=== PATIENT | female | born 1990 | race Caucasian/White ===

== ENCOUNTER 2016-11-08 17:36 | Inpatient (IN) | payer OTHER, SELFPAY ==
[2016-11-08] MEDS ORDERED: Sodium Chloride 0.9% 1000 ML 1,000 ML IV STA (18:43)
[2016-11-08] MEDS ORDERED: Sodium Chloride 0.9% 1000 ML 1,000 ML ONE ×2 (18:51→20:49)
[2016-11-08 19:00] LABS: Mean Cell Volume 93.2 fl (78-100); Mean Corpuscular Hemoglobin 30.6 pg (26-32); Mean Platelet Volume 12.1 fl (6-9.5); Platelet Count 369 K/mm3 (150-450); Red Blood Count 4.71 M/mm3 (4.1-5.4); Red Cell Distribution Width 13.2 % (11.5-14.0); White Blood Count 21.3 K/mm3 (4.0-10.5)
[2016-11-08 19:07] LABS: INR 1.02 (0.8-3.0); PROTIME 11.4 SECONDS (9.95-12.35)
--- NOTE | 2016-11-08 19:10 | ERPHSYRPT ---
- History of Present Illness Time Seen by Provider: 11/08/16 18:00 Historian: patient Exam Limitations: clinical condition Patient Subjective Stated Complaint: "i had a bladder test on saturday. i had an allergic reaction to whatever they used to clean me for the cath. i went to my dr on sat and they gave me a steriod shot for the swelling. i have been bleeding a little on my period. i had a pad on and thought my daughter had wet on me. i had bleed through heavily. When i stood up, i gushed bright red blood from my rectum. i called my dr and they told me to come in." Triage Nursing Assessment: aox3, breathing easy unlabored,skin pink warm dry, steady gait Physician History: PATIENT STATES SHE WAS EVALUATED BY UROLOGIST YESTERDAY, ADMINISTERED BETADINE PREP AND SUSTAINED INFLAMMED RECTAL HEMORROIDS. HAD ONSET OF RECTAL BLEEDING, ASSOCIATED WITH SEVERE PAIN. ADMITS TO TAKING MOTRIN EVERY 6 HOURS FOR PAIN. DENIES FEVER, DIZZINESS OR WEAKNESS. ADMITS TO HAVING RECTAL IN SITTING POSITION FOR PAST WEEK. Timing/Duration: day(s) Activities at Onset: none Quality: throbbing Abdominal Pain Onset Location: other (RECTAL) Pain Radiation: no radiation Severity of Pain-Max: moderate Severity of Pain-Current: moderate Modifying Factors: Improves With: movement, other (HEMMORROID RECTAL BLEEDING ) Previous symptoms: same symptoms as today Allergies/Adverse Reactions: iodine Allergy (Severe, Verified 11/08/16 21:08) Home Medications: Medroxyprogesterone 2.5 mg [Provera 2.5 MG] 1 tablet PO DAILY 09/19/15 [ History] Hx Tetanus, Diphtheria Vaccination/Date Given: Yes Hx Influenza Vaccination/Date Given: No Hx Pneumococcal Vaccination/Date Given: No - Past Medical History Pertinent Past Medical History: Yes Neurological History: No Pertinent History ENT History: No Pertinent History Cardiac History: No Pertinent History Respiratory History: Asthma Endocrine Medical History: No Pertinent History Musculoskeletal History: No Pertinent History GI Medical History: No Pertinent History, Other History: No Pertinent History Psycho-Social History: No Pertinent History Female Reproductive Disorders: No Pertinent History Other Medical History: polycystic ovarian syndrome - Past Surgical History Past Surgical History: Yes Neuro Surgical History: No Pertinent History Cardiac: No Pertinent History Respiratory: No Pertinent History Gastrointestinal: No Pertinent History Genitourinary: No Pertinent History Musculoskeletal: No Pertinent History Female Surgical History: No Pertinent History Other Surgical History: GALLBLADDER TONSILS - Social History Smoking Status: Current every day smoker How long have you smoked: 9 YEARS Exposure to second hand smoke: Yes Drug Use: none Patient Lives Alone: No - Female History Hx Last Menstrual Period: 11/08/16 - Nursing Vital Signs Nursing Vital Signs: Initial Vital Signs Temperature 98.7 F Temperature Source Oral Pulse Rate 105 Respiratory Rate 19 Blood Pressure [] 130/87 Pain Intensity 0 - Physical Exam General Appearance: no apparent distress, alert Eye Exam: PERRL/EOMI, eyes nml inspection Ears, Nose, Throat Exam: normal ENT inspection, pharynx normal, moist mucous membranes Neck Exam: normal inspection, non-tender, supple, full range of motion Respiratory Exam: normal breath sounds, lungs clear, No respiratory distress Cardiovascular Exam: regular rate/rhythm, normal heart sounds Gastrointestinal/Abdomen Exam: soft, normal bowel sounds (NONTENDER), No tenderness, No mass Rectal Exam: hemorrhoids (LARGE 6MM X 2CM RECTAL HEMORRHOID SUPERIOR ASPECT OF RECTUM 12 OCLOCK, THERE IS A PERIRECTAL FIRMNESS AND TENDERNESS WITH SEROSANGUINSOUS DRAINAGE FROM HEMORROID) Back Exam: normal inspection, normal range of motion, No CVA tenderness, No vertebral tenderness Extremity Exam: normal inspection, normal range of motion, pelvis stable Neurologic Exam: alert, oriented x 3, cooperative, normal mood/affect, nml cerebellar function, sensation nml, No motor deficits Skin Exam: normal color, warm, dry SpO2 Interpretation: normal SpO2: 97 Oxygen Delivery: Room Air - CT Exams Abdomen/Pelvis CT Interpretation: Negative, Discussed w/radiologist Ordered Tests: Active Orders 24 hr Category Date Time Status IV Insertion STAT Care 11/08/16 18:43 Active ABDOMEN AND PELVIS W CONTRAST [CT] Stat Exams 11/08/16 19:21 Taken BLOOD CULTURE Stat Lab 11/08/16 19:30 Received BMP Stat Lab 11/08/16 18:50 Completed CBC W DIFF Stat Lab 11/08/16 18:50 Completed CULTURE,ABSCESS Stat Lab 11/08/16 19:20 Received HCG,QUALITATIVE URINE Stat Lab 11/08/16 19:50 Completed Manual Differential NC Stat Lab 11/08/16 18:50 Completed PROTIME WITH INR Stat Lab 11/08/16 18:50 Completed Transfer Order Routine Transfer 11/08/16 22:03 Ordered Medication Summary Generic Name Dose Route Start Last Admin Trade Name José Antonio PRN Reason Stop Dose Admin Sodium Chloride 1,000 mls @ 200 mls/hr 11/08/16 21:00 11/08/16 20:51 Sodium Chloride 0.9% 1000 Ml IV 12/08/16 20:59 200 mls/hr .Q5H BRENDA Administration Discontinued Medications Generic Name Dose Route Start Last Admin Trade Name José Antonio PRN Reason Stop Dose Admin Diphenhydramine HCl 75 mg 11/08/16 20:35 11/08/16 20:37 Benadryl 50 Mg/Ml IV 11/08/16 20:36 75 mg STAT STA Administration Diphenhydramine HCl Confirm 11/08/16 20:36 Benadryl 50 Mg/Ml Administered 11/08/16 20:37 Dose 100 mg .ROUTE .STK-MED ONE Epinephrine HCl 0.3 mg 11/08/16 20:39 11/08/16 20:44 Epinephrine 1:1000 1 Ml Amp IM 11/08/16 20:40 0.3 mg STAT ONE Administration Epinephrine HCl Confirm 11/08/16 20:41 Epinephrine 1:1000 1 Ml Amp Administered 11/08/16 20:42 Dose 1 mg .ROUTE .STK-MED ONE Famotidine 20 mg 11/08/16 20:35 11/08/16 20:38 Pepcid 20 Mg Vial IV 11/08/16 20:36 20 mg STAT ONE Administration Famotidine Confirm 11/08/16 20:36 Pepcid 20 Mg Vial Administered 11/08/16 20:37 Dose 40 mg IV .STK-MED ONE Hydromorphone HCl 1 mg 11/08/16 19:20 11/08/16 19:30 Dilaudid 1 Mg/Ml Injection IV 11/08/16 19:21 1 mg STAT ONE Administration Hydromorphone HCl Confirm 11/08/16 19:25 Dilaudid 1 Mg/Ml Injection Administered 11/08/16 19:26 Dose 1 mg .ROUTE .STK-MED ONE Sodium Chloride 1,000 mls @ 999 mls/hr 11/08/16 18:43 11/08/16 18:52 Sodium Chloride 0.9% 1000 Ml IV 11/08/16 19:43 999 mls/hr .Q1H1M STA Administration Sodium Chloride Confirm 11/08/16 18:51 Sodium Chloride 0.9% 1000 Ml Administered 11/08/16 18:52 Dose 1,000 mls @ ud .ROUTE .STK-MED ONE Vancomycin HCl 250 mls @ 167 mls/hr 11/08/16 19:19 11/08/16 19:31 Vancomycin 1gm/ Ns 250ml IV 11/08/16 20:48 167 mls/hr STAT ONE Administration Vancomycin HCl Confirm 11/08/16 19:25 Vancomycin 1gm/ Ns 250ml Administered 11/08/16 19:26 Dose 250 mls @ ud IV .STK-MED ONE Sodium Chloride Confirm 11/08/16 20:49 Sodium Chloride 0.9% 1000 Ml Administered 11/08/16 20:50 Dose 1,000 mls @ ud .ROUTE .STK-MED ONE Methylprednisolone Sodium Succinate 125 mg 11/08/16 20:35 11/08/16 20:38 Solu-Medrol 125 Mg IV 11/08/16 20:36 125 mg STAT ONE Administration Methylprednisolone Sodium Succinate Confirm 11/08/16 20:36 Solu-Medrol 125 Mg Administered 11/08/16 20:37 Dose 125 mg .ROUTE .STK-MED ONE Ondansetron HCl 4 mg 11/08/16 19:20 11/08/16 19:29 Zofran 4 Mg/2 Ml Vial IV 11/08/16 19:21 4 mg STAT ONE Administration Ondansetron HCl Confirm 11/08/16 19:25 Zofran 4 Mg/2 Ml Vial Administered 11/08/16 19:26 Dose 4 mg .ROUTE .STK-MED ONE Lab/Rad Data: Laboratory Result Diagrams 11/08/16 18:50 11/08/16 18:50 Laboratory Results 11/08/16 11/08/16 11/08/16 Range/Units 19:50 18:50 18:50 WBC (4.0-10.5) K/mm3 RBC (4.1-5.4) M/mm3 Hgb (12.0-16.0) gm/dl Hct (35-47) % MCV (78-100) fl MCH (26-32) pg MCHC (32-36) g/dl RDW (11.5-14.0) % Plt Count (150-450) K/mm3 MPV (6-9.5) fl Segmented Neutrophils (36.0-66.0) % Band Neutrophils (0.0-2.0) % Lymphocytes (Manual) (24-44) % Monocytes (Manual) (0.0-12.0) % Differential Comment Platelet Estimate (NORMAL) Anisocytosis INR 1.02 (0.8-3.0) Sodium 146 H (136-145) mEq/L Potassium 3.4 L (3.5-5.1) mEq/L Chloride 107 (98-107) mEq/L Carbon Dioxide 27.4 (21-32) mEq/L Anion Gap 14.9 (5-15) MEQ/L BUN 13 (9-20) mg/dL Creatinine 0.97 (0.55-1.30) mg/dl Estimated GFR > 60 ML/MIN Glucose 113 H (70-110) MG/DL Calcium 8.8 (8.5-10.1) mg/dL Urine HCG, Qual NEGATIVE (Negative) 11/08/16 Range/Units 18:50 WBC 21.3 H (4.0-10.5) K/mm3 RBC 4.71 (4.1-5.4) M/mm3 Hgb 14.4 (12.0-16.0) gm/dl Hct 43.9 (35-47) % MCV 93.2 (78-100) fl MCH 30.6 (26-32) pg MCHC 32.8 (32-36) g/dl RDW 13.2 (11.5-14.0) % Plt Count 369 (150-450) K/mm3 MPV 12.1 H (6-9.5) fl Segmented Neutrophils 69 H (36.0-66.0) % Band Neutrophils 2 (0.0-2.0) % Lymphocytes (Manual) 24 (24-44) % Monocytes (Manual) 5 (0.0-12.0) % Differential Comment ABNORMAL Platelet Estimate NORMAL (NORMAL) Anisocytosis 1+ INR (0.8-3.0) Sodium (136-145) mEq/L Potassium (3.5-5.1) mEq/L Chloride (98-107) mEq/L Carbon Dioxide (21-32) mEq/L Anion Gap (5-15) MEQ/L BUN (9-20) mg/dL Creatinine (0.55-1.30) mg/dl Estimated GFR ML/MIN Glucose (70-110) MG/DL Calcium (8.5-10.1) mg/dL Urine HCG, Qual (Negative) - Progress Progress: pain not gone completely Progress Note: 11/08/16 19:54 WOUND AND BLOOD CULTURES OBTAINED, IV BOLUS NORMAL SALINE OVER 1 HOUR, VANCOMYCIN 1GM IVPB 11/08/16 20:36 PATIENT DEVELOPED HIVES AFTER IV CONTRAST FOR CT SCAN Discussed with .: Shiela (AT 2130 FOR ADMISSION) Will see patient in: hospital (full admit) - Departure Time of Disposition: 22:10 Departure Disposition: In-patient Admission Clinical Impression: PERIRECTAL ABSCESS Condition: Stable Critical Care Time: No Referrals: KRISTYN RIVERA [Primary Care Provider] -
[2016-11-08 19:14] LABS: ANION GAP 14.9 MEQ/L (5-15); BLOOD UREA NITROGEN 13 mg/dL (9-20); CHLORIDE 107 mEq/L (98-107); Carbon Dioxide 27.4 mEq/L (21-32); Glucose 113 MG/DL (70-110); Potassium 3.4 mEq/L (3.5-5.1); SODIUM 146 mEq/L (136-145)
[2016-11-08] MEDS ORDERED: Vancomycin 1GM/ Ns 250ML*** 250 ML IV ONE ×2 (19:19→19:25)
[2016-11-08] MEDS ORDERED: Hydromorphone 1 mg/ml Ampule IV ONE (19:20)
[2016-11-08] MEDS ORDERED: Zofran 4 MG/2 ML VIAL IV ONE (19:20)
[2016-11-08] MEDS ORDERED: Hydromorphone 1 mg/ml Ampule ONE (19:25)
[2016-11-08] MEDS ORDERED: Zofran 4 MG/2 ML VIAL ONE (19:25)
[2016-11-08 19:49] LABS: BAND 2 % (0.0-2.0); Total Cells Counted 100
[2016-11-08 19:53] LABS: Platelet Estimate NORMAL (NORMAL)
[2016-11-08 19:54] LABS: ANISOCYTOSIS 1+
[2016-11-08] MEDS ORDERED: BENADRYL 50 MG/ML IV STA (20:35)
[2016-11-08] MEDS ORDERED: Pepcid 20 MG VIAL IV ONE ×2 (20:35→20:36)
[2016-11-08] MEDS ORDERED: solu-MEDROL 125 MG IV ONE (20:35)
[2016-11-08] MEDS ORDERED: BENADRYL 50 MG/ML ONE (20:36)
[2016-11-08] MEDS ORDERED: solu-MEDROL 125 MG ONE (20:36)
[2016-11-08] MEDS ORDERED: EPINEPHRINE 1:1000 1 ML AMP IM ONE (20:39)
[2016-11-08] MEDS ORDERED: EPINEPHRINE 1:1000 1 ML AMP ONE (20:41)
[2016-11-08] MEDS ORDERED: Sodium Chloride 0.9% 1000 ML 1,000 ML IV SCH (21:00)
[2016-11-08] MEDS ORDERED: TYLENOL 325 MG PO PRN (22:49)
[2016-11-08] MEDS ORDERED: MORPHINE SULFATE 4 MG INJ IV PRN (22:49)
[2016-11-09] MEDS: Zosyn 3.375GM/100 Ml D5W 100 ML IV SCH ×4 (00:34→17:34)
[2016-11-09] MEDS: Zofran 4 MG/2 ML VIAL IV PRN ×2 (05:44→17:21)
[2016-11-09] MEDS ORDERED: BENADRYL 50 MG/ML IV ONE (06:12)
[2016-11-09] MEDS ORDERED: PHARMACY DOSING REQUIRED: VANCOMYCIN IV ONE (06:53)
--- NOTE | 2016-11-09 07:48 | PCM.HP ---
History of Present Illness - Chief Complaint Chief Complaint: Perirectal Abscess History of Present Illness: is a 26 year old female who c/o having rectal pain for the past 3 d. She had gone to urology and a large amount of betadine had been poured over her perineal area. After that she felt quite swollen and painful around the rectum. She saw Johnnie Harmon NP and was dx with irritation/allergic reaction and treated with steroid IM. Pt felt better x 1d then started having swelling and pain again rectally with a large amount of rectal bleeding. Pt came to ER and was found to have roz-rectal abscess with WBC count of 21. She was put on IV vancomycin and levaquin with surgery consult. - Review of Systems Abdominal/Gastrointestinal: Other (rectal bleeding) Genitourinary Symptoms: Vaginal Discharge, Vaginal Itching Skin: Pruritis, Rash (rash/reaction to IV dye and morphine during this stay) All Other Systems: Reviewed and Negative Medications & Allergies Home Medications: Home Medication List Medroxyprogesterone 2.5 mg [Provera 2.5 MG] 1 tablet PO DAILY 09/19/15 [ History Confirmed 11/08/16] Allergies/Adverse Reactions: Allergies Allergy/AdvReac Type Severity Reaction Status Date / Time iodine Allergy Severe Verified 11/08/16 21:08 - Past Medical History Past Medical History: Yes Neurological History: No Pertinent History ENT History: No Pertinent History Cardiac History: No Pertinent History Respiratory History: Asthma Endocrine Medical History: No Pertinent History Musculoskelatal History: No Pertinent History GI Medical History: No Pertinent History, Other History: No Pertinent History Pyscho-Social History: No Pertinent History Reproductive Disorders: No Pertinent History Comment: polycystic ovarian syndrome - Female History Hx Last Menstrual Period: 11/08/16 Are you now?: No - Past Surgical History Past Surgical History: Yes Neuro Surgical History: No Pertinent History Cardiac History: No Pertinent History Respiratory Surgery: No Pertinent History GI Surgical History: No Pertinent History Genitourinary Surgical Hx: No Pertinent History Musculskeletal Surgical Hx: No Pertinent History Female Surgical History: No Pertinent History Other Surgical History: GALLBLADDER TONSILS - Social History Smoking Status: Current every day smoker How long have you smoked: 9 YEARS Exposure to second hand smoke: Yes Alcohol: None Drug Use: none - Physical Exam Vital Signs: Vital Signs - 24 hr Temp Pulse Resp BP Pulse Ox 11/09/16 07:34 98.3 F 65 20 111/62 97 11/09/16 04:00 98.5 F 66 18 111/62 98 11/08/16 23:09 84 16 97 11/08/16 23:00 98.5 F 89 18 135/85 96 11/08/16 22:09 97 11/08/16 20:54 98.7 F 105 H 19 130/87 98 11/08/16 20:00 84 14 126/78 97 11/08/16 18:59 90 12 130/68 98 11/08/16 18:19 97 H 16 97 11/08/16 17:50 98.5 F 107 H 16 144/86 97 General Appearance: no apparent distress, obese Neurologic Exam: alert, oriented x 3, cooperative Eye Exam: eyes nml inspection Neck Exam: normal inspection, non-tender, No lymphadenopathy Respiratory Exam: normal breath sounds, lungs clear, No crackles/rales, No rhonchi, No wheezing Cardiovascular Exam: regular rate/rhythm, normal heart sounds Gastrointestinal/Abdomen Exam: soft, normal bowel sounds, No tenderness, No distention, No guarding, No rebound Rectal Exam: other (hemorrhoid present 6 oclock; to L of that there is indurated tender area approx 2 cm) Results - Labs Lab/Micro Results: Lab Results-Last 24 Hours 11/09/16 Range/Units 06:12 Troponin I 0.017 (0.000-0.056) ng/ml Assessment/Plan (1) Perirectal abscess Current Visit: Yes Status: Acute Assessment & Plan: Surgery consulted, thank you! On IV vancomycin and levaquin. Code(s): K61.1 - RECTAL ABSCESS
[2016-11-09] MEDS: SODIUM CHLORIDE 0.9% IV SCH ×2 (07:53→20:19)
[2016-11-09] MEDS: VANCOCIN IV SCH ×2 (07:53→20:19)
--- NOTE | 2016-11-09 08:46 | XRAY ---
Indication: Perirectal abscess. Multiple contiguous axial images obtained through the abdomen and pelvis using 80 cc Isovue 370 contrast only. Comparison: December 21, 2015 Lung bases are clear. Heart is not enlarged. Noncontrasted stomach and bowel loops appear nonobstructed. Mild scattered colonic fecal debris throughout. Normal appendix. No free fluid/air. Rectum and perineum unremarkable. Stable cholecystectomy clips and tiny fatty left inguinal hernia. Remaining liver, pancreas, spleen, adrenal glands, kidneys, ureters, bladder, uterus, and aorta appear normal in CT appearance and attenuation. No pathologic retroperitoneal lymphadenopathy. Osseous structures intact. Impression: 1. Mild fecal stasis without obstruction. 2. Stable tiny fatty left inguinal hernia. 3. No acute intra-abdominal/pelvic abnormalities. CT DI 23.69
[2016-11-09] MEDS: MEDICATION INTERVENTION MC SCH (09:50)
[2016-11-09] MEDS ORDERED: Provera 2.5 MG PO SCH (10:00)
[2016-11-09] MEDS ORDERED: Pepcid 20 MG VIAL IV SCH (14:00)
[2016-11-09] MEDS: Lactated Ringers 1,000 ML IV SCH (17:21)
[2016-11-09] MEDS: DILAUDID 2 MG INJECTION IV PRN (17:21)
[2016-11-09] MEDS ORDERED: Lactated Ringers 1,000 ML IV ONE (19:12)
[2016-11-10] MEDS: Zosyn 3.375GM/100 Ml D5W 100 ML IV SCH ×4 (01:32→20:03)
[2016-11-10] MEDS: Sodium Chloride 0.9% 1000 ML 1,000 ML IV SCH (02:10)
[2016-11-10] MEDS: DILAUDID 2 MG INJECTION IV PRN ×3 (03:46→21:06)
[2016-11-10] MEDS: Zofran 4 MG/2 ML VIAL IV PRN ×3 (03:48→21:07)
[2016-11-10 05:57] LABS: BASOPHIL % 0.1 % (0.0-0.4); Eosinophil % 0.7 % (0.00-5.0); Granulocytes % 56.3 % (36.0-66.0); Lymphocytes % 34.2 % (24.0-44.0); Mean Corpuscular Hemoglobin 29.5 pg (26-32); Mean Platelet Volume 11.6 fl (6-9.5); Monocytes % 8.7 % (0.0-12.0); Platelet Count 295 K/mm3 (150-450); Red Blood Count 4.03 M/mm3 (4.1-5.4); White Blood Count 12.8 K/mm3 (4.0-10.5)
[2016-11-10] MEDS: SODIUM CHLORIDE 0.9% IV SCH ×2 (07:50→21:05)
[2016-11-10] MEDS: VANCOCIN IV SCH ×2 (07:50→21:05)
[2016-11-10] MEDS ORDERED: Ambien 10 MG PO PRN (09:37)
[2016-11-10] MEDS ORDERED: Phenergan 25 MG INJ IV PRN (09:38)
[2016-11-10] MEDS ORDERED: DILAUDID 2 MG INJECTION IV PRN (09:39)
[2016-11-10] MEDS ORDERED: DUONEB 0.5-3 MG/3 ml Neb IH PRN (09:52)
--- NOTE | 2016-11-10 09:55 | PCM.DS ---
Discharge Summary Date of Admission: 11/08/16 22:29 Admitting Physician: KRISTYN RIVERA Consults: Consults on Case 11/09/16 11:30 Consult Surgery ROUTINE Primary Care Provider: KRISTYN RIVERA Allergies Allergies iodine Allergy (Severe, Verified 11/08/16 21:08) morphine Allergy (Verified 11/09/16 12:07) povidone-iodine [From Betadine] Allergy (Verified 11/09/16 12:07) soap [From Betadine] Allergy (Verified 11/09/16 12:07) Hospital Summary - Hospital Course Hospital Course: Pt's abscess drained last night and she feels that it is very decreased. Had a BM last night without difficulty. Hungry. - Vitals & Intake/Output Vital Signs: Vital Signs Temperature 98.6 F 11/10/16 07:01 Pulse Rate 68 11/10/16 07:01 Respiratory Rate 18 11/10/16 07:01 Blood Pressure 131/83 11/10/16 07:01 O2 Sat by Pulse Oximetry 97 11/10/16 07:01 Intake & Output: Intake & Output 11/07/16 11/08/16 11/09/16 11/10/16 11:59 11:59 11:59 11:59 Intake Total 987 1498 Balance 987 1498 Weight 100.561 kg 100.561 kg - Lab Result Diagrams: 11/10/16 05:30 11/08/16 18:50 Lab Results-Last 24 Hrs: Lab Results-Last 24 Hours 11/10/16 Range/Units 05:30 WBC 12.8 H (4.0-10.5) K/mm3 RBC 4.03 L (4.1-5.4) M/mm3 Hgb 11.9 L (12.0-16.0) gm/dl Hct 38.3 (35-47) % MCV 95.0 (78-100) fl MCH 29.5 (26-32) pg MCHC 31.1 L (32-36) g/dl RDW 13.0 (11.5-14.0) % Plt Count 295 (150-450) K/mm3 MPV 11.6 H (6-9.5) fl Gran % 56.3 (36.0-66.0) % Lymphocytes % 34.2 (24.0-44.0) % Monocytes % 8.7 (0.0-12.0) % Eosinophils % 0.7 (0.00-5.0) % Basophils % 0.1 (0.0-0.4) % Basophils # 0.01 (0-0.4) - Procedures and Test Procedures and Tests throughout Hospitalization: Therapy Orders & Screens 11/08/16 23:15 OT Screen per Nursing Assess Comment: Protocol Order Physician Instructions: Greater than 3 points order OT Admission Screening Reason For Exam: Triggered on Admission Diagnosis: Perirectal Abscess Open Wound/Cellutlitis/Pressure Ulcers: Yes Acute Fx/ORIF/Change in wt bearing status: No Severe MUSCULOSKELETAL pain: No ADL Dysfunction: No Acute CVA w/Hemiparesis/Hemiplegia: No Decreased Functional Mobility/Strength: No Sprain/Strain: No Acute Post-op Mobility Dysfunction: No Total Points: 5 PT Screen per Nursing Assess ONCE Comment: Protocol Order Physician Instructions: Greater than 3 points order PT Admission Screenin Reason For Exam: Triggered on Admission Diagnosis: Perirectal Abscess Open Wound/Cellutlitis/Pressure Ulcers: Yes Acute Fx/ORIF/Change in wt bearing status: No Severe MUSCULOSKELETAL pain: No ADL Dysfunction: No Acute CVA w/Hemiparesis/Hemiplegia: No Decreased Functional Mobility/Strength: No Sprain/Strain: No Acute Post-op Mobility Dysfunction: No Total Points: 5 RT Screen per Nursing Assess ONCE Comment: Protocol Order Physician Instructions: Greater than 3 points order RT Admission Screen Reason For Exam: Triggered on Admission Diagnosis: Perirectal Abscess Diagnosis: Perirectal Abscess Pneumonia: No Home O2: No Asthma: Yes CHF: No Home CPAP/BIPAP: No Home Nebs/MDI: Yes Total Points: 9 Smoking Cessation Education ONCE Comment: Diagnosis: Perirectal Abscess Smoking Status: Current every day smoker How long have you smoked: 9 YEARS Have you smoked in the past 12 months: Yes Approximately how many cigarettes per day: 1 pack a day Do you dip or chew tobacco: No If,Former Smoker,when did you quit: 11/09/16 06:05 EKG ROUTINE Comment: Diagnosis: Perirectal Abscess Discharge Exam General Appearance: no apparent distress, obese Neurologic Exam: alert, oriented x 3, cooperative Skin Exam: normal color, warm, dry Respiratory Exam: wheezing (faint exp bilat), other (good air exhcange), No crackles/rales, No rhonchi Cardiovascular Exam: regular rate/rhythm, normal heart sounds Gastrointestinal/Abdomen Exam: soft, normal bowel sounds, No tenderness Extremity Exam: No pedal edema, No swelling Rectal Exam: deferred Final Diagnosis/Problem List - Final Discharge Diagnosis/Problem (1) Perirectal abscess Current Visit: Yes Status: Acute Assessment & Plan: Improved; will await evaluation by surgery, she may not need an I&D at this point, may be OK to d/c home on po clindamycin. - Discharge Disposition: Home, Self-Care Condition: Stable Prescriptions: No Action Medroxyprogesterone 2.5 mg [Provera 2.5 MG] 1 tablet PO DAILY Follow up with: KRISTYN RIVERA [Primary Care Provider] - Forms: Patient Portal Information
[2016-11-10] MEDS: MEDICATION INTERVENTION MC SCH (10:00)
[2016-11-10] MEDS ORDERED: Monistat 7 VG SCH (10:00)
[2016-11-10] MEDS ORDERED: Zofran 4 MG/2 ML VIAL IV ONE (12:24)
[2016-11-10] MEDS ORDERED: SUBLIMAZE 100 MCG/2 ML IV ONE (12:24)
[2016-11-10] MEDS ORDERED: TORAdol 30 mg Injection IV ONE (12:24)
[2016-11-10] MEDS ORDERED: DIPRIVAN 200 MG/20 ML IV ONE (12:24)
[2016-11-10] MEDS ORDERED: Decadron 4 MG INJ IV ONE (12:24)
[2016-11-10] MEDS ORDERED: Ephedrine Sulfate 50 MG/ML IV ONE (12:24)
[2016-11-10] MEDS: Lactated Ringers 1,000 ML IV SCH (17:18)
[2016-11-10] MEDS ORDERED: DILAUDID 2 MG INJECTION ONE (19:05)
[2016-11-11] MEDS: Zosyn 3.375GM/100 Ml D5W 100 ML IV SCH ×4 (00:46→17:04)
[2016-11-11] MEDS: Zofran 4 MG/2 ML VIAL IV PRN ×4 (04:11→21:55)
[2016-11-11] MEDS: DILAUDID 2 MG INJECTION IV PRN ×2 (04:11→21:55)
[2016-11-11] MEDS: Sodium Chloride 0.9% 1000 ML 1,000 ML IV SCH ×3 (04:55→05:14)
[2016-11-11 07:23] LABS: Mean Cell Volume 93.4 fl (78-100); Mean Corpuscular Hemoglobin 29.9 pg (26-32); Platelet Count 335 K/mm3 (150-450); Red Blood Count 4.12 M/mm3 (4.1-5.4); Red Cell Distribution Width 12.6 % (11.5-14.0); White Blood Count 11.7 K/mm3 (4.0-10.5)
[2016-11-11] MEDS ORDERED: TROUGH DRUG LEVELS IJ ONE (07:30)
[2016-11-11 07:48] LABS: ANION GAP 12.5 MEQ/L (5-15); BLOOD UREA NITROGEN 10 mg/dL (9-20); CHLORIDE 104 mEq/L (98-107); Carbon Dioxide 30.6 mEq/L (21-32); Glucose 120 MG/DL (70-110); Potassium 3.9 mEq/L (3.5-5.1); SODIUM 143 mEq/L (136-145)
[2016-11-11] MEDS ORDERED: NORCO 5/325 MG PO PRN (07:49)
[2016-11-11] MEDS: SODIUM CHLORIDE 0.9% IV SCH ×2 (08:02→19:37)
[2016-11-11] MEDS: VANCOCIN IV SCH ×2 (08:02→19:37)
[2016-11-11] MEDS: ENOXAPARIN SODIUM SQ SCH (10:02)
[2016-11-11] MEDS: MEDICATION INTERVENTION MC SCH (10:13)
--- NOTE | 2016-11-11 12:00 | PCM.NOTE ---
Date and Time: 11/11/16 1158 Subjective Assessment: I&D done by surgery - thank you! Apparently there was quite a bit of tunneling present and Dr. Estrella Brennan was concerned for fistula formation secondary to surgery. She is going to be referred to a tertiary care center tomorrow. Today she is not complaining of any pain. Tolerating po very well. Objective Exam General Appearance: no apparent distress, obese Neurologic Exam: alert, oriented x 3, cooperative Skin Exam: normal color, warm, dry Respiratory Exam: normal breath sounds, lungs clear, No crackles/rales, No wheezing Cardiovascular Exam: regular rate/rhythm, normal heart sounds Extremity Exam: No pedal edema, No swelling OBJECTIVE DATA Vital Signs: Vital Signs - 24 hr Temp Pulse Resp BP Pulse Ox 11/11/16 07:25 60 18 96 11/11/16 07:00 98.3 F 62 18 130/88 95 11/11/16 03:58 98.6 F 75 18 97/52 94 L 11/11/16 00:12 98.5 F 62 19 132/84 95 11/10/16 22:30 98.6 F 70 18 125/60 96 11/10/16 21:30 98.6 F 64 18 124/64 95 11/10/16 21:00 98.5 F 66 18 144/65 96 11/10/16 20:30 76 20 145/72 96 11/10/16 20:15 71 18 145/90 95 11/10/16 20:00 97.9 F 70 18 147/90 95 11/10/16 19:45 97.9 F 67 18 145/86 95 11/10/16 16:00 98.6 F 59 L 18 119/67 97 Pain Assessment - Last Documented Pain Intensity 0 Pain Scale Used 0-10 Pain Scale Intake and Output: Intake & Output 11/08/16 11/09/16 11/10/16 11/11/16 11:59 11:59 11:59 11:59 Intake Total 987 1498 2183 Balance 987 1498 2183 Weight 100.561 kg 100.561 kg Lab Results: Lab Results-Last 24 Hours 11/11/16 11/11/16 11/11/16 Range/Units 05:15 05:15 05:15 WBC 11.7 H (4.0-10.5) K/mm3 RBC 4.12 (4.1-5.4) M/mm3 Hgb 12.3 (12.0-16.0) gm/dl Hct 38.5 (35-47) % MCV 93.4 (78-100) fl MCH 29.9 (26-32) pg MCHC 31.9 L (32-36) g/dl RDW 12.6 (11.5-14.0) % Plt Count 335 (150-450) K/mm3 MPV 11.0 H (6-9.5) fl Sodium 143 (136-145) mEq/L Potassium 3.9 (3.5-5.1) mEq/L Chloride 104 (98-107) mEq/L Carbon Dioxide 30.6 (21-32) mEq/L Anion Gap 12.5 (5-15) MEQ/L BUN 10 (9-20) mg/dL Creatinine 0.83 (0.55-1.30) mg/dl Estimated GFR > 60 ML/MIN Glucose 120 H (70-110) MG/DL Calcium 8.4 L (8.5-10.1) mg/dL Vancomycin Trough 9.2 L (10-20) UG/ML Multi-Disciplinary Progress Notes: Multi-Disciplinary Progress Notes 11/11/16 08:49 Pharmacy Note by Michoacnao Saavedra Vancomycin trough a little low at 9.2. Will keep same dose. Cultures pending, also on Zosyn. Initialized on 11/11/16 08:49 - END OF NOTE Assessment/Plan (1) Perirectal abscess Current Visit: Yes Status: Acute Assessment & Plan: Per surgery, needs opinion from another surgeon. Remain on IV antibiotics. Likely transfer/d/c tomorrow. Code(s): K61.1 - RECTAL ABSCESS
[2016-11-12] MEDS: Zosyn 3.375GM/100 Ml D5W 100 ML IV SCH ×3 (00:27→12:20)
[2016-11-12] MEDS: SODIUM CHLORIDE 0.9% IV SCH (07:17)
[2016-11-12] MEDS: VANCOCIN IV SCH (07:17)
--- NOTE | 2016-11-12 08:40 | PCM.DS ---
Discharge Summary Date of Admission: 11/08/16 22:29 Admitting Physician: KRISTYN RIVERA Consults: Consults on Case 11/09/16 11:30 Consult Surgery ROUTINE Primary Care Provider: KRISTYN RIVERA Allergies Allergies iodine Allergy (Severe, Verified 11/08/16 21:08) morphine Allergy (Verified 11/09/16 12:07) povidone-iodine [From Betadine] Allergy (Verified 11/09/16 12:07) soap [From Betadine] Allergy (Verified 11/09/16 12:07) Hospital Summary - Hospital Course Hospital Course: Pt admitted with roz-rectal abscess. She had quite a bit of drainage, was actually feeling much, much better. Surgery found quite a bit of tunneling on I &D so recommended she be discharged on po antibiotics and f/u with colorectal surgeon. Pt is c/o of some "soreness" after bowel movements - not requiring pain meds - otherwise no pain. Tolerating po well. - Vitals & Intake/Output Vital Signs: Vital Signs Temperature 98.3 F 11/12/16 07:22 Pulse Rate 64 11/12/16 07:22 Respiratory Rate 18 11/12/16 07:22 Blood Pressure 128/78 11/12/16 07:22 O2 Sat by Pulse Oximetry 95 11/12/16 07:22 Intake & Output: Intake & Output 11/09/16 11/10/16 11/11/16 11/12/16 11:59 11:59 11:59 11:59 Intake Total 987 1498 2183 880 Balance 987 1498 2183 880 Weight 100.561 kg 100.561 kg - Lab Result Diagrams: 11/11/16 05:15 11/11/16 05:15 Micro Results-Entire Visit: Microbiology 11/10/16 18:27 Gram Stain - Final Perirectal - Procedures and Test Procedures and Tests throughout Hospitalization: Therapy Orders & Screens 11/08/16 23:15 OT Screen per Nursing Assess Comment: Protocol Order Physician Instructions: Greater than 3 points order OT Admission Screening Reason For Exam: Triggered on Admission Diagnosis: Perirectal Abscess Open Wound/Cellutlitis/Pressure Ulcers: Yes Acute Fx/ORIF/Change in wt bearing status: No Severe MUSCULOSKELETAL pain: No ADL Dysfunction: No Acute CVA w/Hemiparesis/Hemiplegia: No Decreased Functional Mobility/Strength: No Sprain/Strain: No Acute Post-op Mobility Dysfunction: No Total Points: 5 PT Screen per Nursing Assess ONCE Comment: Protocol Order Physician Instructions: Greater than 3 points order PT Admission Screenin Reason For Exam: Triggered on Admission Diagnosis: Perirectal Abscess Open Wound/Cellutlitis/Pressure Ulcers: Yes Acute Fx/ORIF/Change in wt bearing status: No Severe MUSCULOSKELETAL pain: No ADL Dysfunction: No Acute CVA w/Hemiparesis/Hemiplegia: No Decreased Functional Mobility/Strength: No Sprain/Strain: No Acute Post-op Mobility Dysfunction: No Total Points: 5 RT Screen per Nursing Assess ONCE Comment: Protocol Order Physician Instructions: Greater than 3 points order RT Admission Screen Reason For Exam: Triggered on Admission Diagnosis: Perirectal Abscess Diagnosis: Perirectal Abscess Pneumonia: No Home O2: No Asthma: Yes CHF: No Home CPAP/BIPAP: No Home Nebs/MDI: Yes Total Points: 9 Smoking Cessation Education ONCE Comment: Diagnosis: Perirectal Abscess Smoking Status: Current every day smoker How long have you smoked: 9 YEARS Have you smoked in the past 12 months: Yes Approximately how many cigarettes per day: 1 pack a day Do you dip or chew tobacco: No If,Former Smoker,when did you quit: 11/09/16 06:05 EKG ROUTINE Comment: Diagnosis: Perirectal Abscess 11/10/16 10:08 Respiratory Nebulizer PRN Comment: Diagnosis: Perirectal Abscess Discharge Exam General Appearance: no apparent distress, obese Neurologic Exam: alert, oriented x 3, cooperative Skin Exam: normal color, warm, dry Respiratory Exam: normal breath sounds, lungs clear, No crackles/rales, No rhonchi, No wheezing Cardiovascular Exam: regular rate/rhythm, normal heart sounds Gastrointestinal/Abdomen Exam: soft, No tenderness Rectal Exam: deferred Final Diagnosis/Problem List - Final Discharge Diagnosis/Problem (1) Perirectal abscess Current Visit: Yes Status: Acute Assessment & Plan: I will speak with DR. Brennan this morning; staff is making appointment with colorectal surgeon. Likely home today on po antibiotics. - Discharge Disposition: Home, Self-Care Condition: Stable Prescriptions: No Action Medroxyprogesterone 2.5 mg [Provera 2.5 MG] 1 tablet PO DAILY Follow up with: KRISTYN RIVERA [Primary Care Provider] - Forms: Patient Portal Information
--- NOTE | 2016-11-12 09:10 | OP ---
SURGERY DATE: 11/10/16 SURGERY TIME: 1814 PREOPERATIVE DIAGNOSIS: 1. PERIRECTAL ABSCESS. POSTOPERATIVE DIAGNOSIS: 1. ANTERIOR FISTULA WITH ABSCESS. PROCEDURE: 1. Rectal exam under anesthesia with exploration of fistula and decompression of abscess. SURGEON: Dr. Lorena Brennan. ANESTHESIA: General LMA. SPECIMENS: 1. Abscess culture. COMPLICATIONS: None. PROCEDURE DETAILS: This is a 26 y/o female who presented to the Emergency Room due to an abscess in the perineal region. She stated that this initially, a few days ago, was much larger and her had a picture of it and it suddenly burst and then when it burst, she felt a lot better. She had a big relief of pain and a significant amount of pus and blood came from the site. She thought it would completely go away. However, it appeared to come back and became slightly larger, but never as large as it was initially and then she presented to the Emergency Room. She did initially have an elevated leukocytosis as well and so she was set up for abscess drainage. All the risks, benefits, and alternatives to the procedure were discussed in detail with the patient preoperatively. We did discuss that she may need further surgery that it could be more complicated than just an abscess such as having a fistula and that we would see during surgery, but if it was a simple abscess, we would just drain it. She understood all of the risks, benefits, and alternatives and then we went to surgery. In surgery, the patient was placed in the lithotomy position. All bony prominences were padded. Anesthesia was induced. She was prepped and draped in the usual sterile fashion. We did use Chloraprep. She is allergic to betadine. After this was done, we did a complete time-out and then we started our exam. The patient has about a golf ball sized area of induration in her perineal area. She is also on her menses. We first did a vaginal exam. This appeared to be uninvolved in the perineal process. I then placed some gentle pressure on the indurated and we had some extravasation of pus from a tiny pinhole which was very close by to her anus. This was anterior to the anus and slightly off to the left. This was excreting pus and a small amount of bloody fluid. We did try to culture this and sent this to pathology. However, much of the abscess had been already evacuated. We allowed as much purulence to be extracted until there was no more. I then did a rectal exam. Initially on rectal exam, there was a small amount of drainage of purulence from this area, but no further significant drainage. The patient had external hemorrhage. She also had some bulky internal hemorrhage as well. In her anal opening, she also appears to have an anterior fissure that appears to possibly have healed and opened and healed and opened many times because this looks scarred here. At this point, I then used an anal S probe to identify the tract of this punctate abscess opening. When I placed my probe, the probe immediately goes lateral to the left and to the right and deep. Likely, this is the abscess pocket. It did not come out laterally to the skin at all. I did see 1 small skin dimple on the right, but this did not connect to the probe. This is completely healed over. We then tracked the probe more posteriorly towards the anus and it easily went right into the anal canal through a small opening. This part of the fistula appears to be much more superficial than the abscess pocket. However, it does appear to involve a small amount of musculature and the area in this anterior region is extremely thin looking like there was possibly even a fissure here at some point which had healed. After identifying this, I then used a needle and syringe to try and drain the deeper indurated area and I could not get any pus out from this. I think this is all truly induration and does not have any drainable fluid. At this point, I think we have completely decompressed the abscess. There is no further pus. The small opening from the abscess does appear to be connecting through a fistulous tract to the anal canal. The abscess pocket itself is quite deep and I do not think that opening this area would be of the patient's benefit. The abscess itself is fully decompressed. Her WBC has significantly improved and at this time, we will plan to continue antibiotics as this has significantly helped the patient and we will plan to refer the patient to colorectal in [place] for a specialist's opinion regarding the fistula as this is a young girl with an anterior fistula that is somewhat complex. I do think that this abscess pocket will likely shrink down and heal with antibiotics and should it worsen, she may need surgery further. However, right now, it is completely decompressed. I discussed these results with the patient as well as her family postoperatively. We will continue her on IV antibiotics during her hospital course and then plan for PO antibiotics and to set her up with [place] for an evaluation. The patient is agreeable to this.
[2016-11-12] MEDS: Zofran 4 MG/2 ML VIAL IV PRN (09:18)
[2016-11-12] MEDS: ENOXAPARIN SODIUM SQ SCH (09:18)
[2016-11-12] MEDS: MEDICATION INTERVENTION MC SCH (09:22)
[2016-11-12] MEDS: DILAUDID 2 MG INJECTION IV PRN (09:43)
[2016-11-12 11:56] VITALS: BP 151/86; PULSE 87; O2SAT 98
== END 2016-11-12 12:25 | disposition home or self-care (01) | DRG 346 ==
LOC: ED 17:36 → MED SURG 22:29
PROVIDERS: ADMIT Family Medicine; ATTEND Family Medicine
PROC: 0D9P0ZZ Drainage of Rectum, Open Approach (ICD-10-PCS; principal; 2016-11-08)
DX: K61.1 Rectal abscess (principal); E28.2 Polycystic ovarian syndrome; J45.909 Unspecified asthma, uncomplicated; Z72.0 Tobacco use
CPT/HCPCS: 00902; 36000; 36415; 74177; 80048; 80202; 84484; 84703; 85025; 85027; 85610; 87040; 87070; 87077; 87493; 93005; 94640; 94760; 96372; 96374; 96375; 99140; 99284; J0171; J1100; J1170; J1200; J1650; J1885; J2270; J2405; J2543; J2704; J2930; J3010; J3370

== ENCOUNTER 2016-11-13 11:59 | Observation (INO) | payer OTHER, SELFPAY ==
[2016-11-13] MEDS ORDERED: Sodium Chloride 0.9% 1000 ML 1,000 ML ONE (12:06)
[2016-11-13] MEDS ORDERED: Lactated Ringers 1,000 ML IV ONE (12:06)
[2016-11-13] MEDS ORDERED: CLINDAMYCIN-D5W 600 MG/50 ML*** 50 ML IV ONE ×2 (12:15→13:23)
[2016-11-13] MEDS ORDERED: Sodium Chloride 0.9% 1000 ML 1,000 ML IV SCH (12:15)
[2016-11-13 12:29] LABS: BASOPHIL % 0.1 % (0.0-0.4); Granulocytes % 69.7 % (36.0-66.0); Lymphocytes % 19.6 % (24.0-44.0); Mean Cell Volume 91.3 fl (78-100); Mean Corpuscular Hemoglobin 29.6 pg (26-32); Mean Platelet Volume 11.2 fl (6-9.5); Monocytes % 9.6 % (0.0-12.0); Platelet Count 340 K/mm3 (150-450); Red Cell Distribution Width 12.5 % (11.5-14.0); White Blood Count 14.6 K/mm3 (4.0-10.5)
[2016-11-13 12:50] LABS: ALBUMIN 2.9 g/dL (3.4-5.0); ALKALINE PHOSPHATASE 75 U/L (46-116); ANION GAP 11.7 MEQ/L (5-15); BILIRUBIN,TOTAL 0.3 mg/dL (0.2-1.0); BLOOD UREA NITROGEN 8 mg/dL (9-20); CHLORIDE 105 mEq/L (98-107); Carbon Dioxide 31.2 mEq/L (21-32); Glucose 90 MG/DL (70-110); Potassium 3.4 mEq/L (3.5-5.1); SGOT/AST 16 U/L (15-37); SGPT/ALT 17 U/L (12-78); SODIUM 145 mEq/L (136-145); Total Protein 6.5 gm/dL (6.4-8.2)
[2016-11-13] MEDS ORDERED: Lactated Ringers 1,000 ML IV SCH (13:00)
[2016-11-13] MEDS ORDERED: Zofran 4 MG/2 ML VIAL ONE (14:12)
[2016-11-13] MEDS ORDERED: Zofran 4 MG/2 ML VIAL IV ONE (14:15)
[2016-11-13] MEDS: Phenergan 25 MG INJ IV PRN ×2 (17:32→23:50)
[2016-11-13 17:45] LABS: Collection Type CLEAN CATCH; Ph 7.5 (5-6)
[2016-11-13 17:46] LABS: COMPLETE URINE MICROSCOPIC? NO
--- NOTE | 2016-11-13 17:46 | PCM.HP ---
History of Present Illness - Chief Complaint Chief Complaint: Vomiting,Dehydration,Perirectal abscess History of Present Illness: is a 26 year old female pt of mine from [facility] who was admitted through the ER with perirectal abscess on 11/08/16 and was given one dose of zosyn followed by vancomycin (through the end of her stay on 11/12/16). Dr. Estrella Brennan saw the patient, took her to the surgery suite for I&D. Pt was found to have extensive tunneling with a tiny fistual, so a small incision was made in the abscess and a small amount of pus was drained. Dr. Brennan recommended that she recover from the acute infection and follow up with colorectal surgery in [place]. Pt was feeling great on 11/11/16 and 11/12/16; yesterday she was sent home on po clindamycin. After a few hours she began feeling very fatigued. This morning she started vomiting and called the office. She was admitted by me to the infusion center initially for IV fluids and one dose of IV clindamycin. She was not feeling any better and was admitted to med surg. Pt has been set up for an appoitnment with Dr. Pérez in [place] ([facility] [place]) on Nov 20. - Review of Systems Constitutional: No Fever Abdominal/Gastrointestinal: Nausea, Vomiting, Diarrhea (x4 since discharge), No Abdominal Pain Genitourinary Symptoms: Other (abscess, perineum) All Other Systems: Reviewed and Negative Medications & Allergies Home Medications: Home Medication List Clindamycin HCl 300 mg PO QID 11/13/16 [History Confirmed 11/13/16] Norethindrone-E.estradiol-Iron [Microgestin Fe 1.5-30 Tab] 1 each PO DAILY 11/13 [History Confirmed 11/13/16] Allergies/Adverse Reactions: Allergies Allergy/AdvReac Type Severity Reaction Status Date / Time iodine Allergy Severe Hives Verified 11/13/16 12:37 morphine Allergy Shortness Verified 11/13/16 12:37 of Breath povidone-iodine Allergy Swelling Verified 11/13/16 12:37 [From Betadine] soap [From Betadine] Allergy Swelling Verified 11/13/16 12:37 - Past Medical History Past Medical History: Yes Neurological History: No Pertinent History ENT History: No Pertinent History Cardiac History: No Pertinent History Respiratory History: Asthma Endocrine Medical History: No Pertinent History Musculoskelatal History: No Pertinent History GI Medical History: No Pertinent History, Other History: No Pertinent History Pyscho-Social History: No Pertinent History Reproductive Disorders: No Pertinent History Comment: polycystic ovarian syndrome - Past Surgical History Past Surgical History: Yes Neuro Surgical History: No Pertinent History Cardiac History: No Pertinent History Respiratory Surgery: No Pertinent History GI Surgical History: Cholecystectomy Genitourinary Surgical Hx: No Pertinent History Musculskeletal Surgical Hx: No Pertinent History Female Surgical History: No Pertinent History Other Surgical History: GALLBLADDER TONSILS - Social History Smoking Status: Current every day smoker How long have you smoked: 9 YEARS Exposure to second hand smoke: Yes Alcohol: None Drug Use: none - Physical Exam Vital Signs: Vital Signs - 24 hr Temp Pulse Resp BP BP Pulse Ox 11/13/16 17:02 98 F 63 18 134/74 97 11/13/16 15:22 98 F 61 18 137/76 97 11/13/16 13:45 98 F 65 18 123/71 96 11/13/16 12:43 97.5 F 64 18 120/70 96 11/13/16 12:15 97.5 F 64 18 120/70 96 General Appearance: no apparent distress Neurologic Exam: alert, oriented x 3, cooperative Eye Exam: eyes nml inspection Ears, Nose, Throat Exam: moist mucous membranes Neck Exam: normal inspection, non-tender, No lymphadenopathy Respiratory Exam: normal breath sounds, lungs clear, No crackles/rales, No rhonchi, No wheezing Cardiovascular Exam: regular rate/rhythm, normal heart sounds Gastrointestinal/Abdomen Exam: soft, tenderness (suprapubic, mild), distention, No mass, No guarding, No rebound Rectal Exam: other (perineum with induration approx 4x2 cm, mildly ttp, no exudate noted.) Extremity Exam: No pedal edema, No swelling Skin Exam: normal color, warm, dry Results - Labs Lab/Micro Results: Lab Results-Last 24 Hours 11/13/16 11/13/16 Range/Units 12:15 12:15 WBC 14.6 H (4.0-10.5) K/mm3 RBC 4.50 (4.1-5.4) M/mm3 Hgb 13.3 (12.0-16.0) gm/dl Hct 41.1 (35-47) % MCV 91.3 (78-100) fl MCH 29.6 (26-32) pg MCHC 32.4 (32-36) g/dl RDW 12.5 (11.5-14.0) % Plt Count 340 (150-450) K/mm3 MPV 11.2 H (6-9.5) fl Gran % 69.7 H (36.0-66.0) % Lymphocytes % 19.6 L (24.0-44.0) % Monocytes % 9.6 (0.0-12.0) % Eosinophils % 1.0 (0.00-5.0) % Basophils % 0.1 (0.0-0.4) % Basophils # 0.01 (0-0.4) Sodium 145 (136-145) mEq/L Potassium 3.4 L (3.5-5.1) mEq/L Chloride 105 (98-107) mEq/L Carbon Dioxide 31.2 (21-32) mEq/L Anion Gap 11.7 (5-15) MEQ/L BUN 8 L (9-20) mg/dL Creatinine 1.10 (0.55-1.30) mg/dl Estimated GFR > 60 ML/MIN Glucose 90 (70-110) MG/DL Calcium 8.5 (8.5-10.1) mg/dL Total Bilirubin 0.3 (0.2-1.0) mg/dL AST 16 (15-37) U/L ALT 17 (12-78) U/L Alkaline Phosphatase 75 (46-116) U/L Serum Total Protein 6.5 (6.4-8.2) gm/dL Albumin 2.9 L (3.4-5.0) g/dL Assessment/Plan (1) Perirectal abscess Current Visit: No Status: Acute Assessment & Plan: Will resume IV vancomycin. Recheck labs in the morning. Dr. Estrella Brennan is available for repeat I&D if necessary. She was quite concerned however that there seemed to be a tiny rectal fistula with quite a bit of tunneling. If necessary discuss with Dr. Pérez, colo-rectal surgeon, regarding whether pt needs transfer for treatment prior to Nov 20 (this is an outpatient appointment). Code(s): K61.1 - RECTAL ABSCESS
[2016-11-13] MEDS ORDERED: CLINDAMYCIN 300 MG/50 ML IV SCH (18:00)
[2016-11-13] MEDS ORDERED: VANCOCIN 1 GM VIAL*** 1.5 GM in Sodium Chloride 0.9% 250 ML 250 ML IV SCH (19:00)
[2016-11-13] MEDS ORDERED: Vancomycin 1GM/ Ns 250ML*** 250 ML IV ONE (19:28)
[2016-11-13] MEDS: Sodium Chloride 0.9% W/ 20 mEq KCl/LITER 1,000 ML IV SCH (19:42)
[2016-11-13] MEDS: Zofran 4 MG/2 ML VIAL IV PRN (22:10)
[2016-11-13] MEDS: TYLENOL 325 MG PO PRN (22:10)
[2016-11-13] MEDS: CLINDAMYCIN 300 MG/50 ML IV SCH (23:47)
[2016-11-14] MEDS: Sodium Chloride 0.9% W/ 20 mEq KCl/LITER 1,000 ML IV SCH ×3 (05:07→19:52)
[2016-11-14] MEDS: CLINDAMYCIN 300 MG/50 ML IV SCH ×4 (05:18→23:36)
[2016-11-14 05:26] LABS: Mean Cell Volume 93.1 fl (78-100); Mean Corpuscular Hemoglobin 29.7 pg (26-32); Mean Platelet Volume 11.2 fl (6-9.5); Platelet Count 266 K/mm3 (150-450); Red Blood Count 4.04 M/mm3 (4.1-5.4); Red Cell Distribution Width 12.7 % (11.5-14.0); White Blood Count 11.3 K/mm3 (4.0-10.5)
[2016-11-14 05:41] LABS: ANION GAP 7.3 MEQ/L (5-15); Carbon Dioxide 32.7 mEq/L (21-32); Potassium 3.4 mEq/L (3.5-5.1)
[2016-11-14 05:49] LABS: ATYPICAL LYMPHS 7 %; Eosinophil 1 % (0.00-3.0); Platelet Estimate NORMAL (NORMAL); Total Cells Counted 100
[2016-11-14] MEDS: VANCOCIN 1 GM VIAL*** 1.5 GM in Sodium Chloride 0.9% 500 ML 500 ML IV SCH ×2 (07:19→19:04)
[2016-11-14] MEDS: Phenergan 25 MG INJ IV PRN ×3 (07:30→20:57)
--- NOTE | 2016-11-14 09:23 | PCM.NOTE ---
Date and Time: 11/14/16917 Subjective Assessment: patient still c/o nausea today, no vomiting overnight. no fever. Objective Exam General Appearance: no apparent distress, alert Skin Exam: normal color, warm, dry Respiratory Exam: normal breath sounds, lungs clear, No respiratory distress Cardiovascular Exam: regular rate/rhythm, normal heart sounds Gastrointestinal/Abdomen Exam: soft, No tenderness, No mass Extremity Exam: normal inspection, normal range of motion Rectal Exam: other (small area open around 10:00, no obvious purulence, no fluctuance or induration externally) OBJECTIVE DATA Vital Signs: Vital Signs - 24 hr Temp Pulse Resp BP BP Pulse Ox 11/14/16 07:09 98 F 76 20 108/64 98 11/14/16 04:00 98.7 F 83 20 109/66 95 11/14/16 00:00 99.1 F 73 18 108/66 96 11/13/16 22:10 99.3 F 11/13/16 20:00 98.8 F 84 17 128/64 93 L 11/13/16 17:19 98 F 63 18 134/74 97 11/13/16 17:02 98 F 63 18 134/74 97 11/13/16 15:22 98 F 61 18 137/76 97 11/13/16 13:45 98 F 65 18 123/71 96 11/13/16 12:43 97.5 F 64 18 120/70 96 11/13/16 12:15 97.5 F 64 18 120/70 96 Pain Assessment - Last Documented Pain Intensity 1 Pain Scale Used FLACC Intake and Output: Intake & Output 11/11/16 11/12/16 11/13/16 11/14/16 11:59 11:59 11:59 11:59 Intake Total 3939 Output Total 1025 Balance 2914 Weight 99.337 kg Lab Results: Lab Results-Last 24 Hours 11/13/16 11/13/16 11/13/16 Range/Units 12:00 12:15 12:15 WBC 14.6 H (4.0-10.5) K/mm3 RBC 4.50 (4.1-5.4) M/mm3 Hgb 13.3 (12.0-16.0) gm/dl Hct 41.1 (35-47) % MCV 91.3 (78-100) fl MCH 29.6 (26-32) pg MCHC 32.4 (32-36) g/dl RDW 12.5 (11.5-14.0) % Plt Count 340 (150-450) K/mm3 MPV 11.2 H (6-9.5) fl Gran % 69.7 H (36.0-66.0) % Lymphocytes % 19.6 L (24.0-44.0) % Monocytes % 9.6 (0.0-12.0) % Eosinophils % 1.0 (0.00-5.0) % Basophils % 0.1 (0.0-0.4) % Segmented Neutrophils (36.0-66.0) % Lymphocytes (Manual) (24-44) % Monocytes (Manual) (0.0-12.0) % Eosinophils (Manual) (0.00-3.0) % Basophils # 0.01 (0-0.4) Differential Comment Atypical Lymphocytes % Platelet Estimate (NORMAL) Sodium 145 (136-145) mEq/L Potassium 3.4 L (3.5-5.1) mEq/L Chloride 105 (98-107) mEq/L Carbon Dioxide 31.2 (21-32) mEq/L Anion Gap 11.7 (5-15) MEQ/L BUN 8 L (9-20) mg/dL Creatinine 1.10 (0.55-1.30) mg/dl Estimated GFR > 60 ML/MIN Glucose 90 (70-110) MG/DL Calcium 8.5 (8.5-10.1) mg/dL Total Bilirubin 0.3 (0.2-1.0) mg/dL AST 16 (15-37) U/L ALT 17 (12-78) U/L Alkaline Phosphatase 75 (46-116) U/L Serum Total Protein 6.5 (6.4-8.2) gm/dL Albumin 2.9 L (3.4-5.0) g/dL Ur Collection Type CLEAN CATCH Urine Color YELLOW (YELLOW) Urine Appearance CLEAR (CLEAR) Urine pH 7.5 (5-6) Ur Specific [place] 1.015 (1.005-1.025) Urine Protein NEGATIVE (Negative) Urine Glucose (UA) NEGATIVE (NEGATIVE) mg/dL Urine Ketones NEGATIVE (NEGATIVE) Urine Nitrite NEGATIVE (NEGATIVE) Urine Bilirubin NEGATIVE (NEGATIVE) Urine Urobilinogen 0.2 (0-1) mg/dL Urine WBC (Auto) NEGATIVE (NEGATIVE) Urine RBC (Auto) NEGATIVE (0-5) Rebel/ul Specimen Received 11/13/16 1200 11/14/16 11/14/16 Range/Units 05:20 05:20 WBC 11.3 H (4.0-10.5) K/mm3 RBC 4.04 L (4.1-5.4) M/mm3 Hgb 12.0 (12.0-16.0) gm/dl Hct 37.6 (35-47) % MCV 93.1 (78-100) fl MCH 29.7 (26-32) pg MCHC 31.9 L (32-36) g/dl RDW 12.7 (11.5-14.0) % Plt Count 266 (150-450) K/mm3 MPV 11.2 H (6-9.5) fl Gran % (36.0-66.0) % Lymphocytes % (24.0-44.0) % Monocytes % (0.0-12.0) % Eosinophils % (0.00-5.0) % Basophils % (0.0-0.4) % Segmented Neutrophils 69 H (36.0-66.0) % Lymphocytes (Manual) 15 L (24-44) % Monocytes (Manual) 8 (0.0-12.0) % Eosinophils (Manual) 1 (0.00-3.0) % Basophils # (0-0.4) Differential Comment NORMAL Atypical Lymphocytes 7 % Platelet Estimate NORMAL (NORMAL) Sodium 146 H (136-145) mEq/L Potassium 3.4 L (3.5-5.1) mEq/L Chloride 109 H (98-107) mEq/L Carbon Dioxide 32.7 H (21-32) mEq/L Anion Gap 7.3 (5-15) MEQ/L BUN 9 (9-20) mg/dL Creatinine 1.17 (0.55-1.30) mg/dl Estimated GFR 59 ML/MIN Glucose 99 (70-110) MG/DL Calcium 7.9 L (8.5-10.1) mg/dL Total Bilirubin (0.2-1.0) mg/dL AST (15-37) U/L ALT (12-78) U/L Alkaline Phosphatase (46-116) U/L Serum Total Protein (6.4-8.2) gm/dL Albumin (3.4-5.0) g/dL Ur Collection Type Urine Color (YELLOW) Urine Appearance (CLEAR) Urine pH (5-6) Ur Specific [place] (1.005-1.025) Urine Protein (Negative) Urine Glucose (UA) (NEGATIVE) mg/dL Urine Ketones (NEGATIVE) Urine Nitrite (NEGATIVE) Urine Bilirubin (NEGATIVE) Urine Urobilinogen (0-1) mg/dL Urine WBC (Auto) (NEGATIVE) Urine RBC (Auto) (0-5) Rebel/ul Specimen Received Multi-Disciplinary Progress Notes: Multi-Disciplinary Progress Notes 11/14/16 08:39 Pharmacy Note by Gurpreet Witt PHARMACY VANCOMYCIN DOSING 26 Y.O.FEMALE WEIGHING 99 KG WITH CREATININE 1.17, ESTIMATED CREATININE CLEARANCE 63 ML/MIN WAS JUST IN THE HOSPITAL ON VANCOMYCIN 1.5G IV Q 12 HRS. WILL GO WITH SAME DOSE AND CHECK TROUGH 11/15/16 Initialized on 11/14/16 08:39 - END OF NOTE Assessment/Plan (1) Perirectal abscess Current Visit: No Status: Acute Assessment & Plan: on exam looks good, no erythema or active drainage appreciable. will continue IV abx. Code(s): K61.1 - RECTAL ABSCESS (2) Nausea and vomiting Current Visit: Yes Status: Acute Assessment & Plan: question whether side-effect of cleocin vs viral gastroenteritis, patient has benign abdominal exam. continue hydration Code(s): R11.2 - NAUSEA WITH VOMITING, UNSPECIFIED (3) Diarrhea Current Visit: Yes Status: Acute Assessment & Plan: check stool for c diff, again question side effect of cleocin vs infectious process. may well be viral gastroenteritis, has sick family members with similar symptoms currently Code(s): R19.7 - DIARRHEA, UNSPECIFIED
[2016-11-14] MEDS ORDERED: NORETHINDRONE E ESTRADIOL IRON PO SCH (10:00)
[2016-11-14] MEDS: PHARMACY DOSING REQUIRED: VANCOMYCIN IV SCH (11:14)
[2016-11-14] MEDS: MEDICATION INTERVENTION MC SCH (11:28)
[2016-11-14] MEDS: TYLENOL 325 MG PO PRN (17:38)
[2016-11-14] MEDS: Zofran 4 MG/2 ML VIAL IV PRN (17:41)
[2016-11-15] MEDS: Zofran 4 MG/2 ML VIAL IV PRN ×3 (02:12→15:40)
[2016-11-15] MEDS: Phenergan 25 MG INJ IV PRN (05:23)
[2016-11-15] MEDS: CLINDAMYCIN 300 MG/50 ML IV SCH (05:23)
[2016-11-15 05:50] LABS: BASOPHIL % 0.1 % (0.0-0.4); Eosinophil % 1.9 % (0.00-5.0); Granulocytes % 72.6 % (36.0-66.0); Lymphocytes % 15.9 % (24.0-44.0); Mean Cell Volume 93.1 fl (78-100); Mean Platelet Volume 11.3 fl (6-9.5); Monocytes % 9.5 % (0.0-12.0); Platelet Count 247 K/mm3 (150-450); Red Blood Count 3.91 M/mm3 (4.1-5.4); Red Cell Distribution Width 12.7 % (11.5-14.0); White Blood Count 14.2 K/mm3 (4.0-10.5)
[2016-11-15 05:51] LABS: Mean Corpuscular Hemoglobin 29.6 pg (26-32)
[2016-11-15 06:34] LABS: ALBUMIN 2.5 g/dL (3.4-5.0); ALKALINE PHOSPHATASE 64 U/L (46-116); BILIRUBIN,TOTAL 0.2 mg/dL (0.2-1.0); BLOOD UREA NITROGEN 8 mg/dL (9-20); CHLORIDE 109 mEq/L (98-107); Glucose 102 MG/DL (70-110); Potassium 3.8 mEq/L (3.5-5.1); SGOT/AST 8 U/L (15-37); SGPT/ALT 12 U/L (12-78); SODIUM 146 mEq/L (136-145); Total Protein 5.8 gm/dL (6.4-8.2)
[2016-11-15] MEDS: Sodium Chloride 0.9% W/ 20 mEq KCl/LITER 1,000 ML IV SCH (06:35)
[2016-11-15] MEDS: VANCOCIN 1 GM VIAL*** 1.5 GM in Sodium Chloride 0.9% 500 ML 500 ML IV SCH (06:36)
--- NOTE | 2016-11-15 08:24 | PCM.NOTE ---
Date and Time: 11/15/16817 Subjective Assessment: Pt still feeling nauseated, c/o feeling sore all over, c/o some epigastric soreness. No more diarrhea. OBJECTIVE DATA Vital Signs: Vital Signs - 24 hr Temp Pulse Resp BP Pulse Ox 11/15/16 07:34 98.5 F 81 18 125/70 95 11/15/16 04:00 98.9 F 73 16 125/70 96 11/14/16 23:47 98.4 F 83 17 134/80 96 11/14/16 19:44 98.6 F 79 17 132/82 96 11/14/16 16:00 98.6 F 76 20 141/89 98 11/14/16 12:00 98.6 F 76 20 133/83 96 Pain Assessment - Last Documented Pain Intensity 1 [facility] Intake and Output: Intake & Output 11/12/16 11/13/16 11/14/16 11/15/16 11:59 11:59 11:59 11:59 Intake Total 3939 4390 Output Total 102 1325 Balance 2914 3065 Weight 99.337 kg Lab Results: Lab Results-Last 24 Hours 11/14/16 11/15/16 11/15/16 Range/Units 09:30 05:50 05:50 WBC 14.2 H (4.0-10.5) K/mm3 RBC 3.91 L (4.1-5.4) M/mm3 Hgb 11.6 L (12.0-16.0) gm/dl Hct 36.4 (35-47) % MCV 93.1 (78-100) fl MCH 29.6 (26-32) pg MCHC 31.9 L (32-36) g/dl RDW 12.7 (11.5-14.0) % Plt Count 247 (150-450) K/mm3 MPV 11.3 H (6-9.5) fl Gran % 72.6 H (36.0-66.0) % Lymphocytes % 15.9 L (24.0-44.0) % Monocytes % 9.5 (0.0-12.0) % Eosinophils % 1.9 (0.00-5.0) % Basophils % 0.1 (0.0-0.4) % Basophils # 0.02 (0-0.4) Sodium 146 H (136-145) mEq/L Potassium 3.8 (3.5-5.1) mEq/L Chloride 109 H (98-107) mEq/L Carbon Dioxide 28.0 (21-32) mEq/L Anion Gap 13.0 (5-15) MEQ/L BUN 8 L (9-20) mg/dL Creatinine 1.14 (0.55-1.30) mg/dl Estimated GFR > 60 ML/MIN Glucose 102 (70-110) MG/DL Calcium 8.2 L (8.5-10.1) mg/dL Total Bilirubin 0.2 (0.2-1.0) mg/dL AST 8 L (15-37) U/L ALT 12 (12-78) U/L Alkaline Phosphatase 64 (46-116) U/L Serum Total Protein 5.8 L (6.4-8.2) gm/dL Albumin 2.5 L (3.4-5.0) g/dL Stl C. diff Tox B Gene NEGATIVE (NEGATIVE) Vancomycin Trough Pending C.difficile [id number] PRESUMPTIVE NEGATIVE (NEGATIVE) Multi-Disciplinary Progress Notes: Multi-Disciplinary Progress Notes 11/14/16 08:39 Pharmacy Note by Gurpreet Witt PHARMACY VANCOMYCIN DOSING 26 Y.O.FEMALE WEIGHING 99 KG WITH CREATININE 1.17, ESTIMATED CREATININE CLEARANCE 63 ML/MIN WAS JUST IN THE HOSPITAL ON VANCOMYCIN 1.5G IV Q 12 HRS. WILL GO WITH SAME DOSE AND CHECK TROUGH 11/15/16 Initialized on 11/14/16 08:39 - END OF NOTE Assessment/Plan (1) Perirectal abscess Current Visit: No Status: Acute Assessment & Plan: Appears unchanged to me. Pt without pain. Will update Dr. Estrella Brennan. Code(s): K61.1 - RECTAL ABSCESS (2) Diarrhea Current Visit: Yes Status: Resolved Assessment & Plan: c. diff neg. Code(s): R19.7 - DIARRHEA, UNSPECIFIED (3) Nausea and vomiting Current Visit: Yes Status: Acute Assessment & Plan: Stopped the clindamycin and started po H2 ramakrishna and IV PPI. IV fluids at 125 cc/hr. Unsure if this is due to the abscess, a new viral syndrome, or SE from the clindamycin. Code(s): R11.2 - NAUSEA WITH VOMITING, UNSPECIFIED
[2016-11-15] MEDS: Sodium Chloride 0.9% 1000 ML 1,000 ML IV SCH ×2 (09:45→20:02)
[2016-11-15] MEDS: PROTONIX 40 MG IV IV SCH (09:46)
[2016-11-15] MEDS: Pepcid 20 MG PO SCH ×2 (09:52→22:34)
[2016-11-15] MEDS: PHARMACY DOSING REQUIRED: VANCOMYCIN IV SCH (09:52)
[2016-11-15] MEDS: MEDICATION INTERVENTION MC SCH (09:52)
[2016-11-15 14:41] LABS: Giardia Antigen EIA Negative (Negative)
[2016-11-15] MEDS: TYLENOL 325 MG PO PRN ×2 (15:36→22:32)
[2016-11-15] MEDS: VANCOCIN 1 GM VIAL*** 1.25 GM in Sodium Chloride 0.9% 250 ML 250 ML IV SCH (17:50)
[2016-11-15] MEDS ORDERED: APRESOLINE 20 MG/ML INJ IV PRN (20:45)
[2016-11-15] MEDS ORDERED: Ambien 10 MG PO PRN (20:45)
[2016-11-16] MEDS: Sodium Chloride 0.9% 1000 ML 1,000 ML IV SCH (04:19)
[2016-11-16] MEDS: VANCOCIN 1 GM VIAL*** 1.25 GM in Sodium Chloride 0.9% 250 ML 250 ML IV SCH (06:29)
[2016-11-16 08:11] LABS: BASOPHIL % 0.1 % (0.0-0.4); Eosinophil % 2.7 % (0.00-5.0); Granulocytes % 67.1 % (36.0-66.0); Lymphocytes % 18.6 % (24.0-44.0); Mean Cell Volume 93.1 fl (78-100); Mean Platelet Volume 11.5 fl (6-9.5); Monocytes % 11.5 % (0.0-12.0); Platelet Count 240 K/mm3 (150-450); Red Blood Count 3.93 M/mm3 (4.1-5.4); Red Cell Distribution Width 12.9 % (11.5-14.0); White Blood Count 13.5 K/mm3 (4.0-10.5)
[2016-11-16 08:16] LABS: ANION GAP 14.3 MEQ/L (5-15); BLOOD UREA NITROGEN 7 mg/dL (9-20); CHLORIDE 104 mEq/L (98-107); Carbon Dioxide 28.4 mEq/L (21-32); Glucose 89 MG/DL (70-110); Potassium 3.5 mEq/L (3.5-5.1); SODIUM 143 mEq/L (136-145)
[2016-11-16] MEDS: PROTONIX 40 MG IV IV SCH (08:23)
[2016-11-16] MEDS: Pepcid 20 MG PO SCH (08:23)
[2016-11-16 08:37] LABS: BAND 1 % (0.0-2.0); Eosinophil 1 % (0.00-3.0); Platelet Estimate NORMAL (NORMAL); Total Cells Counted 100
--- NOTE | 2016-11-16 08:40 | PCM.NOTE ---
Date and Time: 11/16/16 0836 Subjective Assessment: Pt feeling much better, less nausea, ate yesterday, slept well last night. No pain. - Review of Systems Constitutional: No Fever, No Chills Abdominal/Gastrointestinal: No Abdominal Pain, No Vomiting Objective Exam General Appearance: no apparent distress, obese Neurologic Exam: alert, oriented x 3, cooperative Skin Exam: normal color, warm, dry Respiratory Exam: normal breath sounds, lungs clear, No crackles/rales, No rhonchi Cardiovascular Exam: regular rate/rhythm, normal heart sounds Rectal Exam: other (approx 2x3cm perineal mass, ttp, no exudate, no erythema) OBJECTIVE DATA Vital Signs: Vital Signs - 24 hr Temp Pulse Resp BP Pulse Ox 11/16/16 07:39 98.2 F 77 21 130/79 95 11/16/16 03:47 98.3 F 75 17 117/67 96 11/16/16 00:00 98.5 F 79 17 134/84 97 11/15/16 15:46 97.8 F 67 19 138/61 98 11/15/16 12:00 98.3 F 73 17 128/61 97 Pain Assessment - Last Documented Pain Intensity 5 Pain Scale Used 0-10 Pain Scale Intake and Output: Intake & Output 11/13/16 11/14/16 11/15/16 11/16/16 11:59 11:59 11:59 11:59 Intake Total 3939 4870 4471 Output Total 1025 1325 Balance 2914 3545 4471 Weight 99.337 kg Lab Results: Lab Results-Last 24 Hours 11/14/16 11/15/16 11/16/16 Range/Units 09:30 05:50 07:50 WBC 13.5 H (4.0-10.5) K/mm3 RBC 3.93 L (4.1-5.4) M/mm3 Hgb 11.8 L (12.0-16.0) gm/dl Hct 36.6 (35-47) % MCV 93.1 (78-100) fl MCH 30.0 (26-32) pg MCHC 32.2 (32-36) g/dl RDW 12.9 (11.5-14.0) % Plt Count 240 (150-450) K/mm3 MPV 11.5 H (6-9.5) fl Gran % 67.1 H (36.0-66.0) % Lymphocytes % 18.6 L (24.0-44.0) % Monocytes % 11.5 (0.0-12.0) % Eosinophils % 2.7 (0.00-5.0) % Basophils % 0.1 (0.0-0.4) % Basophils # 0.02 (0-0.4) Sodium 146 H (136-145) mEq/L Potassium 3.8 (3.5-5.1) mEq/L Chloride 109 H (98-107) mEq/L Carbon Dioxide 28.0 (21-32) mEq/L Anion Gap 13.0 (5-15) MEQ/L BUN 8 L (9-20) mg/dL Creatinine 1.14 (0.55-1.30) mg/dl Estimated GFR > 60 ML/MIN Glucose 102 (70-110) MG/DL Calcium 8.2 L (8.5-10.1) mg/dL Total Bilirubin 0.2 (0.2-1.0) mg/dL AST 8 L (15-37) U/L ALT 12 (12-78) U/L Alkaline Phosphatase 64 (46-116) U/L Serum Total Protein 5.8 L (6.4-8.2) gm/dL Albumin 2.5 L (3.4-5.0) g/dL Vancomycin Trough 16.4 (10-20) UG/ML Cryptosporidium Ag Negative (Negative) Giardia Antigen Negative (Negative) O & P Source Feces 11/16/16 Range/Units 07:50 WBC (4.0-10.5) K/mm3 RBC (4.1-5.4) M/mm3 Hgb (12.0-16.0) gm/dl Hct (35-47) % MCV (78-100) fl MCH (26-32) pg MCHC (32-36) g/dl RDW (11.5-14.0) % Plt Count (150-450) K/mm3 MPV (6-9.5) fl Gran % (36.0-66.0) % Lymphocytes % (24.0-44.0) % Monocytes % (0.0-12.0) % Eosinophils % (0.00-5.0) % Basophils % (0.0-0.4) % Basophils # (0-0.4) Sodium 143 (136-145) mEq/L Potassium 3.5 (3.5-5.1) mEq/L Chloride 104 (98-107) mEq/L Carbon Dioxide 28.4 (21-32) mEq/L Anion Gap 14.3 (5-15) MEQ/L BUN 7 L (9-20) mg/dL Creatinine 1.11 (0.55-1.30) mg/dl Estimated GFR > 60 ML/MIN Glucose 89 (70-110) MG/DL Calcium 8.2 L (8.5-10.1) mg/dL Total Bilirubin (0.2-1.0) mg/dL AST (15-37) U/L ALT (12-78) U/L Alkaline Phosphatase (46-116) U/L Serum Total Protein (6.4-8.2) gm/dL Albumin (3.4-5.0) g/dL Vancomycin Trough (10-20) UG/ML Cryptosporidium Ag (Negative) Giardia Antigen (Negative) O & P Source Multi-Disciplinary Progress Notes: Multi-Disciplinary Progress Notes 11/15/16 09:30 (created 11/15/16 10:30) Case Management Note by Ila Arrieta DISCHARGE PLAN REVIEWED, PROVIDES SELF CARE, INDEPENDENT WITH ALL ADL'S. PLAN TO RETURN HOME TO PRE EPISODIC LEVEL OF FNX. WILL CONTINUE TO FOLLOW AND ASSESS FOR ALL DC NEEDS. Initialized on 11/15/16 10:30 - END OF NOTE Assessment/Plan (1) Perirectal abscess Current Visit: No Status: Acute Assessment & Plan: Feeling much better. Mass itself is superficially smaller, however I realize the greater part is not palpable. On IV vancomycin. She has outpatient appt in 4 days with colorectal surgery to address the tiny fistula with extensive tunneling found by Dr. Estrella Brennan on I&D. She was sent home last week but returned within 24 hours feeling poorly. May have partially been due to the clindamycin (was stopped yesterday). However, WBC elevated yesterday, will recheck today. If WBC elevated, will add another antibiotic and keep her inpatient for another 1-3 days. If WBC are low, may be able to d/c home on a different abx regimen. Code(s): K61.1 - RECTAL ABSCESS (2) Diarrhea Current Visit: Yes Status: Resolved Code(s): R19.7 - DIARRHEA, UNSPECIFIED (3) Nausea and vomiting Current Visit: Yes Status: Resolved Code(s): R11.2 - NAUSEA WITH VOMITING, UNSPECIFIED (4) Leukocytosis Current Visit: Yes Status: Acute Code(s): D72.829 - ELEVATED WHITE BLOOD CELL COUNT, UNSPECIFIED
[2016-11-16] MEDS ORDERED: Augmentin 875-125 Tablet PO ONE (10:00)
[2016-11-16 11:33] VITALS: BP 153/83; PULSE 80; O2SAT 96
[2016-11-16] MEDS ORDERED: PATIENT OWN MEDICATION PO SCH (18:00)
== END 2016-11-16 13:45 | disposition home or self-care (01) ==
LOC: INFUSION 11:59 → MED SURG 17:12
PROVIDERS: ADMIT Family Medicine; ATTEND Family Medicine
DX: K61.1 Rectal abscess (principal); E86.0 Dehydration; R19.7 Diarrhea, unspecified; D72.829 Elevated white blood cell count, unspecified; Z79.899 Other long term (current) drug therapy
CPT/HCPCS: 36415; 80048; 80053; 80202; 81002; 85025; 87045; 87046; 87177; 87209; 87335; 87493; 96360; 96361; 96374; G0378; J2405; J2550; J3370

== ENCOUNTER 2016-12-01 05:13 | Emergency (ER) | payer OTHER, SELFPAY ==
--- NOTE | 2016-12-01 05:36 | ERPHSYRPT ---
- History of Present Illness Time Seen by Provider: 12/01/16 05:30 Source: patient Exam Limitations: no limitations Patient Subjective Stated Complaint: VOMITING NONSTOP WITH ONE EPISODE OF DIARRHEA AT 0230 THIS MORNING, PT REPORTS CHILLS AND DIAPHORESIS AT TIMES Triage Nursing Assessment: PT IS AOX3, TX TO TRT AREA VIA WC, STEADY GAIT TO COT , PT SKIN PALE, WARM, DRY, RESP ARE EASY AND NONLABORED, ABD SOFT, NONTENDER WITH PALPATION, BS PRESENT AND NORMOACTIVE X4 Physician History: The patient is a 26-year-old female with her complaining of repetitive vomiting for the last 3 hours. Just before the vomiting started she had one loose stool. She is now lightheaded when she stands up. Her recent past medical history is significant for an excision and drainage of a perirectal abscess about 2 weeks ago. The fistula was then found and repaired one week ago. Timing/Duration: hour(s) (3) Severity: severe Modifying Factors: Improves With: nothing Associated Symptoms: nausea, vomiting Allergies/Adverse Reactions: iodine Allergy (Severe, Verified 12/01/16 05:27) Hives morphine Allergy (Verified 12/01/16 05:27) Shortness of Breath povidone-iodine [From Betadine] Allergy (Verified 12/01/16 05:27) Swelling swelling at sight of F/C insertion soap [From Betadine] Allergy (Verified 12/01/16 05:27) Swelling Home Medications: Hydrocodone Bit/Acetaminophen [Carroll 7.5-325 Tablet] 1 each PO Q4-6HPRN PRN [History] Ibuprofen 200 mg [Motrin 200 mg] 200 mg PO DAILY PRN PRN 12/01/16 [History ] Hx Tetanus, Diphtheria Vaccination/Date Given: Yes Hx Influenza Vaccination/Date Given: No Hx Pneumococcal Vaccination/Date Given: No Immunizations Up to Date: Yes - Review of Systems Constitutional: No Fever, No Chills Eyes: No Symptoms Ears, Nose, & Throat: No Symptoms Respiratory: No Cough, No Dyspnea Cardiac: No Chest Pain, No Edema, No Syncope Abdominal/Gastrointestinal: Nausea, Vomiting Genitourinary Symptoms: No Dysuria Musculoskeletal: No Back Pain, No Neck Pain Skin: No Rash Neurological: No Dizziness, No Focal Weakness, No Sensory Changes Psychological: No Symptoms Endocrine: No Symptoms Hematologic/Lymphatic: No Symptoms Immunological/Allergic: No Symptoms All Other Systems: Reviewed and Negative - Past Medical History Pertinent Past Medical History: Yes Neurological History: No Pertinent History ENT History: No Pertinent History Cardiac History: No Pertinent History Respiratory History: Asthma Endocrine Medical History: No Pertinent History Musculoskeletal History: No Pertinent History GI Medical History: No Pertinent History, Other History: No Pertinent History Psycho-Social History: No Pertinent History Female Reproductive Disorders: No Pertinent History Other Medical History: polycystic ovarian syndrome - Past Surgical History Past Surgical History: Yes Neuro Surgical History: No Pertinent History Cardiac: No Pertinent History Respiratory: No Pertinent History Gastrointestinal: Cholecystectomy, Other Genitourinary: No Pertinent History Musculoskeletal: No Pertinent History Female Surgical History: No Pertinent History Other Surgical History: GALLBLADDER, TONSILS, STEVAN RECTAL ABSCESS, FISTULA - Social History Smoking Status: Never smoker How long have you smoked: 9 YEARS Exposure to second hand smoke: Yes Drug Use: none Patient Lives Alone: No - Female History Hx Last Menstrual Period: 11/07/16 - Nursing Vital Signs Nursing Vital Signs: Initial Vital Signs Temperature 97.7 F Temperature Source Oral Pulse Rate 81 Respiratory Rate 16 Blood Pressure [Right Arm] 118/57 Pain Intensity 0 - Physical Exam General Appearance: moderate distress Eye Exam: PERRL/EOMI, eyes nml inspection Ears, Nose, Throat Exam: normal ENT inspection, TMs normal, pharynx normal, moist mucous membranes Neck Exam: normal inspection, non-tender, supple, full range of motion Respiratory Exam: normal breath sounds, lungs clear, No respiratory distress Cardiovascular Exam: regular rate/rhythm, normal heart sounds, normal peripheral pulses Gastrointestinal/Abdomen Exam: soft, normal bowel sounds, No tenderness, No mass Pelvic Exam: not done Rectal Exam: not done Back Exam: normal inspection, normal range of motion, No CVA tenderness, No vertebral tenderness Extremity Exam: normal inspection, normal range of motion, pelvis stable Neurologic Exam: alert, oriented x 3, cooperative, normal mood/affect, nml cerebellar function, nml station & gait, sensation nml, No motor deficits Skin Exam: normal color, warm, dry, No rash Lymphatic Exam: No adenopathy SpO2 Interpretation: normal SpO2: 96 Oxygen Delivery: Room Air - Radiology Exams Abdomen X-ray Interpretation: Interpreted by me, Negative Ordered Tests: Active Orders 24 hr Category Date Time Status IV Insertion STAT Care 12/01/16 05:39 Active OBSTR/ACUTE ABDOMEN SERIES Stat Exams 12/01/16 05:39 Taken CBC W DIFF Stat Lab 12/01/16 05:50 Completed CMP Stat Lab 12/01/16 05:50 Completed HCG QUALITATIVE,SERUM Stat Lab 12/01/16 05:50 Completed Medication Summary Generic Name Dose Route Start Last Admin Trade Name Frebekah PRN Reason Stop Dose Admin Sodium Chloride 1,000 mls @ 999 mls/hr 12/01/16 05:39 12/01/16 05:55 Sodium Chloride 0.9% 1000 Ml IV 12/01/16 06:39 999 mls/hr .Q1H1M STA Administration Discontinued Medications Generic Name Dose Route Start Last Admin Trade Name Freq PRN Reason Stop Dose Admin Sodium Chloride Confirm 12/01/16 05:44 Sodium Chloride 0.9% 1000 Ml Administered 12/01/16 05:45 Dose 1,000 mls @ ud .ROUTE .STK-MED ONE Ondansetron HCl 4 mg 12/01/16 05:39 12/01/16 05:54 Zofran 4 Mg/2 Ml Vial IV 12/01/16 05:40 4 mg STAT ONE Administration Ondansetron HCl Confirm 12/01/16 05:44 Zofran 4 Mg/2 Ml Vial Administered 12/01/16 05:45 Dose 4 mg .ROUTE .STK-MED ONE Lab/Rad Data: Laboratory Result Diagrams 12/01/16 05:50 12/01/16 05:50 Laboratory Results 12/01/16 12/01/16 12/01/16 Range/Units 05:50 05:50 05:50 WBC 16.5 H (4.0-10.5) K/mm3 RBC 4.88 (4.1-5.4) M/mm3 Hgb 14.7 (12.0-16.0) gm/dl Hct 44.6 (35-47) % MCV 91.4 (78-100) fl MCH 30.1 (26-32) pg MCHC 33.0 (32-36) g/dl RDW 13.2 (11.5-14.0) % Plt Count 280 (150-450) K/mm3 MPV 11.5 H (6-9.5) fl Gran % 87.1 H (36.0-66.0) % Lymphocytes % 5.3 L (24.0-44.0) % Monocytes % 6.1 (0.0-12.0) % Eosinophils % 1.5 (0.00-5.0) % Basophils % 0.0 (0.0-0.4) % Basophils # 0 (0-0.4) Sodium 142 (136-145) mEq/L Potassium 3.8 (3.5-5.1) mEq/L Chloride 106 (98-107) mEq/L Carbon Dioxide 24.0 (21-32) mEq/L Anion Gap 16.1 H (5-15) MEQ/L BUN 18 (9-20) mg/dL Creatinine 0.95 (0.55-1.30) mg/dl Estimated GFR > 60 ML/MIN Glucose 125 H (70-110) MG/DL Calcium 8.5 (8.5-10.1) mg/dL Total Bilirubin 0.4 (0.2-1.0) mg/dL AST 20 (15-37) U/L ALT 36 (12-78) U/L Alkaline Phosphatase 92 (46-116) U/L Serum Total Protein 7.1 (6.4-8.2) gm/dL Albumin 3.4 (3.4-5.0) g/dL Serum , Qual NEGATIVE (Negative) - Progress Progress: improved Counseled pt/family regarding: lab results, diagnosis, rad results - Departure Time of Disposition: 06:41 Departure Disposition: Home Clinical Impression: Vomiting Condition: Stable Critical Care Time: No Additional Instructions: Zofran 4 mg ODT every 6 hrs as needed for vomiting. You may also take phenergan 25 mg suppositories every 8 hrs as needed for vomiting. Stay well hydrated. Prescriptions: Ondansetron [Zofran Odt] 4 mg PO Q6HPRN PRN #10 tab.rapdis PRN Reason: Nausea/Vomiting Promethazine HCl 25 mg Supp [Phenergan 25 mg Supp] 25 mg ND Q8H PRN PRN # 10 supp.rect PRN Reason: Vomiting
[2016-12-01] MEDS ORDERED: Sodium Chloride 0.9% 1000 ML 1,000 ML IV STA (05:39)
[2016-12-01] MEDS ORDERED: Zofran 4 MG/2 ML VIAL IV ONE (05:39)
[2016-12-01] MEDS ORDERED: Zofran 4 MG/2 ML VIAL ONE (05:44)
[2016-12-01] MEDS ORDERED: Sodium Chloride 0.9% 1000 ML 1,000 ML ONE (05:44)
[2016-12-01 05:56] LABS: Eosinophil % 1.5 % (0.00-5.0); Granulocytes % 87.1 % (36.0-66.0); Lymphocytes % 5.3 % (24.0-44.0); Mean Cell Volume 91.4 fl (78-100); Mean Corpuscular Hemoglobin 30.1 pg (26-32); Mean Platelet Volume 11.5 fl (6-9.5); Monocytes % 6.1 % (0.0-12.0); Platelet Count 280 K/mm3 (150-450); Red Blood Count 4.88 M/mm3 (4.1-5.4); Red Cell Distribution Width 13.2 % (11.5-14.0); White Blood Count 16.5 K/mm3 (4.0-10.5)
[2016-12-01 06:23] LABS: ALBUMIN 3.4 g/dL (3.4-5.0); ALKALINE PHOSPHATASE 92 U/L (46-116); ANION GAP 16.1 MEQ/L (5-15); BILIRUBIN,TOTAL 0.4 mg/dL (0.2-1.0); BLOOD UREA NITROGEN 18 mg/dL (9-20); CHLORIDE 106 mEq/L (98-107); Glucose 125 MG/DL (70-110); Potassium 3.8 mEq/L (3.5-5.1); SGOT/AST 20 U/L (15-37); SGPT/ALT 36 U/L (12-78); SODIUM 142 mEq/L (136-145); Total Protein 7.1 gm/dL (6.4-8.2)
[2016-12-01 06:38] VITALS: BP 118/57; PULSE 81
[2016-12-01 06:55] VITALS: O2SAT 95
--- NOTE | 2016-12-01 09:01 | XRAY ---
Indication: Vomiting. Comparison: October 21, 2015. 2 views of the abdomen again nonacute and nonobstructed with note of previous cholecystectomy. Solid organs and osseous structures unremarkable. Single PA chest again demonstrates normal heart, lungs, and bony thorax. Impression: Stable nonacute abdomen and normal one view chest.
== END 2016-12-01 07:23 | disposition home or self-care (01) ==
LOC: ED 05:13
DX: R11.2 Nausea with vomiting, unspecified (principal); Z98.890 Other specified postprocedural states; R19.7 Diarrhea, unspecified
CPT/HCPCS: 36000; 36415; 74022; 80053; 84703; 85025; 96360; 96374; 99283; 99284; J2405

== ENCOUNTER 2017-02-13 11:56 | Emergency (ER) | payer OTHER, SELFPAY ==
[2017-02-13] MEDS ORDERED: PROTONIX 40 MG IV IV ONE ×2 (12:22→12:37)
[2017-02-13] MEDS ORDERED: Zofran 4 MG/2 ML VIAL IV ONE (12:22)
[2017-02-13] MEDS ORDERED: Sodium Chloride 0.9% 1000 ML 1,000 ML IV SCH (12:30)
[2017-02-13] MEDS ORDERED: Zofran 4 MG/2 ML VIAL ONE (12:37)
[2017-02-13] MEDS ORDERED: Sodium Chloride 0.9% 1000 ML 1,000 ML ONE (12:37)
--- NOTE | 2017-02-13 12:37 | ERPHSYRPT ---
- History of Present Illness Time Seen by Provider: 02/13/17 12:15 Historian: patient Exam Limitations: clinical condition Patient Subjective Stated Complaint: ABD CRAMPING FOR THE PAST TWO WEEKS. [facility] THEY PT HYOSCYAMINE TO TAKE WITH MEALS BUT IT IS STILL NOT HELPING. Triage Nursing Assessment: PT WALKED INTO ER. SKIN IS PINK WARM AND DRY. RESPIRATIONS EVEN AND UNLABORED. BOWEL SOUNDS PRESENT IN ALL 4 QUADS. STOMACH IS TENDER TO TOUCH. Physician History: PATIENT WITH HISTORY OF INCISION AND DRAINAGE OF PERIRECTAL ABSCESS AND FISTULA SURGERY X 2 OVER THE PAST 2 MONTHS, NOW COMPLAINS OF PERIUMBILICAL AND EPIGASRIC ABDOMINAL PAINS FOR 2 WEEKS. HAS OCCASIONAL NAUSEA WITH EMESIS X 1 AND CHRONIC DIARRHEA FOR YEARS. DENIES ASSOCIATED FEVER, AND URINARY SYMPTOMS, FREQUENCY, URGENCY OR DYSURIA. Timing/Duration: week(s) Activities at Onset: none Quality: cramping Abdominal Pain Onset Location: epigastric, periumbilical, generalized abdomen Severity of Pain-Max: moderate Severity of Pain-Current: moderate Associated Symptoms: nausea, vomiting Previous symptoms: same symptoms as today Allergies/Adverse Reactions: iodine Allergy (Severe, Verified 02/13/17 12:14) Hives morphine Allergy (Verified 02/13/17 12:14) Shortness of Breath povidone-iodine [From Betadine] Allergy (Verified 02/13/17 12:14) Swelling swelling at sight of F/C insertion soap [From Betadine] Allergy (Verified 02/13/17 12:14) Swelling Home Medications: No Home Meds 1 mg PO DAILY 02/13/17 [History] Hx Tetanus, Diphtheria Vaccination/Date Given: Yes Hx Influenza Vaccination/Date Given: No Hx Pneumococcal Vaccination/Date Given: No Immunizations Up to Date: Yes - Review of Systems Constitutional: No Fever, No Chills Eyes: No Symptoms Ears, Nose, & Throat: No Symptoms Respiratory: No Symptoms, No Cough, No Dyspnea Cardiac: No Chest Pain, No Edema, No Syncope Abdominal/Gastrointestinal: Abdominal Pain, Nausea, Vomiting, Diarrhea Genitourinary Symptoms: No Symptoms, No Dysuria Musculoskeletal: No Symptoms, No Back Pain, No Neck Pain Skin: No Symptoms, No Rash Neurological: No Dizziness, No Focal Weakness, No Sensory Changes Psychological: No Symptoms Endocrine: No Symptoms All Other Systems: Reviewed and Negative - Past Medical History Pertinent Past Medical History: Yes Neurological History: Migraines ENT History: No Pertinent History Cardiac History: No Pertinent History Respiratory History: Asthma Endocrine Medical History: No Pertinent History Musculoskeletal History: No Pertinent History GI Medical History: No Pertinent History, Other History: No Pertinent History Psycho-Social History: No Pertinent History Female Reproductive Disorders: No Pertinent History Other Medical History: polycystic ovarian syndrome - Past Surgical History Past Surgical History: Yes Neuro Surgical History: No Pertinent History Cardiac: No Pertinent History Respiratory: No Pertinent History Gastrointestinal: Cholecystectomy, Other Genitourinary: No Pertinent History Musculoskeletal: No Pertinent History Female Surgical History: No Pertinent History Other Surgical History: GALLBLADDER, TONSILS, STEVAN RECTAL ABSCESS, FISTULA - Social History Smoking Status: Current every day smoker How long have you smoked: 10 Exposure to second hand smoke: Yes Drug Use: none Patient Lives Alone: No - Female History Hx Last Menstrual Period: 01/24/2017 - Nursing Vital Signs Nursing Vital Signs: Initial Vital Signs Temperature 98.1 F Temperature Source Oral Pulse Rate 66 Respiratory Rate 20 Blood Pressure [Right Arm] 122/70 Pain Intensity 10 - Physical Exam General Appearance: no apparent distress, alert Eye Exam: PERRL/EOMI, eyes nml inspection Ears, Nose, Throat Exam: normal ENT inspection, pharynx normal, moist mucous membranes Neck Exam: normal inspection, non-tender, supple, full range of motion Respiratory Exam: normal breath sounds, lungs clear, No respiratory distress Cardiovascular Exam: regular rate/rhythm, normal heart sounds Gastrointestinal/Abdomen Exam: soft, normal bowel sounds, tenderness ( EPIGASTRIC AND PERIUMBILICAL TENDERNESS), No mass Back Exam: normal inspection, normal range of motion, No CVA tenderness, No vertebral tenderness Extremity Exam: normal inspection, normal range of motion, pelvis stable Neurologic Exam: alert, oriented x 3, cooperative, normal mood/affect, nml cerebellar function, sensation nml, No motor deficits Skin Exam: normal color, warm, dry SpO2 Interpretation: normal SpO2: 97 - CT Exams Abdomen/Pelvis CT Interpretation: Discussed w/radiologist (NORMAL APPENDIX, LEFT OVARY NOW DEMONSTRATES A FEW PROMINENT CYSTS, LARGEST MEASURING 2.8CM, NO FREE FLUID, OR AIR. SCATTERED TINY MESENTERIC NODES, POSSIBLE MESENTERIC ADENITIS) Ordered Tests: Active Orders 24 hr Category Date Time Status Clean Catch Urine Specimen STAT Care 02/13/17 12:22 Active IV Insertion STAT Care 02/13/17 12:22 Active ABDOMEN AND PELVIS W/0 CONTRAS [CT] Stat Exams 02/13/17 13:24 Completed AMYLASE Stat Lab 02/13/17 12:43 Completed BMP Stat Lab 02/13/17 12:43 Completed CBC W DIFF Stat Lab 02/13/17 12:43 Completed HCG,QUALITATIVE URINE Stat Lab 02/13/17 14:20 Completed HEPATIC FUNCTION PANEL Stat Lab 02/13/17 12:43 Completed LIPASE Stat Lab 02/13/17 12:43 Completed UA W/ MICROSCOPIC Stat Lab 02/13/17 13:10 Completed Medication Summary Generic Name Dose Route Start Last Admin Trade Name Freq PRN Reason Stop Dose Admin Sodium Chloride 1,000 mls @ 500 mls/hr 02/13/17 12:30 02/13/17 12:52 Sodium Chloride 0.9% 1000 Ml IV 03/15/17 12:29 500 mls/hr .Q2H BRENDA Administration Discontinued Medications Generic Name Dose Route Start Last Admin Trade Name Freq PRN Reason Stop Dose Admin Ketorolac Tromethamine 30 mg 02/13/17 14:24 02/13/17 14:37 Toradol 30 Mg Injection IV 02/13/17 14:25 30 mg STAT ONE Administration Ketorolac Tromethamine Confirm 02/13/17 14:36 Toradol 30 Mg Injection Administered 02/13/17 14:37 Dose 30 mg .ROUTE .STK-MED ONE Ondansetron HCl 4 mg 02/13/17 12:22 02/13/17 12:52 Zofran 4 Mg/2 Ml Vial IV 02/13/17 12:23 4 mg STAT ONE Administration Ondansetron HCl Confirm 02/13/17 12:37 Zofran 4 Mg/2 Ml Vial Administered 02/13/17 12:38 Dose 4 mg .ROUTE .STK-MED ONE Pantoprazole Sodium 40 mg 02/13/17 12:22 02/13/17 12:52 Protonix 40 Mg Iv IV 02/13/17 12:23 40 mg STAT ONE Administration Pantoprazole Sodium Confirm 02/13/17 12:37 Protonix 40 Mg Iv Administered 02/13/17 12:38 Dose 40 mg IV .STK-MED ONE Lab/Rad Data: Laboratory Result Diagrams 02/13/17 12:43 02/13/17 12:43 Laboratory Results 02/13/17 02/13/17 02/13/17 Range/Units 14:20 13:10 12:43 WBC (4.0-10.5) K/mm3 RBC (4.1-5.4) M/mm3 Hgb (12.0-16.0) gm/dl Hct (35-47) % MCV (78-100) fl MCH (26-32) pg MCHC (32-36) g/dl RDW (11.5-14.0) % Plt Count (150-450) K/mm3 MPV (6-9.5) fl Gran % (36.0-66.0) % Lymphocytes % (24.0-44.0) % Monocytes % (0.0-12.0) % Eosinophils % (0.00-5.0) % Basophils % (0.0-0.4) % Basophils # (0-0.4) Sodium 141 (136-145) mEq/L Potassium 3.7 (3.5-5.1) mEq/L Chloride 105 (98-107) mEq/L Carbon Dioxide 27.8 (21-32) mEq/L Anion Gap 12.0 (5-15) MEQ/L BUN 8 L (9-20) mg/dL Creatinine 0.84 (0.55-1.30) mg/dl Estimated GFR > 60 ML/MIN Glucose 101 (70-110) MG/DL Calcium 8.8 (8.5-10.1) mg/dL Total Bilirubin 0.3 (0.2-1.0) mg/dL Direct Bilirubin 0.05 (0.0-0.2) MG/DL AST 16 (15-37) U/L ALT 27 (12-78) U/L Alkaline Phosphatase 85 (46-116) U/L Serum Total Protein 6.9 (6.4-8.2) gm/dL Albumin 3.4 (3.4-5.0) g/dL Amylase 43 (25-115) U/L Lipase 110 (73-393) U/L Ur Collection Type VOID Urine Color YELLOW (YELLOW) Urine Appearance HAZY (CLEAR) Urine pH 6.5 (5-6) Ur Specific [place] 1.025 (1.005-1.025) Urine Protein NEGATIVE (Negative) Urine Glucose (UA) NEGATIVE (NEGATIVE) mg/dL Urine Ketones NEGATIVE (NEGATIVE) Urine Nitrite NEGATIVE (NEGATIVE) Urine Bilirubin NEGATIVE (NEGATIVE) Urine Urobilinogen 0.2 (0-1) mg/dL Urine WBC (Auto) TRACE (NEGATIVE) Urine RBC (Auto) NEGATIVE (0-5) Rebel/ul Urine Microscopic RBC 0-2 (0-2) /HPF Urine Microscopic WBC 2-5 (0-5) /HPF Ur Epithelial Cells MANY (FEW) /HPF Urine Bacteria FEW (NEGATIVE) /HPF Urine Mucus MODERATE (NEGATIVE) /HPF Urine HCG, Qual NEGATIVE (Negative) Specimen Received 02/13/17 1315 02/13/17 Range/Units 12:43 WBC 10.6 H (4.0-10.5) K/mm3 RBC 4.83 (4.1-5.4) M/mm3 Hgb 14.8 (12.0-16.0) gm/dl Hct 43.9 (35-47) % MCV 90.9 (78-100) fl MCH 30.6 (26-32) pg MCHC 33.7 (32-36) g/dl RDW 13.0 (11.5-14.0) % Plt Count 223 (150-450) K/mm3 MPV 11.3 H (6-9.5) fl Gran % 69.4 H (36.0-66.0) % Lymphocytes % 19.6 L (24.0-44.0) % Monocytes % 8.6 (0.0-12.0) % Eosinophils % 2.3 (0.00-5.0) % Basophils % 0.1 (0.0-0.4) % Basophils # 0.01 (0-0.4) Sodium (136-145) mEq/L Potassium (3.5-5.1) mEq/L Chloride (98-107) mEq/L Carbon Dioxide (21-32) mEq/L Anion Gap (5-15) MEQ/L BUN (9-20) mg/dL Creatinine (0.55-1.30) mg/dl Estimated GFR ML/MIN Glucose (70-110) MG/DL Calcium (8.5-10.1) mg/dL Total Bilirubin (0.2-1.0) mg/dL Direct Bilirubin (0.0-0.2) MG/DL AST (15-37) U/L ALT (12-78) U/L Alkaline Phosphatase (46-116) U/L Serum Total Protein (6.4-8.2) gm/dL Albumin (3.4-5.0) g/dL Amylase (25-115) U/L Lipase (73-393) U/L Ur Collection Type Urine Color (YELLOW) Urine Appearance (CLEAR) Urine pH (5-6) Ur Specific [place] (1.005-1.025) Urine Protein (Negative) Urine Glucose (UA) (NEGATIVE) mg/dL Urine Ketones (NEGATIVE) Urine Nitrite (NEGATIVE) Urine Bilirubin (NEGATIVE) Urine Urobilinogen (0-1) mg/dL Urine WBC (Auto) (NEGATIVE) Urine RBC (Auto) (0-5) Rebel/ul Urine Microscopic RBC (0-2) /HPF Urine Microscopic WBC (0-5) /HPF Ur Epithelial Cells (FEW) /HPF Urine Bacteria (NEGATIVE) /HPF Urine Mucus (NEGATIVE) /HPF Urine HCG, Qual (Negative) Specimen Received - Progress Counseled pt/family regarding: lab results, diagnosis, need for follow-up, rad results - Departure Time of Disposition: 15:15 Departure Disposition: Home Clinical Impression: LEFT OVARAN CYSTS, MESENTERIC ADENITIS Condition: Stable Critical Care Time: No Additional Instructions: FOLLOWUP WITH YOUR FAMILY PHYSICIAN FOR EVALUATION OF YOUR LEFT OVARIAN CYSTS. MOTRIN 600MG EVERY 6 HOURS FOR MILD TO MODERATE PAIN AND TYLENOL #3 EVERY 4 HOURS FOR SEVERE PAIN. Prescriptions: Codeine Phosphate/APAP #3 [Tylenol #3 Tablet] 1 tab PO Q4H PRN PRN #10 tablet PRN Reason: Pain Ibuprofen 600 mg PO Q6H PRN PRN #20 tablet PRN Reason: Mild To Moderate Pain
[2017-02-13 12:46] LABS: BASOPHIL % 0.1 % (0.0-0.4); Eosinophil % 2.3 % (0.00-5.0); Granulocytes % 69.4 % (36.0-66.0); Lymphocytes % 19.6 % (24.0-44.0); Mean Cell Volume 90.9 fl (78-100); Mean Corpuscular Hemoglobin 30.6 pg (26-32); Mean Platelet Volume 11.3 fl (6-9.5); Monocytes % 8.6 % (0.0-12.0); Platelet Count 223 K/mm3 (150-450); Red Blood Count 4.83 M/mm3 (4.1-5.4); White Blood Count 10.6 K/mm3 (4.0-10.5)
[2017-02-13 13:09] LABS: ALBUMIN 3.4 g/dL (3.4-5.0); ALKALINE PHOSPHATASE 85 U/L (46-116); BILIRUBIN,TOTAL 0.3 mg/dL (0.2-1.0); BLOOD UREA NITROGEN 8 mg/dL (9-20); CHLORIDE 105 mEq/L (98-107); Carbon Dioxide 27.8 mEq/L (21-32); Direct Bilirubin 0.05 MG/DL (0.0-0.2); Glucose 101 MG/DL (70-110); LIPASE 110 U/L (73-393); Potassium 3.7 mEq/L (3.5-5.1); SGOT/AST 16 U/L (15-37); SGPT/ALT 27 U/L (12-78); SODIUM 141 mEq/L (136-145); Total Protein 6.9 gm/dL (6.4-8.2)
[2017-02-13 13:21] LABS: Collection Type VOID
[2017-02-13 13:22] LABS: COMPLETE URINE MICROSCOPIC? YES; Ph 6.5 (5-6)
[2017-02-13 13:37] LABS: Bacteria FEW /HPF (NEGATIVE); Epithelial Cells MANY /HPF (FEW); Mucus MODERATE /HPF (NEGATIVE)
[2017-02-13] MEDS ORDERED: TORAdol 30 mg Injection IV ONE (14:24)
[2017-02-13] MEDS ORDERED: TORAdol 30 mg Injection ONE (14:36)
--- NOTE | 2017-02-13 14:55 | XRAY ---
Indication: Diffuse abdominal pain for 2 weeks. Multiple contiguous axial images obtained through the abdomen and pelvis without contrast as ordered. Comparison: November 08, 2016. Lung bases remaining clear. Heart is not enlarged. Noncontrasted stomach and bowel loops again appear nonobstructed. Normal appendix. Left ovary now demonstrates a few prominent cysts, largest measuring 2.8 cm. No free fluid/air. Scattered subcentimeter mesenteric nodes, possible adenitis. Stable cholecystectomy clips and tiny fatty left inguinal hernia. Remaining liver, pancreas, spleen, adrenal glands, kidneys, ureters, bladder, uterus, and aorta appear unremarkable for noncontrast exam. Osseous structures intact. Impression: 1. New left ovary cysts. No free fluid. 2. Scattered tiny mesenteric nodes, possible mesenteric adenitis. 3. Stable tiny fatty left inguinal hernia. 4. No acute intra-abdominal/pelvic abnormalities on this noncontrast exam. CT DI 27.56
[2017-02-13 15:28] VITALS: BP 117/67; PULSE 78; O2SAT 98
== END 2017-02-13 15:28 | disposition home or self-care (01) ==
LOC: ED 11:56
DX: N83.202 Unspecified ovarian cyst, left side (principal); I88.0 Nonspecific mesenteric lymphadenitis; R10.13 Epigastric pain; R11.2 Nausea with vomiting, unspecified
CPT/HCPCS: 36000; 36415; 74176; 80048; 80076; 81000; 82150; 83690; 84703; 85025; 96360; 96361; 96374; 96375; 99284; J1885; J2405

== ENCOUNTER 2017-02-21 06:07 | Day surgery (SDC) | payer OTHER, SELFPAY ==
[2017-02-21] MEDS ORDERED: Lactated Ringers 1,000 ML IV SCH (06:30)
[2017-02-21] MEDS ORDERED: Lactated Ringers 1,000 ML IV ONE (06:44)
[2017-02-21 06:56] VITALS: O2SAT 98
[2017-02-21] MEDS ORDERED: DIPRIVAN 200 MG/20 ML IV ONE (08:00)
[2017-02-21] MEDS ORDERED: Ketamine HCl 50 MG/ML IJ ONE (08:00)
[2017-02-21 10:12] VITALS: BP 126/72; PULSE 67
--- NOTE | 2017-02-21 11:21 | OP ---
SURGERY DATE/TIME: 02/21/2017827 PREOPERATIVE DIAGNOSES: 1) Abdominal pain. 2) Diarrhea. 3) Prior history of rectal fistula repair. POSTOPERATIVE DIAGNOSES: 1) Normal EGD. 2) Poor bowel prep. 3) Rectal polyp x1. PROCEDURES: 1) EGD. 2) Colonoscopy. SURGEON: Rai Bella M.D. ANESTHESIA: MAC by Johnnie Gregg CRNA. ESTIMATED BLOOD LOSS: Minimal. SPECIMENS: One cold forceps polypectomy of the rectum x1 and two cold forceps random sigmoid colon biopsies. DESCRIPTION OF PROCEDURE: After informed written consent was obtained, the patient was taken to the endoscopy suite. She underwent monitored anesthesia and a bite block was inserted. The endoscope was inserted into the posterior oropharynx and under direct visualization the esophageal mucosa, gastroesophageal mucosa, gastric mucosa were all noted to be within normal limits free of any lesions or defects. The pylorus was traversed and duodenum had a normal mucosal appearance free of any lesions or defects. Upon withdrawal, all mucosal structures again appeared within normal limits. The scope was removed and the scopes were switched. Next, a digital rectal exam showed normal sphincter tone and no internal lesions. The scope was inserted into the rectum and advanced to the level of the cecum. The level of the cecum was verified by direct visualization of the ileocecal valve. However there was large amount of stool present in the ascending and transverse colon region. There were no obvious mucosal abnormalities appreciable until we got down to the level of the rectum. There was a sessile polyp which was removed with cold forceps in its entirety with minimal bleeding. There were two random biopsies taken from the sigmoid colon region as there was some scant mucous present throughout the sigmoid colon and the rectum but no evidence of active colitis or other abnormalities. These were sent to evaluate for collagenous colitis or other pathology. Prior to withdrawal retroflexion was performed which showed no internal lesions. The scope was removed and the patient was transferred to the recovery room in excellent condition.
== END 2017-02-21 10:19 | disposition home or self-care (01) ==
LOC: SDC 06:07
PROVIDERS: ATTEND Family Medicine
PROC: 0DJ08ZZ Inspection of Upper Intestinal Tract, Via Natural or Artificial Opening Endoscopic (ICD-10-PCS; principal; 2017-02-21)
PROC: 0DBP8ZX Excision of Rectum, Via Natural or Artificial Opening Endoscopic, Diagnostic (ICD-10-PCS; 2017-02-21)
PROC: 0DBN8ZX Excision of Sigmoid Colon, Via Natural or Artificial Opening Endoscopic, Diagnostic (ICD-10-PCS; 2017-02-21)
DX: R10.9 Unspecified abdominal pain (principal); K62.1 Rectal polyp; R19.7 Diarrhea, unspecified
CPT/HCPCS: 00740; 00810; 36415; 84703; 88305; J2704

== ENCOUNTER 2017-02-22 10:13 | Emergency (ER) | payer OTHER, SELFPAY ==
--- NOTE | 2017-02-22 10:50 | ERPHSYRPT ---
- History of Present Illness Time Seen by Provider: 02/22/17 10:39 Historian: patient Exam Limitations: no limitations Patient Subjective Stated Complaint: abnormal heavy vaginal bleeding and lower abd pain since yesterday. had colonoscopy and egd yesterday. Triage Nursing Assessment: ambulated to room per self. skin w/d, color normal, resp easy. abd soft, tender in lower abd. states is due to start period but is bleeding heavier than normal and is having sharp pain in lower abd. denies any difficulty with urination at this time. Physician History: 26-year-old white female who was seen here on 02/14/2012 secondary periumbilical and epigastric abdominal pain and was noted to have some cysts on her left ovaries. She states that she had a colonoscopy yesterday and now is having cramping in her suprapubic region and feels like she is bleeding heavier than normal. She has no vomiting no melena no hematochezia. Patient is otherwise not ill she has no urinary symptoms. She has not had a fever. Past medical history includes migraines, asthma, polycystic ovaries. Past surgical history includes cholecystectomy gallbladder removed tonsillectomy , perirectal abscess with fistula. Timing/Duration: yesterday Activities at Onset: none Quality: cramping (awful stated was given IV.) Abdominal Pain Onset Location: suprapubic Pain Radiation: no radiation Severity of Pain-Max: moderate Severity of Pain-Current: moderate Modifying Factors: Improves With: other (patient with colonoscopy yesterday) Associated Symptoms: No back, No chest pain, No diaphoresis, No diarrhea, No fever/chills, No fatigue, No headache, No heartburn, No loss of appetite, No nausea, No neck pain, No rash, No shortness of breath, No syncope, No vomiting, No weakness Previous symptoms: same symptoms as today (patient seen last week secondary to abdominal pain) Allergies/Adverse Reactions: iodine Allergy (Severe, Verified 02/22/17 10:33) Hives morphine Allergy (Verified 02/22/17 10:33) Shortness of Breath povidone-iodine [From Betadine] Allergy (Verified 02/22/17 10:33) Swelling swelling at sight of F/C insertion soap [From Betadine] Allergy (Verified 02/22/17 10:33) Swelling Home Medications: No Home Meds 1 mg PO DAILY 02/13/17 [History] Hx Tetanus, Diphtheria Vaccination/Date Given: No Hx Influenza Vaccination/Date Given: No Hx Pneumococcal Vaccination/Date Given: No - Review of Systems Constitutional: No Fever, No Chills Eyes: No Symptoms Ears, Nose, & Throat: No Symptoms Respiratory: No Cough, No Dyspnea Cardiac: No Chest Pain, No Edema, No Syncope Abdominal/Gastrointestinal: Abdominal Pain, No Nausea, No Vomiting, No Diarrhea , No Constipation, No Hematemesis, No Hematochezia, No Melena, No Dysphagia, No Appetite Changes Genitourinary Symptoms: Menorrhagia, No Dysuria (This), No Frequency, No Hematuria, No Hesitancy, No Incontinence, No Urgency, No Urinary Retention, No Flank Pain, No (he), No Vaginal Bleeding, No Vaginal Discharge, No Vaginal Itching Musculoskeletal: No Back Pain, No Neck Pain Skin: No Rash Neurological: No Dizziness, No Focal Weakness, No Sensory Changes Psychological: No Symptoms Endocrine: No Symptoms All Other Systems: Reviewed and Negative - Past Medical History Pertinent Past Medical History: Yes Neurological History: Migraines ENT History: No Pertinent History Cardiac History: No Pertinent History Respiratory History: Asthma Endocrine Medical History: No Pertinent History Musculoskeletal History: No Pertinent History GI Medical History: Gallbladder Disease, Other History: No Pertinent History Psycho-Social History: No Pertinent History Female Reproductive Disorders: No Pertinent History Other Medical History: polycystic ovarian syndrome,rectal abscess - Past Surgical History Past Surgical History: Yes Neuro Surgical History: No Pertinent History Cardiac: No Pertinent History Respiratory: No Pertinent History Gastrointestinal: Cholecystectomy, Other Genitourinary: No Pertinent History Musculoskeletal: No Pertinent History Female Surgical History: No Pertinent History Other Surgical History: GALLBLADDER, TONSILS, STEVAN RECTAL ABSCESS, FISTULA, colonoscopy,egd,t&a, wizdom teeth, - Social History Smoking Status: Current every day smoker How long have you smoked: 9 years Exposure to second hand smoke: No Drug Use: none Patient Lives Alone: No - Female History Hx Last Menstrual Period: 01/30/17 - Nursing Vital Signs Nursing Vital Signs: Initial Vital Signs Temperature 98.3 F Temperature Source Oral Pulse Rate 97 Respiratory Rate 16 Blood Pressure [Right Arm] 140/89 Pain Intensity 5 - Physical Exam General Appearance: no apparent distress, alert Eye Exam: PERRL/EOMI, eyes nml inspection Ears, Nose, Throat Exam: normal ENT inspection, pharynx normal, moist mucous membranes Neck Exam: normal inspection, non-tender, supple, full range of motion Respiratory Exam: normal breath sounds, lungs clear, No respiratory distress Cardiovascular Exam: regular rate/rhythm, normal heart sounds Gastrointestinal/Abdomen Exam: soft, normal bowel sounds, tenderness (mild suprapubic tenderness), No distention, No mass, No guarding, No ecchymosis, No pulsatile mass, No rebound, No hernia, No hepatomegaly, No organomegaly, No splenomegaly Back Exam: normal inspection, normal range of motion, No CVA tenderness, No vertebral tenderness Extremity Exam: normal inspection, normal range of motion, pelvis stable Neurologic Exam: alert, oriented x 3, cooperative, lead caster II-XII nml as tested, normal mood/affect, nml cerebellar function, sensation nml, No motor deficits Skin Exam: normal color, warm, dry SpO2 Interpretation: normal (96%) SpO2: 96 Oxygen Delivery: Room Air - Course Nursing assessment & vital signs reviewed: Yes Ordered Tests: Active Orders 24 hr Category Date Time Status IV Insertion STAT Care 02/22/17 10:43 Active Orthostatic Vital Signs STAT Care 02/22/17 10:44 Active AMYLASE Stat Lab 02/22/17 10:50 Completed CBC W DIFF Stat Lab 02/22/17 10:50 Completed CMP Stat Lab 02/22/17 10:50 Completed CULTURE,URINE Stat Lab 02/22/17 12:38 Ordered HCG QUALITATIVE,SERUM Stat Lab 02/22/17 10:50 Completed UA W/ MICROSCOPIC Stat Lab 02/22/17 11:55 Completed Lab/Rad Data: Laboratory Result Diagrams 02/22/17 10:50 02/22/17 10:50 Laboratory Results 02/22/17 02/22/17 02/22/17 Range/Units 11:55 10:50 10:50 WBC (4.0-10.5) K/mm3 RBC (4.1-5.4) M/mm3 Hgb (12.0-16.0) gm/dl Hct (35-47) % MCV (78-100) fl MCH (26-32) pg MCHC (32-36) g/dl RDW (11.5-14.0) % Plt Count (150-450) K/mm3 MPV (6-9.5) fl Gran % (36.0-66.0) % Lymphocytes % (24.0-44.0) % Monocytes % (0.0-12.0) % Eosinophils % (0.00-5.0) % Basophils % (0.0-0.4) % Basophils # (0-0.4) Sodium 146 H (136-145) mEq/L Potassium 3.5 (3.5-5.1) mEq/L Chloride 107 (98-107) mEq/L Carbon Dioxide 27.9 (21-32) mEq/L Anion Gap 14.7 (5-15) MEQ/L BUN 7 L (9-20) mg/dL Creatinine 0.70 (0.55-1.30) mg/dl Estimated GFR > 60 ML/MIN Glucose 104 (70-110) MG/DL Calcium 8.8 (8.5-10.1) mg/dL Total Bilirubin 0.3 (0.2-1.0) mg/dL AST 15 (15-37) U/L ALT 26 (12-78) U/L Alkaline Phosphatase 83 (46-116) U/L Serum Total Protein 7.0 (6.4-8.2) gm/dL Albumin 3.4 (3.4-5.0) g/dL Amylase 43 (25-115) U/L Serum , Qual NEGATIVE (Negative) Ur Collection Type VOID Urine Color RED (YELLOW) Urine Appearance CLOUDY (CLEAR) Urine pH 6.5 (5-6) Ur Specific [place] 1.025 (1.005-1.025) Urine Protein 100 (Negative) Urine Glucose (UA) NEGATIVE (NEGATIVE) mg/dL Urine Ketones NEGATIVE (NEGATIVE) Urine Nitrite NEGATIVE (NEGATIVE) Urine Bilirubin SMALL (NEGATIVE) Urine Urobilinogen 1 (0-1) mg/dL Urine WBC (Auto) NEGATIVE (NEGATIVE) Urine RBC (Auto) LARGE (0-5) Rebel/ul Urine Microscopic WBC >100 (0-5) /HPF Ur Epithelial Cells MANY (FEW) /HPF Urine Bacteria FEW (NEGATIVE) /HPF Specimen Received 02/22/17 1212 02/22/17 Range/Units 10:50 WBC 9.1 (4.0-10.5) K/mm3 RBC 4.73 (4.1-5.4) M/mm3 Hgb 14.4 (12.0-16.0) gm/dl Hct 43.0 (35-47) % MCV 90.9 (78-100) fl MCH 30.4 (26-32) pg MCHC 33.5 (32-36) g/dl RDW 13.1 (11.5-14.0) % Plt Count 242 (150-450) K/mm3 MPV 11.5 H (6-9.5) fl Gran % 64.1 (36.0-66.0) % Lymphocytes % 24.8 (24.0-44.0) % Monocytes % 8.0 (0.0-12.0) % Eosinophils % 3.0 (0.00-5.0) % Basophils % 0.1 (0.0-0.4) % Basophils # 0.01 (0-0.4) Sodium (136-145) mEq/L Potassium (3.5-5.1) mEq/L Chloride (98-107) mEq/L Carbon Dioxide (21-32) mEq/L Anion Gap (5-15) MEQ/L BUN (9-20) mg/dL Creatinine (0.55-1.30) mg/dl Estimated GFR ML/MIN Glucose (70-110) MG/DL Calcium (8.5-10.1) mg/dL Total Bilirubin (0.2-1.0) mg/dL AST (15-37) U/L ALT (12-78) U/L Alkaline Phosphatase (46-116) U/L Serum Total Protein (6.4-8.2) gm/dL Albumin (3.4-5.0) g/dL Amylase (25-115) U/L Serum , Qual (Negative) Ur Collection Type Urine Color (YELLOW) Urine Appearance (CLEAR) Urine pH (5-6) Ur Specific [place] (1.005-1.025) Urine Protein (Negative) Urine Glucose (UA) (NEGATIVE) mg/dL Urine Ketones (NEGATIVE) Urine Nitrite (NEGATIVE) Urine Bilirubin (NEGATIVE) Urine Urobilinogen (0-1) mg/dL Urine WBC (Auto) (NEGATIVE) Urine RBC (Auto) (0-5) Rebel/ul Urine Microscopic WBC (0-5) /HPF Ur Epithelial Cells (FEW) /HPF Urine Bacteria (NEGATIVE) /HPF Specimen Received - Progress Progress: improved Progress Note: 02/22/17 10:51 This is a 26-year-old white female with history of polycystic ovaries migraines , asthma Patient is complaining of lower abdominal (suprapubic abdominal pain and increased bleeding since having a colonoscopy yesterday. Patient was seen here one week ago (on 02/13/2017) for abdominal pain at that time patient was noted to have some left ovarian cysts. She states that after having her colonoscopy she began having cramping in her abdomen and she feels like she is having bleeding heavier than normal for her periods. On physical examination patient does not appear to be in acute distress she has some mild suprapubic tenderness bowel sounds are positive. Will go ahead and obtain CBC CMP UA hCG I have offered patient Toradol for pain she states she does not want this 02/22/17 11:46 Patient refuses catheter UA. Will have patient provide regular urinalysis. Patient's CBC is within normal limits hCG is negative. 02/22/17 12:39 Patient has greater than 100 white cells per high-power field in her urine. She has a small amount of vaginal bleeding she is not . She refused catheter UA so patient does have some blood in her urine. Will go ahead and write for Bactrim DS one orally twice a day for 10 days plenty of fluids. Patient was given Tylenol [address] benitez its she states she still has this at home. Will discharge patient - Departure Time of Disposition: 12:40 Departure Disposition: Home Clinical Impression: Vaginal bleeding, Suprapubic abdominal pain, recent colonoscopy one day ago UTI (urinary tract infection) Qualifiers: Urinary tract infection type: site unspecified Hematuria presence: with hematuria Qualified Code(s): N39.0 - Urinary tract infection, site not specified Condition: Fair Critical Care Time: No Referrals: KRISTYN RIVERA [Primary Care Provider] - Instructions: Abdominal Pain-Adult Additional Instructions: Return home. Plenty of fluids clear fluids only 24-48 hours if abdominal pain. tylenol # 3 as previously prescribed as needed for mpain. Follow-up with your family doctor. Return for acute distress or for severe symptoms. Bactrim ds one orally twuice a day for 10 days. Prescriptions: Smz/Tmp Ds Tablet [Bactrim Ds Tablet] 1 tab PO BID #20 tablet
[2017-02-22 10:59] LABS: BASOPHIL % 0.1 % (0.0-0.4); Granulocytes % 64.1 % (36.0-66.0); Lymphocytes % 24.8 % (24.0-44.0); Mean Cell Volume 90.9 fl (78-100); Mean Corpuscular Hemoglobin 30.4 pg (26-32); Mean Platelet Volume 11.5 fl (6-9.5); Platelet Count 242 K/mm3 (150-450); Red Blood Count 4.73 M/mm3 (4.1-5.4); Red Cell Distribution Width 13.1 % (11.5-14.0); White Blood Count 9.1 K/mm3 (4.0-10.5)
[2017-02-22 11:25] LABS: ALBUMIN 3.4 g/dL (3.4-5.0); ALKALINE PHOSPHATASE 83 U/L (46-116); ANION GAP 14.7 MEQ/L (5-15); BILIRUBIN,TOTAL 0.3 mg/dL (0.2-1.0); BLOOD UREA NITROGEN 7 mg/dL (9-20); CHLORIDE 107 mEq/L (98-107); Carbon Dioxide 27.9 mEq/L (21-32); Glucose 104 MG/DL (70-110); Potassium 3.5 mEq/L (3.5-5.1); SGOT/AST 15 U/L (15-37); SGPT/ALT 26 U/L (12-78); SODIUM 146 mEq/L (136-145)
[2017-02-22 12:30] LABS: Collection Type VOID
[2017-02-22 12:31] LABS: Bacteria FEW /HPF (NEGATIVE); COMPLETE URINE MICROSCOPIC? YES; Epithelial Cells MANY /HPF (FEW); Ph 6.5 (5-6); WBC >100 /HPF (0-5)
[2017-02-22 12:54] VITALS: BP 140/89; PULSE 97
[2017-02-22 13:29] VITALS: O2SAT 96
== END 2017-02-22 12:54 | disposition home or self-care (01) ==
LOC: ED 10:13
DX: N39.0 Urinary tract infection, site not specified (principal); R31.9 Hematuria, unspecified; N93.9 Abnormal uterine and vaginal bleeding, unspecified; R10.9 Unspecified abdominal pain; Z98.890 Other specified postprocedural states; R10.30 Lower abdominal pain, unspecified; R10.13 Epigastric pain
CPT/HCPCS: 36000; 36415; 80053; 81000; 82150; 84703; 85025; 87077; 87086; 87186; 99284

== ENCOUNTER 2017-04-18 01:33 | Emergency (ER) | payer OTHER, SELFPAY ==
[2017-04-18 01:37] VITALS: BP 110/68; PULSE 70; O2SAT 98
--- NOTE | 2017-04-18 02:18 | ERPHSYRPT ---
- History of Present Illness Time Seen by Provider: 04/18/17 02:10 Source: patient Exam Limitations: no limitations Patient Subjective Stated Complaint: pt states she just found out she was and has had a fever the last few days. 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 Triage Nursing Assessment: pt alert and oriented. answers questions approp. pt ambulatory with steady gait noted. skin pink warm and dry. respirations nonlabored with lungs cta. denies sore throat, cold symptoms, urinary difficutlies. Physician History: The patient is on oral control pills and she states she takes them every day without fail but took a home test on April 15 which was positive. She took another home test on April 16 and it was weakly positive. She took another home test on April 17 and it was even more weakly positive. On April 16 she had a fever of 100.7. She took a nap and when she woke up she no longer had a fever. She had a fever today of 101.7 and took Tylenol. She no longer has a fever. She wakes up in the morning with a runny nose. She denies cough. She thinks she has some crampy feeling in the pelvis but no vaginal discharge. She wants to know if everything is okay with her . Timing/Duration: day(s) (2) Fever Severity: gone Fever Therapy COMMUNICATIONS AGENT: Acetaminophen Associated Symptoms: rhinorrhea Allergies/Adverse Reactions: iodine Allergy (Severe, Verified 04/18/17 01:45) Hives morphine Allergy (Verified 04/18/17 01:45) Shortness of Breath povidone-iodine [From Betadine] Allergy (Verified 04/18/17 01:45) Swelling swelling at sight of F/C insertion soap [From Betadine] Allergy (Verified 04/18/17 01:45) Swelling Home Medications: No Home Meds 1 mg PO DAILY 02/13/17 [History] Hx Tetanus, Diphtheria Vaccination/Date Given: No Hx Influenza Vaccination/Date Given: No Hx Pneumococcal Vaccination/Date Given: No Immunizations Up to Date: No - Review of Systems Constitutional: Fever Eyes: No Symptoms Ears, Nose, & Throat: Nose Discharge Respiratory: No Cough, No Dyspnea Cardiac: No Chest Pain, No Edema, No Syncope Abdominal/Gastrointestinal: No Abdominal Pain, No Nausea, No Vomiting, No Diarrhea Genitourinary Symptoms: , No Vaginal Bleeding, No Vaginal Discharge Musculoskeletal: No Back Pain, No Neck Pain Skin: No Rash Neurological: No Dizziness, No Focal Weakness, No Sensory Changes Psychological: No Symptoms Endocrine: No Symptoms Hematologic/Lymphatic: No Symptoms Immunological/Allergic: No Symptoms All Other Systems: Reviewed and Negative - Past Medical History Pertinent Past Medical History: Yes Neurological History: Migraines ENT History: No Pertinent History Cardiac History: No Pertinent History Respiratory History: Asthma Endocrine Medical History: No Pertinent History Musculoskeletal History: No Pertinent History GI Medical History: Gallbladder Disease, Other History: No Pertinent History Psycho-Social History: No Pertinent History Female Reproductive Disorders: No Pertinent History Other Medical History: polycystic ovarian syndrome,rectal abscess - Past Surgical History Past Surgical History: Yes Neuro Surgical History: No Pertinent History Cardiac: No Pertinent History Respiratory: No Pertinent History Gastrointestinal: Cholecystectomy, Other Genitourinary: No Pertinent History Musculoskeletal: No Pertinent History Female Surgical History: No Pertinent History Other Surgical History: GALLBLADDER, TONSILS, STEVAN RECTAL ABSCESS, FISTULA, colonoscopy,egd,t&a, wisdom teeth, - Social History Smoking Status: Former smoker How long have you smoked: 9 years Exposure to second hand smoke: No Drug Use: none Patient Lives Alone: No - Female History Hx Last Menstrual Period: 03/17/17 - Nursing Vital Signs Nursing Vital Signs: Initial Vital Signs Temperature 98.5 F Temperature Source Oral Pulse Rate 70 Respiratory Rate 16 Blood Pressure [Right Arm] 110/68 Pain Intensity 2 - Physical Exam General Appearance: no apparent distress, alert Eye Exam: PERRL/EOMI ENT Exam: normal ENT inspection, No pharyngeal erythema, No tonsillar exudate Neck Exam: supple, full range of motion, No meningismus Respiratory Exam: normal breath sounds, lungs clear, no respiratory distress Cardiovascular/Chest Exam: normal heart sounds, regular rate/rhythm, No murmur, No edema Gastrointestinal/Abdominal Exam: soft, non tender, no distention Pelvic Exam: not done Rectal Exam: not done Extremity Exam: non-tender, normal range of motion, normal inspection, normal capillary refill Neurologic Exam: alert, oriented x 3, cooperative, industrial 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-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 tested, normal mood/affect, sensation nml, No motor deficits Skin Exam: normal color, warm, dry, No rash SpO2 Interpretation: normal SpO2: 98 Oxygen Delivery: Room Air Ordered Tests: Active Orders 24 hr Category Date Time Status HCG,QUALITATIVE URINE Stat Lab 04/18/17 02:40 Completed UA W/ MICROSCOPIC Stat Lab 04/18/17 02:23 Completed Urine Triage Profile Stat Lab 04/18/17 02:23 Completed Lab/Rad Data: Laboratory Results 04/18/17 04/18/17 04/18/17 Range/Units 02:40 02:23 02:23 Ur Collection Type CLEAN CATCH Urine Color YELLOW (YELLOW) Urine Appearance CLEAR (CLEAR) Urine pH 6.0 (5-6) Ur Specific [place] 1.020 (1.005-1.025) Urine Protein NEGATIVE (Negative) Urine Ketones SMALL (NEGATIVE) Urine Blood NEGATIVE (0-5) Rebel/ul Urine Nitrite NEGATIVE (NEGATIVE) Urine Bilirubin NEGATIVE (NEGATIVE) Urine Urobilinogen NORMAL (0-1) mg/dL Ur Leukocyte Esterase TRACE (NEGATIVE) Urine Microscopic RBC 0-2 (0-2) /HPF Urine Microscopic WBC 2-5 (0-5) /HPF Ur Epithelial Cells MODERATE (FEW) /HPF Calcium Oxalate Crystal 0-2 (NEGATIVE) /HPF Urine Bacteria FEW (NEGATIVE) /HPF Urine Mucus SLIGHT (NEGATIVE) /HPF Urine Glucose NEGATIVE (NEGATIVE) mg/dL Urine HCG, Qual POSITIVE (Negative) Urine Opiates Level NEG. (NEGATIVE) Ur Methadone NEG. (NEGATIVE) Urine Barbiturates NEG. (NEGATIVE) Ur Phencyclidine (PCP) NEG. (NEGATIVE) Urine Amphetamine NEG. (NEGATIVE) U Benzodiazepine Level NEG. (NEGATIVE) Urine Cocaine NEG. (NEGATIVE) Urine Marijuana (THC) NEG. (NEGATIVE) Specimen Received 04/18/17 0225 - Progress Counseled pt/family regarding: lab results, diagnosis - Departure Time of Disposition: 02:53 Departure Disposition: Home Clinical Impression: , Fever Condition: Stable Critical Care Time: No Additional Instructions: Your was confirmed by our urine test in the ER. You do not have a fever in the ER. Your fever was likely due to a rhinovirus that has been giving you a runny nose in the morning. Use Tylenol 1000 mg every 6-8 hours to control any fever that might occur. Follow-up with your scheduled appointment with Dr. Kuo on April 22. Call her sooner if problems occur.
[2017-04-18 02:39] LABS: ADD URINE CULTURE? NO (NO); Bacteria FEW /HPF (NEGATIVE); Bilirubin NEGATIVE (NEGATIVE); Blood NEGATIVE Ery/ul (0-5); CALCIUM OXALATE CRYSTALS 0-2 /HPF (NEGATIVE); COMPLETE URINE MICROSCOPIC? YES; Collection Type CLEAN CATCH; Epithelial Cells MODERATE /HPF (FEW); Glucose NEGATIVE (NEGATIVE); Leukocyte Esterase TRACE (NEGATIVE); Mucus SLIGHT /HPF (NEGATIVE)
== END 2017-04-18 03:15 | disposition home or self-care (01) ==
LOC: ED 01:33
DX: O26.891 Other specified pregnancy related conditions, first trimester (principal); R50.9 Fever, unspecified
CPT/HCPCS: 80307; 81000; 84703; 99282

== ENCOUNTER 2017-04-25 16:45 | Emergency (ER) | payer OTHER, SELFPAY ==
--- NOTE | 2017-04-25 17:35 | ERPHSYRPT ---
- History of Present Illness Time Seen by Provider: 04/25/17 17:30 Source: patient Exam Limitations: clinical condition Patient Subjective Stated Complaint: abd cramping for one week. is 6 weeks . denies any yoon bleeding. states did pass small brown clot. Triage Nursing Assessment: ambulated to room per self. skin w/d, color normal. resp nonlabored. abd soft. Physician History: PATIENT IS A -2, PARA-1 LMP 03/18/2017 ABOUT 6 WEEKS GESTATION, COMPLAINS OF PELVIC CRAMPING PAST 4 DAYS, DENIES VAGINAL BLEEDING OR DISCHARGE. EVALUATED BY PRIMARY CARE PHYSICIAN 1 WEEK AGO WITH ULTRASOUND 5 WEEK GESTATION NO EMBYRO. Timing/Duration: day(s) Activites at Onset: none Quality: cramping Onset Location: pelvic pain Pain Radiation: none Severity of Pain-Max: moderate Severity of Pain-Current: moderate Prior abdominal problems: similar symptoms Sexual intercourse history: non-contributory Modifying Factors: Improves With: nothing Associated Symptoms: Allergies/Adverse Reactions: iodine Allergy (Severe, Verified 04/25/17 17:10) Hives morphine Allergy (Verified 04/25/17 17:10) Shortness of Breath povidone-iodine [From Betadine] Allergy (Verified 04/25/17 17:10) Swelling swelling at sight of F/C insertion soap [From Betadine] Allergy (Verified 04/25/17 17:10) Swelling Home Medications: Vits W-Ca,Fe,FA(<1Mg) [] 1 each PO DAILY 04/25/17 [History] Hx Tetanus, Diphtheria Vaccination/Date Given: No Hx Influenza Vaccination/Date Given: No Hx Pneumococcal Vaccination/Date Given: No - Review of Systems Constitutional: No Fever, No Chills Eyes: No Symptoms Ears, Nose, & Throat: No Symptoms Respiratory: No Cough, No Dyspnea Cardiac: No Chest Pain, No Edema, No Syncope Abdominal/Gastrointestinal: Abdominal Pain, No Nausea, No Vomiting, No Diarrhea Genitourinary Symptoms: , No Dysuria Musculoskeletal: No Symptoms, No Back Pain, No Neck Pain Skin: No Rash Neurological: No Dizziness, No Focal Weakness, No Sensory Changes Psychological: No Symptoms Endocrine: No Symptoms All Other Systems: Reviewed and Negative - Past Medical History Pertinent Past Medical History: Yes Neurological History: Migraines ENT History: No Pertinent History Cardiac History: No Pertinent History Respiratory History: Asthma Endocrine Medical History: No Pertinent History Musculoskeletal History: No Pertinent History GI Medical History: Gallbladder Disease, Other History: No Pertinent History Psycho-Social History: No Pertinent History Female Reproductive Disorders: No Pertinent History Other Medical History: polycystic ovarian syndrome,rectal abscess - Past Surgical History Past Surgical History: Yes Neuro Surgical History: No Pertinent History Cardiac: No Pertinent History Respiratory: No Pertinent History Gastrointestinal: Cholecystectomy, Other Genitourinary: No Pertinent History Musculoskeletal: No Pertinent History Female Surgical History: No Pertinent History Other Surgical History: GALLBLADDER, TONSILS, STEVAN RECTAL ABSCESS, FISTULA, colonoscopy,egd,t&a, wisdom teeth, - Social History Smoking Status: Former smoker How long have you smoked: 9 years Exposure to second hand smoke: No Drug Use: none Patient Lives Alone: No - Female History Hx Last Menstrual Period: 03/15/17 - Nursing Vital Signs Nursing Vital Signs: Initial Vital Signs Temperature 98.6 F Temperature Source Oral Pulse Rate 80 Respiratory Rate 16 Blood Pressure [Right Arm] 110/64 Pain Intensity 7 - Physical Exam General Appearance: no apparent distress, alert Eye Exam: PERRL/EOMI, eyes nml inspection Ears, Nose, Throat Exam: normal ENT inspection, TMs normal, pharynx normal, moist mucous membranes Neck Exam: normal inspection, non-tender, supple, full range of motion Respiratory Exam: normal breath sounds, lungs clear, No respiratory distress Cardiovascular Exam: regular rate/rhythm, normal heart sounds, normal peripheral pulses Gastrointestinal/Abdomen Exam: soft, No tenderness, No mass Pelvic Exam: normal external exam, other (NO BLOOD IN VAGINAL VAULT, UTERINE SIZE 5-6 WEEKS, NO ADNEXAL MASS OR TENDERNESS) Rectal Exam: normal exam Back Exam: normal inspection, normal range of motion, No CVA tenderness, No vertebral tenderness Extremity Exam: normal inspection, normal range of motion, pelvis stable Neurologic Exam: alert, oriented x 3, cooperative, channeler II-XII nml as tested, normal mood/affect, sensation nml, No motor deficits Skin Exam: normal color, warm, dry Lymphatic Exam: No adenopathy SpO2: 97 Oxygen Delivery: Room Air - Radiology Ultrasound Exam Pelvis Ultrasound: discussed w/radiologist (GESTATIONAL AGE 5 WEEKS WITHOUT EMBYRO) Ordered Tests: Active Orders 24 hr Category Date Time Status Clean Catch Urine Specimen STAT Care 04/25/17 17:41 Active Pelvic Exam Assist STAT Care 04/25/17 18:01 Active OB TRANSVAGINAL [US] Stat Exams 04/25/17 17:33 Taken CULTURE,URINE Stat Lab 04/25/17 17:45 Received HCG, Quantitative (Inhouse) Stat Lab 04/25/17 17:49 Completed UA W/ MICROSCOPIC Stat Lab 04/25/17 17:45 Completed Lab/Rad Data: Laboratory Results 04/25/17 04/25/17 Range/Units 17:49 17:45 Beta HCG, Quant 2794 H (0-6) IU/L Ur Collection Type VOID Urine Color YELLOW (YELLOW) Urine Appearance CLEAR (CLEAR) Urine pH 7.0 (5-6) Ur Specific [place] 1.020 (1.005-1.025) Urine Protein NEGATIVE (Negative) Urine Ketones NEGATIVE (NEGATIVE) Urine Blood NEGATIVE (0-5) Rebel/ul Urine Nitrite NEGATIVE (NEGATIVE) Urine Bilirubin NEGATIVE (NEGATIVE) Urine Urobilinogen NORMAL (0-1) mg/dL Ur Leukocyte Esterase TRACE (NEGATIVE) Urine Microscopic WBC 2-5 (0-5) /HPF Ur Epithelial Cells MODERATE (FEW) /HPF Urine Bacteria FEW (NEGATIVE) /HPF Urine Mucus MODERATE (NEGATIVE) /HPF Urine Glucose NEGATIVE (NEGATIVE) mg/dL Specimen Received 04-25-17 1800 - Progress Progress Note: 04/25/17 19:13 THE HCG,QT 2794 Counseled pt/family regarding: lab results, diagnosis, need for follow-up, rad results - Departure Time of Disposition: 19:20 Departure Disposition: Home Clinical Impression: Condition: Stable Critical Care Time: No Additional Instructions: FOLLOWUP WITH YOUR PRIMARY CARE PHYSICIAN FOR EVALUATION. TYLENOL EVERY 4 HOURS FOR PAIN NEEDED. RETURN TO EMERGENCY FOR ONSET OF VAGINAL BLEEDING
[2017-04-25 18:05] LABS: Collection Type VOID
[2017-04-25 18:06] LABS: ADD URINE CULTURE? YES (NO); Bacteria FEW /HPF (NEGATIVE); Bilirubin NEGATIVE (NEGATIVE); Blood NEGATIVE Ery/ul (0-5); COMPLETE URINE MICROSCOPIC? YES; Epithelial Cells MODERATE /HPF (FEW); Glucose NEGATIVE (NEGATIVE); Leukocyte Esterase TRACE (NEGATIVE); Mucus MODERATE /HPF (NEGATIVE)
[2017-04-25 18:19] VITALS: BP 110/64
[2017-04-25 19:07] VITALS: O2SAT 97
[2017-04-25 19:16] VITALS: PULSE 70
--- NOTE | 2017-04-26 08:57 | XRAY ---
Indication: Pain and cramping. Two-dimensional transvaginal early OB ultrasound performed. Comparison: April 22, 2017. Uterus is again anteverted with now a single intrauterine gestational sac measuring 0.52 cm, too small to calculate gestational age. There is a single yolk sac but no pole or heart tones. No abnormal subchorionic fluid collection either. Small cul-de-sac fluid. Impression: There is now a single intrauterine gestational sac too small to calculate gestational age. No pole or heart tones at this time. Correlate with serial beta hCG and follow-up sonogram to evaluate viability. Comment: Preliminary report was given.
== END 2017-04-25 19:40 | disposition home or self-care (01) ==
LOC: ED 16:45
DX: O26.91 Pregnancy related conditions, unspecified, first trimester (principal); R10.9 Unspecified abdominal pain; Z3A.01 Less than 8 weeks gestation of pregnancy
CPT/HCPCS: 36415; 76817; 81000; 84702; 87086; 99283; 99284

== ENCOUNTER 2017-06-29 20:21 | Emergency (ER) | payer OTHER ==
--- NOTE | 2017-06-29 20:42 | ERPHSYRPT ---
- History of Present Illness Time Seen by Provider: 06/29/17 20:33 Source: patient Exam Limitations: no limitations Patient Subjective Stated Complaint: "I am 15 weeks and have been cramping for the past 5 days. i tried calling my dr yesterday, but she had already left. i am just getting over being sick too. i had a head cold. i have an MRI when i was 13 weeks. that day was the first time that i had heard the heart beat. it has prob been about a week since i have been able to hear the baby's heart beat. i have a home monitor. it feels like period cramping" Triage Nursing Assessment: aox3, breathing easy unlabored, skin pink warm dry, steady gait Physician History: FOR THE PAST 5 DAYS PT HAS HAD BILATERAL PELVIC CRAMPING. PT STATES SHE IS 15 WEEKS AND HAS HAD INTERMITTENT NAUSEA AND VOMITING THROUGHOUT THIS . PT ALSO C/O BILATERAL EARACHES FOR THE PAST 6 MONTHS. PT DENIES CHEST PAIN, SHORTNESS OF AIR, FEVER. Allergies/Adverse Reactions: iodine Allergy (Severe, Verified 04/25/17 17:10) Hives morphine Allergy (Verified 04/25/17 17:10) Shortness of Breath povidone-iodine [From Betadine] Allergy (Verified 04/25/17 17:10) Swelling swelling at sight of F/C insertion soap [From Betadine] Allergy (Verified 04/25/17 17:10) Swelling Home Medications: Vits W-Ca,Fe,FA(<1Mg) [] 1 each PO DAILY 04/25/17 [History] Hx Tetanus, Diphtheria Vaccination/Date Given: No Hx Influenza Vaccination/Date Given: No Hx Pneumococcal Vaccination/Date Given: No - Review of Systems Constitutional: No Fever Ears, Nose, & Throat: Ear Pain Respiratory: No Dyspnea Cardiac: No Chest Pain Abdominal/Gastrointestinal: Nausea, Vomiting, Other (PELVIC PAIN) Genitourinary Symptoms: All Other Systems: Reviewed and Negative - Past Medical History Pertinent Past Medical History: Yes Neurological History: Migraines ENT History: No Pertinent History Cardiac History: No Pertinent History Respiratory History: Asthma Endocrine Medical History: No Pertinent History Musculoskeletal History: No Pertinent History GI Medical History: Gallbladder Disease, Other History: No Pertinent History Psycho-Social History: No Pertinent History Female Reproductive Disorders: No Pertinent History Other Medical History: polycystic ovarian syndrome,rectal abscess - Past Surgical History Past Surgical History: Yes Neuro Surgical History: No Pertinent History Cardiac: No Pertinent History Respiratory: No Pertinent History Gastrointestinal: Cholecystectomy, Other Genitourinary: No Pertinent History Musculoskeletal: No Pertinent History Female Surgical History: No Pertinent History Other Surgical History: GALLBLADDER, TONSILS, STEVAN RECTAL ABSCESS, FISTULA, colonoscopy,egd,t&a, wisdom teeth, - Social History Smoking Status: Former smoker How long have you smoked: 9 years Exposure to second hand smoke: No Drug Use: none Patient Lives Alone: No - Female History Hx Last Menstrual Period: 03/19/17 - Nursing Vital Signs Nursing Vital Signs: Initial Vital Signs Temperature 98.7 F 06/29/17 20:24 Pulse Rate 90 06/29/17 20:24 Respiratory Rate 14 06/29/17 20:24 Blood Pressure 149/74 06/29/17 20:24 O2 Sat by Pulse Oximetry 97 06/29/17 20:24 Pain Scale Pain Intensity 6 - Physical Exam General Appearance: alert Eye Exam: PERRL/EOMI Ears, Nose, Throat Exam: pharynx normal, moist mucous membranes Neck Exam: normal inspection Respiratory Exam: lungs clear Cardiovascular Exam: normal heart sounds Gastrointestinal/Abdomen Exam: soft, normal bowel sounds, tenderness (MILD LOWER LLQ ABDOMINAL TENDERNESS) Back Exam: normal range of motion Extremity Exam: normal inspection, No pedal edema Neurologic Exam: alert, cooperative Skin Exam: warm, dry SpO2 Interpretation: normal SpO2: 97 Oxygen Delivery: Room Air - Course Nursing assessment & vital signs reviewed: Yes - Radiology Ultrasound Exam OB Ultrasound: Other (TECH REPORT: HEART RATE = 149; NORMAL FETUS 14 WEEKS 4 DAYS.) Ordered Tests: Active Orders 24 hr Category Date Time Status OB >14 WKS ADDL GESTATION [US] Stat Exams 06/29/17 20:35 Ordered AMYLASE Stat Lab 06/29/17 20:52 Completed CBC W DIFF Stat Lab 06/29/17 20:52 Completed CMP Stat Lab 06/29/17 20:52 Completed LIPASE Stat Lab 06/29/17 20:52 Completed MAG [MAGNESIUM] Stat Lab 06/29/17 20:52 Completed UA W/ MICROSCOPIC Stat Lab 06/29/17 20:35 Completed Urine Triage Profile Stat Lab 06/29/17 20:35 Completed Lab/Rad Data: Laboratory Result Diagrams 06/29/17 20:52 06/29/17 20:52 Laboratory Results 06/29/17 06/29/17 06/29/17 Range/Units 20:52 20:52 20:52 WBC 11.2 H (4.0-10.5) K/mm3 RBC 4.10 (4.1-5.4) M/mm3 Hgb 12.4 (12.0-16.0) gm/dl Hct 36.9 (35-47) % MCV 90.0 (78-100) fl MCH 30.2 (26-32) pg MCHC 33.6 (32-36) g/dl RDW 12.6 (11.5-14.0) % Plt Count 251 (150-450) K/mm3 MPV 10.4 H (6-9.5) fl Gran % 64.4 (36.0-66.0) % Lymphocytes % 25.5 (24.0-44.0) % Monocytes % 8.3 (0.0-12.0) % Eosinophils % 1.7 (0.00-5.0) % Basophils % 0.1 (0.0-0.4) % Basophils # 0.01 (0-0.4) Sodium 141 (136-145) mEq/L Potassium 3.5 (3.5-5.1) mEq/L Chloride 106 (98-107) mEq/L Carbon Dioxide 25.3 (21-32) mEq/L Anion Gap 13.2 (5-15) MEQ/L BUN 7 L (9-20) mg/dL Creatinine 0.71 (0.55-1.30) mg/dl Estimated GFR > 60 ML/MIN Glucose 105 (70-110) MG/DL Calcium 9.1 (8.5-10.1) mg/dL Magnesium 1.5 L (1.8-2.4) mg/dL Total Bilirubin 0.10 L (0.2-1.0) mg/dL AST 11 L (15-37) U/L ALT 21 (12-78) U/L Alkaline Phosphatase 78 (46-116) U/L Serum Total Protein 6.5 (6.4-8.2) gm/dL Albumin 2.9 L (3.4-5.0) g/dL Amylase 41 (25-115) U/L Lipase 141 (73-393) U/L Ur Collection Type Urine Color (YELLOW) Urine Appearance (CLEAR) Urine pH (5-6) Ur Specific [place] (1.005-1.025) Urine Protein (Negative) Urine Ketones (NEGATIVE) Urine Blood (0-5) Rebel/ul Urine Nitrite (NEGATIVE) Urine Bilirubin (NEGATIVE) Urine Urobilinogen (0-1) mg/dL Ur Leukocyte Esterase (NEGATIVE) Urine Microscopic WBC (0-5) /HPF Ur Epithelial Cells (FEW) /HPF Urine Bacteria (NEGATIVE) /HPF Urine Glucose (NEGATIVE) mg/dL Urine Opiates Level (NEGATIVE) Ur Methadone (NEGATIVE) Urine Barbiturates (NEGATIVE) Ur Phencyclidine (PCP) (NEGATIVE) Urine Amphetamine (NEGATIVE) U Benzodiazepine Level (NEGATIVE) Urine Cocaine (NEGATIVE) Urine Marijuana (THC) (NEGATIVE) Specimen Received 06/29/17 06/29/17 Range/Units 20:35 20:35 WBC (4.0-10.5) K/mm3 RBC (4.1-5.4) M/mm3 Hgb (12.0-16.0) gm/dl Hct (35-47) % MCV (78-100) fl MCH (26-32) pg MCHC (32-36) g/dl RDW (11.5-14.0) % Plt Count (150-450) K/mm3 MPV (6-9.5) fl Gran % (36.0-66.0) % Lymphocytes % (24.0-44.0) % Monocytes % (0.0-12.0) % Eosinophils % (0.00-5.0) % Basophils % (0.0-0.4) % Basophils # (0-0.4) Sodium (136-145) mEq/L Potassium (3.5-5.1) mEq/L Chloride (98-107) mEq/L Carbon Dioxide (21-32) mEq/L Anion Gap (5-15) MEQ/L BUN (9-20) mg/dL Creatinine (0.55-1.30) mg/dl Estimated GFR ML/MIN Glucose (70-110) MG/DL Calcium (8.5-10.1) mg/dL Magnesium (1.8-2.4) mg/dL Total Bilirubin (0.2-1.0) mg/dL AST (15-37) U/L ALT (12-78) U/L Alkaline Phosphatase (46-116) U/L Serum Total Protein (6.4-8.2) gm/dL Albumin (3.4-5.0) g/dL Amylase (25-115) U/L Lipase (73-393) U/L Ur Collection Type CLEAN CATCH Urine Color YELLOW (YELLOW) Urine Appearance CLEAR (CLEAR) Urine pH 6.0 (5-6) Ur Specific [place] 1.020 (1.005-1.025) Urine Protein NEGATIVE (Negative) Urine Ketones NEGATIVE (NEGATIVE) Urine Blood NEGATIVE (0-5) Rebel/ul Urine Nitrite NEGATIVE (NEGATIVE) Urine Bilirubin NEGATIVE (NEGATIVE) Urine Urobilinogen NORMAL (0-1) mg/dL Ur Leukocyte Esterase 1+ (NEGATIVE) Urine Microscopic WBC 0-2 (0-5) /HPF Ur Epithelial Cells FEW (FEW) /HPF Urine Bacteria RARE (NEGATIVE) /HPF Urine Glucose NEGATIVE (NEGATIVE) mg/dL Urine Opiates Level NEG. (NEGATIVE) Ur Methadone NEG. (NEGATIVE) Urine Barbiturates NEG. (NEGATIVE) Ur Phencyclidine (PCP) NEG. (NEGATIVE) Urine Amphetamine NEG. (NEGATIVE) U Benzodiazepine Level NEG. (NEGATIVE) Urine Cocaine NEG. (NEGATIVE) Urine Marijuana (THC) NEG. (NEGATIVE) Specimen Received 06/29/17 - Departure Time of Disposition: 21:30 Departure Disposition: Home Clinical Impression: PELVIC CRAMPING, PREGANCY, HYPOMAGNESEMIA Condition: Stable Critical Care Time: No Referrals: KRISTYN RIVEAR [Primary Care Provider] - Instructions: -- Discomforts and Remedies Additional Instructions: FOLLOW UP WITH PRIVATE DOCTOR TOMORROW. STRICT BED REST UNTIL YOU FOLLOW UP WITH YOUR OB DOCTOR.
[2017-06-29 20:45] LABS: ADD URINE CULTURE? NO (NO); Bilirubin NEGATIVE (NEGATIVE); Blood NEGATIVE Ery/ul (0-5); COMPLETE URINE MICROSCOPIC? YES; Collection Type CLEAN CATCH; Glucose NEGATIVE (NEGATIVE); Leukocyte Esterase 1+ (NEGATIVE)
[2017-06-29 20:46] LABS: Bacteria RARE /HPF (NEGATIVE); Epithelial Cells FEW /HPF (FEW); WBC 0-2 /HPF (0-5)
[2017-06-29 20:58] LABS: BASOPHIL % 0.1 % (0.0-0.4); Eosinophil % 1.7 % (0.00-5.0); Granulocytes % 64.4 % (36.0-66.0); Lymphocytes % 25.5 % (24.0-44.0); Mean Corpuscular Hemoglobin 30.2 pg (26-32); Mean Platelet Volume 10.4 fl (6-9.5); Monocytes % 8.3 % (0.0-12.0); Platelet Count 251 K/mm3 (150-450); Red Cell Distribution Width 12.6 % (11.5-14.0); White Blood Count 11.2 K/mm3 (4.0-10.5)
[2017-06-29 21:20] LABS: ALBUMIN 2.9 g/dL (3.4-5.0); ALKALINE PHOSPHATASE 78 U/L (46-116); ANION GAP 13.2 MEQ/L (5-15); BLOOD UREA NITROGEN 7 mg/dL (9-20); CHLORIDE 106 mEq/L (98-107); Carbon Dioxide 25.3 mEq/L (21-32); Glucose 105 MG/DL (70-110); LIPASE 141 U/L (73-393); Potassium 3.5 mEq/L (3.5-5.1); SGOT/AST 11 U/L (15-37); SGPT/ALT 21 U/L (12-78); SODIUM 141 mEq/L (136-145); Total Protein 6.5 gm/dL (6.4-8.2)
[2017-06-29] MEDS ORDERED: MAG-OX 400 PO SCH (22:00)
[2017-06-29] MEDS ORDERED: MAG-OX 400 ONE (22:08)
[2017-06-29 22:11] VITALS: BP 129/80; PULSE 85; O2SAT 99
--- NOTE | 2017-06-29 22:12 | XRAY ---
Indication: Pelvic pain. Two-dimensional transabdominal early OB ultrasound performed. Comparison: May 29, 2017. Again there is a single viable intrauterine . heart rate 149 BPM. Placenta is anterior without abruption/previa. BPD measures 2.64 cm corresponding to 14 weeks 4 days. HC measures 9.80 cm corresponding to 14 weeks 4 days. AC measures 8.06 cm corresponding to 14 weeks 3 days. FL measures 1.55 cm corresponding to 14 weeks 4 days. Impression: Again single viable intrauterine with mean gestational age 14 weeks 4 days. Normal progression of . Nothing acute. Comment: Preliminary report was given.
== END 2017-06-29 22:13 | disposition home or self-care (01) ==
LOC: ED 20:21
DX: O26.891 Other specified pregnancy related conditions, first trimester (principal); R10.9 Unspecified abdominal pain; Z3A.15 15 weeks gestation of pregnancy; R11.2 Nausea with vomiting, unspecified; E83.42 Hypomagnesemia
CPT/HCPCS: 36415; 76801; 76815; 80053; 80307; 81000; 82150; 83690; 83735; 85025; 99284; A9270-GY

== ENCOUNTER 2017-07-26 18:23 | Emergency (ER) | payer OTHER ==
[2017-07-26 18:38] VITALS: O2SAT 97
[2017-07-26] MEDS ORDERED: Sodium Chloride 0.9% 1000 ML 1,000 ML IV STA (18:46)
[2017-07-26] MEDS ORDERED: Sodium Chloride 0.9% 1000 ML 1,000 ML ONE (18:59)
[2017-07-26 19:04] LABS: Eosinophil % 1.4 % (0.00-5.0); Granulocytes % 71.9 % (36.0-66.0); Lymphocytes % 18.9 % (24.0-44.0); Mean Cell Volume 91.3 fl (78-100); Mean Platelet Volume 10.9 fl (6-9.5); Monocytes % 7.8 % (0.0-12.0); Platelet Count 256 K/mm3 (150-450); Red Blood Count 4.03 M/mm3 (4.1-5.4); Red Cell Distribution Width 12.8 % (11.5-14.0); White Blood Count 14.1 K/mm3 (4.0-10.5)
[2017-07-26 19:11] LABS: Bilirubin NEGATIVE (NEGATIVE); Blood NEGATIVE Ery/ul (0-5); Collection Type CLEAN CATCH; Glucose 100 mg/dL (NEGATIVE); Leukocyte Esterase NEGATIVE (NEGATIVE)
[2017-07-26 19:12] LABS: ADD URINE CULTURE? NO (NO); COMPLETE URINE MICROSCOPIC? NO
[2017-07-26 19:13] LABS: Mean Corpuscular Hemoglobin 30.2 pg (26-32)
[2017-07-26 19:24] LABS: ALBUMIN 2.6 g/dL (3.4-5.0); ALKALINE PHOSPHATASE 82 U/L (46-116); ANION GAP 12.6 MEQ/L (5-15); BLOOD UREA NITROGEN 9 mg/dL (9-20); CHLORIDE 105 mEq/L (98-107); Carbon Dioxide 25.2 mEq/L (21-32); Glucose 122 MG/DL (70-110); LIPASE 149 U/L (73-393); Potassium 3.5 mEq/L (3.5-5.1); SGOT/AST 11 U/L (15-37); SGPT/ALT 18 U/L (12-78); SODIUM 139 mEq/L (136-145); Total Protein 6.2 gm/dL (6.4-8.2)
[2017-07-26 19:33] VITALS: BP 99/63; PULSE 90
--- NOTE | 2017-07-26 19:42 | ERPHSYRPT ---
- History of Present Illness Time Seen by Provider: 07/26/17 19:35 Source: patient Exam Limitations: no limitations Patient Subjective Stated Complaint: dizziness, sob since yesterday. having diarrhea since 0500 today Triage Nursing Assessment: ambulated to room per self. slightly short of breath with exertion. skin w/d, color pale. abd soft. Physician History: The patient is a female at 18 weeks complaining that 2 days ago she began to feel dizzy when she would stand up. She said she had to work a little harder to breathe. She's had mild left-sided abdominal cramping. This morning about 5 AM diarrhea began. It has continued all day, being very watery. Her last stool was 4 hours ago. Her past medical history is unremarkable. She takes vitamins daily. She was worried about dehydration. Timing/Duration: day(s) (2) Severity: mild Modifying Factors: Improves With: nothing Associated Symptoms: abdominal pain (cramping on left side), other (diarrhea) Allergies/Adverse Reactions: iodine Allergy (Severe, Verified 07/26/17 18:36) Hives morphine Allergy (Verified 07/26/17 18:36) Shortness of Breath povidone-iodine [From Betadine] Allergy (Verified 07/26/17 18:36) Swelling swelling at sight of F/C insertion soap [From Betadine] Allergy (Verified 07/26/17 18:36) Swelling Home Medications: Vits W-Ca,Fe,FA(<1Mg) [] 1 each PO DAILY 04/25/17 [History] Hx Tetanus, Diphtheria Vaccination/Date Given: No Hx Influenza Vaccination/Date Given: No Hx Pneumococcal Vaccination/Date Given: No - Review of Systems Constitutional: No Fever, No Chills Eyes: No Symptoms Ears, Nose, & Throat: No Symptoms Respiratory: Dyspnea, No Cough Cardiac: No Chest Pain, No Edema, No Syncope Abdominal/Gastrointestinal: Diarrhea Genitourinary Symptoms: No Dysuria Musculoskeletal: No Back Pain, No Neck Pain Skin: No Rash Neurological: No Dizziness, No Focal Weakness, No Sensory Changes Psychological: No Symptoms Endocrine: No Symptoms Hematologic/Lymphatic: No Symptoms Immunological/Allergic: No Symptoms All Other Systems: Reviewed and Negative - Past Medical History Pertinent Past Medical History: Yes Neurological History: Migraines ENT History: No Pertinent History Cardiac History: No Pertinent History Respiratory History: Asthma Endocrine Medical History: No Pertinent History Musculoskeletal History: No Pertinent History GI Medical History: Gallbladder Disease, Other History: No Pertinent History Psycho-Social History: No Pertinent History Female Reproductive Disorders: No Pertinent History Other Medical History: polycystic ovarian syndrome,rectal abscess - Past Surgical History Past Surgical History: Yes Neuro Surgical History: No Pertinent History Cardiac: No Pertinent History Respiratory: No Pertinent History Gastrointestinal: Cholecystectomy, Other Genitourinary: No Pertinent History Musculoskeletal: No Pertinent History Female Surgical History: No Pertinent History Other Surgical History: GALLBLADDER, TONSILS, STEVAN RECTAL ABSCESS, FISTULA, colonoscopy,egd,t&a, wisdom teeth, - Social History Smoking Status: Former smoker How long have you smoked: 9 years Exposure to second hand smoke: No Drug Use: none Patient Lives Alone: No - Female History Expected Date of Delivery: 12/23/17 - Nursing Vital Signs Nursing Vital Signs: Initial Vital Signs Temperature 98.1 F 07/26/17 18:29 Pulse Rate 112 H 07/26/17 18:29 Respiratory Rate 16 07/26/17 18:29 Blood Pressure 124/82 07/26/17 18:29 O2 Sat by Pulse Oximetry 97 07/26/17 18:29 Pain Scale Pain Intensity 5 - Physical Exam General Appearance: no apparent distress, alert Eye Exam: PERRL/EOMI, eyes nml inspection Ears, Nose, Throat Exam: normal ENT inspection, TMs normal, pharynx normal, moist mucous membranes Neck Exam: normal inspection, non-tender, supple, full range of motion Respiratory Exam: normal breath sounds, lungs clear, No respiratory distress Gastrointestinal/Abdomen Exam: soft, No tenderness, No mass Pelvic Exam: not done Rectal Exam: not done Back Exam: normal inspection, normal range of motion, No CVA tenderness, No vertebral tenderness Extremity Exam: normal inspection, normal range of motion, pelvis stable Neurologic Exam: alert, oriented x 3, cooperative, normal mood/affect, nml cerebellar function, nml station & gait, sensation nml, No motor deficits Skin Exam: normal color, warm, dry, No rash Lymphatic Exam: No adenopathy SpO2 Interpretation: normal SpO2: 97 Oxygen Delivery: Room Air Ordered Tests: Active Orders 24 hr Category Date Time Status EKG-ER Only STAT Care 07/26/17 18:46 Active Heart Tones-ED STAT Care 07/26/17 18:47 Active IV Insertion STAT Care 07/26/17 18:46 Active Orthostatic Vital Signs STAT Care 07/26/17 18:47 Active AMYLASE Stat Lab 07/26/17 18:55 Completed CBC W DIFF Stat Lab 07/26/17 18:55 Completed CMP Stat Lab 07/26/17 18:55 Completed LIPASE Stat Lab 07/26/17 18:55 Completed UA W/RFX UR CULTURE Stat Lab 07/26/17 18:50 Completed Medication Summary Discontinued Medications Generic Name Dose Route Start Last Admin Trade Name José Antonio PRN Reason Stop Dose Admin Sodium Chloride 1,000 mls @ 999 mls/hr 07/26/17 18:46 07/26/17 19:04 Sodium Chloride 0.9% 1000 Ml IV 07/26/17 19:46 999 mls/hr .Q1H1M STA Administration Sodium Chloride Confirm 07/26/17 18:59 Sodium Chloride 0.9% 1000 Ml Administered 07/26/17 19:00 Dose 1,000 mls @ ud .ROUTE .STK-MED ONE Lab/Rad Data: Laboratory Result Diagrams 07/26/17 18:55 07/26/17 18:55 Laboratory Results 07/26/17 07/26/17 07/26/17 Range/Units 18:55 18:55 18:50 WBC 14.1 H (4.0-10.5) K/mm3 RBC 4.03 L (4.1-5.4) M/mm3 Hgb 12.2 (12.0-16.0) gm/dl Hct 36.8 (35-47) % MCV 91.3 (78-100) fl MCH 30.2 (26-32) pg MCHC 33.2 (32-36) g/dl RDW 12.8 (11.5-14.0) % Plt Count 256 (150-450) K/mm3 MPV 10.9 H (6-9.5) fl Gran % 71.9 H (36.0-66.0) % Lymphocytes % 18.9 L (24.0-44.0) % Monocytes % 7.8 (0.0-12.0) % Eosinophils % 1.4 (0.00-5.0) % Basophils % 0.0 (0.0-0.4) % Basophils # 0 (0-0.4) Sodium 139 (136-145) mEq/L Potassium 3.5 (3.5-5.1) mEq/L Chloride 105 (98-107) mEq/L Carbon Dioxide 25.2 (21-32) mEq/L Anion Gap 12.6 (5-15) MEQ/L BUN 9 (9-20) mg/dL Creatinine 0.65 (0.55-1.30) mg/dl Estimated GFR > 60 ML/MIN Glucose 122 H (70-110) MG/DL Calcium 8.6 (8.5-10.1) mg/dL Total Bilirubin 0.10 L (0.2-1.0) mg/dL AST 11 L (15-37) U/L ALT 18 (12-78) U/L Alkaline Phosphatase 82 (46-116) U/L Serum Total Protein 6.2 L (6.4-8.2) gm/dL Albumin 2.6 L (3.4-5.0) g/dL Amylase 40 (25-115) U/L Lipase 149 (73-393) U/L Ur Collection Type CLEAN CATCH Urine Color YELLOW (YELLOW) Urine Appearance CLEAR (CLEAR) Urine pH 6.5 (5-6) Ur Specific [place] 1.020 (1.005-1.025) Urine Protein NEGATIVE (Negative) Urine Ketones NEGATIVE (NEGATIVE) Urine Blood NEGATIVE (0-5) Rebel/ul Urine Nitrite NEGATIVE (NEGATIVE) Urine Bilirubin NEGATIVE (NEGATIVE) Urine Urobilinogen NORMAL (0-1) mg/dL Ur Leukocyte Esterase NEGATIVE (NEGATIVE) Urine Culture Reflexed NO (NO) Urine Glucose 100 (NEGATIVE) mg/dL Specimen Received 07/26/17:1850 - Progress Progress: improved Counseled pt/family regarding: lab results, diagnosis, need for follow-up, rad results - Departure Time of Disposition: 19:59 Departure Disposition: Home Clinical Impression: Diarrhea Condition: Stable Critical Care Time: No Referrals: KRISTYN RIVERA [Primary Care Provider] - Additional Instructions: Stay well hydrated.
== END 2017-07-26 20:11 | disposition home or self-care (01) ==
LOC: ED 18:23
DX: O26.892 Other specified pregnancy related conditions, second trimester (principal); Z3A.18 18 weeks gestation of pregnancy; R19.7 Diarrhea, unspecified
CPT/HCPCS: 36000; 36415; 80053; 81002; 82150; 83690; 85025; 93005; 96360; 99284

== ENCOUNTER 2017-09-06 14:36 | Observation (INO) | payer OTHER ==
[2017-09-06 15:17] VITALS: BP 149/84; PULSE 108
[2017-09-06 15:59] LABS: Collection Type VOID
[2017-09-06 16:00] LABS: Bacteria MANY /HPF (NEGATIVE); Bilirubin NEGATIVE (NEGATIVE); Blood TRACE NON-HEM Ery/ul (0-5); COMPLETE URINE MICROSCOPIC? YES; Epithelial Cells MANY /HPF (FEW); Glucose NEGATIVE (NEGATIVE); Hyaline Casts 0-2 /LPF (0-2); Leukocyte Esterase TRACE (NEGATIVE); Mucus MODERATE /HPF (NEGATIVE)
[2017-09-06] MEDS ORDERED: Lactated Ringers 1,000 ML IV SCH (16:30)
[2017-09-06 16:57] LABS: BASOPHIL % 0.1 % (0.0-0.4); Eosinophil % 0.4 % (0.00-5.0); Granulocytes % 74.2 % (36.0-66.0); Lymphocytes % 14.3 % (24.0-44.0); Mean Cell Volume 92.1 fl (78-100); Mean Corpuscular Hemoglobin 29.9 pg (26-32); Mean Platelet Volume 10.8 fl (6-9.5); Platelet Count 225 K/mm3 (150-450); Red Blood Count 4.18 M/mm3 (4.1-5.4); Red Cell Distribution Width 13.2 % (11.5-14.0); White Blood Count 7.8 K/mm3 (4.0-10.5)
[2017-09-06 17:21] LABS: ALBUMIN 2.7 g/dL (3.4-5.0); ALKALINE PHOSPHATASE 91 U/L (46-116); ANION GAP 15.3 MEQ/L (5-15); BLOOD UREA NITROGEN 9 mg/dL (9-20); CHLORIDE 106 mEq/L (98-107); Carbon Dioxide 25.7 mEq/L (21-32); Glucose 90 MG/DL (70-110); Potassium 3.8 mEq/L (3.5-5.1); SGOT/AST 17 U/L (15-37); SGPT/ALT 18 U/L (12-78); SODIUM 143 mEq/L (136-145)
== END 2017-09-06 18:40 | disposition home or self-care (01) ==
LOC: MED SURG 14:36 → UNDOADMOB 14:36 → UNDODISOB 18:40
PROVIDERS: ADMIT Family Medicine; ATTEND Family Medicine
DX: Z34.82 Encounter for supervision of other normal pregnancy, second trimester (principal)
CPT/HCPCS: 36415; 80053; 80307; 81000; 84550; 85025; G0378

== ENCOUNTER 2017-10-16 18:35 | Observation (INO) | payer OTHER ==
[2017-10-16 19:23] LABS: Amphetamine,Urine NEG. (NEGATIVE); Barbiturate,Urine NEG. (NEGATIVE); Benzodiazepine,Urine NEG. (NEGATIVE); Cocaine,Urine NEG. (NEGATIVE); Methadone,Urine NEG. (NEGATIVE); Opiate,Urine NEG. (NEGATIVE); PCP,Urine NEG. (NEGATIVE); THC,Urine NEG. (NEGATIVE)
[2017-10-16 20:24] LABS: Appearance CLEAR (CLEAR); Bilirubin NEGATIVE (NEGATIVE); Blood NEGATIVE Ery/ul (0-5); Glucose NEGATIVE (NEGATIVE); Ketones NEGATIVE (NEGATIVE); Leukocyte Esterase NEGATIVE (NEGATIVE); Nitrite NEGATIVE (NEGATIVE); Protein,Urine Dip NEGATIVE (Negative); Specific Gravity 1.015 (1.005-1.025); Urobilinogen NORMAL mg/dL (0-1)
[2017-10-16 21:33] VITALS: BP 122/76; PULSE 83
== END 2017-10-16 20:55 | disposition home or self-care (01) ==
LOC: OB 18:35
PROVIDERS: ADMIT Family Medicine; ATTEND Family Medicine
DX: Z34.83 Encounter for supervision of other normal pregnancy, third trimester (principal)
CPT/HCPCS: 80307; 81002; G0378

== ENCOUNTER 2017-10-25 13:11 | Observation (INO) | payer OTHER ==
[2017-10-25 14:26] LABS: Amphetamine,Urine NEG. (NEGATIVE); Barbiturate,Urine NEG. (NEGATIVE); Benzodiazepine,Urine NEG. (NEGATIVE); Cocaine,Urine NEG. (NEGATIVE); Methadone,Urine NEG. (NEGATIVE); Opiate,Urine NEG. (NEGATIVE); PCP,Urine NEG. (NEGATIVE); THC,Urine NEG. (NEGATIVE)
[2017-10-25 14:27] LABS: BASOPHIL % 0.1 % (0.0-0.4); Basophil (Absolute #) 0.01 (0-0.4); Eosinophil % 0.8 % (0.00-5.0); Eosinophil (Absolute #) 0.08 (0-0.5); Granulocyte Absolute (ANC) 7.64 (1.4-6.9); Granulocytes % 75.1 % (36.0-66.0); Hematocrit 35.4 % (35-47); Hemoglobin 11.6 gm/dl (12.0-16.0); Lymphocytes % 16.7 % (24.0-44.0); Mean Cell Volume 90.5 fl (78-100); Mean Corpuscular Hgb Concent. 32.8 g/dl (32-36); Mean Platelet Volume 11.2 fl (6-9.5); Monocyte (Absolute #) 0.74 (0.0-1.3); Monocytes % 7.3 % (0.0-12.0); Platelet Count 226 K/mm3 (150-450); Red Blood Count 3.91 M/mm3 (4.1-5.4); Red Cell Distribution Width 12.6 % (11.5-14.0); White Blood Count 10.2 K/mm3 (4.0-10.5)
[2017-10-25 14:28] LABS: Mean Corpuscular Hemoglobin 29.6 pg (26-32)
[2017-10-25] MEDS ORDERED: Lactated Ringers 1,000 ML IV SCH (14:30)
[2017-10-25 14:48] LABS: ALBUMIN 2.4 g/dL (3.4-5.0); ALKALINE PHOSPHATASE 102 U/L (46-116); ANION GAP 14.2 MEQ/L (5-15); BLOOD UREA NITROGEN 6 mg/dL (9-20); CHLORIDE 105 mEq/L (98-107); Calcium 7.9 mg/dL (8.5-10.1); Carbon Dioxide 23.8 mEq/L (21-32); Creatinine 1 0.79 mg/dl (0.55-1.30); EST GLOMERULAR FILTRATION RATE > 60 ML/MIN; Glucose 128 MG/DL (70-110); Potassium 3.3 mEq/L (3.5-5.1); SGOT/AST 16 U/L (15-37); SGPT/ALT 12 U/L (12-78); SODIUM 140 mEq/L (136-145); Total Protein 6.1 gm/dL (6.4-8.2); Uric Acid 5.1 mg/dL (2.6-6.0)
[2017-10-25 15:42] LABS: INFLUENZA A NEGATIVE (NEGATIVE); INFLUENZA B NEGATIVE (NEGATIVE); RESPIRATORY SYNCTIAL VIRUS NEGATIVE (Negative)
[2017-10-25] MEDS ORDERED: PROCARDIA 10 MG PO ONE ×2 (17:00→19:30)
[2017-10-25] MEDS: Lactated Ringers 1,000 ML IV SCH (17:10)
[2017-10-25 21:13] LABS: Appearance SLIGHTLY CLOUDY (CLEAR); Bilirubin NEGATIVE (NEGATIVE); Blood NEGATIVE Ery/ul (0-5); Glucose NEGATIVE (NEGATIVE); Ketones NEGATIVE (NEGATIVE); Leukocyte Esterase TRACE (NEGATIVE); Nitrite NEGATIVE (NEGATIVE); Protein,Urine Dip NEGATIVE (Negative); Urobilinogen NORMAL mg/dL (0-1)
[2017-10-25 21:29] LABS: Amourphous Crystal MODERATE /HPF (NEGATIVE); Bacteria MODERATE /HPF (NEGATIVE); Epithelial Cells MODERATE /HPF (FEW); WBC 0-2 /HPF (0-5)
[2017-10-25] MEDS: TYLENOL 325 MG PO PRN (22:21)
[2017-10-26] MEDS: Lactated Ringers 1,000 ML IV SCH ×2 (00:24→08:01)
[2017-10-26] MEDS: TYLENOL 325 MG PO PRN ×2 (02:56→08:05)
[2017-10-26] MEDS ORDERED: Celestone Soluspan 6MG/ML IM ONE (10:20)
--- NOTE | 2017-10-26 10:26 | PCM.SSS ---
History of Present Illness - Chief Complaint Chief Complaint: OB CHECK History of Present Illness: is a 27 year old female at 31 6/7 wks EGA with hx of pre- eclampsia and gest diabetes. she reports to L and D with c/o contractions, has been treated with procardia with resolution of contractions. her cervix is closed, she has improvement in headache she presented with. has been normotensive and normal reflexes, no clonus. - Review of Systems Constitutional: No Fever, No Chills Respiratory: No Cough, No Short Of Breath Cardiac: No Chest Pain, No Edema, No Syncope Abdominal/Gastrointestinal: No Abdominal Pain, No Nausea, No Vomiting, No Diarrhea Genitourinary Symptoms: Other (contractions), No Dysuria Neurological: Headache Medications & Allergies Home Medications: Home Medication List Vits W-Ca,Fe,FA(<1Mg) [] 1 each PO DAILY 04/25/17 [History Confirmed 10/25/17] Nifedipine 10 mg [Procardia 10 mg] 10 mg PO QID #120 capsule 10/26/17 [Rx] Allergies/Adverse Reactions: Allergies Allergy/AdvReac Type Severity Reaction Status Date / Time iodine Allergy Severe Hives Verified 07/26/17 18:36 morphine Allergy Shortness Verified 07/26/17 18:36 of Breath povidone-iodine Allergy Swelling Verified 07/26/17 18:36 [From Betadine] soap [From Betadine] Allergy Swelling Verified 07/26/17 18:36 - Past Medical History Past Medical History: Yes Neurological History: Migraines ENT History: No Pertinent History Cardiac History: No Pertinent History Respiratory History: Asthma Endocrine Medical History: No Pertinent History Musculoskelatal History: No Pertinent History GI Medical History: Gallbladder Disease, Other History: No Pertinent History Pyscho-Social History: No Pertinent History Reproductive Disorders: No Pertinent History Comment: polycystic ovarian syndrome,rectal abscess - Past Surgical History Past Surgical History: Yes Neuro Surgical History: No Pertinent History Cardiac History: No Pertinent History Respiratory Surgery: No Pertinent History GI Surgical History: Cholecystectomy, Other Genitourinary Surgical Hx: No Pertinent History Musculskeletal Surgical Hx: No Pertinent History Female Surgical History: No Pertinent History Other Surgical History: GALLBLADDER, TONSILS, STEVAN RECTAL ABSCESS, FISTULA, colonoscopy,egd,t&a, wisdom teeth, - Social History Smoking Status: Former smoker How long have you smoked: 9 years Exposure to second hand smoke: No Alcohol: None Drug Use: none - Physical Exam Vital Signs: Vital Signs - 24 hr Temp Pulse Resp BP BP 10/26/17 08:00 97.7 F 83 20 132/82 10/26/17 00:00 98.0 F 90 18 117/60 10/25/17 20:00 107 H 18 134/76 10/25/17 19:30 107 H 18 134/76 10/25/17 19:00 107 H 134/76 10/25/17 18:30 100 H 111/57 10/25/17 18:00 100 H 116/60 10/25/17 17:30 104 H 121/57 10/25/17 17:00 98 F 89 18 116/59 10/25/17 16:30 91 H 118/77 10/25/17 16:00 98 F 86 18 124/64 10/25/17 15:30 91 H 114/56 10/25/17 15:00 92 H 127/58 10/25/17 14:30 93 H 121/63 10/25/17 14:00 91 H 18 117/59 10/25/17 13:43 98 F 116 H 18 131/63 General Appearance: no apparent distress, alert, obese Neurologic Exam: alert, oriented x 3, No motor deficits, No sensory deficit Respiratory Exam: normal breath sounds, lungs clear, No respiratory distress Cardiovascular Exam: regular rate/rhythm, normal heart sounds, normal peripheral pulses Gastrointestinal/Abdomen Exam: soft (gravid), No tenderness Extremity Exam: normal inspection, normal range of motion, pelvis stable Skin Exam: normal color, warm, dry, No rash Results - Labs Lab/Micro Results: Lab Results-Last 24 Hours 10/25/17 10/25/17 10/25/17 Range/Units 13:39 14:15 14:20 WBC 10.2 (4.0-10.5) K/mm3 RBC 3.91 L (4.1-5.4) M/mm3 Hgb 11.6 L (12.0-16.0) gm/dl Hct 35.4 (35-47) % MCV 90.5 (78-100) fl MCH 29.6 (26-32) pg MCHC 32.8 (32-36) g/dl RDW 12.6 (11.5-14.0) % Plt Count 226 (150-450) K/mm3 MPV 11.2 H (6-9.5) fl Gran % 75.1 H (36.0-66.0) % Lymphocytes % 16.7 L (24.0-44.0) % Monocytes % 7.3 (0.0-12.0) % Eosinophils % 0.8 (0.00-5.0) % Basophils % 0.1 (0.0-0.4) % Basophils # 0.01 (0-0.4) Sodium 140 (136-145) mEq/L Potassium 3.3 L (3.5-5.1) mEq/L Chloride 105 (98-107) mEq/L Carbon Dioxide 23.8 (21-32) mEq/L Anion Gap 14.2 (5-15) MEQ/L BUN 6 L (9-20) mg/dL Creatinine 0.79 (0.55-1.30) mg/dl Estimated GFR > 60 ML/MIN Glucose 128 H (70-110) MG/DL Uric Acid 5.1 (2.6-6.0) mg/dL Calcium 7.9 L (8.5-10.1) mg/dL Total Bilirubin 0.10 L (0.2-1.0) mg/dL AST 16 (15-37) U/L ALT 12 (12-78) U/L Alkaline Phosphatase 102 (46-116) U/L Serum Total Protein 6.1 L (6.4-8.2) gm/dL Albumin 2.4 L (3.4-5.0) g/dL Ur Collection Type Urine Color (YELLOW) Urine Appearance (CLEAR) Urine pH (5-6) Ur Specific [place] (1.005-1.025) Urine Protein (Negative) Urine Ketones (NEGATIVE) Urine Blood (0-5) Rebel/ul Urine Nitrite (NEGATIVE) Urine Bilirubin (NEGATIVE) Urine Urobilinogen (0-1) mg/dL Ur Leukocyte Esterase (NEGATIVE) Urine Microscopic WBC (0-5) /HPF Ur Epithelial Cells (FEW) /HPF Amorphous Crystals (NEGATIVE) /HPF Urine Bacteria (NEGATIVE) /HPF Urine Glucose (NEGATIVE) mg/dL Urine Opiates Level NEG. (NEGATIVE) Ur Methadone NEG. (NEGATIVE) Urine Barbiturates NEG. (NEGATIVE) Ur Phencyclidine (PCP) NEG. (NEGATIVE) Urine Amphetamine NEG. (NEGATIVE) U Benzodiazepine Level NEG. (NEGATIVE) Urine Cocaine NEG. (NEGATIVE) Urine Marijuana (THC) NEG. (NEGATIVE) Influenza Type A Ag (NEGATIVE) Influenza Type B Ag (NEGATIVE) RSV (PCR) (Negative) Specimen Received 10/25/17 10/25/17 Range/Units 15:00 21:05 WBC (4.0-10.5) K/mm3 RBC (4.1-5.4) M/mm3 Hgb (12.0-16.0) gm/dl Hct (35-47) % MCV (78-100) fl MCH (26-32) pg MCHC (32-36) g/dl RDW (11.5-14.0) % Plt Count (150-450) K/mm3 MPV (6-9.5) fl Gran % (36.0-66.0) % Lymphocytes % (24.0-44.0) % Monocytes % (0.0-12.0) % Eosinophils % (0.00-5.0) % Basophils % (0.0-0.4) % Basophils # (0-0.4) Sodium (136-145) mEq/L Potassium (3.5-5.1) mEq/L Chloride (98-107) mEq/L Carbon Dioxide (21-32) mEq/L Anion Gap (5-15) MEQ/L BUN (9-20) mg/dL Creatinine (0.55-1.30) mg/dl Estimated GFR ML/MIN Glucose (70-110) MG/DL Uric Acid (2.6-6.0) mg/dL Calcium (8.5-10.1) mg/dL Total Bilirubin (0.2-1.0) mg/dL AST (15-37) U/L ALT (12-78) U/L Alkaline Phosphatase (46-116) U/L Serum Total Protein (6.4-8.2) gm/dL Albumin (3.4-5.0) g/dL Ur Collection Type CCMS Urine Color YELLOW (YELLOW) Urine Appearance SLIGHTLY CLOUDY (CLEAR) Urine pH 8.0 (5-6) Ur Specific [place] 1.010 (1.005-1.025) Urine Protein NEGATIVE (Negative) Urine Ketones NEGATIVE (NEGATIVE) Urine Blood NEGATIVE (0-5) Rebel/ul Urine Nitrite NEGATIVE (NEGATIVE) Urine Bilirubin NEGATIVE (NEGATIVE) Urine Urobilinogen NORMAL (0-1) mg/dL Ur Leukocyte Esterase TRACE (NEGATIVE) Urine Microscopic WBC 0-2 (0-5) /HPF Ur Epithelial Cells MODERATE (FEW) /HPF Amorphous Crystals MODERATE (NEGATIVE) /HPF Urine Bacteria MODERATE (NEGATIVE) /HPF Urine Glucose NEGATIVE (NEGATIVE) mg/dL Urine Opiates Level (NEGATIVE) Ur Methadone (NEGATIVE) Urine Barbiturates (NEGATIVE) Ur Phencyclidine (PCP) (NEGATIVE) Urine Amphetamine (NEGATIVE) U Benzodiazepine Level (NEGATIVE) Urine Cocaine (NEGATIVE) Urine Marijuana (THC) (NEGATIVE) Influenza Type A Ag NEGATIVE (NEGATIVE) Influenza Type B Ag NEGATIVE (NEGATIVE) RSV (PCR) NEGATIVE (Negative) Specimen Received 10-25-17 2100 Assessment/Plan (1) contractions Current Visit: Yes Status: Acute Assessment & Plan: home on po procardia, advised to push fluids. modified bedrest and stressed to return if contractions are regular. giving celestone 12mg IM prior to discharge today and will return for second dose tomorrow in case of early delivery for lung maturity Code(s): O47.9 - FALSE LABOR, UNSPECIFIED (2) Gestational diabetes Current Visit: Yes Status: Acute Assessment & Plan: diet controlled at this time, monitor Code(s): O24.419 - GESTATIONAL DIABETES MELLITUS IN , UNSP CONTROL (3) Pre-eclampsia Current Visit: Yes Status: Acute Assessment & Plan: stable, normotensive and HELLP labs look good Code(s): O14.90 - UNSPECIFIED PRE-ECLAMPSIA, UNSPECIFIED [facility] Hospital Summary - Vitals & Intake/Output Vital Signs: Vital Signs Temperature 97.7 F 10/26/17 08:00 Pulse Rate 83 10/26/17 08:00 Respiratory Rate 20 10/26/17 08:00 Blood Pressure 132/82 10/26/17 08:00 O2 Sat by Pulse Oximetry Intake & Output: Intake & Output 10/23/17 10/24/17 10/25/17 10/26/17 11:59 11:59 11:59 11:59 Intake Total 3418 Balance 3418 Weight 116.12 kg - Lab Result Diagrams: 10/25/17 14:15 10/25/17 13:39 Lab Results-Last 24 Hrs: Lab Results-Last 24 Hours 10/25/17 10/25/17 10/25/17 Range/Units 13:39 14:15 14:20 WBC 10.2 (4.0-10.5) K/mm3 RBC 3.91 L (4.1-5.4) M/mm3 Hgb 11.6 L (12.0-16.0) gm/dl Hct 35.4 (35-47) % MCV 90.5 (78-100) fl MCH 29.6 (26-32) pg MCHC 32.8 (32-36) g/dl RDW 12.6 (11.5-14.0) % Plt Count 226 (150-450) K/mm3 MPV 11.2 H (6-9.5) fl Gran % 75.1 H (36.0-66.0) % Lymphocytes % 16.7 L (24.0-44.0) % Monocytes % 7.3 (0.0-12.0) % Eosinophils % 0.8 (0.00-5.0) % Basophils % 0.1 (0.0-0.4) % Basophils # 0.01 (0-0.4) Sodium 140 (136-145) mEq/L Potassium 3.3 L (3.5-5.1) mEq/L Chloride 105 (98-107) mEq/L Carbon Dioxide 23.8 (21-32) mEq/L Anion Gap 14.2 (5-15) MEQ/L BUN 6 L (9-20) mg/dL Creatinine 0.79 (0.55-1.30) mg/dl Estimated GFR > 60 ML/MIN Glucose 128 H (70-110) MG/DL Uric Acid 5.1 (2.6-6.0) mg/dL Calcium 7.9 L (8.5-10.1) mg/dL Total Bilirubin 0.10 L (0.2-1.0) mg/dL AST 16 (15-37) U/L ALT 12 (12-78) U/L Alkaline Phosphatase 102 (46-116) U/L Serum Total Protein 6.1 L (6.4-8.2) gm/dL Albumin 2.4 L (3.4-5.0) g/dL Ur Collection Type Urine Color (YELLOW) Urine Appearance (CLEAR) Urine pH (5-6) Ur Specific [place] (1.005-1.025) Urine Protein (Negative) Urine Ketones (NEGATIVE) Urine Blood (0-5) Rebel/ul Urine Nitrite (NEGATIVE) Urine Bilirubin (NEGATIVE) Urine Urobilinogen (0-1) mg/dL Ur Leukocyte Esterase (NEGATIVE) Urine Microscopic WBC (0-5) /HPF Ur Epithelial Cells (FEW) /HPF Amorphous Crystals (NEGATIVE) /HPF Urine Bacteria (NEGATIVE) /HPF Urine Glucose (NEGATIVE) mg/dL Urine Opiates Level NEG. (NEGATIVE) Ur Methadone NEG. (NEGATIVE) Urine Barbiturates NEG. (NEGATIVE) Ur Phencyclidine (PCP) NEG. (NEGATIVE) Urine Amphetamine NEG. (NEGATIVE) U Benzodiazepine Level NEG. (NEGATIVE) Urine Cocaine NEG. (NEGATIVE) Urine Marijuana (THC) NEG. (NEGATIVE) Influenza Type A Ag (NEGATIVE) Influenza Type B Ag (NEGATIVE) RSV (PCR) (Negative) Specimen Received 10/25/17 10/25/17 Range/Units 15:00 21:05 WBC (4.0-10.5) K/mm3 RBC (4.1-5.4) M/mm3 Hgb (12.0-16.0) gm/dl Hct (35-47) % MCV (78-100) fl MCH (26-32) pg MCHC (32-36) g/dl RDW (11.5-14.0) % Plt Count (150-450) K/mm3 MPV (6-9.5) fl Gran % (36.0-66.0) % Lymphocytes % (24.0-44.0) % Monocytes % (0.0-12.0) % Eosinophils % (0.00-5.0) % Basophils % (0.0-0.4) % Basophils # (0-0.4) Sodium (136-145) mEq/L Potassium (3.5-5.1) mEq/L Chloride (98-107) mEq/L Carbon Dioxide (21-32) mEq/L Anion Gap (5-15) MEQ/L BUN (9-20) mg/dL Creatinine (0.55-1.30) mg/dl Estimated GFR ML/MIN Glucose (70-110) MG/DL Uric Acid (2.6-6.0) mg/dL Calcium (8.5-10.1) mg/dL Total Bilirubin (0.2-1.0) mg/dL AST (15-37) U/L ALT (12-78) U/L Alkaline Phosphatase (46-116) U/L Serum Total Protein (6.4-8.2) gm/dL Albumin (3.4-5.0) g/dL Ur Collection Type CCMS Urine Color YELLOW (YELLOW) Urine Appearance SLIGHTLY CLOUDY (CLEAR) Urine pH 8.0 (5-6) Ur Specific [place] 1.010 (1.005-1.025) Urine Protein NEGATIVE (Negative) Urine Ketones NEGATIVE (NEGATIVE) Urine Blood NEGATIVE (0-5) Rebel/ul Urine Nitrite NEGATIVE (NEGATIVE) Urine Bilirubin NEGATIVE (NEGATIVE) Urine Urobilinogen NORMAL (0-1) mg/dL Ur Leukocyte Esterase TRACE (NEGATIVE) Urine Microscopic WBC 0-2 (0-5) /HPF Ur Epithelial Cells MODERATE (FEW) /HPF Amorphous Crystals MODERATE (NEGATIVE) /HPF Urine Bacteria MODERATE (NEGATIVE) /HPF Urine Glucose NEGATIVE (NEGATIVE) mg/dL Urine Opiates Level (NEGATIVE) Ur Methadone (NEGATIVE) Urine Barbiturates (NEGATIVE) Ur Phencyclidine (PCP) (NEGATIVE) Urine Amphetamine (NEGATIVE) U Benzodiazepine Level (NEGATIVE) Urine Cocaine (NEGATIVE) Urine Marijuana (THC) (NEGATIVE) Influenza Type A Ag NEGATIVE (NEGATIVE) Influenza Type B Ag NEGATIVE (NEGATIVE) RSV (PCR) NEGATIVE (Negative) Specimen Received 10-25-17 2100 - Discharge Disposition: Home, Self-Care Condition: Stable Prescriptions: New Nifedipine 10 mg [Procardia 10 mg] 10 mg PO QID #120 capsule Continue Vits W-Ca,Fe,FA(<1Mg) [] 1 each PO DAILY Follow up with: KRISTYN RIVERA [Primary Care Provider] - 1 Week
[2017-10-26 11:42] VITALS: BP 127/61; PULSE 88
== END 2017-10-26 11:20 | disposition home or self-care (01) ==
LOC: OB 13:11
PROVIDERS: ADMIT Family Medicine; ATTEND Family Medicine
DX: O47.03 False labor before 37 completed weeks of gestation, third trimester (principal); Z3A.31 31 weeks gestation of pregnancy; O24.419 Gestational diabetes mellitus in pregnancy, unspecified control; O14.93 Unspecified pre-eclampsia, third trimester
CPT/HCPCS: 36415; 80053; 80307; 81000; 84550; 85025; 87631; 96372; G0378; J0702; A9270-GY

== ENCOUNTER 2017-10-31 17:00 | Observation (INO) | payer OTHER ==
[2017-10-31 18:55] LABS: Appearance SLIGHTLY CLOUDY (CLEAR); Bilirubin NEGATIVE (NEGATIVE); Blood NEGATIVE Ery/ul (0-5); Glucose NEGATIVE (NEGATIVE); Ketones NEGATIVE (NEGATIVE); Leukocyte Esterase TRACE (NEGATIVE); Nitrite NEGATIVE (NEGATIVE); Protein,Urine Dip NEGATIVE (Negative); Urobilinogen NORMAL mg/dL (0-1); WBC 0-2 /HPF (0-5)
[2017-10-31 18:56] LABS: Amourphous Crystal MODERATE /HPF (NEGATIVE); Bacteria MODERATE /HPF (NEGATIVE); Epithelial Cells FEW /HPF (FEW)
[2017-10-31 19:03] VITALS: O2SAT 98
[2017-10-31 20:24] VITALS: BP 123/59; PULSE 92
== END 2017-10-31 19:40 | disposition home or self-care (01) ==
LOC: UNDOADMOB 17:00 → OB 17:00 → UNDOADMOB 17:17 → UNDODISOB 19:40
PROVIDERS: ADMIT Family Medicine; ATTEND Family Medicine
DX: Z34.83 Encounter for supervision of other normal pregnancy, third trimester (principal)
CPT/HCPCS: 81000; 82962; 93012; G0378

== ENCOUNTER 2017-11-03 00:55 | Observation (INO) | payer OTHER | END 2017-11-03 01:15 | LOC: MED SURG 00:55 | PROVIDERS: ADMIT Family Medicine; ATTEND Family Medicine | DX: Z53.9 Procedure and treatment not carried out, unspecified reason (principal) ==

== ENCOUNTER 2017-11-03 01:21 | Observation (INO) | payer OTHER ==
[2017-11-03] MEDS ORDERED: Zofran 4 MG/2 ML VIAL ONE ×2 (01:33→02:12)
[2017-11-03] MEDS ORDERED: Sodium Chloride 0.9% 1000 ML 1,000 ML IV STA (01:35)
[2017-11-03] MEDS ORDERED: Zofran 4 MG/2 ML VIAL IV ONE ×2 (01:36→02:14)
[2017-11-03] MEDS ORDERED: Sodium Chloride 0.9% 1000 ML 1,000 ML ONE (01:36)
[2017-11-03] MEDS ORDERED: PROTONIX 40 MG IV IV ONE ×2 (01:38→01:44)
[2017-11-03 01:47] LABS: Granulocyte Absolute (ANC) 14.82 (1.4-6.9); Hematocrit 42.2 % (35-47); Hemoglobin 13.8 gm/dl (12.0-16.0); Mean Cell Volume 88.8 fl (78-100); Mean Corpuscular Hemoglobin 29.1 pg (26-32); Mean Corpuscular Hgb Concent. 32.7 g/dl (32-36); Mean Platelet Volume 11.2 fl (6-9.5); Platelet Count 264 K/mm3 (150-450); Red Blood Count 4.75 M/mm3 (4.1-5.4); Red Cell Distribution Width 12.8 % (11.5-14.0); White Blood Count 18.9 K/mm3 (4.0-10.5)
--- NOTE | 2017-11-03 01:56 | ERPHSYRPT ---
- History of Present Illness Time Seen by Provider: 11/03/17 01:35 Historian: patient Exam Limitations: clinical condition Patient Subjective Stated Complaint: Chest Pain, Emesis Triage Nursing Assessment: Pt presents to the ED from OB unit, approximately 33 weeks expected due date 12/23/2017. Pt states she has had episodes of emesis today, worsening throughout the day with chest tightness beginning at approximately 0100. Pt states she is to see a geospatial extractor analysis this week for tachycardia. Physician History: PATIENT IS A -2, PARA-1 -0, 33 WEEKS GESTATION, WITH A HISTORY OF TACHYCARDIA COMPLAINS OF ACUTE ONSET OF FREQUENT EPISODES OF EMESIS X 5, DRY HEAVES ASSOCIATED WITH EPIGASTRIC PAIN AND LOWER STERNAL CHEST PAIN. DENIES DYSPNEA, FEVER OR COUGH. Timing/Duration: today Activities at Onset: none Quality: cramping Location: substernal, epigastric Chest Pain Radiation: no radiation Severity of Pain-Max: moderate Severity of Pain-Current: moderate Modifying Factors: Improves With: breathing Associated Symptoms: nausea, vomiting, abdominal pain, hurts to breathe Nitro Today/Relief: no nitro taken today Aspirin Treatment Today: no aspirin today Allergies/Adverse Reactions: iodine Allergy (Severe, Verified 07/26/17 18:36) Hives morphine Allergy (Verified 07/26/17 18:36) Shortness of Breath povidone-iodine [From Betadine] Allergy (Verified 07/26/17 18:36) Swelling swelling at sight of F/C insertion soap [From Betadine] Allergy (Verified 07/26/17 18:36) Swelling Home Medications: Vits W-Ca,Fe,FA(<1Mg) [] 1 each PO DAILY 04/25/17 [History] Hx Tetanus, Diphtheria Vaccination/Date Given: No Hx Influenza Vaccination/Date Given: No Hx Pneumococcal Vaccination/Date Given: No Immunizations Up to Date: Yes - Review of Systems Constitutional: No Fever, No Chills Eyes: No Symptoms Ears, Nose, & Throat: No Symptoms Respiratory: No Cough, No Dyspnea Cardiac: Chest Pain, Palpitations, No Edema, No Syncope Abdominal/Gastrointestinal: Abdominal Pain, Nausea, Vomiting, No Diarrhea Genitourinary Symptoms: No Symptoms, No Dysuria Musculoskeletal: No Symptoms, No Back Pain, No Neck Pain Skin: No Rash Neurological: No Dizziness, No Focal Weakness, No Sensory Changes Psychological: No Symptoms Endocrine: No Symptoms All Other Systems: Reviewed and Negative - Past Medical History Pertinent Past Medical History: Yes Neurological History: Migraines ENT History: No Pertinent History Cardiac History: No Pertinent History Respiratory History: Asthma Endocrine Medical History: No Pertinent History Musculoskeletal History: No Pertinent History GI Medical History: Gallbladder Disease, Other History: No Pertinent History Psycho-Social History: No Pertinent History Female Reproductive Disorders: No Pertinent History Other Medical History: polycystic ovarian syndrome,rectal abscess - Past Surgical History Past Surgical History: Yes Neuro Surgical History: No Pertinent History Cardiac: No Pertinent History Respiratory: No Pertinent History Gastrointestinal: Cholecystectomy, Other Genitourinary: No Pertinent History Musculoskeletal: No Pertinent History Female Surgical History: No Pertinent History Other Surgical History: GALLBLADDER, TONSILS, STEVAN RECTAL ABSCESS, FISTULA, colonoscopy,egd,t&a, wisdom teeth, - Social History Smoking Status: Former smoker How long have you smoked: 9 years Exposure to second hand smoke: No Drug Use: none Patient Lives Alone: No - Female History Hx Now: Yes Expected Date of Delivery: 12/23/17 - Nursing Vital Signs Nursing Vital Signs: Initial Vital Signs Temperature 97.5 F 11/03/17 01:21 Pulse Rate 127 H 11/03/17 01:21 Respiratory Rate 22 11/03/17 01:21 Blood Pressure 121/75 11/03/17 01:21 O2 Sat by Pulse Oximetry 97 11/03/17 01:21 Pain Scale Pain Intensity 6 - Physical Exam General Appearance: mild distress Eye Exam: PERRL/EOMI, eyes nml inspection Ears, Nose, Throat Exam: normal ENT inspection, moist mucous membranes Neck Exam: normal inspection, non-tender, supple, full range of motion Respiratory Exam: normal breath sounds, chest tenderness (PARASTERNAL TENDERNESSS T4 TO T8), lungs clear, No respiratory distress Cardiovascular Exam: regular rate/rhythm, normal heart sounds Gastrointestinal/Abdomen Exam: soft, normal bowel sounds, tenderness ( EPIGASTRIC TENDERNESS, GRAVID FUNDAL HEIGHT 6 FINGERBREATHS ABOVE UMBILICUS), No mass Back Exam: normal inspection, CVA tenderness (RIGHT CVA TENDERNESS), No vertebral tenderness Extremity Exam: normal inspection, normal range of motion Neurologic Exam: alert, oriented x 3, cooperative, normal mood/affect, sensation nml, No motor deficits Skin Exam: normal color, warm, dry SpO2 Interpretation: normal SpO2: 97 Oxygen Delivery: Room Air - Course EKG Interpreted by Me: RATE, Sinus Rhythm, Sinus Tach (RATE 115), NORMAL AXIS Ordered Tests: Active Orders 24 hr Category Date Time Status Admission/Status Order ROUTINE Care 11/03/17 02:24 Ordered EKG-ER Only STAT Care 11/03/17 01:39 Active Heart Tones-ED STAT Care 11/03/17 01:42 Active IV Care Q6H Care 11/03/17 02:24 Ordered IV Insertion STAT Care 11/03/17 01:58 Active AMYLASE Stat Lab 11/03/17 01:40 Completed CBC W DIFF Stat Lab 11/03/17 01:40 Completed CMP Stat Lab 11/03/17 01:40 Received LIPASE Stat Lab 11/03/17 01:40 Completed MAGNESIUM Stat Lab 11/03/17 01:40 Completed Manual Differential NC Stat Lab 11/03/17 01:40 Completed TROPONIN Q3H Lab 11/03/17 01:40 Completed TROPONIN Q3H Lab 11/03/17 05:00 Ordered TROPONIN Q3H Lab 11/03/17 08:00 Ordered TROPONIN Q3H Lab 11/03/17 11:00 Ordered TROPONIN Q3H Lab 11/03/17 14:00 Ordered TSH, 3RD Generation Stat Lab 11/03/17 01:40 Completed UA W/ MICROSCOPIC Stat Lab 11/03/17 01:40 Completed Urine Triage Profile Stat Lab 11/03/17 02:24 Uncollected Transfer Order Routine Transfer 11/03/17 Ordered Medication Summary Generic Name Dose Route Start Last Admin Trade Name Freq PRN Reason Stop Dose Admin Sodium Chloride 1,000 mls @ 999 mls/hr 11/03/17 01:35 11/03/17 01:43 Sodium Chloride 0.9% 1000 Ml IV 11/03/17 02:35 999 mls/hr .Q1H1M STA Administration Discontinued Medications Generic Name Dose Route Start Last Admin Trade Name Freq PRN Reason Stop Dose Admin Sodium Chloride Confirm 11/03/17 01:36 Sodium Chloride 0.9% 1000 Ml Administered 11/03/17 01:37 Dose 1,000 mls @ ud .ROUTE .STK-MED ONE Ondansetron HCl Confirm 11/03/17 01:33 Zofran 4 Mg/2 Ml Vial Administered 11/03/17 01:34 Dose 4 mg .ROUTE .STK-MED ONE Ondansetron HCl 4 mg 11/03/17 01:36 11/03/17 01:43 Zofran 4 Mg/2 Ml Vial IV 11/03/17 01:37 4 mg STAT ONE Administration Ondansetron HCl 4 mg 11/03/17 02:14 11/03/17 02:15 Zofran 4 Mg/2 Ml Vial IV 11/03/17 02:15 4 mg STAT ONE Administration Ondansetron HCl Confirm 11/03/17 02:12 Zofran 4 Mg/2 Ml Vial Administered 11/03/17 02:13 Dose 4 mg .ROUTE .STK-MED ONE Pantoprazole Sodium 40 mg 11/03/17 01:38 11/03/17 01:46 Protonix 40 Mg Iv IV 11/03/17 01:39 40 mg STAT ONE Administration Pantoprazole Sodium Confirm 11/03/17 01:44 Protonix 40 Mg Iv Administered 11/03/17 01:45 Dose 40 mg IV .STK-MED ONE Lab/Rad Data: Laboratory Result Diagrams 11/03/17 01:40 Laboratory Results 11/03/17 11/03/17 11/03/17 Range/Units 01:40 01:40 01:40 WBC 18.9 H (4.0-10.5) K/mm3 RBC 4.75 (4.1-5.4) M/mm3 Hgb 13.8 (12.0-16.0) gm/dl Hct 42.2 (35-47) % MCV 88.8 (78-100) fl MCH 29.1 (26-32) pg MCHC 32.7 (32-36) g/dl RDW 12.8 (11.5-14.0) % Plt Count 264 (150-450) K/mm3 MPV 11.2 H (6-9.5) fl Magnesium 1.4 L (1.8-2.4) mg/dL Troponin I 0.024 (0.000-0.056) ng/ml Amylase 53 (25-115) U/L Lipase 175 (73-393) U/L TSH 3rd Generation 3.841 H (0.358-3.740) mIU/L Ur Collection Type Urine Color (YELLOW) Urine Appearance (CLEAR) Urine pH (5-6) Ur Specific [place] (1.005-1.025) Urine Protein (Negative) Urine Ketones (NEGATIVE) Urine Blood (0-5) Rebel/ul Urine Nitrite (NEGATIVE) Urine Bilirubin (NEGATIVE) Urine Urobilinogen (0-1) mg/dL Ur Leukocyte Esterase (NEGATIVE) Ur Epithelial Cells (FEW) /HPF Urine Bacteria (NEGATIVE) /HPF Urine Culture Reflexed (NO) Urine Glucose (NEGATIVE) mg/dL Specimen Received 11/03/17 Range/Units 01:40 WBC (4.0-10.5) K/mm3 RBC (4.1-5.4) M/mm3 Hgb (12.0-16.0) gm/dl Hct (35-47) % MCV (78-100) fl MCH (26-32) pg MCHC (32-36) g/dl RDW (11.5-14.0) % Plt Count (150-450) K/mm3 MPV (6-9.5) fl Magnesium (1.8-2.4) mg/dL Troponin I (0.000-0.056) ng/ml Amylase (25-115) U/L Lipase (73-393) U/L TSH 3rd Generation (0.358-3.740) mIU/L Ur Collection Type CLEAN CATCH Urine Color YELLOW (YELLOW) Urine Appearance CLEAR (CLEAR) Urine pH 7.0 (5-6) Ur Specific [place] 1.015 (1.005-1.025) Urine Protein TRACE (Negative) Urine Ketones NEGATIVE (NEGATIVE) Urine Blood NEGATIVE (0-5) Rebel/ul Urine Nitrite NEGATIVE (NEGATIVE) Urine Bilirubin NEGATIVE (NEGATIVE) Urine Urobilinogen NORMAL (0-1) mg/dL Ur Leukocyte Esterase NEGATIVE (NEGATIVE) Ur Epithelial Cells FEW (FEW) /HPF Urine Bacteria RARE (NEGATIVE) /HPF Urine Culture Reflexed NO (NO) Urine Glucose NEGATIVE (NEGATIVE) mg/dL Specimen Received 11/03/17 0140 - Progress Progress Note: 11/03/17 02:12 ADMINISTERED IV NORMAL SALINE 1LITER /HR, ZOFRAN 4MG X 2, PROTONIX 40MG IV 11/03/17 02:18, ONSET O Discussed with Dr.: Kuo (DISCUSSED WITH DR KUO AT 0215 FOR ADMIT TO LABOR AND DELIVERY) - Departure Time of Disposition: 02:25 Departure Disposition: Observation Clinical Impression: PREMATURE CONTRACTIONS, INTRACTABLE EMESIS Condition: Stable Critical Care Time: No Referrals: KRISTYN KUO [Primary Care Provider] -
[2017-11-03 02:10] LABS: Appearance CLEAR (CLEAR); Bilirubin NEGATIVE (NEGATIVE); Blood NEGATIVE Ery/ul (0-5); Glucose NEGATIVE (NEGATIVE); Ketones NEGATIVE (NEGATIVE); Leukocyte Esterase NEGATIVE (NEGATIVE); Nitrite NEGATIVE (NEGATIVE); Protein,Urine Dip TRACE (Negative); Specific Gravity 1.015 (1.005-1.025); Urobilinogen NORMAL mg/dL (0-1)
[2017-11-03 02:11] LABS: Bacteria RARE /HPF (NEGATIVE); Epithelial Cells FEW /HPF (FEW)
[2017-11-03 02:19] LABS: MAGNESIUM 1.4 mg/dL (1.8-2.4); TSH, 3RD Generation 3.841 mIU/L (0.358-3.740)
[2017-11-03 02:28] LABS: ALKALINE PHOSPHATASE 128 U/L (46-116); ANION GAP 15.4 MEQ/L (5-15); BLOOD UREA NITROGEN 13 mg/dL (9-20); CHLORIDE 103 mEq/L (98-107); Calcium 8.9 mg/dL (8.5-10.1); Carbon Dioxide 23.6 mEq/L (21-32); Creatinine 1 0.89 mg/dl (0.55-1.30); EST GLOMERULAR FILTRATION RATE > 60 ML/MIN; Glucose 119 MG/DL (70-110); Potassium 4.1 mEq/L (3.5-5.1); SGOT/AST 17 U/L (15-37); SGPT/ALT 16 U/L (12-78); SODIUM 138 mEq/L (136-145); Total Protein 7.4 gm/dL (6.4-8.2)
[2017-11-03 03:29] LABS: Amphetamine,Urine NEG. (NEGATIVE); Barbiturate,Urine NEG. (NEGATIVE); Benzodiazepine,Urine NEG. (NEGATIVE); Cocaine,Urine NEG. (NEGATIVE); Methadone,Urine NEG. (NEGATIVE); Opiate,Urine NEG. (NEGATIVE); PCP,Urine NEG. (NEGATIVE); THC,Urine NEG. (NEGATIVE)
[2017-11-03 04:26] LABS: Lymphocytes 15 % (24-44); Monocyte 9 % (0.0-12.0); Neutrophils 76 % (36.0-66.0); Platelet Estimate NORMAL (NORMAL); Total Cells Counted 100
[2017-11-03] MEDS: Magnesium 1 Gm / 100 Ml D5W*** 100 ML IV SCH ×2 (10:07→11:17)
[2017-11-03] MEDS: Zofran 4 MG/2 ML VIAL IV PRN ×2 (10:07→20:45)
[2017-11-03] MEDS ORDERED: PROCARDIA 10 MG PO SCH (11:00)
[2017-11-03] MEDS ORDERED: PATIENT OWN MEDICATION PO SCH (11:00)
[2017-11-03] MEDS: CLINDAMYCIN-D5W 600 MG/50 ML*** 600 MG/50 ML BAG IV SCH ×3 (11:17→22:26)
[2017-11-03] MEDS: Lactated Ringers 1,000 ML IV SCH ×2 (12:25→21:18)
[2017-11-03] MEDS: FLAGYL 500 MG IVPB 500 MG/100 ML BAG IV SCH ×3 (12:25→23:35)
[2017-11-03] MEDS: PATIENT OWN MEDICATION PO SCH ×2 (15:39→21:18)
[2017-11-04] MEDS: PATIENT OWN MEDICATION PO SCH ×2 (03:25→09:06)
[2017-11-04] MEDS: CLINDAMYCIN-D5W 600 MG/50 ML*** 600 MG/50 ML BAG IV SCH (04:29)
[2017-11-04] MEDS: FLAGYL 500 MG IVPB 500 MG/100 ML BAG IV SCH (05:38)
[2017-11-04 14:21] VITALS: BP 117/61; PULSE 99; O2SAT 98
== END 2017-11-04 10:05 | disposition home or self-care (01) ==
LOC: ED 01:21 → MED SURG 02:35
PROVIDERS: ADMIT Family Medicine; ATTEND Family Medicine
DX: O14.93 Unspecified pre-eclampsia, third trimester (principal); Z3A.32 32 weeks gestation of pregnancy
CPT/HCPCS: 36000; 36415; 80053; 80307; 81000; 82150; 83690; 83735; 84443; 84484; 85025; 93005; 96374; 96375; 96376; 99285; G0378; J2405; J3475; A9270-GY

== ENCOUNTER 2018-01-22 03:14 | Emergency (ER) | payer OTHER ==
[2018-01-22] MEDS ORDERED: Sodium Chloride 0.9% 1000 ML 1,000 ML IV STA (04:34)
--- NOTE | 2018-01-22 04:39 | ERPHSYRPT ---
- History of Present Illness Time Seen by Provider: 01/22/18 04:25 Source: patient Exam Limitations: no limitations Patient Subjective Stated Complaint: pt had baby on 11/27; then started control on 12/29; stopped post bleeding 01/02; then started her first period 01/06 and has been bleeding every since; states she stopped bleeding momentarily yesterday but woke up in a pool of blood this am; states bleeding is very heavy and has nickel-sized clots. Triage Nursing Assessment: pt a&o x3; skin p, w, & d; ambulated to room per self ; denies any other pain or discomfort other than stating her lower back has been slightly uncomfortable the last few days but nothing she felt alarmed by. Physician History: 27 y/o female comes to the ER with complaints of post bleeding. Pt states that she delivered the baby on 11/27, started control on 12/29, stopped post bleeding on 01/02, and had period on 01/06 which has continued since then. Pt states that the period stopped yesterday but then started having bleeding this morning with clots. Pt denies any dizziness, abdominal pain, nausea, vomiting, or urinary symptoms. Timing/Duration: today Activites at Onset: none Sexual intercourse history: non-contributory Modifying Factors: Improves With: nothing Associated Symptoms: other (vaginal bleeding), No vaginal discharge Allergies/Adverse Reactions: iodine Allergy (Severe, Verified 01/22/18 03:52) Hives morphine Allergy (Verified 01/22/18 03:52) Shortness of Breath povidone-iodine [From Betadine] Allergy (Verified 01/22/18 03:52) Swelling swelling at sight of F/C insertion soap [From Betadine] Allergy (Verified 01/22/18 03:52) Swelling Hx Tetanus, Diphtheria Vaccination/Date Given: Yes Hx Influenza Vaccination/Date Given: No Hx Pneumococcal Vaccination/Date Given: No - Review of Systems Constitutional: No Fever, No Chills Eyes: No Symptoms Ears, Nose, & Throat: No Symptoms Respiratory: No Cough, No Dyspnea Cardiac: No Chest Pain, No Edema, No Syncope Abdominal/Gastrointestinal: No Abdominal Pain, No Nausea, No Vomiting, No Diarrhea Genitourinary Symptoms: Vaginal Bleeding, No Dysuria, No Frequency, No Hematuria , No Hesitancy Musculoskeletal: No Back Pain, No Neck Pain Skin: No Rash Neurological: No Dizziness, No Focal Weakness, No Sensory Changes Psychological: No Symptoms Endocrine: No Symptoms All Other Systems: Reviewed and Negative - Past Medical History Pertinent Past Medical History: Yes Neurological History: No Pertinent History ENT History: No Pertinent History Cardiac History: No Pertinent History Respiratory History: Asthma Endocrine Medical History: No Pertinent History Musculoskeletal History: No Pertinent History GI Medical History: Gallbladder Disease, Other History: No Pertinent History Psycho-Social History: No Pertinent History Female Reproductive Disorders: No Pertinent History Other Medical History: polycystic ovarian syndrome, rectal abscess - Past Surgical History Past Surgical History: Yes Neuro Surgical History: No Pertinent History Cardiac: No Pertinent History Respiratory: No Pertinent History Gastrointestinal: Cholecystectomy, Other Genitourinary: No Pertinent History Musculoskeletal: No Pertinent History Female Surgical History: No Pertinent History Other Surgical History: GALLBLADDER, TONSILS, STEVAN RECTAL ABSCESS, FISTULA, colonoscopy,egd,t&a, wisdom teeth, - Social History Smoking Status: Never smoker How long have you smoked: 9 years Exposure to second hand smoke: No Drug Use: none Patient Lives Alone: No - Female History Hx Last Menstrual Period: 01/06/18 Hx Now: No - Nursing Vital Signs Nursing Vital Signs: Initial Vital Signs Temperature 98.9 F 01/22/18 03:39 Pulse Rate 82 01/22/18 03:39 Respiratory Rate 16 01/22/18 03:39 Blood Pressure 119/99 01/22/18 03:39 O2 Sat by Pulse Oximetry 98 01/22/18 03:39 Pain Scale Pain Intensity 0 - Physical Exam General Appearance: no apparent distress, alert Eye Exam: PERRL/EOMI, eyes nml inspection Ears, Nose, Throat Exam: normal ENT inspection, TMs normal, pharynx normal, moist mucous membranes Neck Exam: normal inspection, non-tender, supple, full range of motion Respiratory Exam: normal breath sounds, lungs clear, No respiratory distress Cardiovascular Exam: regular rate/rhythm, normal heart sounds, normal peripheral pulses Gastrointestinal/Abdomen Exam: soft, normal bowel sounds, No tenderness, No distention, No mass Back Exam: normal inspection, normal range of motion, No CVA tenderness, No vertebral tenderness Extremity Exam: normal inspection, normal range of motion, pelvis stable Neurologic Exam: alert, oriented x 3, cooperative, port engineer II-XII nml as tested, normal mood/affect, sensation nml, No motor deficits Skin Exam: normal color, warm, dry Lymphatic Exam: No adenopathy SpO2: 98 Oxygen Delivery: Room Air - Course Nursing assessment & vital signs reviewed: Yes Ordered Tests: Active Orders 24 hr Category Date Time Status IV Insertion STAT Care 01/22/18 04:34 Active PELVIS TRANS VAGINAL [US] Stat Exams 01/22/18 Ordered CBC W DIFF Stat Lab 01/22/18 04:40 Completed CMP Stat Lab 01/22/18 04:40 Completed CULTURE,URINE Stat Lab 01/22/18 04:40 Received UA W/ MICROSCOPIC Stat Lab 01/22/18 04:40 Completed Medication Summary Discontinued Medications Generic Name Dose Route Start Last Admin Trade Name Freq PRN Reason Stop Dose Admin Sodium Chloride 1,000 mls @ 999 mls/hr 01/22/18 04:34 01/22/18 04:46 Sodium Chloride 0.9% 1000 Ml IV 01/22/18 05:34 999 mls/hr .Q1H1M STA Administration Sodium Chloride Confirm 01/22/18 04:44 Sodium Chloride 0.9% 1000 Ml Administered 01/22/18 04:45 Dose 1,000 mls @ ud .ROUTE .STK-MED ONE Lab/Rad Data: Laboratory Result Diagrams 01/22/18 04:40 01/22/18 04:40 Laboratory Results 01/22/18 01/22/18 01/22/18 Range/Units 04:53 04:40 04:40 WBC 7.7 (4.0-10.5) K/mm3 RBC 4.35 (4.1-5.4) M/mm3 Hgb 12.2 (12.0-16.0) gm/dl Hct 38.3 (35-47) % MCV 88.0 (78-100) fl MCH 28.0 (26-32) pg MCHC 31.9 L (32-36) g/dl RDW 14.4 H (11.5-14.0) % Plt Count 272 (150-450) K/mm3 MPV 11.3 H (6-9.5) fl Gran % 57.3 (36.0-66.0) % Eos # (Auto) 0.14 (0-0.5) Absolute Lymphs (auto) 2.34 (1.0-4.6) Absolute Monos (auto) 0.81 (0.0-1.3) Lymphocytes % 30.3 (24.0-44.0) % Monocytes % 10.5 (0.0-12.0) % Eosinophils % 1.8 (0.00-5.0) % Basophils % 0.1 (0.0-0.4) % Absolute Granulocytes 4.43 (1.4-6.9) Basophils # 0.01 (0-0.4) Sodium 142 (137-145) mmol/L Potassium 4.1 (3.5-5.1) mmol/L Chloride 104 (98-107) mmol/L Carbon Dioxide 27 (22-30) mmol/L Anion Gap 15.2 H (5-15) MEQ/L BUN 14 (7-17) mg/dL Creatinine 0.74 (0.52-1.04) mg/dL Estimated GFR > 60.0 ML/MIN Glucose 101 (74-106) mg/dL Calcium 9.3 (8.4-10.2) mg/dL Total Bilirubin 0.20 (0.2-1.3) mg/dL AST 18 (14-36) U/L ALT 16 (0-35) U/L Alkaline Phosphatase 89 (38-126) U/L Serum Total Protein 6.9 (6.3-8.2) g/dL Albumin 3.8 (3.5-5.0) g/dL Ur Collection Type Urine Color (YELLOW) Urine Appearance (CLEAR) Urine pH (5-6) Ur Specific [place] (1.005-1.025) Urine Protein (Negative) Urine Ketones (NEGATIVE) Urine Blood (0-5) Rebel/ul Urine Nitrite (NEGATIVE) Urine Bilirubin (NEGATIVE) Urine Urobilinogen (0-1) mg/dL Ur Leukocyte Esterase (NEGATIVE) Urine Microscopic RBC (0-2) /HPF Urine Microscopic WBC (0-5) /HPF Ur Epithelial Cells (FEW) /HPF Urine Bacteria (NEGATIVE) /HPF Urine Culture Reflexed (NO) Urine Glucose (NEGATIVE) mg/dL Specimen Received ABO Group B Rh Factor POSITIVE Antibody Screen NEGATIVE (NEGATIVE) 01/22/18 Range/Units 04:40 WBC (4.0-10.5) K/mm3 RBC (4.1-5.4) M/mm3 Hgb (12.0-16.0) gm/dl Hct (35-47) % MCV (78-100) fl MCH (26-32) pg MCHC (32-36) g/dl RDW (11.5-14.0) % Plt Count (150-450) K/mm3 MPV (6-9.5) fl Gran % (36.0-66.0) % Eos # (Auto) (0-0.5) Absolute Lymphs (auto) (1.0-4.6) Absolute Monos (auto) (0.0-1.3) Lymphocytes % (24.0-44.0) % Monocytes % (0.0-12.0) % Eosinophils % (0.00-5.0) % Basophils % (0.0-0.4) % Absolute Granulocytes (1.4-6.9) Basophils # (0-0.4) Sodium (137-145) mmol/L Potassium (3.5-5.1) mmol/L Chloride (98-107) mmol/L Carbon Dioxide (22-30) mmol/L Anion Gap (5-15) MEQ/L BUN (7-17) mg/dL Creatinine (0.52-1.04) mg/dL Estimated GFR ML/MIN Glucose (74-106) mg/dL Calcium (8.4-10.2) mg/dL Total Bilirubin (0.2-1.3) mg/dL AST (14-36) U/L ALT (0-35) U/L Alkaline Phosphatase (38-126) U/L Serum Total Protein (6.3-8.2) g/dL Albumin (3.5-5.0) g/dL Ur Collection Type VOID Urine Color RED (YELLOW) Urine Appearance CLOUDY (CLEAR) Urine pH 6.0 (5-6) Ur Specific [place] 1.020 (1.005-1.025) Urine Protein 30 (Negative) Urine Ketones NEGATIVE (NEGATIVE) Urine Blood 250 (0-5) Rebel/ul Urine Nitrite NEGATIVE (NEGATIVE) Urine Bilirubin NEGATIVE (NEGATIVE) Urine Urobilinogen NORMAL (0-1) mg/dL Ur Leukocyte Esterase 1+ (NEGATIVE) Urine Microscopic RBC >100 (0-2) /HPF Urine Microscopic WBC 2-5 (0-5) /HPF Ur Epithelial Cells FEW (FEW) /HPF Urine Bacteria FEW (NEGATIVE) /HPF Urine Culture Reflexed YES (NO) Urine Glucose NEGATIVE (NEGATIVE) mg/dL Specimen Received 01/22/18 0500 ABO Group Rh Factor Antibody Screen (NEGATIVE) - Progress Progress: improved Progress Note: 01/22/18 06:44 The labs are within normal limits. The transvaginal US does not show any products of conception or fibroids. Pt is hemodynamically stable with a normal Hgb. Pt will F/U with Dr Kuo as an outpatient. - Departure Time of Disposition: 06:45 Departure Disposition: Home Clinical Impression: Vaginal bleeding Condition: Stable Critical Care Time: No Referrals: KRISTYN KUO [Primary Care Provider] - Instructions: Bleeding Additional Instructions: Follow up with Dr Kuo this week.
[2018-01-22] MEDS ORDERED: Sodium Chloride 0.9% 1000 ML 1,000 ML ONE (04:44)
[2018-01-22 04:49] LABS: ALBUMIN 3.8 g/dL (3.5-5.0); ALKALINE PHOSPHATASE 89 U/L (38-126); ANION GAP 15.2 MEQ/L (5-15); BLOOD UREA NITROGEN 14 mg/dL (7-17); CHLORIDE 104 mmol/L (98-107); Calcium 9.3 mg/dL (8.4-10.2); Carbon Dioxide 27 mmol/L (22-30); Creatinine 1 0.74 mg/dL (0.52-1.04); Glucose 101 mg/dL (74-106); Potassium 4.1 mmol/L (3.5-5.1); SGOT/AST 18 U/L (14-36); SGPT/ALT 16 U/L (0-35); SODIUM 142 mmol/L (137-145); Total Protein 6.9 g/dL (6.3-8.2)
[2018-01-22 04:57] LABS: BASOPHIL % 0.1 % (0.0-0.4); Basophil (Absolute #) 0.01 (0-0.4); Eosinophil % 1.8 % (0.00-5.0); Eosinophil (Absolute #) 0.14 (0-0.5); Granulocyte Absolute (ANC) 4.43 (1.4-6.9); Granulocytes % 57.3 % (36.0-66.0); Hematocrit 38.3 % (35-47); Hemoglobin 12.2 gm/dl (12.0-16.0); Lymphocyte (Absolute #) 2.34 (1.0-4.6); Lymphocytes % 30.3 % (24.0-44.0); Mean Corpuscular Hgb Concent. 31.9 g/dl (32-36); Mean Platelet Volume 11.3 fl (6-9.5); Monocyte (Absolute #) 0.81 (0.0-1.3); Monocytes % 10.5 % (0.0-12.0); Platelet Count 272 K/mm3 (150-450); Red Blood Count 4.35 M/mm3 (4.1-5.4); Red Cell Distribution Width 14.4 % (11.5-14.0); White Blood Count 7.7 K/mm3 (4.0-10.5)
[2018-01-22 05:18] LABS: Appearance CLOUDY (CLEAR); Bacteria FEW /HPF (NEGATIVE); Bilirubin NEGATIVE (NEGATIVE); Blood 250 Ery/ul (0-5); Epithelial Cells FEW /HPF (FEW); Glucose NEGATIVE (NEGATIVE); Ketones NEGATIVE (NEGATIVE); Leukocyte Esterase 1+ (NEGATIVE); Nitrite NEGATIVE (NEGATIVE); Protein,Urine Dip 30 (Negative); Urobilinogen NORMAL mg/dL (0-1)
[2018-01-22 05:50] LABS: ABO TYPING B; Antibody Screen NEGATIVE (NEGATIVE); RH TYPING POSITIVE
[2018-01-22 06:56] VITALS: BP 106/62; PULSE 78; O2SAT 99
--- NOTE | 2018-01-22 08:59 | XRAY ---
Indication: Bleeding. Menses started January 06, 2018. Two-dimensional transvaginal pelvic ultrasound was performed. Comparison: April 22, 2017. Uterus is again anteverted today measuring 8.6 x 4.5 x 6.4 cm. Myometrium homogeneous in echogenicity. Endometrial stripe measures 9.2 mm in thickness. Tiny sliver of fluid seen in the lower uterine segment. Otherwise no endometrial cavity mass. Right ovary measures 2.4 x 1.3 x 1.1 cm and demonstrate normal follicular cysts and perfusion. Left ovary not seen. No suspicious adnexal mass or free fluid. Impression: Tiny sliver of fluid in the lower uterine segment. Nonvisualization of the left ovary. Remaining transvaginal pelvic sonogram is negative. Comment: Preliminary report was given.
== END 2018-01-22 06:50 | disposition home or self-care (01) ==
LOC: ED 03:14
DX: N93.9 Abnormal uterine and vaginal bleeding, unspecified (principal)
CPT/HCPCS: 36000; 36415; 76830; 80053; 81000; 85025; 86850; 86900; 86901; 87086; 96360; 99283; 99284

== ENCOUNTER 2018-05-03 07:22 | Emergency (ER) | payer OTHER ==
--- NOTE | 2018-05-03 08:47 | ERPHSYRPT ---
- History of Present Illness Time Seen by Provider: 05/03/18 08:39 Historian: patient Exam Limitations: no limitations Patient Subjective Stated Complaint: Pt states "I have had diarrea for about 3 weeks now and my lower left stomach and back really hurt. I cannot take it any more. I called my doctor and they cannot get me in until next week and I called them 2 weeks ago." Triage Nursing Assessment: Pt alert and oriented X 3, skin pwd Pt ambulates with an upright steady gait, able to speak in clear full sentences. PT in no apparent respiratory distress. Physician History: The patient is a 28-year-old female complaining of significant diarrhea daily for 3 weeks. She will have a loose watery stool every time she eats or drinks anything. She states the stool is yellow in color. She is nauseated but has not vomited. She denies fever or chills. She denies because she is on control. She states she has only eaten a small amount of toast and eggs over 3 weeks but she denies losing any weight. She is lightheaded and dizzy upon standing. She has been unable to get into her family doctor and is "tired of this". Her past medical history is significant for cholecystectomy and fistula repairs. Timing/Duration: week(s) (3), gradual onset, worse Activities at Onset: none Quality: aching Abdominal Pain Onset Location: LLQ Pain Radiation: no radiation Severity of Pain-Max: mild Severity of Pain-Current: mild Modifying Factors: Improves With: nothing Associated Symptoms: diarrhea, fatigue, nausea, weakness, No fever/chills, No vomiting Previous symptoms: no prior history Allergies/Adverse Reactions: iodine Allergy (Severe, Verified 01/22/18 03:52) Hives morphine Allergy (Verified 01/22/18 03:52) Shortness of Breath povidone-iodine [From Betadine] Allergy (Verified 01/22/18 03:52) Swelling swelling at sight of F/C insertion soap [From Betadine] Allergy (Verified 01/22/18 03:52) Swelling Hx Tetanus, Diphtheria Vaccination/Date Given: No Hx Influenza Vaccination/Date Given: No Hx Pneumococcal Vaccination/Date Given: No Immunizations Up to Date: Yes - Review of Systems Constitutional: Fatigue, Weakness Eyes: No Symptoms Ears, Nose, & Throat: No Symptoms Respiratory: No Cough, No Dyspnea Abdominal/Gastrointestinal: Abdominal Pain, Nausea, Diarrhea, No Vomiting Genitourinary Symptoms: No Dysuria Musculoskeletal: No Back Pain, No Neck Pain Skin: No Rash Neurological: No Dizziness, No Focal Weakness, No Sensory Changes Psychological: No Symptoms Endocrine: No Symptoms Hematologic/Lymphatic: No Symptoms Immunological/Allergic: No Symptoms All Other Systems: Reviewed and Negative - Past Medical History Pertinent Past Medical History: Yes Neurological History: No Pertinent History ENT History: No Pertinent History Cardiac History: No Pertinent History Respiratory History: Asthma Endocrine Medical History: No Pertinent History Musculoskeletal History: No Pertinent History GI Medical History: Gallbladder Disease, Other History: No Pertinent History Psycho-Social History: No Pertinent History Female Reproductive Disorders: No Pertinent History Other Medical History: polycystic ovarian syndrome, rectal abscess - Past Surgical History Past Surgical History: Yes Neuro Surgical History: No Pertinent History Cardiac: No Pertinent History Respiratory: No Pertinent History Gastrointestinal: Cholecystectomy, Other Genitourinary: No Pertinent History Musculoskeletal: No Pertinent History Female Surgical History: No Pertinent History Other Surgical History: GALLBLADDER, TONSILS, STEVAN RECTAL ABSCESS, FISTULA, colonoscopy,egd,t&a, wisdom teeth, - Social History Smoking Status: Current every day smoker How long have you smoked: 10 years Exposure to second hand smoke: Yes Drug Use: none Patient Lives Alone: No - Female History Hx Last Menstrual Period: 04/15/2018 Hx Now: (unknown) - Nursing Vital Signs Nursing Vital Signs: Initial Vital Signs Temperature 98.8 F 05/03/18 07:28 Pulse Rate 92 H 05/03/18 07:28 Respiratory Rate 18 05/03/18 07:28 Blood Pressure 138/95 05/03/18 07:28 O2 Sat by Pulse Oximetry 99 05/03/18 07:28 Pain Scale Pain Intensity 2 - Physical Exam General Appearance: no apparent distress, alert Eye Exam: PERRL/EOMI, eyes nml inspection Ears, Nose, Throat Exam: normal ENT inspection, pharynx normal, moist mucous membranes Neck Exam: normal inspection, non-tender, supple, full range of motion Respiratory Exam: normal breath sounds, lungs clear, No respiratory distress Cardiovascular Exam: regular rate/rhythm, normal heart sounds Gastrointestinal/Abdomen Exam: tenderness (LLQ), other (hyperactive BS), No normal bowel sounds Pelvic Exam: not done Rectal Exam: not done Back Exam: normal inspection, normal range of motion, No CVA tenderness, No vertebral tenderness Extremity Exam: normal inspection, normal range of motion, pelvis stable Neurologic Exam: alert, oriented x 3, cooperative, normal mood/affect, nml cerebellar function, sensation nml, No motor deficits Skin Exam: normal color, warm, dry SpO2 Interpretation: normal SpO2: 99 Oxygen Delivery: Room Air - Radiology Exams Chest X-ray Interpretation: Interpreted by me, Negative Abdomen X-ray Interpretation: Interpreted by me, Negative Ordered Tests: Active Orders 24 hr Category Date Time Status Clean Catch Urine Specimen STAT Care 05/03/18 08:51 Active IV Insertion STAT Care 05/03/18 08:51 Active OBSTR/ACUTE ABDOMEN SERIES Stat Exams 05/03/18 08:52 Taken AMYLASE Stat Lab 05/03/18 09:03 Completed CBC W DIFF Stat Lab 05/03/18 09:03 Completed CMP Stat Lab 05/03/18 09:03 Completed CULTURE,URINE Stat Lab 05/03/18 09:01 Received HCG QUALITATIVE,SERUM Stat Lab 05/03/18 09:03 Completed LIPASE Stat Lab 05/03/18 09:03 Completed Lactic Acid Stat Lab 05/03/18 09:08 Completed UA W/ MICROSCOPIC Stat Lab 05/03/18 09:01 Completed Medication Summary Discontinued Medications Generic Name Dose Route Start Last Admin Trade Name Oumarq PRN Reason Stop Dose Admin Sodium Chloride 1,000 mls @ 999 mls/hr 05/03/18 08:51 05/03/18 10:30 Sodium Chloride 0.9% 1000 Ml IV 05/03/18 09:51 Infused .Q1H1M STA Infusion Sodium Chloride Confirm 05/03/18 09:11 Sodium Chloride 0.9% 1000 Ml Administered 05/03/18 09:12 Dose 1,000 mls @ ud .ROUTE .STK-MED ONE Ondansetron HCl 4 mg 05/03/18 08:51 05/03/18 09:13 Zofran 4 Mg/2 Ml Vial IV 05/03/18 08:52 4 mg STAT ONE Administration Ondansetron HCl Confirm 05/03/18 09:11 Zofran 4 Mg/2 Ml Vial Administered 05/03/18 09:12 Dose 4 mg .ROUTE .STK-MED ONE Lab/Rad Data: Laboratory Result Diagrams 05/03/18 09:03 05/03/18 09:03 Laboratory Results 05/03/18 05/03/18 05/03/18 Range/Units 09:08 09:03 09:03 WBC (4.0-10.5) K/mm3 RBC (4.1-5.4) M/mm3 Hgb (12.0-16.0) gm/dl Hct (35-47) % MCV (78-100) fl MCH (26-32) pg MCHC (32-36) g/dl RDW (11.5-14.0) % Plt Count (150-450) K/mm3 MPV (6-9.5) fl Gran % (36.0-66.0) % Eos # (Auto) (0-0.5) Absolute Lymphs (auto) (1.0-4.6) Absolute Monos (auto) (0.0-1.3) Lymphocytes % (24.0-44.0) % Monocytes % (0.0-12.0) % Eosinophils % (0.00-5.0) % Basophils % (0.0-0.4) % Absolute Granulocytes (1.4-6.9) Basophils # (0-0.4) Sodium 140 (137-145) mmol/L Potassium 3.9 (3.5-5.1) mmol/L Chloride 105 (98-107) mmol/L Carbon Dioxide 27 (22-30) mmol/L Anion Gap 11.9 (5-15) MEQ/L BUN 10 (7-17) mg/dL Creatinine 0.69 (0.52-1.04) mg/dL Estimated GFR > 60.0 ML/MIN Glucose 102 (74-106) mg/dL Lactic Acid 1.1 (0.4-2.0) Calcium 8.8 (8.4-10.2) mg/dL Total Bilirubin 0.30 (0.2-1.3) mg/dL AST 17 (14-36) U/L ALT 19 (0-35) U/L Alkaline Phosphatase 92 (38-126) U/L Serum Total Protein 7.1 (6.3-8.2) g/dL Albumin 4.2 (3.5-5.0) g/dL Amylase 50 (30-110) U/L Lipase 123 (23-300) U/L Serum , Qual NEGATIVE (Negative) Ur Collection Type Urine Color (YELLOW) Urine Appearance (CLEAR) Urine pH (5-6) Ur Specific [place] (1.005-1.025) Urine Protein (Negative) Urine Ketones (NEGATIVE) Urine Blood (0-5) Rebel/ul Urine Nitrite (NEGATIVE) Urine Bilirubin (NEGATIVE) Urine Urobilinogen (0-1) mg/dL Ur Leukocyte Esterase (NEGATIVE) Urine Microscopic RBC (0-2) /HPF Urine Microscopic WBC (0-5) /HPF Ur Epithelial Cells (FEW) /HPF Urine Bacteria (NEGATIVE) /HPF Urine Mucus (NEGATIVE) /HPF Urine Culture Reflexed (NO) Urine Glucose (NEGATIVE) mg/dL Specimen Received 05/03/18 05/03/18 Range/Units 09:03 09:01 WBC 9.9 (4.0-10.5) K/mm3 RBC 4.77 (4.1-5.4) M/mm3 Hgb 14.1 (12.0-16.0) gm/dl Hct 42.4 (35-47) % MCV 88.9 (78-100) fl MCH 29.6 (26-32) pg MCHC 33.3 (32-36) g/dl RDW 14.4 H (11.5-14.0) % Plt Count 301 (150-450) K/mm3 MPV 11.9 H (6-9.5) fl Gran % 65.9 (36.0-66.0) % Eos # (Auto) 0.45 (0-0.5) Absolute Lymphs (auto) 1.99 (1.0-4.6) Absolute Monos (auto) 0.91 (0.0-1.3) Lymphocytes % 20.2 L (24.0-44.0) % Monocytes % 9.2 (0.0-12.0) % Eosinophils % 4.6 (0.00-5.0) % Basophils % 0.1 (0.0-0.4) % Absolute Granulocytes 6.51 (1.4-6.9) Basophils # 0.01 (0-0.4) Sodium (137-145) mmol/L Potassium (3.5-5.1) mmol/L Chloride (98-107) mmol/L Carbon Dioxide (22-30) mmol/L Anion Gap (5-15) MEQ/L BUN (7-17) mg/dL Creatinine (0.52-1.04) mg/dL Estimated GFR ML/MIN Glucose (74-106) mg/dL Lactic Acid (0.4-2.0) Calcium (8.4-10.2) mg/dL Total Bilirubin (0.2-1.3) mg/dL AST (14-36) U/L ALT (0-35) U/L Alkaline Phosphatase (38-126) U/L Serum Total Protein (6.3-8.2) g/dL Albumin (3.5-5.0) g/dL Amylase (30-110) U/L Lipase (23-300) U/L Serum , Qual (Negative) Ur Collection Type CLEAN CATCH Urine Color YELLOW (YELLOW) Urine Appearance HAZY (CLEAR) Urine pH 7.0 (5-6) Ur Specific [place] 1.010 (1.005-1.025) Urine Protein TRACE (Negative) Urine Ketones NEGATIVE (NEGATIVE) Urine Blood NEGATIVE (0-5) Rebel/ul Urine Nitrite NEGATIVE (NEGATIVE) Urine Bilirubin NEGATIVE (NEGATIVE) Urine Urobilinogen NORMAL (0-1) mg/dL Ur Leukocyte Esterase TRACE (NEGATIVE) Urine Microscopic RBC 0-2 (0-2) /HPF Urine Microscopic WBC 5-10 (0-5) /HPF Ur Epithelial Cells MANY (FEW) /HPF Urine Bacteria MODERATE (NEGATIVE) /HPF Urine Mucus MODERATE (NEGATIVE) /HPF Urine Culture Reflexed YES (NO) Urine Glucose NEGATIVE (NEGATIVE) mg/dL Specimen Received 05-03-18 0800 - Progress Progress: improved Counseled pt/family regarding: lab results, diagnosis, need for follow-up, rad results - Departure Time of Disposition: 11:06 Departure Disposition: Home Clinical Impression: UTI (urinary tract infection), Diarrhea Condition: Stable Critical Care Time: No Referrals: KRISTYN RIVERA [Primary Care Provider] - Additional Instructions: You have a prolonged episode of diarrhea. You also have a mild UTI. You were given Zofran 4 mg and fluids by IV in the ER. Take Zofran 4 mg ODT every 6 hours as needed. Take ciprofloxacin 500 mg 2 times a day for 7 days. Follow- up next week with her primary medical doctor. Stay well hydrated. You also were given an order for collection of a fresh stool sample for analysis. Prescriptions: Ondansetron ODT 4 MG [Zofran Odt 4 mg] 1 tab PO Q6H PRN PRN #10 tab.rapdis PRN Reason: Nausea/Vomiting Ciprofloxacin [Cipro 500 MG] 1 tab PO BID #14 tablet
[2018-05-03] MEDS ORDERED: Sodium Chloride 0.9% 1000 ML 1,000 ML IV STA (08:51)
[2018-05-03] MEDS ORDERED: Zofran 4 MG/2 ML VIAL IV ONE (08:51)
[2018-05-03 09:10] LABS: BASOPHIL % 0.1 % (0.0-0.4); Basophil (Absolute #) 0.01 (0-0.4); Eosinophil % 4.6 % (0.00-5.0); Eosinophil (Absolute #) 0.45 (0-0.5); Granulocyte Absolute (ANC) 6.51 (1.4-6.9); Granulocytes % 65.9 % (36.0-66.0); Hematocrit 42.4 % (35-47); Hemoglobin 14.1 gm/dl (12.0-16.0); Lymphocyte (Absolute #) 1.99 (1.0-4.6); Lymphocytes % 20.2 % (24.0-44.0); Mean Cell Volume 88.9 fl (78-100); Mean Corpuscular Hemoglobin 29.6 pg (26-32); Mean Corpuscular Hgb Concent. 33.3 g/dl (32-36); Mean Platelet Volume 11.9 fl (6-9.5); Monocyte (Absolute #) 0.91 (0.0-1.3); Monocytes % 9.2 % (0.0-12.0); Platelet Count 301 K/mm3 (150-450); Red Blood Count 4.77 M/mm3 (4.1-5.4); Red Cell Distribution Width 14.4 % (11.5-14.0); White Blood Count 9.9 K/mm3 (4.0-10.5)
[2018-05-03] MEDS ORDERED: Zofran 4 MG/2 ML VIAL ONE (09:11)
[2018-05-03] MEDS ORDERED: Sodium Chloride 0.9% 1000 ML 1,000 ML ONE (09:11)
[2018-05-03 09:26] LABS: ALBUMIN 4.2 g/dL (3.5-5.0); ALKALINE PHOSPHATASE 92 U/L (38-126); AMYLASE 50 U/L (30-110); ANION GAP 11.9 MEQ/L (5-15); BLOOD UREA NITROGEN 10 mg/dL (7-17); CHLORIDE 105 mmol/L (98-107); Calcium 8.8 mg/dL (8.4-10.2); Carbon Dioxide 27 mmol/L (22-30); Creatinine 1 0.69 mg/dL (0.52-1.04); Glucose 102 mg/dL (74-106); LIPASE 123 U/L (23-300); Potassium 3.9 mmol/L (3.5-5.1); SGOT/AST 17 U/L (14-36); SGPT/ALT 19 U/L (0-35); SODIUM 140 mmol/L (137-145); Total Protein 7.1 g/dL (6.3-8.2)
[2018-05-03 09:33] LABS: Appearance HAZY (CLEAR); Bilirubin NEGATIVE (NEGATIVE); Blood NEGATIVE Ery/ul (0-5); Glucose NEGATIVE (NEGATIVE); Ketones NEGATIVE (NEGATIVE); Leukocyte Esterase TRACE (NEGATIVE); Nitrite NEGATIVE (NEGATIVE); Protein,Urine Dip TRACE (Negative); Urobilinogen NORMAL mg/dL (0-1)
[2018-05-03 09:35] LABS: Bacteria MODERATE /HPF (NEGATIVE); Epithelial Cells MANY /HPF (FEW); Mucus MODERATE /HPF (NEGATIVE); RBC 0-2 /HPF (0-2)
[2018-05-03 09:54] VITALS: BP 109/75; PULSE 86
[2018-05-03 11:10] VITALS: O2SAT 99
--- NOTE | 2018-05-03 21:59 | XRAY ---
Indication: Nausea and diarrhea. Comparison: None 2 views of the abdomen nonacute and nonobstructed with previous cholecystectomy. Remaining solid organs and osseous structures are unremarkable. Single PA chest demonstrates normal heart, lungs, and bony thorax. Impression: Negative abdomen. Normal one view chest.
== END 2018-05-03 11:21 | disposition home or self-care (01) ==
LOC: ED 07:22
DX: N39.0 Urinary tract infection, site not specified (principal); R19.7 Diarrhea, unspecified; R10.32 Left lower quadrant pain; R11.0 Nausea; R53.1 Weakness; R53.83 Other fatigue
CPT/HCPCS: 36000; 36415; 74022; 80053; 81000; 82150; 83605; 83690; 84703; 85025; 87086; 96360; 96374; 99284; J2405

== ENCOUNTER 2019-05-27 05:21 | Emergency (ER) | payer OTHER ==
[2019-05-27] MEDS ORDERED: Sodium Chloride 0.9% 1000 ML 1,000 ML ONE (07:07)
--- NOTE | 2019-05-27 07:12 | ERPHSYRPT ---
- History of Present Illness Historian: patient Exam Limitations: no limitations Patient Subjective Stated Complaint: pt states that last night she was having pressure in her rectal and vaginal area with frequest urge to urinate and have bm. woke up at 0300 with cramping in lower abd radiating around to rt lower quad. Triage Nursing Assessment: pt alert and oriented, answers questions approp. pt ambulatoryw ith steady gait noted, respirations nonlabored with lungs cta. skin pink warm and dry. bowel sounds present x4. abd soft, tender to rlq with light palpation. Timing/Duration: day(s) (3) Quality: cramping Abdominal Pain Onset Location: RLQ, LLQ Pain Radiation: no radiation Severity of Pain-Max: moderate Severity of Pain-Current: mild Modifying Factors: Improves With: palpation. 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 she required surgical intervention at colorectal center. 3 days ago pt noticed rectal and vaginal pressure and the sensation she had to urinate. pressure has worsened. at 0300 this am pain present in lower abd, described as severe cramping, causing her to double over. pt states the lower abd pain is new sx for her. (PONCE BRENNER) Allergies/Adverse Reactions: iodine Allergy (Severe, Verified 05/27/19 05:40) Hives morphine Allergy (Verified 05/27/19 05:40) Shortness of Breath povidone-iodine [From Betadine] Allergy (Verified 05/27/19 05:40) Swelling swelling at sight of F/C insertion soap [From Betadine] Allergy (Verified 05/27/19 05:40) Swelling - Review of Systems Constitutional: No Symptoms Eyes: No Symptoms Ears, Nose, & Throat: No Symptoms Respiratory: No Symptoms Cardiac: No Symptoms Abdominal/Gastrointestinal: Abdominal Pain, Other (rectal pressure), No Nausea, No Vomiting, No Diarrhea, No Constipation Genitourinary Symptoms: Other (vaginal and perineal pressure), No Vaginal Bleeding, No Vaginal Discharge Musculoskeletal: No Symptoms Skin: No Symptoms Neurological: No Symptoms Psychological: No Symptoms Endocrine: No Symptoms Hematologic/Lymphatic: No Symptoms Immunological/Allergic: No Symptoms All Other Systems: Reviewed and Negative <PONCE BRENNER - Last Filed: 05/27/19 06:42> - Past Medical History Pertinent Past Medical History: Yes Neurological History: No Pertinent History ENT History: No Pertinent History Cardiac History: No Pertinent History Respiratory History: Asthma Endocrine Medical History: No Pertinent History Musculoskeletal History: No Pertinent History GI Medical History: Gallbladder Disease, Other History: No Pertinent History Psycho-Social History: No Pertinent History Female Reproductive Disorders: No Pertinent History Other Medical History: polycystic ovarian syndrome, rectal abscess - Past Surgical History Past Surgical History: Yes Neuro Surgical History: No Pertinent History Cardiac: No Pertinent History Respiratory: No Pertinent History Gastrointestinal: Cholecystectomy, Other Genitourinary: No Pertinent History Musculoskeletal: No Pertinent History Female Surgical History: No Pertinent History Other Surgical History: GALLBLADDER, TONSILS, STEVAN RECTAL ABSCESS, FISTULA, colonoscopy,egd,t&a, wisdom teeth, tubal, ablation - Social History Smoking Status: Current every day smoker How long have you smoked: 11 years Exposure to second hand smoke: Yes Drug Use: none Patient Lives Alone: No - Female History Hx Last Menstrual Period: ablation last year Hx Now: No <PONCE BRENNER - Last Filed: 05/27/19 06:42> - Physical Exam General Appearance: mild distress, alert, anxiety Eye Exam: PERRL/EOMI, eyes nml inspection Ears, Nose, Throat Exam: normal ENT inspection, moist mucous membranes Neck Exam: normal inspection, non-tender, supple, full range of motion Respiratory Exam: normal breath sounds, lungs clear, airway intact, No chest tenderness, No respiratory distress Cardiovascular Exam: regular rate/rhythm, normal heart sounds, normal peripheral pulses Gastrointestinal/Abdomen Exam: soft, normal bowel sounds, tenderness (mild suprapubic tenderness) Pelvic Exam: not done Rectal Exam: not done Back Exam: normal inspection, normal range of motion, No CVA tenderness, No vertebral tenderness Extremity Exam: normal inspection, normal range of motion, pelvis stable Neurologic Exam: alert, oriented x 3, 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, 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 Skin Exam: normal color, warm, dry Lymphatic Exam: No adenopathy SpO2 Interpretation: normal SpO2: 98 O2 Delivery: Room Air <PONCE BRENNER - Last Filed: 05/27/19 06:42> - Nursing Vital Signs Nursing Vital Signs: Initial Vital Signs Temperature 97.9 F 05/27/19 05:27 Pulse Rate 87 05/27/19 05:27 Respiratory Rate 18 05/27/19 05:27 Blood Pressure 130/86 05/27/19 05:27 O2 Sat by Pulse Oximetry 98 05/27/19 05:27 Pain Scale Pain Intensity 3 <PONCE BRENNER - Last Filed: 05/27/19 06:42> - CT Exams Abdomen/Pelvis CT Interpretation: Other (Right 2-3 mm distal right uregter calculus/ hydronephrosis) <YENI GARCIA - Last Filed: 05/27/19 09:48> Ordered Tests: Active Orders 24 hr Category Date Time Status Regular Diet Diet 05/27/19 Lunch Active ABDOMEN AND PELVIS W/0 CONTRAS [CT] Stat Exams 05/27/19 07:01 Completed AMYLASE Stat Lab 05/27/19 07:00 Completed CBC W DIFF Stat Lab 05/27/19 07:00 Completed CMP Stat Lab 05/27/19 07:00 Completed LIPASE Stat Lab 05/27/19 07:00 Completed Lactic Acid Stat Lab 05/27/19 07:30 Completed Lactic Acid Stat Lab 05/27/19 09:41 Ordered UA W/RFX UR CULTURE Stat Lab 05/27/19 07:00 Completed Medication Summary Discontinued Medications Generic Name Dose Route Start Last Admin Trade Name Freq PRN Reason Stop Dose Admin Sodium Chloride Confirm 05/27/19 07:07 Sodium Chloride 0.9% 1000 Ml Administered 05/27/19 07:08 Dose 1,000 mls @ ud .ROUTE .STK-MED ONE Sodium Chloride 1,000 mls @ 999 mls/hr 05/27/19 07:00 05/27/19 08:34 Sodium Chloride 0.9% 1000 Ml IV 05/27/19 08:00 Infused .Q1H1M STA Infusion Lab/Rad Data: Laboratory Result Diagrams 05/27/19 07:00 05/27/19 07:00 Laboratory Results 05/27/19 05/27/19 05/27/19 Range/Units 07:30 07:00 07:00 WBC (4.0-10.5) K/mm3 RBC (4.1-5.4) M/mm3 Hgb (12.0-16.0) gm/dl Hct (35-47) % MCV (78-100) fl MCH (26-32) pg MCHC (32-36) g/dl RDW (11.5-14.0) % Plt Count (150-450) K/mm3 MPV (6-9.5) fl Gran % (36.0-66.0) % Eos # (Auto) (0-0.5) Absolute Lymphs (auto) (1.0-4.6) Absolute Monos (auto) (0.0-1.3) Lymphocytes % (24.0-44.0) % Monocytes % (0.0-12.0) % Eosinophils % (0.00-5.0) % Basophils % (0.0-0.4) % Absolute Granulocytes (1.4-6.9) Basophils # (0-0.4) Sodium 143 (137-145) mmol/L Potassium 3.4 L (3.5-5.1) mmol/L Chloride 110 H (98-107) mmol/L Carbon Dioxide 22 (22-30) mmol/L Anion Gap 13.8 (5-15) MEQ/L BUN 14 (7-17) mg/dL Creatinine 0.97 (0.52-1.04) mg/dL Estimated GFR > 60.0 ML/MIN Glucose 103 (74-106) mg/dL Lactic Acid 2.6 H (0.4-2.0) Calcium 9.3 (8.4-10.2) mg/dL Total Bilirubin 0.30 (0.2-1.3) mg/dL AST 32 (14-36) U/L ALT 27 (0-35) U/L Alkaline Phosphatase 93 (38-126) U/L Serum Total Protein 7.0 (6.3-8.2) g/dL Albumin 3.9 (3.5-5.0) g/dL Amylase 73 (30-110) U/L Lipase 164 (23-300) U/L Urine Color YELLOW (YELLOW) Urine Appearance SLIGHTLY CLOUDY (CLEAR) Urine pH 5.0 (5-6) Ur Specific Leroy 1.018 (1.005-1.025) Urine Protein NEGATIVE (Negative) Urine Ketones NEGATIVE (NEGATIVE) Urine Blood LARGE (0-5) Rebel/ul Urine Nitrite NEGATIVE (NEGATIVE) Urine Bilirubin NEGATIVE (NEGATIVE) Urine Urobilinogen NEGATIVE (0-1) mg/dL Ur Leukocyte Esterase NEGATIVE (NEGATIVE) Urine WBC (Auto) 3-5 (0-5) /HPF Urine RBC (Auto) >101 (0-2) /HPF U Hyaline Cast (Auto) 11-25 (0-2) /LPF U Epithel Cells (Auto) RARE (FEW) /HPF Urine Bacteria (Auto) FEW (NEGATIVE) /HPF Urine Mucus (Auto) SLIGHT (NEGATIVE) /HPF Urine Culture Reflexed NO (NO) Urine Glucose NEGATIVE (NEGATIVE) mg/dL Slides for Path Review 05/27/19 Range/Units 07:00 WBC 10.4 (4.0-10.5) K/mm3 RBC 4.86 (4.1-5.4) M/mm3 Hgb 14.5 (12.0-16.0) gm/dl Hct 44.9 (35-47) % MCV 92.4 (78-100) fl MCH 29.8 (26-32) pg MCHC 32.3 (32-36) g/dl RDW 13.4 (11.5-14.0) % Plt Count 247 (150-450) K/mm3 MPV 12.8 H (6-9.5) fl Gran % 65.0 (36.0-66.0) % Eos # (Auto) 0.32 (0-0.5) Absolute Lymphs (auto) 2.26 (1.0-4.6) Absolute Monos (auto) 1.03 (0.0-1.3) Lymphocytes % 21.8 L (24.0-44.0) % Monocytes % 9.9 (0.0-12.0) % Eosinophils % 3.1 (0.00-5.0) % Basophils % 0.2 (0.0-0.4) % Absolute Granulocytes 6.76 (1.4-6.9) Basophils # 0.02 (0-0.4) Sodium (137-145) mmol/L Potassium (3.5-5.1) mmol/L Chloride (98-107) mmol/L Carbon Dioxide (22-30) mmol/L Anion Gap (5-15) MEQ/L BUN (7-17) mg/dL Creatinine (0.52-1.04) mg/dL Estimated GFR ML/MIN Glucose (74-106) mg/dL Lactic Acid (0.4-2.0) Calcium (8.4-10.2) mg/dL Total Bilirubin (0.2-1.3) mg/dL AST (14-36) U/L ALT (0-35) U/L Alkaline Phosphatase (38-126) U/L Serum Total Protein (6.3-8.2) g/dL Albumin (3.5-5.0) g/dL Amylase (30-110) U/L Lipase (23-300) U/L Urine Color (YELLOW) Urine Appearance (CLEAR) Urine pH (5-6) Ur Specific Leroy (1.005-1.025) Urine Protein (Negative) Urine Ketones (NEGATIVE) Urine Blood (0-5) Rebel/ul Urine Nitrite (NEGATIVE) Urine Bilirubin (NEGATIVE) Urine Urobilinogen (0-1) mg/dL Ur Leukocyte Esterase (NEGATIVE) Urine WBC (Auto) (0-5) /HPF Urine RBC (Auto) (0-2) /HPF U Hyaline Cast (Auto) (0-2) /LPF U Epithel Cells (Auto) (FEW) /HPF Urine Bacteria (Auto) (NEGATIVE) /HPF Urine Mucus (Auto) (NEGATIVE) /HPF Urine Culture Reflexed (NO) Urine Glucose (NEGATIVE) mg/dL Slides for Path Review YES - Progress Progress: unchanged <PONCE BRENNER - Last Filed: 05/27/19 06:42> - Progress Progress: re-examined (NAD; lungs CTA; Heart RR&R; Abd soft, Neg percussion to back.) <YENI GARCIA - Last Filed: 05/27/19 09:48> - Progress Progress Note: 08/14/19 06:[address] garcia. i reviewed pt hx, conditon and pending tests. he accepts pt in transfer. (PONCE BRENNER) 05/27/19 09:45 Educated patient when UA showed neg infecion but + RBCs - suggestive of stone. Clinical picture not typical of stone. When CT came back advised patient of Positive findings for a 2-3 mm distal R ureter stone with upstream hydronephrosis. Explained treatment plan and that she should be able to pass the stone - hopefully in a couple of days. Pt voiced uderstanding and satisfaction. (YENI GARCIA) <PONCE BRENNER - Last Filed: 05/27/19 06:42> - Departure Departure Disposition: Home Critical Care Time: No <YENI GARCIA - Last Filed: 05/27/19 09:48> - Departure Clinical Impression: Renal calculus Condition: Good Referrals: KRISTYN RIVERA [Primary Care Provider] - Instructions: Acute Abdomen (Belly Pain), Adult (DC) Additional Instructions: Keep well hydrated; screen urine follow up with primary care or a urologist. Take medications as prescribed (Flomax to help pass the stone; Pyridium to ease burning or urgency - will turn urine red color; and Ultram for discomfort if needed). Prescriptions: Tramadol HCl 50 mg [Ultram 50 mg] 50 mg PO Q6H PRN PRN #14 tablet PRN Reason: Pain Phenazopyridine HCl 200 mg [Pyridium 200 mg] 200 mg PO QID #10 tablet Tamsulosin HCl 0.4 mg [Flomax 0.4 MG] 0 mg PO DAILY #7 cap
[2019-05-27] MEDS: Sodium Chloride 0.9% 1000 ML 1,000 ML IV STA (07:15)
[2019-05-27 07:21] LABS: BASOPHIL % 0.2 % (0.0-0.4); Basophil (Absolute #) 0.02 (0-0.4); Eosinophil % 3.1 % (0.00-5.0); Eosinophil (Absolute #) 0.32 (0-0.5); Granulocyte Absolute (ANC) 6.76 (1.4-6.9); Hematocrit 44.9 % (35-47); Hemoglobin 14.5 gm/dl (12.0-16.0); Lymphocyte (Absolute #) 2.26 (1.0-4.6); Lymphocytes % 21.8 % (24.0-44.0); Mean Cell Volume 92.4 fl (78-100); Mean Corpuscular Hemoglobin 29.8 pg (26-32); Mean Corpuscular Hgb Concent. 32.3 g/dl (32-36); Mean Platelet Volume 12.8 fl (6-9.5); Monocyte (Absolute #) 1.03 (0.0-1.3); Monocytes % 9.9 % (0.0-12.0); Platelet Count 247 K/mm3 (150-450); Red Blood Count 4.86 M/mm3 (4.1-5.4); Red Cell Distribution Width 13.4 % (11.5-14.0); White Blood Count 10.4 K/mm3 (4.0-10.5)
[2019-05-27 07:26] LABS: Appearance SLIGHTLY CLOUDY (CLEAR); Bacteria FEW /HPF (NEGATIVE); Bilirubin NEGATIVE (NEGATIVE); Blood LARGE Ery/ul (0-5); Epithelial Cells RARE /HPF (FEW); Glucose NEGATIVE (NEGATIVE); Ketones NEGATIVE (NEGATIVE); Leukocyte Esterase NEGATIVE (NEGATIVE); Mucus SLIGHT /HPF (NEGATIVE); Nitrite NEGATIVE (NEGATIVE); Protein,Urine Dip NEGATIVE (Negative); RBC >101 /HPF (0-2); Specific Gravity 1.018 (1.005-1.025); Urobilinogen NEGATIVE mg/dL (0-1)
[2019-05-27 07:31] LABS: ALBUMIN 3.9 g/dL (3.5-5.0); ALKALINE PHOSPHATASE 93 U/L (38-126); AMYLASE 73 U/L (30-110); ANION GAP 13.8 MEQ/L (5-15); BLOOD UREA NITROGEN 14 mg/dL (7-17); CHLORIDE 110 mmol/L (98-107); Calcium 9.3 mg/dL (8.4-10.2); Carbon Dioxide 22 mmol/L (22-30); Creatinine 1 0.97 mg/dL (0.52-1.04); Glucose 103 mg/dL (74-106); LIPASE 164 U/L (23-300); Potassium 3.4 mmol/L (3.5-5.1); SGOT/AST 32 U/L (14-36); SGPT/ALT 27 U/L (0-35); SODIUM 143 mmol/L (137-145)
[2019-05-27 07:41] LABS: Lactic Acid 2.6 (0.4-2.0)
[2019-05-27 08:11] LABS: Slide Review 1 YES
[2019-05-27 09:03] VITALS: BP 110/79; PULSE 61; O2SAT 97
--- NOTE | 2019-05-27 09:19 | XRAY ---
Indication: Abdomen pain. Dysuria. Multiple contiguous axial images obtained through the abdomen and pelvis without contrast as ordered. Comparison: February 13, 2017. Lung bases remain clear. Heart is not enlarged. Noncontrasted stomach and bowel loops appear nonobstructed. Normal appendix. No free fluid/air. New 2-3 mm distal right ureteral calculus just proximal to the UVJ. Proximal right ureter minimally prominent along with mild hydronephrosis and minimal perinephric stranding consistent with obstructive uropathy. Again previous cholecystectomy. Remaining liver, pancreas, spleen, adrenal glands, kidneys, ureters, bladder, uterus, and aorta appear unremarkable for noncontrast exam. Osseous structures intact. Stable tiny fatty left inguinal hernia. Impression: 1. New 2-3 mm distal right ureter calculus producing partial obstruction as detailed. 2. Stable tiny fatty left inguinal hernia. 3. Remaining CT abdomen/pelvis without contrast exam is negative. CT DI 23.68
== END 2019-05-27 09:48 | disposition home or self-care (01) ==
LOC: ED 05:21
DX: N20.0 Calculus of kidney (principal)
CPT/HCPCS: 36000; 36415; 74176; 80053; 81001; 82150; 83605; 83690; 85025; 96360; 99284

== ENCOUNTER 2020-05-14 16:27 | Emergency (ER) | payer OTHER ==
[2020-05-14] MEDS ORDERED: Zofran 4 MG/2 ML VIAL IV ONE ×2 (16:51→18:26)
[2020-05-14] MEDS ORDERED: PROTONIX 40 MG IV IV ONE ×2 (16:51→16:56)
[2020-05-14] MEDS ORDERED: Sodium Chloride 0.9% 1000 ML 1,000 ML IV STA (16:51)
[2020-05-14] MEDS ORDERED: Zofran 4 MG/2 ML VIAL ONE ×2 (16:56→18:27)
[2020-05-14] MEDS ORDERED: Sodium Chloride 0.9% 1000 ML 1,000 ML ONE (16:56)
[2020-05-14 17:00] LABS: Hematocrit 43.6 % (35-47); Hemoglobin 14.3 gm/dl (12.0-16.0); INR 1.11 (0.8-3.0); Mean Cell Volume 92.2 fl (78-100); Mean Corpuscular Hemoglobin 30.2 pg (26-32); Mean Corpuscular Hgb Concent. 32.8 g/dl (32-36); Mean Platelet Volume 11.3 fl (7.5-11.0); PROTIME 12.6 SECONDS (9.95-12.35); Platelet Count 248 K/mm3 (150-450); Red Blood Count 4.73 M/mm3 (4.1-5.4); Red Cell Distribution Width 12.8 % (11.5-14.0); White Blood Count 9.3 K/mm3 (4.0-10.5)
[2020-05-14 17:04] LABS: ALBUMIN 4.2 g/dL (3.5-5.0); ALKALINE PHOSPHATASE 85 U/L (38-126); ANION GAP 11.3 MEQ/L (5-15); BLOOD UREA NITROGEN 13 mg/dL (7-17); CHLORIDE 103 mmol/L (98-107); Calcium 9.4 mg/dL (8.4-10.2); Carbon Dioxide 28 mmol/L (22-30); Creatinine 1 0.74 mg/dL (0.52-1.04); Glucose 95 mg/dL (74-106); LIPASE 100 U/L (23-300); Potassium 3.8 mmol/L (3.5-5.1); SGOT/AST 29 U/L (14-36); SGPT/ALT 31 U/L (0-35); SODIUM 139 mmol/L (137-145); Total Protein 7.3 g/dL (6.3-8.2)
--- NOTE | 2020-05-14 17:16 | ERPHSYRPT ---
- History of Present Illness Time Seen by Provider: 05/14/20 16:42 Source: patient Exam Limitations: no limitations Patient Subjective Stated Complaint: Pt states that she has had 5 bowel movements with a 2 of them being nothing but blood and clots, the other 3 had stool and a lot of blood, pt has a hx of internal and external hemrhoids Triage Nursing Assessment: Pt brought self to the ER, vitals wnl, pt states that she is beginning to get light headed and nauseous, pulses normal, denies pain to abdomen with palpatation, states that she has "gurgliness" in her upper medial abdomen and discomfort right above her umbilicus, rates overall "unc omfortableness" as 3/10, skin n/w/d, denies any other issues at this time Physician History: 30 years old generally healthy female presented in the ER with chief complaint o f rectal bleeding since morning. Patient report having 5 episodes of bowel movements initially mixed with stool but later on having dark blood and clots associated with mild periumbilical area discomfort/cramping and nausea. Denies any vomiting. Denies any history of GI bleed in the past. Not taking any blood thinners. No history of inflammatory bowel disease. Does have history of hemorrhoids but denies any painful defecation. Timing/Duration: today, sudden, worse Severity: moderate Modifying Factors: Improves With: nothing Associated Symptoms: nausea, abdominal pain, weakness Allergies/Adverse Reactions: iodine Allergy (Severe, Verified 05/14/20 16:43) Hives morphine Allergy (Verified 05/14/20 16:43) Shortness of Breath povidone-iodine [From Betadine] Allergy (Verified 05/14/20 16:43) Swelling swelling at sight of F/C insertion soap [From Betadine] Allergy (Verified 05/14/20 16:43) Swelling Hx Tetanus, Diphtheria Vaccination/Date Given: Yes (5 yrs) Hx Influenza Vaccination/Date Given: No Hx Pneumococcal Vaccination/Date Given: No Travel Risk - International Travel Have you traveled outside of the country in past 3 weeks: No - Coronavirus Screening Are you exhibiting any of the following symptoms?: No Close contact with a COVID-19 positive Pt in past 14-21 Days: No - Review of Systems Constitutional: Weakness Eyes: No Symptoms Ears, Nose, & Throat: No Symptoms Respiratory: No Symptoms Cardiac: No Symptoms Abdominal/Gastrointestinal: Abdominal Pain, Nausea, Hematochezia Genitourinary Symptoms: No Symptoms Musculoskeletal: No Symptoms Skin: No Symptoms Neurological: No Symptoms Psychological: No Symptoms Endocrine: No Symptoms Hematologic/Lymphatic: No Symptoms Immunological/Allergic: No Symptoms - Past Medical History Pertinent Past Medical History: Yes Neurological History: No Pertinent History ENT History: No Pertinent History Cardiac History: No Pertinent History Respiratory History: Asthma Endocrine Medical History: No Pertinent History Musculoskeletal History: No Pertinent History GI Medical History: Gallbladder Disease, Other History: No Pertinent History Psycho-Social History: No Pertinent History Female Reproductive Disorders: No Pertinent History Other Medical History: polycystic ovarian syndrome, rectal abscess - Past Surgical History Past Surgical History: Yes Neuro Surgical History: No Pertinent History Cardiac: No Pertinent History Respiratory: No Pertinent History Gastrointestinal: Cholecystectomy, Other Genitourinary: No Pertinent History Musculoskeletal: No Pertinent History Female Surgical History: No Pertinent History Other Surgical History: GALLBLADDER, TONSILS, STEVAN RECTAL ABSCESS, FISTULA,colonoscopy,egd,t&a, wisdom teeth, tubal, ablation - Social History Smoking Status: Former smoker How long have you smoked: 11 years Exposure to second hand smoke: No Drug Use: none Patient Lives Alone: No - Female History Hx Now: No (ablasion 2018) - Nursing Vital Signs Nursing Vital Signs: Initial Vital Signs Temperature 98.3 F 05/14/20 16:32 Pulse Rate 79 05/14/20 16:32 Blood Pressure 121/97 05/14/20 16:32 O2 Sat by Pulse Oximetry 100 05/14/20 16:32 Pain Scale Pain Intensity 0 - Physical Exam General Appearance: no apparent distress Eye Exam: PERRL/EOMI, eyes nml inspection Ears, Nose, Throat Exam: normal ENT inspection, pharynx normal Neck Exam: normal inspection, non-tender, supple, full range of motion Respiratory Exam: normal breath sounds, lungs clear Cardiovascular Exam: regular rate/rhythm, normal heart sounds Gastrointestinal/Abdomen Exam: soft, normal bowel sounds, tenderness (Minimal periumbilical area with no guarding or rebound) Back Exam: normal inspection Extremity Exam: normal inspection, normal range of motion Neurologic Exam: alert, oriented x 3, cooperative Skin Exam: normal color, warm SpO2 Interpretation: normal SpO2: 100 O2 Delivery: Room Air - Course Nursing assessment & vital signs reviewed: Yes Ordered Tests: Active Orders 24 hr Category Date Time Status IV Insertion STAT Care 05/14/20 16:41 Completed NPO (ED) STAT Care 05/14/20 16:51 Completed ABDOMEN AND PELVIS W/0 CONTRAS [CT] Stat Exams 05/14/20 16:53 Completed CBC W DIFF Stat Lab 05/14/20 16:40 Completed CMP Stat Lab 05/14/20 16:40 Completed LIPASE Stat Lab 05/14/20 16:40 Completed Manual Differential NC Stat Lab 05/14/20 16:40 Completed PROTIME WITH INR Stat Lab 05/14/20 16:40 Completed PTT Stat Lab 05/14/20 16:40 Completed UA W/RFX UR CULTURE Stat Lab 05/14/20 17:40 Completed Medication Summary Discontinued Medications Generic Name Dose Route Start Last Admin Trade Name Freq PRN Reason Stop Dose Admin Sodium Chloride 1,000 mls @ 999 mls/hr 05/14/20 16:51 05/14/20 18:00 Sodium Chloride 0.9% 1000 Ml IV 05/14/20 17:51 Infused .Q1H1M STA Infusion Sodium Chloride Confirm 05/14/20 16:56 Sodium Chloride 0.9% 1000 Ml Administered 05/14/20 16:57 Dose 1,000 mls @ ud .ROUTE .STK-MED ONE Ondansetron HCl 4 mg 05/14/20 16:51 05/14/20 17:00 Zofran 4 Mg/2 Ml Vial IV 05/14/20 16:52 4 mg STAT ONE Administration Ondansetron HCl Confirm 05/14/20 16:56 Zofran 4 Mg/2 Ml Vial Administered 05/14/20 16:57 Dose 4 mg .ROUTE .STK-MED ONE Ondansetron HCl 4 mg 05/14/20 18:26 05/14/20 18:28 Zofran 4 Mg/2 Ml Vial IV 05/14/20 18:27 4 mg STAT ONE Administration Ondansetron HCl Confirm 05/14/20 18:27 Zofran 4 Mg/2 Ml Vial Administered 05/14/20 18:28 Dose 4 mg .ROUTE .STK-MED ONE Pantoprazole Sodium 40 mg 05/14/20 16:51 05/14/20 17:00 Protonix 40 Mg Iv IV 05/14/20 16:52 40 mg STAT ONE Administration Pantoprazole Sodium Confirm 05/14/20 16:56 Protonix 40 Mg Iv Administered 05/14/20 16:57 Dose 40 mg IV .STK-MED ONE Lab/Rad Data: Laboratory Result Diagrams 05/14/20 16:40 05/14/20 16:40 Laboratory Results 05/14/20 05/14/20 05/14/20 Range/Units 17:40 16:40 16:40 WBC (4.0-10.5) K/mm3 RBC (4.1-5.4) M/mm3 Hgb (12.0-16.0) gm/dl Hct (35-47) % MCV (78-100) fl MCH (26-32) pg MCHC (32-36) g/dl RDW (11.5-14.0) % Plt Count (150-450) K/mm3 MPV (7.5-11.0) fl Absolute Granulocytes (1.4-6.9) Segmented Neutrophils (36.0-66.0) % Band Neutrophils (0.0-2.0) % Lymphocytes (Manual) (24-44) % Monocytes (Manual) (0.0-12.0) % Basophils (Manual) (0.0-1.0) % Atypical Lymphocytes % Platelet Estimate (NORMAL) RBC Morphology PT 12.6 H (9.95-12.35) SECONDS INR 1.11 (0.8-3.0) APTT 27.9 (25.3-37.0) SECONDS Sodium (137-145) mmol/L Potassium (3.5-5.1) mmol/L Chloride (98-107) mmol/L Carbon Dioxide (22-30) mmol/L Anion Gap (5-15) MEQ/L BUN (7-17) mg/dL Creatinine (0.52-1.04) mg/dL Estimated GFR ML/MIN Glucose (74-106) mg/dL Calcium (8.4-10.2) mg/dL Total Bilirubin (0.2-1.3) mg/dL AST (14-36) U/L ALT (0-35) U/L Alkaline Phosphatase (38-126) U/L Serum Total Protein (6.3-8.2) g/dL Albumin (3.5-5.0) g/dL Lipase (23-300) U/L Urine Color YELLOW (YELLOW) Urine Appearance SLIGHTLY CLOUDY (CLEAR) Urine pH 6.0 (5-6) Ur Specific [place] 1.020 (1.005-1.025) Urine Protein NEGATIVE (Negative) Urine Ketones NEGATIVE (NEGATIVE) Urine Blood NEGATIVE (0-5) Rebel/ul Urine Nitrite NEGATIVE (NEGATIVE) Urine Bilirubin NEGATIVE (NEGATIVE) Urine Urobilinogen NEGATIVE (0-1) mg/dL Ur Leukocyte Esterase NEGATIVE (NEGATIVE) Urine WBC (Auto) NONE (0-5) /HPF Urine RBC (Auto) NONE (0-2) /HPF U Epithel Cells (Auto) RARE (FEW) /HPF Urine Bacteria (Auto) NONE (NEGATIVE) /HPF Urine Mucus (Auto) SLIGHT (NEGATIVE) /HPF Urine Culture Reflexed NO (NO) Urine Glucose NEGATIVE (NEGATIVE) mg/dL 05/14/20 05/14/20 Range/Units 16:40 16:40 WBC 9.3 (4.0-10.5) K/mm3 RBC 4.73 (4.1-5.4) M/mm3 Hgb 14.3 (12.0-16.0) gm/dl Hct 43.6 (35-47) % MCV 92.2 (78-100) fl MCH 30.2 (26-32) pg MCHC 32.8 (32-36) g/dl RDW 12.8 (11.5-14.0) % Plt Count 248 (150-450) K/mm3 MPV 11.3 H (7.5-11.0) fl Absolute Granulocytes 5.5 (1.4-6.9) Segmented Neutrophils 58 (36.0-66.0) % Band Neutrophils 2 (0.0-2.0) % Lymphocytes (Manual) 32 (24-44) % Monocytes (Manual) 3 (0.0-12.0) % Basophils (Manual) 2 H (0.0-1.0) % Atypical Lymphocytes 3 % Platelet Estimate NORMAL (NORMAL) RBC Morphology NORMAL PT (9.95-12.35) SECONDS INR (0.8-3.0) APTT (25.3-37.0) SECONDS Sodium 139 (137-145) mmol/L Potassium 3.8 (3.5-5.1) mmol/L Chloride 103 (98-107) mmol/L Carbon Dioxide 28 (22-30) mmol/L Anion Gap 11.3 (5-15) MEQ/L BUN 13 (7-17) mg/dL Creatinine 0.74 (0.52-1.04) mg/dL Estimated GFR > 60.0 ML/MIN Glucose 95 (74-106) mg/dL Calcium 9.4 (8.4-10.2) mg/dL Total Bilirubin 0.40 (0.2-1.3) mg/dL AST 29 (14-36) U/L ALT 31 (0-35) U/L Alkaline Phosphatase 85 (38-126) U/L Serum Total Protein 7.3 (6.3-8.2) g/dL Albumin 4.2 (3.5-5.0) g/dL Lipase 100 (23-300) U/L Urine Color (YELLOW) Urine Appearance (CLEAR) Urine pH (5-6) Ur Specific [place] (1.005-1.025) Urine Protein (Negative) Urine Ketones (NEGATIVE) Urine Blood (0-5) Rebel/ul Urine Nitrite (NEGATIVE) Urine Bilirubin (NEGATIVE) Urine Urobilinogen (0-1) mg/dL Ur Leukocyte Esterase (NEGATIVE) Urine WBC (Auto) (0-5) /HPF Urine RBC (Auto) (0-2) /HPF U Epithel Cells (Auto) (FEW) /HPF Urine Bacteria (Auto) (NEGATIVE) /HPF Urine Mucus (Auto) (NEGATIVE) /HPF Urine Culture Reflexed (NO) Urine Glucose (NEGATIVE) mg/dL - Progress Progress: improved, re-examined Progress Note: Given a fluid bolus. She has stable H&H. I did not appreciate any bleeding hemorrhoids or blood in the rectal vault on rectal exam. I have obtained CT abdomen pelvis which is negative for colitis. She is offered observation admission but patient wants to go home. 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 Discussed signs symptoms of worsening needing return to ER which she seems understanding. Stable for discharge. Counseled pt/family regarding: lab results, diagnosis, need for follow-up, rad results - Departure Departure Disposition: Home Clinical Impression: GI bleed Qualifiers: GI bleed type/associated pathology: unspecified gastrointestinal hemorrhage type Qualified Code(s): K92.2 - Gastrointestinal hemorrhage, unspecified Condition: Stable Critical Care Time: No Referrals: KRISTYN RIVERA [Primary Care Provider] - (2 days for reevaluation) AIDA CAMPBELL MD [NON-STAFF PHY W/O PRIVILEGES] - (2 days for reevaluation) Instructions: Gastrointestinal Bleeding (DC) Additional Instructions: Drink plenty of fluids. Follow-up with your general surgeon and gastroenterology for reevaluation. Return to ER for worsening bleeding, abdominal pain, feeling lightheaded, dizzy/generalized weakness/dark stools. Prescriptions: Ondansetron ODT 4 MG [Zofran Odt 4 mg] 4 mg PO Q6H PRN PRN #10 tab.rapdis PRN Reason: Vomiting PANTOPRAZOLE 40 mg Tablet [Protonix 40MG Tablet] 40 mg PO QAM #30 tab
[2020-05-14 17:55] LABS: Appearance SLIGHTLY CLOUDY (CLEAR); Bilirubin NEGATIVE (NEGATIVE); Blood NEGATIVE Ery/ul (0-5); Epithelial Cells RARE /HPF (FEW); Glucose NEGATIVE (NEGATIVE); Ketones NEGATIVE (NEGATIVE); Leukocyte Esterase NEGATIVE (NEGATIVE); Mucus SLIGHT /HPF (NEGATIVE); Nitrite NEGATIVE (NEGATIVE); Protein,Urine Dip NEGATIVE (Negative); Urobilinogen NEGATIVE mg/dL (0-1)
[2020-05-14 18:05] LABS: ATYPICAL LYMPHS 3 %; BAND 2 % (0.0-2.0); Basophil 2 % (0.0-1.0); Lymphocytes 32 % (24-44); Monocyte 3 % (0.0-12.0); Neutrophils 58 % (36.0-66.0); Total Cells Counted 100
[2020-05-14 18:06] LABS: Platelet Estimate NORMAL (NORMAL)
[2020-05-14 18:07] LABS: Absolute Neutrophil Ct (ANC) 5.5 (1.4-6.9)
[2020-05-14 18:31] VITALS: O2SAT 100
[2020-05-14 18:42] VITALS: BP 107/65; PULSE 79
--- NOTE | 2020-05-14 21:17 | XRAY ---
Indication: Abdomen pain. Rectal bleeding. Colitis. Multiple contiguous axial images obtained through the abdomen and pelvis without contrast as ordered. Comparison: May 27, 2019. Lung bases remain clear. Heart is not enlarged. Noncontrasted stomach and bowel loops appear nonobstructed. Normal appendix. No abnormal bowel wall thickening or free fluid/air. Again mild fatty liver and cholecystectomy. New 5.5 cm right ovary, 4.3 cm left ovary, and 2.2 cm left ovary cysts. Remaining liver, pancreas, spleen, adrenal glands, kidneys, ureters, bladder, uterus, and aorta appear unremarkable for noncontrast exam. Osseous structures intact. Impression: 1. New bilateral ovary cysts as detailed. Outpatient pelvic sonogram may yield further information. 2. Stable fatty liver. 3. Remaining CT abdomen/pelvis without contrast exam is negative. Comment: Preliminary interpretation was made by [facility]. No critical discrepancy.
== END 2020-05-14 18:48 | disposition home or self-care (01) ==
LOC: ED 16:27
DX: K92.2 Gastrointestinal hemorrhage, unspecified (principal)
CPT/HCPCS: 36000; 36415; 74176; 80053; 81001; 83690; 85025; 85610; 85730; 96374; 96375; 96376; 99284; J2405

== ENCOUNTER 2020-06-16 05:50 | Day surgery (SDC) | payer OTHER ==
[2020-06-16] MEDS ORDERED: Lactated Ringers 1,000 ML IV ONE (06:28)
[2020-06-16] MEDS ORDERED: Lactated Ringers 1,000 ML IV SCH (06:30)
[2020-06-16] MEDS ORDERED: Zofran 4 MG/2 ML VIAL IV PRN (06:53)
[2020-06-16] MEDS ORDERED: Transderm Scop 1.5MG Patch TOP ONE (06:54)
[2020-06-16] MEDS ORDERED: Ketamine HCl 50 MG/ML ONE (07:50)
[2020-06-16] MEDS ORDERED: DIPRIVAN 200 MG/20 ML IV ONE ×4 (07:50→08:54)
[2020-06-16 10:00] VITALS: O2SAT 97
[2020-06-16 10:01] VITALS: BP 120/80; PULSE 83
--- NOTE | 2020-06-16 10:13 | OP ---
SURGERY DATE/TIME: 06/16/2020817 PREOPERATIVE DIAGNOSIS: Rectal bleeding. POSTOPERATIVE DIAGNOSES: 1) Moderate gastritis. 2) Sigmoid colon polyp. PROCEDURES: 1) EGD. 2) Colonoscopy. SURGEON: Rai Bella M.D. ANESTHESIA: MAC by Duglas Jack CRNA. ESTIMATED BLOOD LOSS: Minimal. SPECIMENS: Two cold forceps biopsies from the gastric antrum and hot forceps polypectomy from the sigmoid colon. DESCRIPTION OF PROCEDURE: After informed written consent was obtained, the patient was taken to the endoscopy suite. She had a bite block inserted and underwent monitored anesthesia. Titrated anesthesia to desired level of consciousness. The endoscope was inserted into the posterior oropharynx and under direct visualization the esophagus was traversed. The gastroesophageal junction had a normal mucosal appearance as well as the esophageal mucosa upon entry. Upon entry into the stomach, there was rugated gastric mucosa with dried old blood present throughout most of the stomach. No obvious active bleeding. There were moderate gastritis-type changes but no focal ulceration to the antrum. The pylorus was traversed. The duodenum had no mucosal abnormalities. Two cold forceps biopsies were taken from the gastric antrum and sent for Helicobacter pylori testing. The scope was removed and the scopes were switched. Digital rectal exam showed normal sphincter tone. The scope was inserted in the rectum and sequentially the entire colonic mucosa was traversed with some difficulty. The ileocecal valve was not directly visualized. Upon withdrawal there was a small sessile polyp in the distal sigmoid colon which was grasped with forceps and removed in its entirety. Good hemostasis. No other lesions were encountered. The scope was removed and the patient was transferred to the recovery room in good condition. I have started her on proton pump inhibitor therapy. I advised avoidance of all NSAID's and have her follow up for pathology in one week.
== END 2020-06-16 10:06 | disposition home or self-care (01) ==
LOC: SDC 05:50
PROVIDERS: ATTEND Family Medicine
DX: K29.70 Gastritis, unspecified, without bleeding (principal); K63.5 Polyp of colon
CPT/HCPCS: 88305; J1642; J2405; J2704; A9270-GY

== ENCOUNTER 2020-10-24 12:25 | Observation (INO) | payer OTHER, SELFPAY ==
--- NOTE | 2020-10-24 12:29 | ERPHSYRPT ---
- History of Present Illness Time Seen by Provider: 10/24/20 12:45 Source: patient Physician History: Patient is a 30-year-old female presents to our ED with complaints of exertional shortness of breath and intermittent heart palpitations. Patient states her symptoms may be due to Lyme disease. Patient has been experiencing myalgias joint pain generalized fatigue and shortness of breath for several weeks. Patient's primary care doctor ordered a Lyme test which resulted as positive. Patient was treated for Lyme disease. Patient does recall having a small tick on her. Patient symptoms are mild to moderate in intensity. Patient essentially asymptomatic at rest. No chest pain. No nausea or vomiting. No diaphoresis. No fever. Patient is ambulatory with a normal gait. Patient st ates she is otherwise healthy. She voices no other complaints or concerns at this time. Timing/Duration: today Associated Symptoms: denies symptoms, No nausea, No vomiting, No abdominal pain, No diaphoresis, No cough, No chills, No chest pain, No fever, No headaches, No loss of appetite, No malaise, No rash, No seizure, No weakness Allergies/Adverse Reactions: iodine Allergy (Severe, Verified 06/16/20 06:20) Hives morphine Allergy (Verified 06/16/20 06:20) Shortness of Breath povidone-iodine [From Betadine] Allergy (Verified 06/16/20 06:20) Swelling swelling at sight of F/C insertion soap [From Betadine] Allergy (Verified 06/16/20 06:20) Swelling Home Medications: Biotin/Calcium Carbonate [Biotin 800 Mcg Tablet] 1 each PO DAILY 10/24/20 [History] Topiramate [Topiramate ER] 75 mg PO DAILY 10/24/20 [History] Hx Tetanus, Diphtheria Vaccination/Date Given: Yes (5 yrs) Hx Influenza Vaccination/Date Given: No Hx Pneumococcal Vaccination/Date Given: No - Review of Systems Constitutional: No Symptoms, No Fever, No Chills Eyes: No Symptoms Ears, Nose, & Throat: No Symptoms Respiratory: No Symptoms, No Cough, No Dyspnea Cardiac: No Symptoms, No Chest Pain, No Edema, No Syncope Abdominal/Gastrointestinal: No Symptoms, No Abdominal Pain, No Nausea, No Vomiting, No Diarrhea Genitourinary Symptoms: No Symptoms, No Dysuria Musculoskeletal: No Symptoms, No Back Pain, No Neck Pain Skin: No Symptoms, No Rash Neurological: No Symptoms, No Dizziness, No Focal Weakness, No Sensory Changes Psychological: No Symptoms Endocrine: No Symptoms Hematologic/Lymphatic: No Symptoms Immunological/Allergic: No Symptoms All Other Systems: Reviewed and Negative - Past Medical History Pertinent Past Medical History: Yes Neurological History: No Pertinent History ENT History: No Pertinent History Cardiac History: No Pertinent History Respiratory History: Asthma Endocrine Medical History: No Pertinent History Musculoskeletal History: No Pertinent History GI Medical History: Gallbladder Disease, Other History: No Pertinent History Psycho-Social History: No Pertinent History Female Reproductive Disorders: No Pertinent History Other Medical History: polycystic ovarian syndrome, rectal abscess - Past Surgical History Past Surgical History: Yes Neuro Surgical History: No Pertinent History Cardiac: No Pertinent History Respiratory: No Pertinent History Gastrointestinal: Cholecystectomy, Other Genitourinary: No Pertinent History Musculoskeletal: No Pertinent History Female Surgical History: No Pertinent History Other Surgical History: GALLBLADDER, TONSILS, STEVAN RECTAL ABSCESS, FISTULA,colonoscopy,egd,t&a, wisdom teeth, tubal, ablation - Social History Smoking Status: Former smoker How long have you smoked: 11 years Exposure to second hand smoke: No Drug Use: none Patient Lives Alone: No - Nursing Vital Signs Nursing Vital Signs: Initial Vital Signs Temperature 99.0 F 10/24/20 12:25 Pulse Rate 84 10/24/20 12:25 Respiratory Rate 24 10/24/20 12:25 Blood Pressure 155/102 10/24/20 12:25 O2 Sat by Pulse Oximetry 100 10/24/20 12:25 Pain Scale Pain Intensity 0 - Physical Exam General Appearance: no apparent distress, alert Eye Exam: PERRL/EOMI, eyes nml inspection Ears, Nose, Throat Exam: normal ENT inspection, TMs normal, pharynx normal, moist mucous membranes Neck Exam: normal inspection, non-tender, supple, full range of motion Respiratory Exam: normal breath sounds, lungs clear, No respiratory distress Cardiovascular Exam: regular rate/rhythm, normal heart sounds, normal peripheral pulses Gastrointestinal/Abdomen Exam: soft, normal bowel sounds, No tenderness, No mass Back Exam: normal inspection, normal range of motion, No CVA tenderness, No vertebral tenderness Extremity Exam: normal inspection, normal range of motion, pelvis stable Neurologic Exam: alert, oriented x 3, cooperative, normal mood/affect, nml cerebellar function, nml station & gait, sensation nml, No motor deficits Skin Exam: normal color, warm, dry, No rash Lymphatic Exam: No adenopathy SpO2 Interpretation: normal SpO2: 100 O2 Delivery: Room Air - Course Nursing assessment & vital signs reviewed: Yes EKG Interpreted by Me: RATE (73), Sinus Rhythm, NORMAL AXIS, NORMAL INTERVALS - Radiology Exams Chest X-ray Interpretation: Teleradiologist Report (Negative chest x-ray.) Ordered Tests: Active Orders 24 hr Category Date Time Status Lead Quality Technician STAT Care 10/24/20 12:30 Active EKG-ER Only STAT Care 10/24/20 12:29 Active IV Insertion STAT Care 10/24/20 12:29 Active Pulse Oximetry (ED) STAT Care 10/24/20 12:29 Active CHEST 1 VIEW (PORTABLE) Stat Exams 10/24/20 12:30 Completed CBC W DIFF Stat Lab 10/24/20 12:35 Completed CMP Stat Lab 10/24/20 12:35 Completed D-DIMER QUANTITATIVE Stat Lab 10/24/20 12:35 Completed HCG,QUALITATIVE URINE Stat Lab 10/24/20 13:51 Completed INFLUENZA A+B LITTLE Stat Lab 10/24/20 13:10 Completed MAGNESIUM Stat Lab 10/24/20 12:35 Completed TROPONIN Q3H Lab 10/24/20 12:35 Completed TROPONIN Q3H Lab 10/24/20 15:34 Completed TROPONIN Q3H Lab 10/24/20 18:30 Ordered TROPONIN Q3H Lab 10/24/20 21:30 Ordered TROPONIN Q3H Lab 10/25/20 00:30 Ordered UA W/RFX UR CULTURE Stat Lab 10/24/20 13:51 Completed Respiratory MDI STAT RT 10/24/20 15:52 Active Respiratory Therapy Assessment DAILY RT 10/24/20 15:51 Active Medication Summary Generic Name Dose Route Start Last Admin Trade Name Freq PRN Reason Stop Dose Admin Albuterol Sulfate 4 puff 10/24/20 15:24 10/24/20 15:34 Ventolin Common Canister IH 11/23/20 15:23 4 puff Q4H PRN PRN Administration SHORTNESS OF BREATH/WHEEZING Discontinued Medications Generic Name Dose Route Start Last Admin Trade Name Freq PRN Reason Stop Dose Admin Methylprednisolone Sodium Succinate 125 mg 10/24/20 15:18 10/24/20 15:31 Solu-Medrol 125 Mg IV 10/24/20 15:19 125 mg STAT ONE Administration Methylprednisolone Sodium Succinate Confirm 10/24/20 15:28 Solu-Medrol 125 Mg Administered 10/24/20 15:29 Dose 125 mg .ROUTE .STK-MED ONE Lab/Rad Data: Laboratory Result Diagrams 10/24/20 12:35 10/24/20 12:35 Laboratory Results 10/24/20 10/24/20 10/24/20 Range/Units 16:09 15:34 13:51 WBC (4.0-10.5) K/mm3 RBC (4.1-5.4) M/mm3 Hgb (12.0-16.0) gm/dl Hct (35-47) % MCV (78-100) fl MCH (26-32) pg MCHC (32-36) g/dl RDW (11.5-14.0) % Plt Count (150-450) K/mm3 MPV (7.5-11.0) fl Gran % (36.0-66.0) % Eos # (Auto) (0-0.5) Absolute Lymphs (auto) (1.0-4.6) Absolute Monos (auto) (0.0-1.3) Lymphocytes % (24.0-44.0) % Monocytes % (0.0-12.0) % Eosinophils % (0.00-5.0) % Basophils % (0.0-0.4) % Absolute Granulocytes (1.4-6.9) Basophils # (0-0.4) D-Dimer (215-500) ng/mL Sodium (137-145) mmol/L Potassium (3.5-5.1) mmol/L Chloride (98-107) mmol/L Carbon Dioxide (22-30) mmol/L Anion Gap (5-15) MEQ/L BUN (7-17) mg/dL Creatinine (0.52-1.04) mg/dL Estimated GFR ML/MIN Glucose (74-106) mg/dL Calcium (8.4-10.2) mg/dL Magnesium (1.6-2.3) mg/dL Total Bilirubin (0.2-1.3) mg/dL AST (14-36) U/L ALT (0-35) U/L Alkaline Phosphatase (38-126) U/L Troponin I < 0.012 (0.000-0.034) ng/mL Serum Total Protein (6.3-8.2) g/dL Albumin (3.5-5.0) g/dL Urine Color (YELLOW) Urine Appearance (CLEAR) Urine pH (5-6) Ur Specific [place] (1.005-1.025) Urine Protein (Negative) Urine Ketones (NEGATIVE) Urine Blood (0-5) Rebel/ul Urine Nitrite (NEGATIVE) Urine Bilirubin (NEGATIVE) Urine Urobilinogen (0-1) mg/dL Ur Leukocyte Esterase (NEGATIVE) Urine WBC (Auto) (0-5) /HPF Urine RBC (Auto) (0-2) /HPF U Epithel Cells (Auto) (FEW) /HPF Urine Bacteria (Auto) (NEGATIVE) /HPF Urine Mucus (Auto) (NEGATIVE) /HPF Urine Culture Reflexed (NO) Urine Glucose (NEGATIVE) mg/dL Urine HCG, Qual NEGATIVE (Negative) Influenza Type A Ag (NEGATIVE) Influenza Type B Ag (NEGATIVE) SARS-CoV-2 (PCR) NEGATIVE (NEGATIVE) 10/24/20 10/24/20 10/24/20 Range/Units 13:51 13:10 12:35 WBC (4.0-10.5) K/mm3 RBC (4.1-5.4) M/mm3 Hgb (12.0-16.0) gm/dl Hct (35-47) % MCV (78-100) fl MCH (26-32) pg MCHC (32-36) g/dl RDW (11.5-14.0) % Plt Count (150-450) K/mm3 MPV (7.5-11.0) fl Gran % (36.0-66.0) % Eos # (Auto) (0-0.5) Absolute Lymphs (auto) (1.0-4.6) Absolute Monos (auto) (0.0-1.3) Lymphocytes % (24.0-44.0) % Monocytes % (0.0-12.0) % Eosinophils % (0.00-5.0) % Basophils % (0.0-0.4) % Absolute Granulocytes (1.4-6.9) Basophils # (0-0.4) D-Dimer (215-500) ng/mL Sodium (137-145) mmol/L Potassium (3.5-5.1) mmol/L Chloride (98-107) mmol/L Carbon Dioxide (22-30) mmol/L Anion Gap (5-15) MEQ/L BUN (7-17) mg/dL Creatinine (0.52-1.04) mg/dL Estimated GFR ML/MIN Glucose (74-106) mg/dL Calcium (8.4-10.2) mg/dL Magnesium (1.6-2.3) mg/dL Total Bilirubin (0.2-1.3) mg/dL AST (14-36) U/L ALT (0-35) U/L Alkaline Phosphatase (38-126) U/L Troponin I < 0.012 (0.000-0.034) ng/mL Serum Total Protein (6.3-8.2) g/dL Albumin (3.5-5.0) g/dL Urine Color YELLOW (YELLOW) Urine Appearance CLEAR (CLEAR) Urine pH 6.0 (5-6) Ur Specific [place] 1.018 (1.005-1.025) Urine Protein NEGATIVE (Negative) Urine Ketones NEGATIVE (NEGATIVE) Urine Blood NEGATIVE (0-5) Rebel/ul Urine Nitrite NEGATIVE (NEGATIVE) Urine Bilirubin NEGATIVE (NEGATIVE) Urine Urobilinogen NEGATIVE (0-1) mg/dL Ur Leukocyte Esterase NEGATIVE (NEGATIVE) Urine WBC (Auto) 0-2 (0-5) /HPF Urine RBC (Auto) NONE (0-2) /HPF U Epithel Cells (Auto) RARE (FEW) /HPF Urine Bacteria (Auto) NONE (NEGATIVE) /HPF Urine Mucus (Auto) SLIGHT (NEGATIVE) /HPF Urine Culture Reflexed NO (NO) Urine Glucose NEGATIVE (NEGATIVE) mg/dL Urine HCG, Qual (Negative) Influenza Type A Ag NEGATIVE (NEGATIVE) Influenza Type B Ag NEGATIVE (NEGATIVE) SARS-CoV-2 (PCR) (NEGATIVE) 10/24/20 10/24/20 10/24/20 Range/Units 12:35 12:35 12:35 WBC 8.1 (4.0-10.5) K/mm3 RBC 4.71 (4.1-5.4) M/mm3 Hgb 14.1 (12.0-16.0) gm/dl Hct 43.3 (35-47) % MCV 91.9 (78-100) fl MCH 29.9 (26-32) pg MCHC 32.6 (32-36) g/dl RDW 13.0 (11.5-14.0) % Plt Count 295 (150-450) K/mm3 MPV 11.6 H (7.5-11.0) fl Gran % 64.8 (36.0-66.0) % Eos # (Auto) 0.15 (0-0.5) Absolute Lymphs (auto) 2.00 (1.0-4.6) Absolute Monos (auto) 0.67 (0.0-1.3) Lymphocytes % 24.8 (24.0-44.0) % Monocytes % 8.3 (0.0-12.0) % Eosinophils % 1.9 (0.00-5.0) % Basophils % 0.2 (0.0-0.4) % Absolute Granulocytes 5.24 (1.4-6.9) Basophils # 0.02 (0-0.4) D-Dimer < 215 L (215-500) ng/mL Sodium 140 (137-145) mmol/L Potassium 3.9 (3.5-5.1) mmol/L Chloride 109 H (98-107) mmol/L Carbon Dioxide 23 (22-30) mmol/L Anion Gap 12.6 (5-15) MEQ/L BUN 14 (7-17) mg/dL Creatinine 0.83 (0.52-1.04) mg/dL Estimated GFR > 60.0 ML/MIN Glucose 98 (74-106) mg/dL Calcium 9.4 (8.4-10.2) mg/dL Magnesium 1.8 (1.6-2.3) mg/dL Total Bilirubin 0.20 (0.2-1.3) mg/dL AST 18 (14-36) U/L ALT 18 (0-35) U/L Alkaline Phosphatase 75 (38-126) U/L Troponin I (0.000-0.034) ng/mL Serum Total Protein 7.9 (6.3-8.2) g/dL Albumin 4.4 (3.5-5.0) g/dL Urine Color (YELLOW) Urine Appearance (CLEAR) Urine pH (5-6) Ur Specific [place] (1.005-1.025) Urine Protein (Negative) Urine Ketones (NEGATIVE) Urine Blood (0-5) Rebel/ul Urine Nitrite (NEGATIVE) Urine Bilirubin (NEGATIVE) Urine Urobilinogen (0-1) mg/dL Ur Leukocyte Esterase (NEGATIVE) Urine WBC (Auto) (0-5) /HPF Urine RBC (Auto) (0-2) /HPF U Epithel Cells (Auto) (FEW) /HPF Urine Bacteria (Auto) (NEGATIVE) /HPF Urine Mucus (Auto) (NEGATIVE) /HPF Urine Culture Reflexed (NO) Urine Glucose (NEGATIVE) mg/dL Urine HCG, Qual (Negative) Influenza Type A Ag (NEGATIVE) Influenza Type B Ag (NEGATIVE) SARS-CoV-2 (PCR) (NEGATIVE) - Departure Departure Disposition: Extended Care Facility Clinical Impression: SOB (shortness of breath), Hypoxia Condition: Stable Critical Care Time: No
[2020-10-24 13:15] LABS: Absolute Neutrophil Ct (ANC) 5.24 (1.4-6.9); BASOPHIL % 0.2 % (0.0-0.4); Basophil (Absolute #) 0.02 (0-0.4); Eosinophil % 1.9 % (0.00-5.0); Eosinophil (Absolute #) 0.15 (0-0.5); Hematocrit 43.3 % (35-47); Hemoglobin 14.1 gm/dl (12.0-16.0); Lymphocytes % 24.8 % (24.0-44.0); Mean Cell Volume 91.9 fl (78-100); Mean Corpuscular Hemoglobin 29.9 pg (26-32); Mean Corpuscular Hgb Concent. 32.6 g/dl (32-36); Mean Platelet Volume 11.6 fl (7.5-11.0); Monocyte (Absolute #) 0.67 (0.0-1.3); Monocytes % 8.3 % (0.0-12.0); Neutrophil % 64.8 % (36.0-66.0); Platelet Count 295 K/mm3 (150-450); Red Blood Count 4.71 M/mm3 (4.1-5.4); White Blood Count 8.1 K/mm3 (4.0-10.5)
[2020-10-24 13:34] LABS: ALBUMIN 4.4 g/dL (3.5-5.0); ALKALINE PHOSPHATASE 75 U/L (38-126); ANION GAP 12.6 MEQ/L (5-15); BLOOD UREA NITROGEN 14 mg/dL (7-17); CHLORIDE 109 mmol/L (98-107); Calcium 9.4 mg/dL (8.4-10.2); Carbon Dioxide 23 mmol/L (22-30); Creatinine 1 0.83 mg/dL (0.52-1.04); EST GLOMERULAR FILTRATION RATE > 60.0 ML/MIN; Glucose 98 mg/dL (74-106); MAGNESIUM 1.8 mg/dL (1.6-2.3); Potassium 3.9 mmol/L (3.5-5.1); SGOT/AST 18 U/L (14-36); SGPT/ALT 18 U/L (0-35); SODIUM 140 mmol/L (137-145); Total Protein 7.9 g/dL (6.3-8.2)
[2020-10-24 14:12] LABS: INFLUENZA A NEGATIVE (NEGATIVE); INFLUENZA B NEGATIVE (NEGATIVE)
[2020-10-24 14:14] LABS: Appearance CLEAR (CLEAR); Bilirubin NEGATIVE (NEGATIVE); Blood NEGATIVE Ery/ul (0-5); Epithelial Cells RARE /HPF (FEW); Glucose NEGATIVE (NEGATIVE); Ketones NEGATIVE (NEGATIVE); Leukocyte Esterase NEGATIVE (NEGATIVE); Mucus SLIGHT /HPF (NEGATIVE); Nitrite NEGATIVE (NEGATIVE); Protein,Urine Dip NEGATIVE (Negative); Specific Gravity 1.018 (1.005-1.025); Urobilinogen NEGATIVE mg/dL (0-1); WBC 0-2 /HPF (0-5)
--- NOTE | 2020-10-24 14:38 | XRAY ---
Indication: Short of breath. Comparison: December 01, 2016. Portable chest again demonstrates normal heart, lungs, and bony thorax.
[2020-10-24] MEDS ORDERED: solu-MEDROL 125 MG IV ONE (15:18)
[2020-10-24] MEDS ORDERED: VENTOLIN COMMON CANISTER IH PRN (15:24)
[2020-10-24] MEDS ORDERED: solu-MEDROL 125 MG ONE (15:28)
[2020-10-24] MEDS: solu-MEDROL 40 MG IV SCH (21:07)
[2020-10-25] MEDS ORDERED: TYLENOL 325 MG PO PRN (00:16)
[2020-10-25] MEDS: solu-MEDROL 40 MG IV SCH (03:40)
[2020-10-25 05:31] LABS: Hematocrit 44.9 % (35-47); Hemoglobin 14.5 gm/dl (12.0-16.0); Mean Cell Volume 91.8 fl (78-100); Mean Corpuscular Hemoglobin 29.7 pg (26-32); Mean Corpuscular Hgb Concent. 32.3 g/dl (32-36); Mean Platelet Volume 11.5 fl (7.5-11.0); Platelet Count 287 K/mm3 (150-450); Red Blood Count 4.89 M/mm3 (4.1-5.4); Red Cell Distribution Width 13.1 % (11.5-14.0); White Blood Count 9.1 K/mm3 (4.0-10.5)
[2020-10-25 06:08] LABS: ALBUMIN 4.2 g/dL (3.5-5.0); ALKALINE PHOSPHATASE 69 U/L (38-126); BLOOD UREA NITROGEN 14 mg/dL (7-17); CHLORIDE 109 mmol/L (98-107); Calcium 9.2 mg/dL (8.4-10.2); Carbon Dioxide 21 mmol/L (22-30); Creatinine 1 0.65 mg/dL (0.52-1.04); EST GLOMERULAR FILTRATION RATE > 60.0 ML/MIN; Glucose 166 mg/dL (74-106); Potassium 4.3 mmol/L (3.5-5.1); SGOT/AST 18 U/L (14-36); SGPT/ALT 19 U/L (0-35); SODIUM 138 mmol/L (137-145); Total Protein 7.7 g/dL (6.3-8.2)
--- NOTE | 2020-10-25 09:58 | PCM.HP ---
History of Present Illness - Chief Complaint Chief Complaint: hypoxia History of Present Illness: is a 30 year old female pt of mine from [facility] with asthma who was admitted through ER with SOB, likely asthma exacerbation. She c/o random dyspnea on exertion for the past week or so; 3-4 days ago she bent over and was unable to get her breath. Then she noticed that walking even 5-10 feet or talking caused dyspnea on exertion. She states that her chest was tight, she had some palpitations, and was a little lightheaded. In ER she was given steroids with some relief. CXR was neg and d-dimer was low. Since admission, she has noticed that she is better about 1 hour after IV ster oids are given, but it's harder to breathe after they wear off. Pt was dx with Lyme disease about 3 weeks ago. She had had a tiny tick on her skin 6-7 months ago and was treated with antibiotics at that time. - Review of Systems Constitutional: No Fever Respiratory: Short Of Breath Cardiac: Chest Pain, Palpitations Musculoskeletal: Arthralgias Neurological: Parasthesia (hands and feet, intermittent, x 2 weeks) Endocrine: Other (random hypoglycemia) All Other Systems: Reviewed and Negative Medications & Allergies Home Medications: Home Medication List Biotin/Calcium Carbonate [Biotin 800 Mcg Tablet] 1 each PO DAILY 10/24/20 [History Confirmed 10/24/20] Topiramate [Topiramate ER] 75 mg PO DAILY 10/24/20 [History Confirmed 10/24/20] Allergies/Adverse Reactions: Allergies Allergy/AdvReac Type Severity Reaction Status Date / Time iodine Allergy Severe Hives Verified 06/16/20 06:20 morphine Allergy Shortness Verified 06/16/20 06:20 of Breath povidone-iodine Allergy Swelling Verified 06/16/20 06:20 [From Betadine] soap [From Betadine] Allergy Swelling Verified 06/16/20 06:20 - Past Medical History Past Medical History: Yes Neurological History: No Pertinent History ENT History: No Pertinent History Cardiac History: No Pertinent History Respiratory History: Asthma Endocrine Medical History: No Pertinent History Musculoskelatal History: No Pertinent History GI Medical History: Gallbladder Disease, Other History: No Pertinent History Pyscho-Social History: No Pertinent History Reproductive Disorders: No Pertinent History Comment: polycystic ovarian syndrome, rectal abscess - Female History Hx Last Menstrual Period: 2017 Are you now?: No - Past Surgical History Past Surgical History: Yes Neuro Surgical History: No Pertinent History Cardiac History: No Pertinent History Respiratory Surgery: No Pertinent History GI Surgical History: Cholecystectomy, Other Genitourinary Surgical Hx: No Pertinent History Musculskeletal Surgical Hx: No Pertinent History Female Surgical History: No Pertinent History Other Surgical History: GALLBLADDER, TONSILS, STEVAN RECTAL ABSCESS, FISTULA,colonoscopy,egd,t&a, wisdom teeth, tubal, ablation - Social History Smoking Status: Former smoker How long have you smoked: 11 years Exposure to second hand smoke: No Alcohol: None Drug Use: none - Physical Exam Vital Signs: Vital Signs - 24 hr Temp Pulse Resp BP BP Pulse Ox 10/25/20 08:58 78 18 97 10/25/20 07:29 97.9 F 78 16 163/72 98 10/25/20 03:58 98.1 F 84 16 122/68 95 10/25/20 00:00 98.3 F 91 H 20 140/94 97 10/24/20 20:20 97 10/24/20 20:19 97 10/24/20 20:00 98.1 F 90 20 133/78 97 10/24/20 17:53 98.3 F 76 18 156/92 98 10/24/20 17:51 100 10/24/20 17:39 98.3 F 76 16 156/92 98 10/24/20 17:14 77 20 132/87 98 10/24/20 16:27 99.0 F 79 20 116/74 98 10/24/20 15:52 78 18 98 10/24/20 15:05 72 19 142/100 100 10/24/20 14:25 99.0 F 82 20 115/74 98 10/24/20 13:51 73 20 134/88 100 10/24/20 12:25 99.0 F 84 24 155/102 99 General Appearance: no apparent distress, alert, obese Neurologic Exam: oriented x 3, cooperative Eye Exam: eyes nml inspection Ears, Nose, Throat Exam: moist mucous membranes Respiratory Exam: lungs clear, diminished breath sounds (good air exchange), wheezing (scattered faint), No crackles/rales, No rhonchi Cardiovascular Exam: regular rate/rhythm, normal heart sounds, No murmur Gastrointestinal/Abdomen Exam: soft, normal bowel sounds, No tenderness, No distention, No mass, No guarding, No rebound Back Exam: normal inspection, No CVA tenderness, No rash Extremity Exam: normal inspection, No pedal edema, No swelling, No tenderness Skin Exam: normal color, warm, dry, No rash Results - Labs Lab/Micro Results: Lab Results-Last 24 Hours 10/24/20 10/24/20 10/24/20 Range/Units 12:35 12:35 12:35 WBC 8.1 (4.0-10.5) K/mm3 RBC 4.71 (4.1-5.4) M/mm3 Hgb 14.1 (12.0-16.0) gm/dl Hct 43.3 (35-47) % MCV 91.9 (78-100) fl MCH 29.9 (26-32) pg MCHC 32.6 (32-36) g/dl RDW 13.0 (11.5-14.0) % Plt Count 295 (150-450) K/mm3 MPV 11.6 H (7.5-11.0) fl Gran % 64.8 (36.0-66.0) % Eos # (Auto) 0.15 (0-0.5) Absolute Lymphs (auto) 2.00 (1.0-4.6) Absolute Monos (auto) 0.67 (0.0-1.3) Lymphocytes % 24.8 (24.0-44.0) % Monocytes % 8.3 (0.0-12.0) % Eosinophils % 1.9 (0.00-5.0) % Basophils % 0.2 (0.0-0.4) % Absolute Granulocytes 5.24 (1.4-6.9) Basophils # 0.02 (0-0.4) D-Dimer < 215 L (215-500) ng/mL Sodium 140 (137-145) mmol/L Potassium 3.9 (3.5-5.1) mmol/L Chloride 109 H (98-107) mmol/L Carbon Dioxide 23 (22-30) mmol/L Anion Gap 12.6 (5-15) MEQ/L BUN 14 (7-17) mg/dL Creatinine 0.83 (0.52-1.04) mg/dL Estimated GFR > 60.0 ML/MIN Glucose 98 (74-106) mg/dL Calcium 9.4 (8.4-10.2) mg/dL Magnesium 1.8 (1.6-2.3) mg/dL Total Bilirubin 0.20 (0.2-1.3) mg/dL AST 18 (14-36) U/L ALT 18 (0-35) U/L Alkaline Phosphatase 75 (38-126) U/L Troponin I (0.000-0.034) ng/mL Serum Total Protein 7.9 (6.3-8.2) g/dL Albumin 4.4 (3.5-5.0) g/dL Urine Color (YELLOW) Urine Appearance (CLEAR) Urine pH (5-6) Ur Specific [place] (1.005-1.025) Urine Protein (Negative) Urine Ketones (NEGATIVE) Urine Blood (0-5) Rebel/ul Urine Nitrite (NEGATIVE) Urine Bilirubin (NEGATIVE) Urine Urobilinogen (0-1) mg/dL Ur Leukocyte Esterase (NEGATIVE) Urine WBC (Auto) (0-5) /HPF Urine RBC (Auto) (0-2) /HPF U Epithel Cells (Auto) (FEW) /HPF Urine Bacteria (Auto) (NEGATIVE) /HPF Urine Mucus (Auto) (NEGATIVE) /HPF Urine Culture Reflexed (NO) Urine Glucose (NEGATIVE) mg/dL Urine HCG, Qual (Negative) Influenza Type A Ag (NEGATIVE) Influenza Type B Ag (NEGATIVE) SARS-CoV-2 (PCR) (NEGATIVE) 10/24/20 10/24/20 10/24/20 Range/Units 12:35 13:10 13:51 WBC (4.0-10.5) K/mm3 RBC (4.1-5.4) M/mm3 Hgb (12.0-16.0) gm/dl Hct (35-47) % MCV (78-100) fl MCH (26-32) pg MCHC (32-36) g/dl RDW (11.5-14.0) % Plt Count (150-450) K/mm3 MPV (7.5-11.0) fl Gran % (36.0-66.0) % Eos # (Auto) (0-0.5) Absolute Lymphs (auto) (1.0-4.6) Absolute Monos (auto) (0.0-1.3) Lymphocytes % (24.0-44.0) % Monocytes % (0.0-12.0) % Eosinophils % (0.00-5.0) % Basophils % (0.0-0.4) % Absolute Granulocytes (1.4-6.9) Basophils # (0-0.4) D-Dimer (215-500) ng/mL Sodium (137-145) mmol/L Potassium (3.5-5.1) mmol/L Chloride (98-107) mmol/L Carbon Dioxide (22-30) mmol/L Anion Gap (5-15) MEQ/L BUN (7-17) mg/dL Creatinine (0.52-1.04) mg/dL Estimated GFR ML/MIN Glucose (74-106) mg/dL Calcium (8.4-10.2) mg/dL Magnesium (1.6-2.3) mg/dL Total Bilirubin (0.2-1.3) mg/dL AST (14-36) U/L ALT (0-35) U/L Alkaline Phosphatase (38-126) U/L Troponin I < 0.012 (0.000-0.034) ng/mL Serum Total Protein (6.3-8.2) g/dL Albumin (3.5-5.0) g/dL Urine Color YELLOW (YELLOW) Urine Appearance CLEAR (CLEAR) Urine pH 6.0 (5-6) Ur Specific [place] 1.018 (1.005-1.025) Urine Protein NEGATIVE (Negative) Urine Ketones NEGATIVE (NEGATIVE) Urine Blood NEGATIVE (0-5) Rebel/ul Urine Nitrite NEGATIVE (NEGATIVE) Urine Bilirubin NEGATIVE (NEGATIVE) Urine Urobilinogen NEGATIVE (0-1) mg/dL Ur Leukocyte Esterase NEGATIVE (NEGATIVE) Urine WBC (Auto) 0-2 (0-5) /HPF Urine RBC (Auto) NONE (0-2) /HPF U Epithel Cells (Auto) RARE (FEW) /HPF Urine Bacteria (Auto) NONE (NEGATIVE) /HPF Urine Mucus (Auto) SLIGHT (NEGATIVE) /HPF Urine Culture Reflexed NO (NO) Urine Glucose NEGATIVE (NEGATIVE) mg/dL Urine HCG, Qual (Negative) Influenza Type A Ag NEGATIVE (NEGATIVE) Influenza Type B Ag NEGATIVE (NEGATIVE) SARS-CoV-2 (PCR) (NEGATIVE) 10/24/20 10/24/20 10/24/20 Range/Units 13:51 15:34 16:09 WBC (4.0-10.5) K/mm3 RBC (4.1-5.4) M/mm3 Hgb (12.0-16.0) gm/dl Hct (35-47) % MCV (78-100) fl MCH (26-32) pg MCHC (32-36) g/dl RDW (11.5-14.0) % Plt Count (150-450) K/mm3 MPV (7.5-11.0) fl Gran % (36.0-66.0) % Eos # (Auto) (0-0.5) Absolute Lymphs (auto) (1.0-4.6) Absolute Monos (auto) (0.0-1.3) Lymphocytes % (24.0-44.0) % Monocytes % (0.0-12.0) % Eosinophils % (0.00-5.0) % Basophils % (0.0-0.4) % Absolute Granulocytes (1.4-6.9) Basophils # (0-0.4) D-Dimer (215-500) ng/mL Sodium (137-145) mmol/L Potassium (3.5-5.1) mmol/L Chloride (98-107) mmol/L Carbon Dioxide (22-30) mmol/L Anion Gap (5-15) MEQ/L BUN (7-17) mg/dL Creatinine (0.52-1.04) mg/dL Estimated GFR ML/MIN Glucose (74-106) mg/dL Calcium (8.4-10.2) mg/dL Magnesium (1.6-2.3) mg/dL Total Bilirubin (0.2-1.3) mg/dL AST (14-36) U/L ALT (0-35) U/L Alkaline Phosphatase (38-126) U/L Troponin I < 0.012 (0.000-0.034) ng/mL Serum Total Protein (6.3-8.2) g/dL Albumin (3.5-5.0) g/dL Urine Color (YELLOW) Urine Appearance (CLEAR) Urine pH (5-6) Ur Specific [place] (1.005-1.025) Urine Protein (Negative) Urine Ketones (NEGATIVE) Urine Blood (0-5) Rebel/ul Urine Nitrite (NEGATIVE) Urine Bilirubin (NEGATIVE) Urine Urobilinogen (0-1) mg/dL Ur Leukocyte Esterase (NEGATIVE) Urine WBC (Auto) (0-5) /HPF Urine RBC (Auto) (0-2) /HPF U Epithel Cells (Auto) (FEW) /HPF Urine Bacteria (Auto) (NEGATIVE) /HPF Urine Mucus (Auto) (NEGATIVE) /HPF Urine Culture Reflexed (NO) Urine Glucose (NEGATIVE) mg/dL Urine HCG, Qual NEGATIVE (Negative) Influenza Type A Ag (NEGATIVE) Influenza Type B Ag (NEGATIVE) SARS-CoV-2 (PCR) NEGATIVE (NEGATIVE) 10/24/20 10/25/20 10/25/20 Range/Units 18:55 05:00 05:00 WBC 9.1 (4.0-10.5) K/mm3 RBC 4.89 (4.1-5.4) M/mm3 Hgb 14.5 (12.0-16.0) gm/dl Hct 44.9 (35-47) % MCV 91.8 (78-100) fl MCH 29.7 (26-32) pg MCHC 32.3 (32-36) g/dl RDW 13.1 (11.5-14.0) % Plt Count 287 (150-450) K/mm3 MPV 11.5 H (7.5-11.0) fl Gran % (36.0-66.0) % Eos # (Auto) (0-0.5) Absolute Lymphs (auto) (1.0-4.6) Absolute Monos (auto) (0.0-1.3) Lymphocytes % (24.0-44.0) % Monocytes % (0.0-12.0) % Eosinophils % (0.00-5.0) % Basophils % (0.0-0.4) % Absolute Granulocytes (1.4-6.9) Basophils # (0-0.4) D-Dimer (215-500) ng/mL Sodium 138 (137-145) mmol/L Potassium 4.3 (3.5-5.1) mmol/L Chloride 109 H (98-107) mmol/L Carbon Dioxide 21 L (22-30) mmol/L Anion Gap 13.0 (5-15) MEQ/L BUN 14 (7-17) mg/dL Creatinine 0.65 (0.52-1.04) mg/dL Estimated GFR > 60.0 ML/MIN Glucose 166 H (74-106) mg/dL Calcium 9.2 (8.4-10.2) mg/dL Magnesium (1.6-2.3) mg/dL Total Bilirubin 0.50 (0.2-1.3) mg/dL AST 18 (14-36) U/L ALT 19 (0-35) U/L Alkaline Phosphatase 69 (38-126) U/L Troponin I < 0.012 (0.000-0.034) ng/mL Serum Total Protein 7.7 (6.3-8.2) g/dL Albumin 4.2 (3.5-5.0) g/dL Urine Color (YELLOW) Urine Appearance (CLEAR) Urine pH (5-6) Ur Specific [place] (1.005-1.025) Urine Protein (Negative) Urine Ketones (NEGATIVE) Urine Blood (0-5) Rebel/ul Urine Nitrite (NEGATIVE) Urine Bilirubin (NEGATIVE) Urine Urobilinogen (0-1) mg/dL Ur Leukocyte Esterase (NEGATIVE) Urine WBC (Auto) (0-5) /HPF Urine RBC (Auto) (0-2) /HPF U Epithel Cells (Auto) (FEW) /HPF Urine Bacteria (Auto) (NEGATIVE) /HPF Urine Mucus (Auto) (NEGATIVE) /HPF Urine Culture Reflexed (NO) Urine Glucose (NEGATIVE) mg/dL Urine HCG, Qual (Negative) Influenza Type A Ag (NEGATIVE) Influenza Type B Ag (NEGATIVE) SARS-CoV-2 (PCR) (NEGATIVE) - Radiology Impressions Radiology Exams & Impressions: Radiology Procedures Category Date Time Status CHEST 1 VIEW (PORTABLE) Stat Exams 10/24/20 12:30 Completed ECHO W/2D AND DOPPLER [US] Routine Exams 10/25/20 Ordered - Other Procedures and Tests Respiratory Therapy 10/25/20 08:58 Respiratory Therapy Assessment DAILY Assessment/Plan (1) Asthma exacerbation Current Visit: Yes Status: Acute Qualifiers: Asthma severity: severe Asthma persistence: persistent Qualified Code(s): J45.51 - Severe persistent asthma with (acute) exacerbation Assessment & Plan: Will start decreasing IV steroids this afternoon; advised she should likely stay overnight, although if she felt great and no SOB with less steroid, may be able to d/c this afternoon. Code(s): J45.901 - UNSPECIFIED ASTHMA WITH (ACUTE) EXACERBATION (2) Paresthesia Current Visit: Yes Status: Acute Assessment & Plan: Possibility of post lyme disease syndrome. However, evidence in the literature suggests that there is no active infection in these cases, so I will not prescribe an antibiotic at this time. Will have her referred to ID outpatient to discuss. Code(s): R20.2 - PARESTHESIA OF SKIN (3) Arthralgia Current Visit: Yes Status: Acute Qualifiers: Joint pain location: unspecified Qualified Code(s): M25.50 - Pain in unspecified joint Assessment & Plan: Multiple joints; as above. Code(s): M25.50 - PAIN IN UNSPECIFIED JOINT
[2020-10-25] MEDS ORDERED: TOPIRAMATE PO SCH (10:00)
[2020-10-25] MEDS ORDERED: DUONEB 0.5-3 MG/3 ml Neb IH SCH (11:00)
[2020-10-25] MEDS: solu-MEDROL 125 MG IV SCH ×3 (11:19→23:47)
[2020-10-26 05:02] VITALS: O2SAT 96
[2020-10-26] MEDS: solu-MEDROL 125 MG IV SCH (05:44)
[2020-10-26 07:46] VITALS: BP 123/71; PULSE 66
--- NOTE | 2020-10-26 09:01 | PCM.DS ---
Discharge Summary Date of Admission: 10/24/20 17:38 Admitting Physician: KRISTYN COOL Primary Care Provider: KRISTYN COOL Allergies Allergies iodine Allergy (Severe, Verified 06/16/20 06:20) Hives morphine Allergy (Verified 06/16/20 06:20) Shortness of Breath povidone-iodine [From Betadine] Allergy (Verified 06/16/20 06:20) Swelling swelling at sight of F/C insertion soap [From Betadine] Allergy (Verified 06/16/20 06:20) Swelling Hospital Summary - Hospital Course Hospital Course: Pt is 30 yo female pt of mine from [facility] who was admitted through ER with asthma exacerbation. Also c/o intermittent paresthesias and arthralgias with hx tx for lyme dz. She was started on IV steroids with relief; continues to have mild intermittent SOB but much improved over admission. Will send her home on po steroids, with albuterol inhaler. Instructed to call ambulance if increased sob or decreased O2 saturation (pt is planning to get pulse ox on her way home today). - Vitals & Intake/Output Vital Signs: Vital Signs Temperature 98.1 F 10/26/20 07:45 Pulse Rate 66 10/26/20 07:45 Respiratory Rate 20 10/26/20 07:45 Blood Pressure 123/71 10/26/20 07:45 O2 Sat by Pulse Oximetry 96 10/26/20 07:45 Intake & Output: Intake & Output 10/23/20 10/24/20 10/25/20 10/26/20 11:59 11:59 11:59 11:59 Intake Total 1080 1496 Balance 1080 1496 Weight 115.4 kg - Lab Result Diagrams: 10/25/20 05:00 10/25/20 05:00 Lab Results-Last 24 Hrs: Lab Results-Last 24 Hours 10/25/20 Range/Units Unknown Hemoglobin A1c 5.44 (4.5-6.0) % - Radiology Exams Ordered Rad Exams-Entire Visit: Radiology Procedures Category Date Time Status CHEST 1 VIEW (PORTABLE) Stat Exams 10/24/20 12:30 Completed ECHO W/2D AND DOPPLER [US] Routine Exams 10/25/20 10:57 Taken - Procedures and Test Procedures and Tests throughout Hospitalization: Therapy Orders & Screens 10/24/20 15:51 Respiratory Therapy Assessment DAILY Comment: 10/24/20 15:52 Respiratory MDI STAT Comment: 10/25/20 08:58 Respiratory Therapy Assessment DAILY Comment: Diagnosis: hypoxia Discharge Exam General Appearance: no apparent distress, alert, obese Neurologic Exam: oriented x 3, cooperative, normal mood/affect Eye Exam: eyes nml inspection Ears, Nose, Throat Exam: moist mucous membranes Neck Exam: normal inspection Respiratory Exam: normal breath sounds, lungs clear, No crackles/rales, No rhonchi, No wheezing Cardiovascular Exam: regular rate/rhythm, normal heart sounds, No murmur Extremity Exam: normal inspection, No pedal edema, No swelling Skin Exam: normal color, warm, dry, No rash Final Diagnosis/Problem List - Final Discharge Diagnosis/Problem (1) Asthma exacerbation Current Visit: Yes Status: Acute Assessment & Plan: Doing much better. Home on po steroids and albuterol. f/u with me in 1 week. Code(s): J45.901 - UNSPECIFIED ASTHMA WITH (ACUTE) EXACERBATION (2) Paresthesia Current Visit: Yes Status: Acute Assessment & Plan: Unsure if any relation to her Lyme dz, but will have her f/u with ID outpatient. Code(s): R20.2 - PARESTHESIA OF SKIN (3) Arthralgia Current Visit: Yes Status: Acute Code(s): M25.50 - PAIN IN UNSPECIFIED JOINT - Discharge Disposition: Home, Self-Care Condition: Good Prescriptions: New Albuterol 17 gm IH Q4H PRN #1 aerosol PRN Reason: Short of breath Prednisone 20 mg [Deltasone 20 mg] 20 mg PO DAILY #17 tablet Continue Topiramate [Topiramate ER] 75 mg PO DAILY Biotin/Calcium Carbonate [Biotin 800 Mcg Tablet] 1 each PO DAILY Follow up with: SILVER REYNA [NON-STAFF PHY W/O PRIVILEGES] - 10/31/20 2:45 pm KRISTYN COOL [Primary Care Provider] - 11/02/20 12:15 pm
[2020-10-26] MEDS ORDERED: TOPIRAMATE 75 MG PO SCH (10:00)
== END 2020-10-26 09:55 | disposition home or self-care (01) ==
LOC: ED 12:25 → MED SURG 17:38
PROVIDERS: ADMIT Family Medicine; ATTEND Family Medicine
DX: J45.901 Unspecified asthma with (acute) exacerbation (principal); R20.2 Paresthesia of skin; M25.50 Pain in unspecified joint; Z79.899 Other long term (current) drug therapy; A69.20 Lyme disease, unspecified; R07.9 Chest pain, unspecified; R00.2 Palpitations; R42 Dizziness and giddiness
CPT/HCPCS: 36000; 36415; 71045; 80053; 81001; 83036; 83735; 84484; 84703; 85025; 85027; 85379; 87400; 93005; 93041; 93306; 94640; 94760; 96374; 99285; U0003; 93268; J2920; J2930; A9270-GY; G0378

== ENCOUNTER 2021-05-18 21:00 | Emergency (ER) | payer OTHER, SELFPAY ==
[2021-05-18] MEDS ORDERED: Sodium Chloride 0.9% 1000 ML 1,000 ML ONE (22:17)
[2021-05-18] MEDS: Sodium Chloride 0.9% 1000 ML 1,000 ML IV STA (22:18)
--- NOTE | 2021-05-18 22:30 | ERPHSYRPT ---
- History of Present Illness Time Seen by Provider: 05/18/21 21:29 Historian: patient Exam Limitations: no limitations Patient Subjective Stated Complaint: pt states, "I've had diarrhea x4 days, nausea, no vomiting, and tiredness. Triage Nursing Assessment: pt c/o diarrhea x4 days, nausea without vomiting and tiredness. Pt states, "I've been drinking alot and keeping the fluids down without vomiting but its causing diarrhea". Pt hasn't ate much in 2 days. Abd lg, obese with active bs x4 quad, tender to center of abd down, no radiation of pain noted. Physician History: 31 years old morbidly obese female presented to the ER with chief complaint of generalized abdominal cramping with diarrhea and nausea for the last 4 days. Patient reports multiple episodes of loose watery stool with no hematochezia. Denies any significant aggravating or relieving factors. Denies fever or chills. Denies any sick contact. Feeling fatigued tired and dehydrated. Timing/Duration: day(s) (4), intermittent, gradual onset, worse Activities at Onset: rest Quality: cramping Abdominal Pain Onset Location: generalized abdomen Pain Radiation: no radiation Severity of Pain-Max: moderate Severity of Pain-Current: moderate Modifying Factors: Improves With: nothing Associated Symptoms: diarrhea, nausea, weakness, No vomiting Previous symptoms: no prior history Allergies/Adverse Reactions: iodine Allergy (Severe, Verified 05/18/21 21:19) Hives morphine Allergy (Verified 05/18/21 21:19) Shortness of Breath povidone-iodine [From Betadine] Allergy (Verified 05/18/21 21:19) Swelling swelling at sight of F/C insertion soap [From Betadine] Allergy (Verified 05/18/21 21:19) Swelling Home Medications: Biotin/Calcium Carbonate [Biotin 800 Mcg Tablet] 1 each PO DAILY 10/24/20 [History] Hx Tetanus, Diphtheria Vaccination/Date Given: Yes Hx Influenza Vaccination/Date Given: No Hx Pneumococcal Vaccination/Date Given: No Immunizations Up to Date: Yes Travel Risk - International Travel Have you traveled outside of the country in past 3 weeks: No - Coronavirus Screening Symptoms: Vomiting/Diarrhea, Headaches/Body Aches/Fatigue Close contact with a COVID-19 positive Pt in past 14-21 Days: No - Vaccine Status Have you recieved a Covid-19 vaccination: No - Review of Systems Constitutional: Fatigue, Weakness Eyes: No Symptoms Ears, Nose, & Throat: No Symptoms Respiratory: No Symptoms Cardiac: No Symptoms Abdominal/Gastrointestinal: Abdominal Pain, Nausea, Diarrhea Genitourinary Symptoms: No Symptoms Musculoskeletal: No Symptoms Skin: No Symptoms Neurological: No Symptoms Psychological: No Symptoms Endocrine: No Symptoms Hematologic/Lymphatic: No Symptoms Immunological/Allergic: No Symptoms - Past Medical History Pertinent Past Medical History: Yes Neurological History: No Pertinent History ENT History: No Pertinent History Cardiac History: No Pertinent History Respiratory History: Asthma Endocrine Medical History: No Pertinent History Musculoskeletal History: No Pertinent History GI Medical History: Gallbladder Disease, Other History: No Pertinent History Psycho-Social History: No Pertinent History Female Reproductive Disorders: No Pertinent History Other Medical History: polycystic ovarian syndrome, rectal abscess - Past Surgical History Past Surgical History: Yes Neuro Surgical History: No Pertinent History Cardiac: No Pertinent History Respiratory: No Pertinent History Gastrointestinal: Cholecystectomy, Other Genitourinary: No Pertinent History Musculoskeletal: No Pertinent History Female Surgical History: No Pertinent History, Tubal Ligation, Other Other Surgical History: GALLBLADDER, TONSILS, STEVAN RECTAL ABSCESS, FISTULA,colonoscopy,egd,t&a, wisdom teeth, tubal, ablation - Social History Smoking Status: Former smoker How long have you smoked: 11 years Exposure to second hand smoke: Yes Drug Use: none Patient Lives Alone: No - Female History Hx Now: No - Nursing Vital Signs Nursing Vital Signs: Initial Vital Signs Temperature 98.6 F 05/18/21 21:01 Pulse Rate 87 05/18/21 21:01 Respiratory Rate 16 05/18/21 21:01 Blood Pressure 121/84 05/18/21 21:01 O2 Sat by Pulse Oximetry 98 05/18/21 21:01 Pain Scale Pain Intensity 6 - Physical Exam General Appearance: no apparent distress, alert Eye Exam: PERRL/EOMI, eyes nml inspection Ears, Nose, Throat Exam: normal ENT inspection, pharynx normal Neck Exam: normal inspection, non-tender, full range of motion Respiratory Exam: normal breath sounds, lungs clear Cardiovascular Exam: regular rate/rhythm, normal heart sounds Gastrointestinal/Abdomen Exam: soft, normal bowel sounds, tenderness (Mild generalized especially in the upper abdomen) Back Exam: normal inspection, normal range of motion Extremity Exam: normal inspection, normal range of motion Neurologic Exam: alert, oriented x 3, cooperative Skin Exam: normal color SpO2 Interpretation: normal SpO2: 98 O2 Delivery: Room Air Ordered Tests: Active Orders 24 hr Category Date Time Status IV Insertion STAT Care 05/18/21 21:56 Active NPO (ED) STAT Care 05/18/21 21:56 Active ABDOMEN AND PELVIS W/0 CONTRAS [CT] Stat Exams 05/18/21 21:56 Taken CBC W DIFF Stat Lab 05/18/21 22:22 Completed CMP Stat Lab 05/18/21 22:22 Completed LIPASE Stat Lab 05/18/21 22:22 Completed UA W/RFX UR CULTURE Stat Lab 05/18/21 22:22 Received Medication Summary Generic Name Dose Route Start Last Admin Trade Name Freq PRN Reason Stop Dose Admin Sodium Chloride 1,000 mls @ 999 mls/hr 05/18/21 21:56 05/18/21 22:18 Sodium Chloride 0.9% 1000 Ml IV 05/18/21 22:56 999 mls/hr .Q1H1M STA Administration Discontinued Medications Generic Name Dose Route Start Last Admin Trade Name Freq PRN Reason Stop Dose Admin Sodium Chloride Confirm 05/18/21 22:17 Sodium Chloride 0.9% 1000 Ml Administered 05/18/21 22:18 Dose 1,000 mls @ ud .ROUTE .STK-MED ONE Lab/Rad Data: Laboratory Result Diagrams 05/18/21 22:22 05/18/21 22:22 Laboratory Results 05/18/21 05/18/21 Range/Units 22:22 22:22 WBC 7.5 (4.0-10.5) K/mm3 RBC 4.28 (4.1-5.4) M/mm3 Hgb 12.7 (12.0-16.0) gm/dl Hct 39.8 (35-47) % MCV 93.0 (78-100) fl MCH 29.7 (26-32) pg MCHC 31.9 L (32-36) g/dl RDW 12.6 (11.5-14.0) % Plt Count 281 (150-450) K/mm3 MPV 12.2 H (7.5-11.0) fl Gran % 62.1 (36.0-66.0) % Eos # (Auto) 0.16 (0-0.5) Absolute Lymphs (auto) 1.78 (1.0-4.6) Absolute Monos (auto) 0.90 (0.0-1.3) Lymphocytes % 23.7 L (24.0-44.0) % Monocytes % 12.0 (0.0-12.0) % Eosinophils % 2.1 (0.00-5.0) % Basophils % 0.1 (0.0-0.4) % Absolute Granulocytes 4.66 (1.4-6.9) Basophils # 0.01 (0-0.4) Sodium 139 (137-145) mmol/L Potassium 3.7 (3.5-5.1) mmol/L Chloride 102 (98-107) mmol/L Carbon Dioxide 27 (22-30) mmol/L Anion Gap 13.3 (5-15) MEQ/L BUN 12 (7-17) mg/dL Creatinine 0.76 (0.52-1.04) mg/dL Estimated GFR > 60.0 ML/MIN Glucose 102 (74-106) mg/dL Calcium 9.3 (8.4-10.2) mg/dL Total Bilirubin 0.20 (0.2-1.3) mg/dL AST 34 (14-36) U/L ALT 34 (0-35) U/L Alkaline Phosphatase 78 (38-126) U/L Serum Total Protein 7.2 (6.3-8.2) g/dL Albumin 4.3 (3.5-5.0) g/dL Lipase 101 (23-300) U/L - Progress Progress: improved, pain not gone completely, re-examined Progress Note: 05/18/21 22:56 She is given fluid bolus, offered pain medications which she refused. Stable vitals. Normal white count, grossly, chemistries. CT abdomen pelvis without contrast negative for any acute findings. I believe patient has viral etiology symptoms, recommended supportive care, Tylenol as needed and outpatient follow- up along with increasing hydration status. Discussed signs symptoms of worsening needing return to ER which patient seems understanding. Stable for discharge Counseled pt/family regarding: lab results, diagnosis, need for follow-up, rad results - Departure Departure Disposition: Home Clinical Impression: Gastroenteritis Condition: Stable Critical Care Time: No Referrals: KRISTYN COOL [Primary Care Provider] - Follow Up with PCP/3 days Instructions: Diarrhea and Travelers' Diarrhea, Adult (DC) Additional Instructions: Drink plenty of fluids. Take Tylenol as needed. Follow-up with your primary care physician for reevaluation. Return to ER for intractable diarrhea/abdominal pain/fever chills etc.
[2021-05-18 22:43] LABS: Absolute Neutrophil Ct (ANC) 4.66 (1.4-6.9); BASOPHIL % 0.1 % (0.0-0.4); Basophil (Absolute #) 0.01 (0-0.4); Eosinophil % 2.1 % (0.00-5.0); Eosinophil (Absolute #) 0.16 (0-0.5); Hematocrit 39.8 % (35-47); Hemoglobin 12.7 gm/dl (12.0-16.0); Lymphocyte (Absolute #) 1.78 (1.0-4.6); Lymphocytes % 23.7 % (24.0-44.0); Mean Corpuscular Hemoglobin 29.7 pg (26-32); Mean Corpuscular Hgb Concent. 31.9 g/dl (32-36); Mean Platelet Volume 12.2 fl (7.5-11.0); Neutrophil % 62.1 % (36.0-66.0); Platelet Count 281 K/mm3 (150-450); Red Blood Count 4.28 M/mm3 (4.1-5.4); Red Cell Distribution Width 12.6 % (11.5-14.0); White Blood Count 7.5 K/mm3 (4.0-10.5)
[2021-05-18 22:49] LABS: ALBUMIN 4.3 g/dL (3.5-5.0); ALKALINE PHOSPHATASE 78 U/L (38-126); ANION GAP 13.3 MEQ/L (5-15); BLOOD UREA NITROGEN 12 mg/dL (7-17); CHLORIDE 102 mmol/L (98-107); Calcium 9.3 mg/dL (8.4-10.2); Carbon Dioxide 27 mmol/L (22-30); Creatinine 1 0.76 mg/dL (0.52-1.04); EST GLOMERULAR FILTRATION RATE > 60.0 ML/MIN; Glucose 102 mg/dL (74-106); LIPASE 101 U/L (23-300); Potassium 3.7 mmol/L (3.5-5.1); SGOT/AST 34 U/L (14-36); SGPT/ALT 34 U/L (0-35); SODIUM 139 mmol/L (137-145); Total Protein 7.2 g/dL (6.3-8.2)
[2021-05-18 23:12] LABS: Appearance SLIGHTLY CLOUDY (CLEAR); Bilirubin NEGATIVE (NEGATIVE); Blood NEGATIVE Ery/ul (0-5); Epithelial Cells FEW /HPF (FEW); Glucose NEGATIVE (NEGATIVE); Ketones NEGATIVE (NEGATIVE); Leukocyte Esterase NEGATIVE (NEGATIVE); Mucus SLIGHT /HPF (NEGATIVE); Nitrite NEGATIVE (NEGATIVE); Protein,Urine Dip 30 (Negative); Specific Gravity 1.028 (1.005-1.025); Urobilinogen NEGATIVE mg/dL (0-1)
[2021-05-18 23:40] VITALS: BP 126/73; PULSE 62; O2SAT 100
--- NOTE | 2021-05-20 00:58 | XRAY ---
Exam: CT of the abdomen and pelvis without IV contrast from 05/18/2021. CTDI: 23.18 mGy Comparison: CT of the abdomen and pelvis without IV contrast from 07/13/2020. Indication: 31-year-old female with upper abdominal pain and cramping with diarrhea for 4 days; rule out colitis; history of tubal ligation, uterine ablation, and cholecystectomy; also has history of renal stones. Technique: Non-IV contrast axial images were obtained through the abdomen and pelvis. Reconstructed coronal and sagittal images were created and reviewed. Findings: The lung bases appear clear. The liver reveals diffuse hepatic steatosis representing no significant change. No focal hepatic mass or intrahepatic biliary duct distention is seen. Surgical clips consistent with prior cholecystectomy are noted. The spleen is of normal size and reveals no mass. The pancreas and adrenal glands appear unremarkable. The kidneys are of unremarkable size and shape. 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 No ureteral calculi or ureteral distention is seen. There is no hydronephrosis or gross renal mass. The abdominal aorta appears of normal diameter. No abnormal retroperitoneal lymphadenopathy is seen. There is minimal protrusion of intraperitoneal fat into the subcutaneous fat at the level of the umbilicus on midline sagittal image #131. This is unchanged. No bowel containing ventral hernia or free intraperitoneal air is seen. The bowel is nonobstructed. Some scattered fecal residue is seen. I do not see any significant bowel wall thickening. A normal-appearing retrocecal appendix is seen. The uterus is anteflexed. It is of normal size. I note a 3.2 cm x 2.7 cm x 2.7 cm cyst abutting the superior margin of the left ovary. This is slightly larger than that noted on 07/13/2021 when it measured about 2.2 cm in diameter. The right ovary appears unremarkable. No other abnormal pelvic mass or pelvic lymphadenopathy is seen. There is no free intraperitoneal fluid. The urinary bladder is almost empty. No calcification is seen within the urinary bladder. The skeleton reveals no acute fracture or aggressive bone lesion. I believe there is some mild diffuse posterior bulging of the L5-S1 disc on sagittal image #120. This appears unchanged as well. Impression: 1. Hepatic steatosis is again seen. 2. I see no findings to suggest colitis. Some scattered fecal residue is seen. 3. Status post cholecystectomy, at least partial duplication of both ureters, and a cyst abutting the superior margin of the left ovary measuring 3.2 cm in maximum diameter are seen. The left ovarian cyst is about 1 cm larger than that noted on 07/13/2020. 4. No other acute process is seen.
== END 2021-05-18 23:43 | disposition home or self-care (01) ==
LOC: ED 21:00
DX: K52.9 Noninfective gastroenteritis and colitis, unspecified (principal)
CPT/HCPCS: 36000; 36415; 74176; 80053; 81001; 83690; 85025; 96360; 99284

== ENCOUNTER 2021-09-07 18:17 | Emergency (ER) | payer BC ==
[2021-09-07] MEDS ORDERED: Augmentin 875-125 Tablet PO ONE (18:43)
[2021-09-07] MEDS ORDERED: TORAdol 30 mg Injection IM ONE (18:43)
[2021-09-07] MEDS ORDERED: TORAdol 30 mg Injection ONE (18:55)
[2021-09-07] MEDS ORDERED: Augmentin 875-125 Tablet ONE (18:55)
--- NOTE | 2021-09-07 19:03 | ERPHSYRPT ---
- History of Present Illness Time Seen by Provider: 09/07/21 18:26 Source: patient Exam Limitations: no limitations Patient Subjective Stated Complaint: Pt states that her right ear has been hurting for about a month and her doctor told her it was swimmers ear but she hasn't contacted her recently and isn't taking anything for the pain Triage Nursing Assessment: Pt was brought to the ER by her , irlanda andres, rates pain to the right ear as 8/10, reddness is not seen in the ear, doesn't appear to be in any distress Physician History: 31-year-old female presented to the ER with chief complaint of right earache off and on for 1 month. Patient reports initially she had otitis externa which improved with topical antibiotics and was seen at primary care again, was given oral antibiotics but pain is lately getting worse and she finished course of antibiotics almost 15 days ago. Pain is moderate to severe sharp nature, radiating to right jaw and neck, more with swallowing. Denies any ear discharge, fever chills or sore throat. Timing/Duration: gradual onset, weeks (4) Severity: moderate ENT Location: ear (R) Prearrival Treatment: over the counter meds, prescription meds Modifying Factors: Worsens With: coughing Associated Symptoms: ear pain (R), facial pain/swelling, jaw pain, swollen glands, No change in hearing, No hearing loss Allergies/Adverse Reactions: iodine Allergy (Severe, Verified 09/07/21 18:28) Hives morphine Allergy (Verified 09/07/21 18:28) Shortness of Breath povidone-iodine [From Betadine] Allergy (Verified 09/07/21 18:28) Swelling swelling at sight of F/C insertion soap [From Betadine] Allergy (Verified 09/07/21 18:28) Swelling Home Medications: Biotin/Calcium Carbonate [Biotin 800 Mcg Tablet] 1 each PO DAILY 10/24/20 [History] Metformin HCl Xr 500 mg [Glucophage XR 500 MG] 500 mg PO BID 09/07/21 [History] Hx Tetanus, Diphtheria Vaccination/Date Given: Yes Hx Influenza Vaccination/Date Given: No Hx Pneumococcal Vaccination/Date Given: No Travel Risk - International Travel Have you traveled outside of the country in past 3 weeks: No - Coronavirus Screening Are you exhibiting any of the following symptoms?: No Close contact with a COVID-19 positive Pt in past 14-21 Days: No - Vaccine Status Have you recieved a Covid-19 vaccination: Yes 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 - Vaccination Dates Date of 2cond Vaccination (if applicable): 06/15/2021 - Review of Systems Constitutional: No Symptoms Eyes: No Symptoms Ears, Nose, & Throat: Ear Pain Respiratory: No Symptoms Cardiac: No Symptoms Abdominal/Gastrointestinal: No Symptoms Genitourinary Symptoms: No Symptoms Musculoskeletal: No Symptoms Skin: No Symptoms Neurological: No Symptoms Psychological: No Symptoms Endocrine: No Symptoms Hematologic/Lymphatic: No Symptoms - Past Medical History Pertinent Past Medical History: Yes Neurological History: No Pertinent History ENT History: No Pertinent History Cardiac History: No Pertinent History Respiratory History: Asthma Endocrine Medical History: No Pertinent History Musculoskeletal History: No Pertinent History GI Medical History: Gallbladder Disease, Other History: No Pertinent History Psycho-Social History: No Pertinent History Female Reproductive Disorders: No Pertinent History Other Medical History: polycystic ovarian syndrome, rectal abscess - Past Surgical History Past Surgical History: Yes Neuro Surgical History: No Pertinent History Cardiac: No Pertinent History Respiratory: No Pertinent History Gastrointestinal: Cholecystectomy, Other Genitourinary: No Pertinent History Musculoskeletal: No Pertinent History Female Surgical History: No Pertinent History, Tubal Ligation, Other Other Surgical History: GALLBLADDER, TONSILS, STEVAN RECTAL ABSCESS, FISTULA,colonoscopy,egd,t&a, wisdom teeth, tubal, ablation - Social History Smoking Status: Former smoker How long have you smoked: 11 years Exposure to second hand smoke: No Drug Use: none Patient Lives Alone: No - Female History Hx Now: No (ablasion) - Nursing Vital Signs Nursing Vital Signs: Initial Vital Signs Temperature 97.8 F 09/07/21 18:21 Pulse Rate 72 09/07/21 18:21 Blood Pressure 97/59 09/07/21 18:21 O2 Sat by Pulse Oximetry 99 09/07/21 18:21 Pain Scale Pain Intensity 8 - Physical Exam General Appearance: no apparent distress, alert Eye Exam: bilateral eye: normal inspection, PERRL, EOMI Ear Exam: right ear: TM red, left ear: TM normal, bilateral ear: auricle normal, canal normal Nasal Exam: normal inspection Throat Exam: pharynx normal, moist mucus membranes Neck Exam: normal inspection, non-tender, supple, full range of motion, lymphadenopathy (R) Cardiovascular/Respiratory Exam: normal breath sounds, regular rate/rhythm Neurologic Exam: alert, oriented x 3, cooperative, spar cap beveler II-XII nml as tested Skin Exam: normal color SpO2 Interpretation: normal SpO2: 99 O2 Delivery: Room Air Ordered Tests: Medication Summary Discontinued Medications Generic Name Dose Route Start Last Admin Trade Name Freq PRN Reason Stop Dose Admin Amoxicillin/Clavulanate Potassium 875 mg 09/07/21 18:43 09/07/21 18:56 Amox Tr/Potassium Clavulanate 875 Mg Tablet PO 09/07/21 18:44 875 mg STAT ONE Administration Ketorolac Tromethamine 30 mg 09/07/21 18:43 09/07/21 18:56 Ketorolac Tromethamine 30 Mg/Ml Inj IM 09/07/21 18:44 30 mg STAT ONE Administration - Progress Progress: improved, pain not gone completely Progress Note: 09/07/21 19:01 She is given Toradol for symptomatic relief and started on Augmentin. Outpatient follow-up. Counseled pt/family regarding: diagnosis, need for follow-up - Departure Departure Disposition: Home Clinical Impression: Otitis media Qualifiers: Otitis media type: unspecified Laterality: right Qualified Code(s): H66.91 - Otitis media, unspecified, right ear Condition: Stable Critical Care Time: No Referrals: KRISTYN BATES [Primary Care Provider] - Follow Up with PCP/3 days Additional Instructions: Take Tylenol/ibuprofen as needed for pain. Follow-up with primary care for reevaluation. Return to ER for worsening. Prescriptions: Ibuprofen 600 mg PO Q6HPRN PRN 10 Days #20 tablet PRN Reason: Pain Amoxicillin/Potassium Clav [Augmentin 875-125 Tablet] 875 mg PO BID 7 Days #14 tablet
[2021-09-07 19:15] VITALS: BP 124/82; PULSE 80; O2SAT 98
== END 2021-09-07 19:17 | disposition home or self-care (01) ==
LOC: ED 18:17
DX: H66.91 Otitis media, unspecified, right ear (principal); R68.84 Jaw pain; R51.9 Headache, unspecified
CPT/HCPCS: 96372; 99283; J1885; A9270-GY

== ENCOUNTER 2022-01-16 05:51 | Emergency (ER) | payer BC ==
[2022-01-16] MEDS ORDERED: Sodium Chloride 0.9% 1000 ML 1,000 ML ONE (07:00)
[2022-01-16] MEDS ORDERED: Sodium Chloride 0.9% 1000 ML 1,000 ML IV SCH (07:00)
--- NOTE | 2022-01-16 07:06 | ERPHSYRPT ---
- History of Present Illness Time Seen by Provider: 01/16/22 06:10 Source: patient Exam Limitations: no limitations Patient Subjective Stated Complaint: C/O nausea without vomiting and feeling "jittery on the inside." Patient states this has been going on for a few days. D enies any pain at this time. Denies any changes in bowel habits. Triage Nursing Assessment: Patient ambulated back to ED without difficulties. She is alert and oriented and answering questions appropriately. Blood sugar checked due to metformin therapy and was 116. No SOB noted. Skin tone normal, skin warm and dry. Hypoactive bowel sounds present. Pulse regular. Physician History: Patient is a 31-year-old female presents to our ED for evaluation of not feeling well. Patient states that she just got out of work. Patient is working third shift. Patient felt well going into work. Patient left work early because she is feeling jittery, dizzy and nauseous. Symptoms are constant. No pain. No diarrhea. vomiting. No rash. No urinary symptomology. Patient has a history of PCOS and is currently on Metformin. Patient's blood glucose was 116. Patient has a history of sleep apnea. CPAP machine has not been delivered to her home due to issues with supply. Patient was prescribed armodafinil. This is a stimulant for narcolepsy. This was ordered to help patient get through third shift of work per patient. However patient has not taken this medication. It was filled on January 03. Patient symptoms are mild to moderate in intensity. No specific worsening improving factors. Patient voices no other complaints or concerns. Timing/Duration: today Severity: moderate Associated Symptoms: nausea, No vomiting, No abdominal pain, No shortness of breath, No heartburn, No diaphoresis, No cough, No chills, No chest pain, No fever, No syncope, No seizure, No weakness Allergies/Adverse Reactions: iodine Allergy (Severe, Verified 01/16/22 05:59) Hives morphine Allergy (Verified 01/16/22 05:59) Shortness of Breath povidone-iodine [From Betadine] Allergy (Verified 01/16/22 05:59) Swelling swelling at sight of F/C insertion soap [From Betadine] Allergy (Verified 01/16/22 05:59) Swelling Home Medications: Medroxyprogesterone Acetate 1 ml IM CLARIFY 01/16/22 [History] Metformin HCl 500 mg [Glucophage 500 MG] 1 tab PO BID 01/16/22 [History] armodafiniL [Armodafinil] 150 mg PO DAILY 01/16/22 [History] Hx Tetanus, Diphtheria Vaccination/Date Given: Yes Hx Influenza Vaccination/Date Given: No Hx Pneumococcal Vaccination/Date Given: No Immunizations Up to Date: Yes Travel Risk - International Travel Have you traveled outside of the country in past 3 weeks: No - Coronavirus Screening Are you exhibiting any of the following symptoms?: No Close contact with a COVID-19 positive Pt in past 14-21 Days: No - Vaccine Status Have you recieved a Covid-19 vaccination: Yes 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[email or web address] - Vaccination Dates Date of 2cond Vaccination (if applicable): 06/15/2021 - Review of Systems Constitutional: No Symptoms, No Fever, No Chills Eyes: No Symptoms Ears, Nose, & Throat: No Symptoms Respiratory: No Symptoms, No Cough, No Dyspnea Cardiac: No Symptoms, No Chest Pain, No Edema, No Syncope Abdominal/Gastrointestinal: No Symptoms, No Abdominal Pain, No Nausea, No Vomiting, No Diarrhea Genitourinary Symptoms: No Symptoms, No Dysuria Musculoskeletal: No Symptoms, No Back Pain, No Neck Pain Skin: No Symptoms, No Rash Neurological: No Symptoms, No Dizziness, No Focal Weakness, No Sensory Changes Psychological: No Symptoms Endocrine: No Symptoms Hematologic/Lymphatic: No Symptoms Immunological/Allergic: No Symptoms All Other Systems: Reviewed and Negative - Past Medical History Pertinent Past Medical History: Yes Neurological History: Migraines ENT History: No Pertinent History Cardiac History: No Pertinent History Respiratory History: Asthma Endocrine Medical History: No Pertinent History Musculoskeletal History: No Pertinent History GI Medical History: Gallbladder Disease, Other History: No Pertinent History Psycho-Social History: No Pertinent History Female Reproductive Disorders: No Pertinent History Other Medical History: polycystic ovarian syndrome, rectal abscess - Past Surgical History Past Surgical History: Yes Neuro Surgical History: No Pertinent History Cardiac: No Pertinent History Respiratory: No Pertinent History Gastrointestinal: Cholecystectomy, Other Genitourinary: No Pertinent History Musculoskeletal: No Pertinent History Female Surgical History: No Pertinent History, Tubal Ligation, Other Other Surgical History: STEVAN RECTAL ABSCESS, FISTULA, colonoscopy, egd,t&a, wisdom teeth, ablation - Social History Smoking Status: Former smoker How long have you smoked: 11 years Exposure to second hand smoke: No Drug Use: none Patient Lives Alone: No - Female History Hx Last Menstrual Period: Before 2018 Hx Now: No - Nursing Vital Signs Nursing Vital Signs: Initial Vital Signs Temperature 98.1 F 01/16/22 06:01 Pulse Rate 95 H 01/16/22 06:01 Respiratory Rate 21 01/16/22 06:01 Blood Pressure 117/89 01/16/22 06:01 O2 Sat by Pulse Oximetry 97 01/16/22 06:01 Pain Scale Pain Intensity 0 - Physical Exam General Appearance: no apparent distress, alert Eye Exam: PERRL/EOMI, eyes nml inspection Ears, Nose, Throat Exam: normal ENT inspection, TMs normal, pharynx normal, moist mucous membranes Neck Exam: normal inspection, non-tender, supple, full range of motion Respiratory Exam: normal breath sounds, lungs clear, airway intact, No respiratory distress Cardiovascular Exam: regular rate/rhythm, normal heart sounds, normal peripheral pulses Gastrointestinal/Abdomen Exam: soft, normal bowel sounds, No tenderness, No mass Back Exam: normal inspection, normal range of motion, No CVA tenderness, No vertebral tenderness Extremity Exam: normal inspection, normal range of motion, pelvis stable Neurologic Exam: alert, oriented x 3, cooperative, normal mood/affect, nml cerebellar function, nml station & gait, sensation nml, No motor deficits Skin Exam: normal color, warm, dry, No rash Lymphatic Exam: No adenopathy SpO2 Interpretation: normal SpO2: 97 O2 Delivery: Room Air - Course Nursing assessment & vital signs reviewed: Yes EKG Interpreted by Me: RATE (89), Sinus Rhythm, NORMAL AXIS, NORMAL INTERVALS Ordered Tests: Active Orders 24 hr Category Date Time Status 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 Manager STAT Care 01/16/22 06:58 Ordered EKG-ER Only STAT Care 01/16/22 06:57 Ordered IV Insertion STAT Care 01/16/22 06:24 Active Pulse Oximetry (ED) STAT Care 01/16/22 06:57 Ordered CBC W DIFF Stat Lab 01/16/22 06:57 Ordered CMP Stat Lab 01/16/22 06:57 Ordered MAGNESIUM Stat Lab 01/16/22 06:57 Ordered NT PRO BNP Stat Lab 01/16/22 06:57 Ordered POCT GLUCOSE Stat Lab 01/16/22 06:13 Completed TROPONIN Q3H Lab 01/16/22 07:00 Ordered TROPONIN Q3H Lab 01/16/22 10:00 Ordered TROPONIN Q3H Lab 01/16/22 13:00 Ordered TROPONIN Q3H Lab 01/16/22 16:00 Ordered TROPONIN Q3H Lab 01/16/22 19:00 Ordered UA W/RFX UR CULTURE Stat Lab 01/16/22 06:58 Ordered Urine Triage Profile Stat Lab 01/16/22 06:58 Ordered Lab/Rad Data: Laboratory Results 01/16/22 Range/Units 06:13 POC Glucometer 116 H (74 to 106) mg/dL - Progress Progress: improved Progress Note: Labs pending. Patient endorsed to Dr. Patel at change of shift. Dr. Patel will review labs make final disposition. 01/16/22 07:06 - Departure Clinical Impression: Dizziness, Nausea Condition: Stable Critical Care Time: No Referrals: KRISTYN BATES [Primary Care Provider] - Follow up/PCP as directed
[2022-01-16 07:16] LABS: Absolute Neutrophil Ct (ANC) 6.36 (1.4-6.9); Basophil (Absolute #) 0.02 (0-0.4); Eosinophil % 1.7 % (0.00-5.0); Eosinophil (Absolute #) 0.17 (0-0.5); Hematocrit 42.4 % (35-47); Hemoglobin 13.7 gm/dl (12.0-16.0); Lymphocyte (Absolute #) 2.42 (1.0-4.6); Lymphocytes % 24.6 % (24.0-44.0); Mean Cell Volume 90.6 fl (78-100); Mean Corpuscular Hemoglobin 29.3 pg (26-32); Mean Corpuscular Hgb Concent. 32.3 g/dl (32-36); Mean Platelet Volume 11.9 fl (7.5-11.0); Monocyte (Absolute #) 0.87 (0.0-1.3); Monocytes % 8.8 % (0.0-12.0); Neutrophil % 64.7 % (36.0-66.0); Platelet Count 280 K/mm3 (150-450); Red Blood Count 4.68 M/mm3 (4.1-5.4); Red Cell Distribution Width 13.2 % (11.5-14.0); White Blood Count 9.8 K/mm3 (4.0-10.5)
[2022-01-16] MEDS ORDERED: TORAdol 30 mg Injection IV ONE (07:22)
[2022-01-16] MEDS ORDERED: BENADRYL 50 MG/ML IV ONE (07:22)
[2022-01-16] MEDS ORDERED: Compazine 10 MG/2 ML IV ONE (07:23)
[2022-01-16 07:33] LABS: Bacteria RARE /HPF (NEGATIVE); Epithelial Cells RARE /HPF (FEW); Mucus SLIGHT /HPF (NEGATIVE); WBC 0-2 /HPF (0-5)
[2022-01-16 07:35] LABS: Appearance CLEAR (CLEAR); Bilirubin NEGATIVE (NEGATIVE); Glucose NEGATIVE (NEGATIVE); Ketones NEGATIVE (NEGATIVE); Specific Gravity >=1.030 (1.005-1.025)
[2022-01-16 07:40] LABS: Dipstick done @ ? MAIN LAB; Nitrite NEGATIVE (NEGATIVE); Ph 5.5 (5-6); Protein,Urine Dip NEGATIVE (Negative); RBC NEGATIVE Ery/ul (0-5); Urobilinogen 0.2 mg/dL (0-1)
[2022-01-16 07:41] LABS: Urine Cultured Indicated? NO
[2022-01-16 07:46] LABS: ALBUMIN 4.2 g/dL (3.5-5.0); ALKALINE PHOSPHATASE 83 U/L (38-126); ANION GAP 15.5 MEQ/L (5-15); BLOOD UREA NITROGEN 16 mg/dL (7-17); CHLORIDE 107 mmol/L (98-107); Calcium 8.9 mg/dL (8.4-10.2); Carbon Dioxide 23 mmol/L (22-30); EST GLOMERULAR FILTRATION RATE > 60.0 ML/MIN; Glucose 112 mg/dL (74-106); MAGNESIUM 1.8 mg/dL (1.6-2.3); NT PRO BNP 13.6 pg/mL (0-450); Potassium 3.9 mmol/L (3.5-5.1); SGOT/AST 36 U/L (14-36); SGPT/ALT 32 U/L (0-35); SODIUM 141 mmol/L (137-145); Total Protein 7.5 g/dL (6.3-8.2)
[2022-01-16] MEDS ORDERED: TORAdol 30 mg Injection ONE (07:51)
[2022-01-16] MEDS ORDERED: Compazine 10 MG/2 ML ONE (07:52)
[2022-01-16] MEDS ORDERED: BENADRYL 50 MG/ML ONE (07:52)
[2022-01-16 07:54] LABS: Amphetamine,Urine NEGATIVE (NEGATIVE); Barbiturate,Urine NEGATIVE (NEGATIVE); Benzodiazepine,Urine NEGATIVE (NEGATIVE); Cocaine,Urine NEGATIVE (NEGATIVE); Methadone,Urine NEGATIVE (NEGATIVE); Opiate,Urine NEGATIVE (NEGATIVE); PCP,Urine NEGATIVE (NEGATIVE); THC,Urine NEGATIVE (NEGATIVE)
[2022-01-16 08:39] VITALS: BP 107/73; PULSE 87; O2SAT 94
--- NOTE | 2022-01-16 08:43 | XRAY ---
Indication: Migraine headache and dizziness. Multiple contiguous axial images obtained through the head without contrast. Comparison: None Normal appearing brain parenchyma, ventricles, and bony calvarium. Visualized paranasal sinuses and mastoid air cells are clear. Impression: Continued normal CT head without contrast exam.
== END 2022-01-16 08:45 | disposition home or self-care (01) ==
LOC: ED 05:51
DX: R42 Dizziness and giddiness (principal); R11.0 Nausea; Z79.899 Other long term (current) drug therapy
CPT/HCPCS: 36000; 36415; 70450; 80053; 80307; 81015; 82947; 83735; 83880; 84484; 85025; 93005; 93041; 94760; 96374; 96375; 99284; J1200; J1885

== ENCOUNTER 2023-08-23 12:23 | Emergency (ER) | payer BC, OTHER ==
[2023-08-23 12:48] VITALS: RESP 17; TEMP 98.1
[2023-08-23] MEDS ORDERED: Zofran 4 MG/2 ML VIAL IV ONE (12:55)
[2023-08-23] MEDS ORDERED: Sodium Chloride 0.9% 1000 ML 1,000 ML IV STA (12:55)
--- NOTE | 2023-08-23 13:02 | ERPHSYRPT ---
- History of Present Illness Historian: patient Exam Limitations: no limitations Patient Subjective Stated Complaint: Pt reports she has had diarrhea with some abdominal cramping for approx 2 days, has not taken anything over the counter. Reports chronic blood in stools which she is currently having, nothing appears different about blood in stools than what is usual for patient. Triage Nursing Assessment: Pt alert and oriented x3. Respirations easy/nonlabored. Skin w/p/d. Abdomen soft/round/nontender. Active bowel sounds in all four quads. Physician History: 33-year-old obese white female with generalized lethargy x3 days. Patient has a diarrhea for 3 days along with nausea but denies vomiting. She has mild epigastric pain. Patient has chronic hematochezia and states that she has had multiple colonoscopies without significant findings. She denies melena, dysuria, hematuria, cough, coryza, and fever. Patient does not smoke and does not drink. She states that she believes that she is dehydrated due to the diarrhea. Upon ER presentation patient is awake, alert, in no apparent distress. Timing/Duration: other (3 days) Activities at Onset: rest Quality: aching Abdominal Pain Onset Location: epigastric Pain Radiation: no radiation Severity of Pain-Max: moderate Severity of Pain-Current: mild Modifying Factors: Improves With: nothing, vomiting Associated Symptoms: denies symptoms Previous symptoms: no prior history Allergies/Adverse Reactions: iodine Allergy (Severe, Verified 08/23/23 12:42) Hives morphine Allergy (Verified 08/23/23 12:42) Shortness of Breath povidone-iodine [From Betadine] Allergy (Verified 08/23/23 12:42) Swelling swelling at sight of F/C insertion soap [From Betadine] Allergy (Verified 08/23/23 12:42) Swelling Hx Tetanus, Diphtheria Vaccination/Date Given: Yes Hx Influenza Vaccination/Date Given: No Hx Pneumococcal Vaccination/Date Given: No Travel Risk - International Travel Have you traveled outside of the country in past 3 weeks: No - Coronavirus Screening Are you exhibiting any of the following symptoms?: Yes Symptoms: Vomiting/Diarrhea Close contact with a COVID-19 positive Pt in past 14-21 Days: No - Vaccine Status Have you recieved a Covid-19 vaccination: Yes 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: [employer] - Vaccination Dates Date of 2cond Vaccination (if applicable): 06/15/2021 - Review of Systems Constitutional: No Symptoms Eyes: No Symptoms Ears, Nose, & Throat: No Symptoms Respiratory: No Symptoms Cardiac: No Symptoms Abdominal/Gastrointestinal: No Symptoms, Abdominal Pain, Nausea, Diarrhea Genitourinary Symptoms: No Symptoms Musculoskeletal: No Symptoms Skin: No Symptoms Neurological: No Symptoms Psychological: No Symptoms Endocrine: No Symptoms Hematologic/Lymphatic: No Symptoms Immunological/Allergic: No Symptoms - Past Medical History Pertinent Past Medical History: Yes Neurological History: Migraines ENT History: No Pertinent History Cardiac History: No Pertinent History Respiratory History: Asthma Endocrine Medical History: No Pertinent History Musculoskeletal History: No Pertinent History GI Medical History: Gallbladder Disease, Other History: No Pertinent History Psycho-Social History: No Pertinent History Female Reproductive Disorders: No Pertinent History Other Medical History: polycystic ovarian syndrome, rectal abscess - Past Surgical History Past Surgical History: Yes Neuro Surgical History: No Pertinent History Cardiac: No Pertinent History Respiratory: No Pertinent History Gastrointestinal: Cholecystectomy, Other Genitourinary: No Pertinent History Musculoskeletal: No Pertinent History Female Surgical History: Hysterectomy, Tubal Ligation, Other Other Surgical History: STEVAN RECTAL ABSCESS, FISTULA, colonoscopy, egd,t&a, w isdom teeth, ablation - Social History Smoking Status: Former smoker How long have you smoked: 11 years Exposure to second hand smoke: Yes Drug Use: none Patient Lives Alone: No - Female History Hx Last Menstrual Period: hysterectomy january 2023 Hx Now: No - Nursing Vital Signs Nursing Vital Signs: Initial Vital Signs Temperature 98.1 F 08/23/23 12:37 Pulse Rate 103 H 08/23/23 12:37 Respiratory Rate 17 08/23/23 12:37 Blood Pressure 115/77 08/23/23 12:37 O2 Sat by Pulse Oximetry 98 08/23/23 12:37 Pain Scale Pain Intensity 3 Mild tachycardia noted. - Physical Exam General Appearance: no apparent distress Eye Exam: PERRL/EOMI, eyes nml inspection Ears, Nose, Throat Exam: normal ENT inspection, TMs normal, pharynx normal, moist mucous membranes Neck Exam: normal inspection, non-tender, supple, full range of motion, No meningismus, No mass, No Brudzinski, No Kernig's, No carotid bruit Respiratory Exam: normal breath sounds, lungs clear, airway intact Cardiovascular Exam: regular rate/rhythm (Patient in normal sinus rhythm with exam done.), normal heart sounds, capillary refill <2 sec, No murmur Gastrointestinal/Abdomen Exam: soft (Abdomen obese, soft, mild epigastric tenderness to palpation noted/) Back Exam: normal inspection, normal range of motion, No CVA tenderness, No vertebral tenderness Extremity Exam: normal inspection, normal range of motion Neurologic Exam: alert, oriented x 3, cooperative, guard immigration II-XII nml as tested, normal mood/affect, nml cerebellar function, nml station & gait, sensation nml Skin Exam: normal color, warm, dry Lymphatic Exam: No adenopathy SpO2 Interpretation: normal SpO2: 98 O2 Delivery: Room Air - Course Nursing assessment & vital signs reviewed: Yes Ordered Tests: Active Orders 24 hr Category Date Time Status IV Insertion STAT Care 08/23/23 12:55 Completed AMYLASE Stat Lab 08/23/23 13:05 Completed CBC W DIFF Stat Lab 08/23/23 13:05 Completed CMP Stat Lab 08/23/23 13:05 Completed CULTURE,URINE Stat Lab 08/23/23 12:44 Received LIPASE Stat Lab 08/23/23 13:05 Completed UA W/RFX UR CULTURE Stat Lab 08/23/23 12:44 Completed Medication Summary Discontinued Medications Generic Name Dose Route Start Last Admin Trade Name Freq PRN Reason Stop Dose Admin Sodium Chloride 1,000 mls @ 999 mls/hr 08/23/23 12:55 08/23/23 14:18 Sodium Chloride 0.9% 1000 Ml IV 08/23/23 13:55 Infused .Q1H1M STA Infusion Sodium Chloride Confirm 08/23/23 13:09 Sodium Chloride 0.9% 1000 Ml Administered 08/23/23 13:10 Dose 1,000 mls @ ud .ROUTE .STK-MED ONE Ondansetron HCl 4 mg 08/23/23 12:55 08/23/23 13:16 Ondansetron Hcl 4 Mg/2 Ml Vial IV 08/23/23 12:56 4 mg STAT ONE Administration Ondansetron HCl Confirm 08/23/23 13:09 Ondansetron Hcl 4 Mg/2 Ml Vial Administered 08/23/23 13:10 Dose 4 mg .ROUTE .STK-MED ONE Lab/Rad Data: Laboratory Result Diagrams 08/23/23 13:05 08/23/23 13:05 Laboratory Results 1108/23/23 08/23/23 Range/Units 13:05 13:05 13:05 WBC 7.4 (4.0-10.5) x10^3/uL RBC 4.55 (4.1-5.4) x10^6/uL Hgb 12.1 (12.0-16.0) g/dL Hct 38.6 (35-47) % MCV 84.8 (78-100) fL MCH 26.6 (26-32) pg MCHC 31.3 L (32-36) g/dL RDW 14.5 H (11.5-14.0) % Plt Count 290 (150-450) x10^3/uL MPV 10.8 (7.5-11.0) fL Gran % 64.2 (36.0-66.0) % Immature Gran % (Auto) 0.3 (0.00-0.4) % Nucleat RBC Rel Count 0.0 (0.00-0.1) % Eos # (Auto) 0.12 (0-0.5) x10^3/uL Immature Gran # (Auto) 0.02 (0.00-0.03) x10^3u/L Absolute Lymphs (auto) 1.97 (1.0-4.6) x10^3/uL Absolute Monos (auto) 0.52 (0.0-1.3) x10^3/uL Absolute Nucleated RBC 0.00 (0.00-0.01) x10^3u/L Lymphocytes % 26.5 (24.0-44.0) % Monocytes % 7.0 (0.0-12.0) % Eosinophils % 1.6 (0.00-5.0) % Basophils % 0.4 (0.0-0.4) % Absolute Granulocytes 4.76 (1.4-6.9) x10^3/uL Basophils # 0.03 (0-0.4) x10^3/uL Sodium 140 (137-145) mmol/L Potassium 3.7 (3.5-5.1) mmol/L Chloride 104 (98-107) mmol/L Carbon Dioxide 28 (22-30) mmol/L Anion Gap 12.1 (5-15) MEQ/L BUN 12 (7-17) mg/dL Creatinine 0.72 (0.52-1.04) mg/dL Estimated GFR 113.2 ML/MIN Glucose 157 H (74-106) mg/dL Calcium 9.2 (8.4-10.2) mg/dL Total Bilirubin 0.30 (0.2-1.3) mg/dL AST 31 (14-36) U/L ALT 35 (0-35) U/L Alkaline Phosphatase 95 (38-126) U/L Serum Total Protein 7.2 (6.3-8.2) g/dL Albumin 4.1 (3.5-5.0) g/dL Amylase 63 (30-110) U/L Lipase 125 (23-300) U/L Urine Color (Yellow) Urine Appearance (Clear) Urine pH (4.6-8.0) Ur Specific [place] (1.005-1.030) Urine Protein (Negative) Urine Glucose (UA) (Negative) mg/dL Urine Ketones (Negative) Urine Blood (Negative) Urine Nitrite (Negative) Urine Bilirubin (Negative) Urine Urobilinogen (0.2) mg/dL Ur Leukocyte Esterase (Negative) U Hyaline Cast (Auto) (0-2) /LPF Urine Microscopic RBC (0-5) /HPF Urine Microscopic WBC (0-5) /HPF Ur Epithelial Cells (None Seen) /HPF Urine Bacteria (None Seen) /HPF Urine Culture Reflexed (NO) Influenza Type A Ag NEGATIVE (NEGATIVE) Influenza Type B Ag NEGATIVE (NEGATIVE) RSV (PCR) NEGATIVE (NEGATIVE) SARS-CoV-2 (PCR) NEGATIVE (NEGATIVE) 08/23/23 Range/Units 12:44 WBC (4.0-10.5) x10^3/uL RBC (4.1-5.4) x10^6/uL Hgb (12.0-16.0) g/dL Hct (35-47) % MCV (78-100) fL MCH (26-32) pg MCHC (32-36) g/dL RDW (11.5-14.0) % Plt Count (150-450) x10^3/uL MPV (7.5-11.0) fL Gran % (36.0-66.0) % Immature Gran % (Auto) (0.00-0.4) % Nucleat RBC Rel Count (0.00-0.1) % Eos # (Auto) (0-0.5) x10^3/uL Immature Gran # (Auto) (0.00-0.03) x10^3u/L Absolute Lymphs (auto) (1.0-4.6) x10^3/uL Absolute Monos (auto) (0.0-1.3) x10^3/uL Absolute Nucleated RBC (0.00-0.01) x10^3u/L Lymphocytes % (24.0-44.0) % Monocytes % (0.0-12.0) % Eosinophils % (0.00-5.0) % Basophils % (0.0-0.4) % Absolute Granulocytes (1.4-6.9) x10^3/uL Basophils # (0-0.4) x10^3/uL Sodium (137-145) mmol/L Potassium (3.5-5.1) mmol/L Chloride (98-107) mmol/L Carbon Dioxide (22-30) mmol/L Anion Gap (5-15) MEQ/L BUN (7-17) mg/dL Creatinine (0.52-1.04) mg/dL Estimated GFR ML/MIN Glucose (74-106) mg/dL Calcium (8.4-10.2) mg/dL Total Bilirubin (0.2-1.3) mg/dL AST (14-36) U/L ALT (0-35) U/L Alkaline Phosphatase (38-126) U/L Serum Total Protein (6.3-8.2) g/dL Albumin (3.5-5.0) g/dL Amylase (30-110) U/L Lipase (23-300) U/L Urine Color Yellow (Yellow) Urine Appearance Clear (Clear) Urine pH 6.0 (4.6-8.0) Ur Specific [place] 1.025 (1.005-1.030) Urine Protein Negative (Negative) Urine Glucose (UA) Negative (Negative) mg/dL Urine Ketones Trace A (Negative) Urine Blood Negative (Negative) Urine Nitrite Negative (Negative) Urine Bilirubin Negative (Negative) Urine Urobilinogen 0.2 (0.2) mg/dL Ur Leukocyte Esterase Negative (Negative) U Hyaline Cast (Auto) NONE SEEN (0-2) /LPF Urine Microscopic RBC 0-2 (0-5) /HPF Urine Microscopic WBC 3-5 (0-5) /HPF Ur Epithelial Cells Moderate A (None Seen) /HPF Urine Bacteria Moderate A (None Seen) /HPF Urine Culture Reflexed YES (NO) Influenza Type A Ag (NEGATIVE) Influenza Type B Ag (NEGATIVE) RSV (PCR) (NEGATIVE) SARS-CoV-2 (PCR) (NEGATIVE) - Progress Progress: improved Progress Note: 08/23/23 17:55 Nursing note and vital signs reviewed. No food or housing insecurities noted. All lab results reviewed and shared with patient. 08/23/23 17:55 Patient given 1 L normal saline bolus and 4 mg IV Zofran with improvement. Serial abdominal exams without evidence of surgical abdomen. 08/23/23 17:56 Patient had moderate bacteria and 3-5 leukocytes in her urine upon microscopic exam which is technically not enough to diagnose a urinary tract infection but since she was having some nausea and vomiting, patient was treated with Macrobid 100 mg p.o. twice daily for 5 days. 08/23/23 17:57 Patient advised to follow-up with her family MD and to return to the ER for increasing pain or temperature greater 100.5. 08/23/23 17:59 Patient no apparent distress and states she felt much better upon discharge. Counseled pt/family regarding: lab results, diagnosis Medical Desision Making - Diagnostic Testing Diagnostic test were ordered, analyzed, and reviewed by me: Yes - Risk of complications The pt has a mod risk of morbidity or mortality based on: Need for prescription drug management - Departure Departure Disposition: Home Clinical Impression: Diarrhea, UTI (urinary tract infection) Condition: Stable Critical Care Time: No Referrals: KRISTYN BATES [Primary Care Provider] - Follow up/PCP as directed Instructions: Diarrhea and Travelers' Diarrhea, Adult (DC), Urinary Tract Infection, Adult (DC) Additional Instructions: Fluids Bentyl as needed for abdominal pain/diarrhea Macrobid twice a day for 5 days for urinary tract infection Follow-up with your family MD Return to ER as needed. Prescriptions: Dicyclomine HCl 20 mg [Bentyl 20 mg] 20 mg PO Q6HPRN PRN #12 tablet PRN Reason: Diarrhea Nitrofurantoin Macro 100 mg [Macrobid 100MG Capsule] 100 mg PO BID 5 Days #10 cap
[2023-08-23] MEDS ORDERED: Zofran 4 MG/2 ML VIAL ONE (13:09)
[2023-08-23] MEDS ORDERED: Sodium Chloride 0.9% 1000 ML 1,000 ML ONE (13:09)
[2023-08-23 13:10] LABS: Absolute Neutrophil Ct (ANC) 4.76 x10^3/uL (1.4-6.9); BASOPHIL % 0.4 % (0.0-0.4); Basophil (Absolute #) 0.03 x10^3/uL (0-0.4); Eosinophil % 1.6 % (0.00-5.0); Eosinophil (Absolute #) 0.12 x10^3/uL (0-0.5); Hematocrit 38.6 % (35-47); Hemoglobin 12.1 g/dL (12.0-16.0); IMMATURE GRAN # 0.02 x10^3u/L (0.00-0.03); IMMATURE GRAN % 0.3 % (0.00-0.4); Lymphocyte (Absolute #) 1.97 x10^3/uL (1.0-4.6); Lymphocytes % 26.5 % (24.0-44.0); Mean Cell Volume 84.8 fL (78-100); Mean Corpuscular Hemoglobin 26.6 pg (26-32); Mean Corpuscular Hgb Concent. 31.3 g/dL (32-36); Mean Platelet Volume 10.8 fL (7.5-11.0); Monocyte (Absolute #) 0.52 x10^3/uL (0.0-1.3); Neutrophil % 64.2 % (36.0-66.0); Platelet Count 290 x10^3/uL (150-450); Red Blood Count 4.55 x10^6/uL (4.1-5.4); Red Cell Distribution Width 14.5 % (11.5-14.0); White Blood Count 7.4 x10^3/uL (4.0-10.5)
[2023-08-23 13:13] LABS: Appearance Clear (Clear); Bacteria Moderate /HPF (None Seen); Bilirubin Negative (Negative); Blood Negative (Negative); Epithelial Cells Moderate /HPF (None Seen); Glucose, Urine Negative (Negative); Hyaline Casts NONE SEEN /LPF (0-2); Ketones Trace (Negative); Leukocyte Esterase Negative (Negative); Nitrite Negative (Negative); Protein,Urine Dip Negative (Negative); RBC 0-2 /HPF (0-5); Specific Gravity 1.025 (1.005-1.030); Urobilinogen 0.2 mg/dL (0.2)
[2023-08-23 13:14] LABS: ADD URINE CULTURE? YES (NO)
[2023-08-23 13:24] LABS: ALBUMIN 4.1 g/dL (3.5-5.0); ANION GAP 12.1 MEQ/L (5-15); BILIRUBIN,TOTAL 0.3 mg/dL (0.2-1.3); Calcium 9.2 mg/dL (8.4-10.2); Creatinine 1 0.72 mg/dL (0.52-1.04); EST GLOMERULAR FILTRATION RATE 113.2 ML/MIN; Potassium 3.7 mmol/L (3.5-5.1); Total Protein 7.2 g/dL (6.3-8.2)
[2023-08-23 13:28] VITALS: BP 111/79; PULSE 98
[2023-08-23 13:49] LABS: INFLUENZA A NEGATIVE (NEGATIVE); INFLUENZA B NEGATIVE (NEGATIVE); RESPIRATORY SYNCTIAL VIRUS NEGATIVE (NEGATIVE); SARS-CoV-2 Xpert Express NEGATIVE (NEGATIVE)
[2023-08-23 14:06] VITALS: O2SAT 98
== END 2023-08-23 14:18 | disposition home or self-care (01) ==
LOC: ED 12:23
DX: N39.0 Urinary tract infection, site not specified (principal); R19.7 Diarrhea, unspecified; R11.0 Nausea; R53.83 Other fatigue
CPT/HCPCS: 0241U; 36000; 36415; 80053; 81001; 82150; 83690; 85025; 87086; 96360; 96374; 99284; J2405

== ENCOUNTER 2024-04-11 15:54 | Emergency (ER) | payer OTHER ==
[2024-04-11] MEDS ORDERED: Sodium Chloride 0.9% 1000 ML 1,000 ML ONE (16:11)
[2024-04-11 16:13] VITALS: TEMP 98.9
--- NOTE | 2024-04-11 16:14 | ERPHSYRPT ---
<THIAGO GARCIA - Last Filed: 04/11/24 20:29> - History of Present Illness Historian: patient Exam Limitations: no limitations Patient Subjective Stated Complaint: Bloody stools since yesterday morning. Denies current pain; indicates she has abdominal pain just prior to having BMs. Triage Nursing Assessment: Patient ambulated back to ER. She is alert and oriented. Skin tone normal. ODELL WNL. No SOB. No cough. Timing/Duration: day(s) (32) Activities at Onset: none Quality: cramping Abdominal Pain Onset Location: LLQ Pain Radiation: no radiation Severity of Pain-Max: moderate Severity of Pain-Current: moderate Modifying Factors: Improves With: defecating Associated Symptoms: diarrhea, fatigue, nausea, shortness of breath, No chest pain, No diaphoresis, No fever/chills, No headache, No vomiting Previous symptoms: same symptoms as today Hx Tetanus, Diphtheria Vaccination/Date Given: Yes Hx Influenza Vaccination/Date Given: No Hx Pneumococcal Vaccination/Date Given: No Immunizations Up to Date: Yes <MICKY CAREY - Last Filed: 04/13/24 08:13> - History of Present Illness Time Seen by Provider: 04/11/24 16:14 Physician History: The patient, with a history of recurrent rectal bleeding and polyps, presents with the worst episode of rectal bleeding she has ever experienced. The bleeding, which is usually self-limited, has persisted for three days and is associated with the passage of blood clots. She describes the sensation as feeling like diarrhea, but only blood is passed. She has had numerous colonoscopies and endoscopies, and has seen a bowel specialist, but no definitive cause for the bleeding has been identified. She has a history of polyps, but no diagnosis of ulcerative colitis or Crohn's disease. In addition to the rectal bleeding, she has been experiencing spasms and numbness in her left arm. She also reports feeling dizzy and short of breath, symptoms that started on the day of the encounter. She describes abdominal cramping that precedes the rectal bleeding and subsides once the blood is passed. She also reports nausea, but no vomiting. She has a history of he morrhoids, but does not consider them problematic. (MICKY CAREY) Allergies/Adverse Reactions: iodine Allergy (Severe, Verified 04/11/24 16:02) Hives morphine Allergy (Verified 04/11/24 16:02) Shortness of Breath povidone-iodine [From Betadine] Allergy (Verified 04/11/24 16:02) Swelling swelling at sight of F/C insertion soap [From Betadine] Allergy (Verified 04/11/24 16:02) Swelling Home Medications: Cholecalciferol (Vitamin D3) [Vitamin D3] 50 mcg PO DAILY 04/11/24 [History] Ergocalciferol (Vitamin D2) [Vitamin D2] 1.25 mg PO WEEKLY 04/11/24 [History] Levothyroxine Sodium 50 Mcg [Synthroid 50 Mcg] 50 mcg PO DAILY 04/11/24 [History] Spironolactone 100 mg PO DAILY 04/11/24 [History] Travel Risk - International Travel Have you traveled outside of the country in past 3 weeks: No - Emerging Infectious Disease Are you exhibiting symptoms associated with any current EIDs: Yes Symptoms: Diarrhea <MICKY CAREY - Last Filed: 04/13/24 08:13> - Review of Systems All Other Systems: Reviewed and Negative <MICKY CAREY - Last Filed: 04/13/24 08:13> - Past Medical History Pertinent Past Medical History: Yes Neurological History: Migraines ENT History: No Pertinent History Cardiac History: No Pertinent History Respiratory History: Asthma Endocrine Medical History: No Pertinent History Musculoskeletal History: No Pertinent History GI Medical History: Gallbladder Disease, Other History: No Pertinent History Psycho-Social History: No Pertinent History Female Reproductive Disorders: No Pertinent History Other Medical History: polycystic ovarian syndrome, rectal abscess - Past Surgical History Past Surgical History: Yes Neuro Surgical History: No Pertinent History Cardiac: No Pertinent History Respiratory: No Pertinent History Gastrointestinal: Cholecystectomy, Other Genitourinary: No Pertinent History Musculoskeletal: No Pertinent History Female Surgical History: Hysterectomy, Tubal Ligation, Other Other Surgical History: STEVAN RECTAL ABSCESS, FISTULA, colonoscopy, egd, wisdom teeth, ablation - Female History Hx Last Menstrual Period: April, Hx Now: No (pending hcg) - Social History Smoking Status: Former smoker How long have you smoked: 11 years Exposure to second hand smoke: No Drug Use: none Patient Lives Alone: No - Social Determinants of Health Will the patient participate in the screening: Yes Do you worry about a steady place to live?: No Do you have any problems with any of the following?: No known problems In the past 12 months,have you had to go without utilities?: No Transportation Issues: No Has anyone in your support network made you feel unsafe?: No Have you or anyone in your house had to go without enough: No <MICKY CAREY - Last Filed: 04/13/24 08:13> - Physical Exam General Appearance: no apparent distress, obese Eye Exam: pale conjunctivae Neck Exam: normal inspection, full range of motion Respiratory Exam: normal breath sounds, lungs clear, airway intact, No respiratory distress Cardiovascular Exam: normal heart sounds, tachycardia, capillary refill <2 sec, No edema Gastrointestinal/Abdomen Exam: soft, tenderness (LLQ), No distention, No mass, No guarding, No rebound Rectal Exam: normal rectal tone, hemorrhoids, tenderness, No mass, No blood Neurologic Exam: alert, oriented x 3, cooperative Skin Exam: pale SpO2 Interpretation: normal SpO2: 98 O2 Delivery: Room Air <MICKY CAREY - Last Filed: 04/13/24 08:13> - Nursing Vital Signs Nursing Vital Signs: Initial Vital Signs Pulse Rate 103 H 04/11/24 16:01 Respiratory Rate 17 04/11/24 16:01 Blood Pressure 158/108 04/11/24 16:01 O2 Sat by Pulse Oximetry 98 04/11/24 16:01 Pain Scale Pain Intensity 0 - Course Nursing assessment & vital signs reviewed: Yes <MICKY CAREY - Last Filed: 04/13/24 08:13> Ordered Tests: Medication Summary Discontinued Medications Generic Name Dose Route Start Last Admin Trade Name José Antonio PRN Reason Stop Dose Admin Sodium Chloride 1,000 mls @ 999 mls/hr 04/11/24 16:07 04/11/24 17:16 Sodium Chloride 0.9% 1000 Ml IV 04/11/24 17:07 Infused .Q1H1M STA Infusion Sodium Chloride Confirm 04/11/24 16:11 Sodium Chloride 0.9% 1000 Ml Administered 04/11/24 16:12 Dose 1,000 mls @ ud .ROUTE .[facility] ONE Ondansetron HCl 4 mg 04/11/24 16:22 04/11/24 16:29 Ondansetron Hcl 4 Mg/2 Ml Vial IV 04/11/24 16:23 4 mg STAT ONE Administration Ondansetron HCl Confirm 04/11/24 16:27 Ondansetron Hcl 4 Mg/2 Ml Vial Administered 04/11/24 16:28 Dose 4 mg .ROUTE .[facility] ONE Lab/Rad Data: Laboratory Result Diagrams 04/11/24 19:30 04/11/24 16:20 Laboratory Results 04/11/24 04/11/24 04/11/24 Range/Units 19:30 17:01 16:29 WBC (3.98-10.04) x10^3/uL RBC (3.93-5.22) x10^6/uL Hgb 8.1 L (11.2-15.7) g/dL Hct (34.1-44.9) % MCV (79.4-94.8) fL MCH (25.6-32.2) pg MCHC (32.2-35.5) g/dL RDW (11.7-14.4) % Plt Count (182-369) x10^3/uL MPV (9.4-12.3) fL Gran % (34.0-71.1) % Immature Gran % (Auto) (0.001-0.429) % Nucleat RBC Rel Count (0.00-0.2) % Eos # (Auto) (0.04-0.36) x10^3/uL Immature Gran # (Auto) (0.001-0.031) x10^3u/L Absolute Lymphs (auto) (1.18-3.74) x10^3/uL Absolute Monos (auto) (0.24-0.86) x10^3/uL Absolute Nucleated RBC (0.00-0.012) x10^3u/L Lymphocytes % (19.3-51.7) % Monocytes % (4.7-12.5) % Eosinophils % (0.7-5.8) % Basophils % (0.1-1.2) % Absolute Granulocytes (1.56-6.13) x10^3/uL Basophils # (0.01-0.08) x10^3/uL ESR 23 H (0-20) mm/hr Sodium (135-145) mmol/L Potassium (3.5-5.1) mmol/L Chloride (98-107) mmol/L Carbon Dioxide (22-30) mmol/L Anion Gap (5-15) MEQ/L BUN (7-17) mg/dL Creatinine (0.52-1.04) mg/dL Estimated GFR ML/MIN Glucose (74-106) mg/dL Lactic Acid (0.4-2.0) Calcium (8.4-10.2) mg/dL Total Bilirubin (0.2-1.3) mg/dL AST (14-36) U/L ALT (0-35) U/L Alkaline Phosphatase (38-126) U/L Serum Total Protein (6.3-8.2) g/dL Albumin (3.5-5.0) g/dL Serum HCG, Qual (NEGATIVE) Stl Occult Blood (IFOB) ABO Group B Rh Factor POSITIVE Antibody Screen NEGATIVE (NEGATIVE) 04/11/24 04/11/24 04/11/24 Range/Units 16:20 16:20 16:20 WBC 8.4 (3.98-10.04) x10^3/uL RBC 3.45 L (3.93-5.22) x10^6/uL Hgb 9.3 L (11.2-15.7) g/dL Hct 28.6 L (34.1-44.9) % MCV 82.9 (79.4-94.8) fL MCH 27.0 (25.6-32.2) pg MCHC 32.5 (32.2-35.5) g/dL RDW 13.1 (11.7-14.4) % Plt Count 272 (182-369) x10^3/uL MPV 11.4 (9.4-12.3) fL Gran % 72.4 H (34.0-71.1) % Immature Gran % (Auto) 0.5 H (0.001-0.429) % Nucleat RBC Rel Count 0.0 (0.00-0.2) % Eos # (Auto) 0.06 (0.04-0.36) x10^3/uL Immature Gran # (Auto) 0.04 H (0.001-0.031) x10^3u/L Absolute Lymphs (auto) 1.61 (1.18-3.74) x10^3/uL Absolute Monos (auto) 0.58 (0.24-0.86) x10^3/uL Absolute Nucleated RBC 0.00 (0.00-0.012) x10^3u/L Lymphocytes % 19.1 L (19.3-51.7) % Monocytes % 6.9 (4.7-12.5) % Eosinophils % 0.7 (0.7-5.8) % Basophils % 0.4 (0.1-1.2) % Absolute Granulocytes 6.11 (1.56-6.13) x10^3/uL Basophils # 0.03 (0.01-0.08) x10^3/uL ESR (0-20) mm/hr Sodium 138 (135-145) mmol/L Potassium 3.9 (3.5-5.1) mmol/L Chloride 106 (98-107) mmol/L Carbon Dioxide 25 (22-30) mmol/L Anion Gap 10.4 (5-15) MEQ/L BUN 18 H (7-17) mg/dL Creatinine 0.99 (0.52-1.04) mg/dL Estimated GFR 76.7 ML/MIN Glucose 169 H (74-106) mg/dL Lactic Acid (0.4-2.0) Calcium 9.0 (8.4-10.2) mg/dL Total Bilirubin 0.30 (0.2-1.3) mg/dL AST 32 (14-36) U/L ALT 39 H (0-35) U/L Alkaline Phosphatase 90 (38-126) U/L Serum Total Protein 6.7 (6.3-8.2) g/dL Albumin 3.9 (3.5-5.0) g/dL Serum HCG, Qual NEGATIVE (NEGATIVE) Stl Occult Blood (IFOB) Cancelled ABO Group Rh Factor Antibody Screen (NEGATIVE) 04/11/24 Range/Units 16:07 WBC (3.98-10.04) x10^3/uL RBC (3.93-5.22) x10^6/uL Hgb (11.2-15.7) g/dL Hct (34.1-44.9) % MCV (79.4-94.8) fL MCH (25.6-32.2) pg MCHC (32.2-35.5) g/dL RDW (11.7-14.4) % Plt Count (182-369) x10^3/uL MPV (9.4-12.3) fL Gran % (34.0-71.1) % Immature Gran % (Auto) (0.001-0.429) % Nucleat RBC Rel Count (0.00-0.2) % Eos # (Auto) (0.04-0.36) x10^3/uL Immature Gran # (Auto) (0.001-0.031) x10^3u/L Absolute Lymphs (auto) (1.18-3.74) x10^3/uL Absolute Monos (auto) (0.24-0.86) x10^3/uL Absolute Nucleated RBC (0.00-0.012) x10^3u/L Lymphocytes % (19.3-51.7) % Monocytes % (4.7-12.5) % Eosinophils % (0.7-5.8) % Basophils % (0.1-1.2) % Absolute Granulocytes (1.56-6.13) x10^3/uL Basophils # (0.01-0.08) x10^3/uL ESR (0-20) mm/hr Sodium (135-145) mmol/L Potassium (3.5-5.1) mmol/L Chloride (98-107) mmol/L Carbon Dioxide (22-30) mmol/L Anion Gap (5-15) MEQ/L BUN (7-17) mg/dL Creatinine (0.52-1.04) mg/dL Estimated GFR ML/MIN Glucose (74-106) mg/dL Lactic Acid 1.1 (0.4-2.0) Calcium (8.4-10.2) mg/dL Total Bilirubin (0.2-1.3) mg/dL AST (14-36) U/L ALT (0-35) U/L Alkaline Phosphatase (38-126) U/L Serum Total Protein (6.3-8.2) g/dL Albumin (3.5-5.0) g/dL Serum HCG, Qual (NEGATIVE) Stl Occult Blood (IFOB) ABO Group Rh Factor Antibody Screen (NEGATIVE) <THIAGO GARCIA - Last Filed: 04/11/24 20:29> - Progress Progress: unchanged Counseled pt/family regarding: lab results, diagnosis, need for follow-up, rad results <MICKY CAREY - Last Filed: 04/13/24 08:13> - Progress Progress Note: 04/11/24 19:22 I assumed care for pt at [address] Carey 04/11/24 19:51 repeat hgb 8.1, down from 9.3 will likely require admission for colonoscopy vs EGD for likely GI bleed 04/11/24 20:29 Pt requesting to leave AMA, is not interested in staying for further w/u of GI bleed I discussed risks of leaving AMA including risk of , pt voiced understanding of her current medical condition and and risks she is taking by leaving the hospital pt given AMA paperwork (THIAGO GARCIA) 04/11/24 16:47 Gastrointestinal Bleeding: Severe rectal bleeding for 3 days with associated dizziness and shortness of breath. History of polyps but no known inflammatory bowel disease. Hemorrhoids present but not symptomatic. -Order labs including complete blood count and type and screen. -Perform abdominal scan to assess for any inflammatory changes. -Consider blood transfusion if hemoglobin is below 7. Nausea: No vomiting reported. -Manage symptomatically as needed. 04/11/24 19:09 Nausea improved. Initial hemoglobin 9.3 down from her baseline in the 13's. Remainder of labs within normal limits. CT scan of the abdomen unremarkable. Patient likely dehydrated at this time given normal saline bolus. ESR elevated at 19. Discussed importance of follow-up with her GI physician. Will repeat hemoglobin prior to discharge. Transition to Dr. Garcia at 1900. 04/11/24 19:10 (MICKY CAREY) Medical Desision Making - Diagnostic Testing Diagnostic test were ordered, analyzed, and reviewed by me: Yes Radiological Interpretation: Reviewed by me, Teleradiologist Report - Risk of complications The pt has a high risk of morbidity or mortality based on: Decision regarding hospitilization or escalation of hosp level of care <THIAGO GARCIA - Last Filed: 04/11/24 20:29> - Departure Departure Disposition: AMA Critical Care Time: No <THIAGO GARCIA - Last Filed: 04/11/24 20:29> <MICKY CAREY - Last Filed: 04/13/24 08:13> - Departure Clinical Impression: Hematochezia Anemia Qualifiers: Anemia type: unspecified type Qualified Code(s): D64.9 - Anemia, unspecified Condition: Stable Referrals: CHARLEY AIKEN, METER TECHNICIAN [Primary Care Provider] - Follow up/PCP as directed
[2024-04-11] MEDS: Sodium Chloride 0.9% 1000 ML 1,000 ML IV STA (16:15)
[2024-04-11] MEDS ORDERED: Zofran 4 MG/2 ML VIAL ONE (16:27)
[2024-04-11] MEDS: Zofran 4 MG/2 ML VIAL IV ONE (16:29)
[2024-04-11 16:38] LABS: Absolute Neutrophil Ct (ANC) 6.11 x10^3/uL (1.56-6.13); BASOPHIL % 0.4 % (0.1-1.2); Basophil (Absolute #) 0.03 x10^3/uL (0.01-0.08); Eosinophil % 0.7 % (0.7-5.8); Eosinophil (Absolute #) 0.06 x10^3/uL (0.04-0.36); Hematocrit 28.6 % (34.1-44.9); Hemoglobin 9.3 g/dL (11.2-15.7); IMMATURE GRAN # 0.04 x10^3u/L (0.001-0.031); IMMATURE GRAN % 0.5 % (0.001-0.429); Lymphocyte (Absolute #) 1.61 x10^3/uL (1.18-3.74); Lymphocytes % 19.1 % (19.3-51.7); Mean Cell Volume 82.9 fL (79.4-94.8); Mean Corpuscular Hgb Concent. 32.5 g/dL (32.2-35.5); Mean Platelet Volume 11.4 fL (9.4-12.3); Monocyte (Absolute #) 0.58 x10^3/uL (0.24-0.86); Monocytes % 6.9 % (4.7-12.5); Neutrophil % 72.4 % (34.0-71.1); Platelet Count 272 x10^3/uL (182-369); Red Blood Count 3.45 x10^6/uL (3.93-5.22); Red Cell Distribution Width 13.1 % (11.7-14.4); White Blood Count 8.4 x10^3/uL (3.98-10.04)
[2024-04-11 16:50] LABS: ALBUMIN 3.9 g/dL (3.5-5.0); ANION GAP 10.4 MEQ/L (5-15); BILIRUBIN,TOTAL 0.3 mg/dL (0.2-1.3); Creatinine 1 0.99 mg/dL (0.52-1.04); EST GLOMERULAR FILTRATION RATE 76.7 ML/MIN; HCG SERUM TEST NEGATIVE (NEGATIVE); Potassium 3.9 mmol/L (3.5-5.1); Total Protein 6.7 g/dL (6.3-8.2)
[2024-04-11 17:58] LABS: ABO TYPING B; Antibody Screen NEGATIVE (NEGATIVE); RH TYPING POSITIVE
[2024-04-11 18:15] VITALS: PULSE 93
--- NOTE | 2024-04-11 18:58 | XRAY ---
CLINICAL HISTORY: abd pain, bloody bm COMPARISON: none. TECHNIQUE: A CT scan of the abdomen and pelvis was performed without IV contrast. Coronal and sagittal reconstructive images were also obtained. One of the following dose reduction techniques was utilized for this exam.Automated exposure control, adjustment of the mA and/or kV according to patient size, and use of iterative reconstruction. FINDINGS: The liver is of average size, regular contour and homogeneous low texture with no focal lesion could be detected on a non-contrast basis. No intra hepatic biliary radical dilatation. Cholecystectomy surgical clips are noted. The spleen is of average size and shape with homogeneous parenchyma and no focal lesion could be noted on a non-contrast basis. 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 Both kidneys are of normal size, shape and parenchymal thickness with no stones, back pressure changes or space-occupying lesions on a non-contrast basis. The other retroperitoneal structures including the pancreas and adrenal glands are grossly within normal limits. Bowel looops are unremarkable, normal appendix. No significant lymph poli enlargement or ascitic fluid collection. Normal filling of the urinary bladder with no stones, masses, or diverticula. Bone window settings showed no evidence of fractures or destructive lesions. Lung window settings showed normal appearance of both basal lung segments. IMPRESSION: Fatty liver changes. 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 Electronically Signed by: Aly Vasquez MD. (04/11/2024 18:53:30 EDT)
[2024-04-11 20:26] VITALS: BP 95/65; RESP 21
[2024-04-13 08:13] VITALS: O2SAT 98
== END 2024-04-11 20:28 | disposition left against medical advice (07) ==
LOC: ED 15:54
DX: K92.1 Melena (principal); Z86.010 Personal history of colon polyps; R11.0 Nausea; R42 Dizziness and giddiness; R06.02 Shortness of breath; K64.9 Unspecified hemorrhoids; D64.9 Anemia, unspecified
CPT/HCPCS: 36000; 36415; 74176; 80053; 83605; 84703; 85018; 85025; 85652; 86850; 86900; 86901; 96374; 99284; J2405

== ENCOUNTER 2024-04-13 10:10 | Observation (INO) | payer OTHER ==
--- NOTE | 2024-04-13 10:18 | ERPHSYRPT ---
- History of Present Illness Time Seen by Provider: 04/13/24 10:18 Source: patient Exam Limitations: no limitations Physician History: Patient was evaluated emergency room on Saturday and was found to have a hemoglobin of 9.3 on initial evaluation but repeat dropped down to 8.1. Her CT abdomen pelvis was within normal limits at that time. It was recommended to her that she stay for hemoglobin monitoring and possible EGD and colonoscopy at that time but patient left AGAINST MEDICAL ADVICE. Today she returns with continued rectal bleeding, worsening dizziness, shortness of breath. She denies chest pain. Timing/Duration: week(s) (1), worse Severity: moderate Modifying Factors: Worsens With: movement Associated Symptoms: shortness of breath, headaches, other (dizziness), No nausea, No vomiting, No abdominal pain, No diaphoresis, No chest pain, No fever Allergies/Adverse Reactions: iodine Allergy (Severe, Verified 04/13/24 10:15) Hives morphine Allergy (Verified 04/13/24 10:15) Shortness of Breath povidone-iodine [From Betadine] Allergy (Verified 04/13/24 10:15) Swelling swelling at sight of F/C insertion soap [From Betadine] Allergy (Verified 04/13/24 10:15) Swelling Home Medications: Cholecalciferol (Vitamin D3) [Vitamin D3] 50 mcg PO DAILY 04/11/24 [History] Ergocalciferol (Vitamin D2) [Vitamin D2] 1.25 mg PO WEEKLY 04/11/24 [History] Levothyroxine Sodium 50 Mcg [Synthroid 50 Mcg] 50 mcg PO DAILY 04/11/24 [History] Spironolactone 100 mg PO DAILY 04/11/24 [History] Hx Tetanus, Diphtheria Vaccination/Date Given: Yes Hx Influenza Vaccination/Date Given: No Hx Pneumococcal Vaccination/Date Given: No Travel Risk - Emerging Infectious Disease Are you exhibiting symptoms associated with any current EIDs: Yes Symptoms: Diarrhea - Review of Systems All Other Systems: Reviewed and Negative - Past Medical History Pertinent Past Medical History: Yes Neurological History: Migraines ENT History: No Pertinent History Cardiac History: No Pertinent History Respiratory History: Asthma Endocrine Medical History: No Pertinent History Musculoskeletal History: No Pertinent History GI Medical History: Gallbladder Disease, Other History: No Pertinent History Psycho-Social History: No Pertinent History Female Reproductive Disorders: No Pertinent History Other Medical History: polycystic ovarian syndrome, rectal abscess - Past Surgical History Past Surgical History: Yes Neuro Surgical History: No Pertinent History Cardiac: No Pertinent History Respiratory: No Pertinent History Gastrointestinal: Cholecystectomy, Other Genitourinary: No Pertinent History Musculoskeletal: No Pertinent History Female Surgical History: Hysterectomy, Tubal Ligation, Other Other Surgical History: STEVAN RECTAL ABSCESS, FISTULA, colonoscopy, egd, wisdom teeth, ablation - Female History Hx Last Menstrual Period: April, - Social History Smoking Status: Former smoker How long have you smoked: 11 years Exposure to second hand smoke: No Drug Use: none Patient Lives Alone: No - Social Determinants of Health Will the patient participate in the screening: Yes Do you worry about a steady place to live?: No In the past 12 months,have you had to go without utilities?: No Transportation Issues: No Has anyone in your support network made you feel unsafe?: No Have you or anyone in your house had to go without enough: No - Nursing Vital Signs Nursing Vital Signs: Initial Vital Signs Temperature 98.3 F 04/13/24 10:16 Pulse Rate 101 H 04/13/24 10:16 Respiratory Rate 20 04/13/24 10:16 Blood Pressure 109/70 04/13/24 10:16 O2 Sat by Pulse Oximetry 100 04/13/24 10:16 Pain Scale Pain Intensity 0 - Physical Exam General Appearance: no apparent distress, obese Eye Exam: pale conjunctivae Ears, Nose, Throat Exam: normal ENT inspection Neck Exam: normal inspection, supple, full range of motion Respiratory Exam: normal breath sounds, airway intact, No respiratory distress Cardiovascular Exam: regular rate/rhythm, normal heart sounds, capillary refill <2 sec Gastrointestinal/Abdomen Exam: soft, No tenderness, No distention Skin Exam: pale SpO2 Interpretation: normal O2 Delivery: Room Air Ordered Tests: Active Orders 24 hr Category Date Time Status IV Insertion STAT Care 04/13/24 10:15 Active IV Insertion-2nd Peripheral STAT Care 04/13/24 10:15 Active CBC W DIFF Stat Lab 04/13/24 10:27 Completed CMP Stat Lab 04/13/24 10:27 Completed Lactic Acid Stat Lab 04/13/24 10:30 Completed Medication Summary Generic Name Dose Route Start Last Admin Trade Name Freq PRN Reason Stop Dose Admin Sodium Chloride 1,000 mls @ 999 mls/hr 04/13/24 10:15 04/13/24 10:40 Sodium Chloride 0.9% 1000 Ml IV 04/13/24 11:15 999 mls/hr .Q1H1M STA Administration Discontinued Medications Generic Name Dose Route Start Last Admin Trade Name José Antonio PRN Reason Stop Dose Admin Sodium Chloride Confirm 04/13/24 10:39 Sodium Chloride 0.9% 1000 Ml Administered 04/13/24 10:40 Dose 1,000 mls @ .ROUTE .[facility] Lab/Rad Data: Laboratory Result Diagrams 04/13/24 10:27 04/13/24 10:27 Laboratory Results 04/13/24 04/13/24 04/13/24 Range/Units 10:30 10:27 10:27 WBC 7.9 (3.98-10.04) x10^3/uL RBC 2.85 L (3.93-5.22) x10^6/uL Hgb 7.6 L (11.2-15.7) g/dL Hct 24.3 L (34.1-44.9) % MCV 85.3 (79.4-94.8) fL MCH 26.7 (25.6-32.2) pg MCHC 31.3 L (32.2-35.5) g/dL RDW 13.2 (11.7-14.4) % Plt Count 298 (182-369) x10^3/uL MPV 11.5 (9.4-12.3) fL Gran % 61.3 (34.0-71.1) % Immature Gran % (Auto) 0.6 H (0.001-0.429) % Nucleat RBC Rel Count 0.3 H (0.00-0.2) % Eos # (Auto) 0.11 (0.04-0.36) x10^3/uL Immature Gran # (Auto) 0.05 H (0.001-0.031) x10^3u/L Absolute Lymphs (auto) 2.23 (1.18-3.74) x10^3/uL Absolute Monos (auto) 0.62 (0.24-0.86) x10^3/uL Absolute Nucleated RBC 0.02 H (0.00-0.012) x10^3u/L Lymphocytes % 28.3 (19.3-51.7) % Monocytes % 7.9 (4.7-12.5) % Eosinophils % 1.4 (0.7-5.8) % Basophils % 0.5 (0.1-1.2) % Absolute Granulocytes 4.83 (1.56-6.13) x10^3/uL Basophils # 0.04 (0.01-0.08) x10^3/uL Sodium 138 (135-145) mmol/L Potassium 4.0 (3.5-5.1) mmol/L Chloride 105 (98-107) mmol/L Carbon Dioxide 25 (22-30) mmol/L Anion Gap 12.0 (5-15) MEQ/L BUN 13 (7-17) mg/dL Creatinine 0.82 (0.52-1.04) mg/dL Estimated GFR 96.2 ML/MIN Glucose 119 H (74-106) mg/dL Lactic Acid 1.5 (0.4-2.0) Calcium 8.7 (8.4-10.2) mg/dL Total Bilirubin 0.40 (0.2-1.3) mg/dL AST 32 (14-36) U/L ALT 35 (0-35) U/L Alkaline Phosphatase 76 (38-126) U/L Serum Total Protein 6.6 (6.3-8.2) g/dL Albumin 3.9 (3.5-5.0) g/dL - Progress Progress: unchanged Progress Note: 04/13/24 11:12 Hemoglobin dropped to 7.6. Will hold off on blood products at this time as her hemoglobin is not less than 7 and she has no other comorbidities that necessitate blood products with hemoglobin less than 8. I discussed admission for monitoring and possible EGD colonoscopy with Dr. Dunlap who accepted admission at 1112. Discussed with : Other (Fabi) Will see patient in: hospital (observation) Counseled pt/family regarding: lab results, diagnosis, need for follow-up Medical Desision Making - Diagnostic Testing Diagnostic test were ordered, analyzed, and reviewed by me: Yes Radiological Interpretation: Interpreted by me - Risk of complications The pt has a high risk of morbidity or mortality based on: Decision regarding hospitilization or escalation of hosp level of care - Departure Departure Disposition: Observation Clinical Impression: GI bleeding, SOB (shortness of breath), Hematochezia, Dizziness, Anemia Condition: Good Critical Care Time: No Referrals: CHARLEY AIKEN, MISA [Primary Care Provider] - Follow up/PCP as directed Instructions: Gastrointestinal Bleeding (DC)
[2024-04-13 10:37] LABS: Absolute Neutrophil Ct (ANC) 4.83 x10^3/uL (1.56-6.13); BASOPHIL % 0.5 % (0.1-1.2); Basophil (Absolute #) 0.04 x10^3/uL (0.01-0.08); Eosinophil % 1.4 % (0.7-5.8); Eosinophil (Absolute #) 0.11 x10^3/uL (0.04-0.36); Hematocrit 24.3 % (34.1-44.9); Hemoglobin 7.6 g/dL (11.2-15.7); IMMATURE GRAN # 0.05 x10^3u/L (0.001-0.031); IMMATURE GRAN % 0.6 % (0.001-0.429); Lymphocyte (Absolute #) 2.23 x10^3/uL (1.18-3.74); Lymphocytes % 28.3 % (19.3-51.7); Mean Cell Volume 85.3 fL (79.4-94.8); Mean Corpuscular Hemoglobin 26.7 pg (25.6-32.2); Mean Corpuscular Hgb Concent. 31.3 g/dL (32.2-35.5); Mean Platelet Volume 11.5 fL (9.4-12.3); Monocyte (Absolute #) 0.62 x10^3/uL (0.24-0.86); Monocytes % 7.9 % (4.7-12.5); NUCLEATED RBC # 0.02 x10^3u/L (0.00-0.012); NUCLEATED RBC % 0.3 % (0.00-0.2); Neutrophil % 61.3 % (34.0-71.1); Platelet Count 298 x10^3/uL (182-369); Red Blood Count 2.85 x10^6/uL (3.93-5.22); Red Cell Distribution Width 13.2 % (11.7-14.4); White Blood Count 7.9 x10^3/uL (3.98-10.04)
[2024-04-13] MEDS ORDERED: Sodium Chloride 0.9% 1000 ML 1,000 ML ONE (10:39)
[2024-04-13] MEDS: Sodium Chloride 0.9% 1000 ML 1,000 ML IV STA (10:40)
[2024-04-13 10:52] LABS: ALBUMIN 3.9 g/dL (3.5-5.0); BILIRUBIN,TOTAL 0.4 mg/dL (0.2-1.3); Calcium 8.7 mg/dL (8.4-10.2); Creatinine 1 0.82 mg/dL (0.52-1.04); EST GLOMERULAR FILTRATION RATE 96.2 ML/MIN; Total Protein 6.6 g/dL (6.3-8.2)
[2024-04-13 11:15] LABS: ABO TYPING B; Antibody Screen NEGATIVE (NEGATIVE); RH TYPING POSITIVE
--- NOTE | 2024-04-13 12:38 | PCM.HP ---
History of Present Illness - Chief Complaint Chief Complaint: GI bleed, SOB Date: 04/13/24 History of Present Illness: is a 34 year old female with PMHX of asthma, PCOS, hypothyroidism, migraines, and morbid obesity. Patient was evaluated emergency room on Saturday and was found to have a hemoglobin of 9.3 on initial evaluation but repeat dropped down to 8.1. Her CT abdomen pelvis was within normal limits at that time. It was recommended to her that she stay for hemoglobin monitoring and possible EGD and colonoscopy at that time but patient left AMA. Today she returned with continued rectal bleeding, worsening dizziness, and shortness of breath. Hgb is 7.6 on admission. She reports bright red blood with stools and sometimes intermittent stools when no BM. She has a reported long hx of rectal bleeding and used to see a colon/rectal specialist in [facility]. She has had a rectal abcess, fistula, and multiple EGD's and colonoscopies in the past. Surgery consulted for colonoscopy. She reports she has not been taking spirolactone in the past 2 days as she only takes when she has edema. Will order anemia panel for further evaluation of sxs. She denies CP, abd. pain, N/V/D. - Review of Systems Constitutional: No Fever, No Chills Eyes: No Symptoms Ears, Nose, & Throat: No Symptoms Respiratory: No Cough, No Short Of Breath Cardiac: No Chest Pain, No Edema, No Syncope Abdominal/Gastrointestinal: Hematochezia, No Abdominal Pain, No Nausea, No Vomiting, No Diarrhea Genitourinary Symptoms: No Dysuria Musculoskeletal: No Back Pain, No Neck Pain Skin: No Rash Neurological: No Dizziness, No Focal Weakness, No Sensory Changes Psychological: No Symptoms Endocrine: No Symptoms Hematologic/Lymphatic: No Symptoms Immunological/Allergic: No Symptoms Medications & Allergies Home Medications: Home Medication List Cholecalciferol (Vitamin D3) [Vitamin D3] 50 mcg PO DAILY 04/11/24 [History Confirmed 04/13/24] Ergocalciferol (Vitamin D2) [Vitamin D2] 1.25 mg PO WEEKLY 04/11/24 [History Confirmed 04/13/24] Levothyroxine Sodium 50 Mcg [Synthroid 50 Mcg] 50 mcg PO DAILY 04/11/24 [History Confirmed 04/13/24] Spironolactone 100 mg PO DAILY 04/11/24 [History Confirmed 04/13/24] Allergies/Adverse Reactions: Allergies Allergy/AdvReac Type Severity Reaction Status Date / Time iodine Allergy Severe Hives Verified 04/13/24 12:03 morphine Allergy Shortness Verified 04/13/24 12:03 of Breath povidone-iodine Allergy Swelling Verified 04/13/24 12:03 [From Betadine] soap [From Betadine] Allergy Swelling Verified 04/13/24 12:03 - Past Medical History Past Medical History: Yes Neurological History: Migraines ENT History: No Pertinent History Cardiac History: No Pertinent History Respiratory History: Asthma Endocrine Medical History: No Pertinent History Musculoskelatal History: No Pertinent History GI Medical History: Gallbladder Disease, Other History: No Pertinent History Pyscho-Social History: No Pertinent History Reproductive Disorders: No Pertinent History Comment: polycystic ovarian syndrome, rectal abscess - Female History Hx Last Menstrual Period: hysterectomy Are you now?: No - Past Surgical History Past Surgical History: Yes Neuro Surgical History: No Pertinent History Cardiac History: No Pertinent History Respiratory Surgery: No Pertinent History GI Surgical History: Cholecystectomy, Other Genitourinary Surgical Hx: No Pertinent History Musculskeletal Surgical Hx: No Pertinent History Female Surgical History: Hysterectomy, Tubal Ligation, Other Other Surgical History: STEVAN RECTAL ABSCESS, FISTULA, colonoscopy, egd, wisdom teeth, ablation - Social History Smoking Status: Former smoker How long have you smoked: 11 years Exposure to second hand smoke: No Alcohol: None Drug Use: none - Social Determinants of Health Will the patient participate in the screening: Yes Do you worry about a steady place to live?: No Do you have any problems with any of the following?: No known problems In the past 12 months,have you had to go without utilities?: No Have you or anyone in your house had to go without enough: No Transportation Issues: No Has anyone in your support network made you feel unsafe?: No Does the patient want assistance with any of the above?: No - Physical Exam Vital Signs: Vital Signs - 24 hr Temp Pulse Resp BP BP Pulse Ox 04/13/24 12:00 97.6 F 80 17 135/84 99 04/13/24 11:47 97.6 F 80 17 135/84 99 04/13/24 11:20 78 19 137/92 100 04/13/24 11:10 78 16 145/98 100 04/13/24 11:00 79 25 H 139/93 100 04/13/24 10:50 86 17 117/92 100 04/13/24 10:30 81 20 86/60 99 04/13/24 10:16 98.3 F 101 H 20 109/70 100 General Appearance: no apparent distress, alert, obese Neurologic Exam: alert, oriented x 3, cooperative, normal mood/affect, nml cerebellar function, nml station & gait, sensation nml, No motor deficits Eye Exam: PERRL/EOMI, eyes nml inspection Ears, Nose, Throat Exam: normal ENT inspection, TMs normal, pharynx normal, moist mucous membranes Neck Exam: normal inspection, non-tender, supple, full range of motion Respiratory Exam: normal breath sounds, lungs clear, No respiratory distress Cardiovascular Exam: regular rate/rhythm, normal heart sounds, normal peripheral pulses Gastrointestinal/Abdomen Exam: soft, normal bowel sounds, No tenderness, No mass Back Exam: normal inspection, normal range of motion, No CVA tenderness, No vertebral tenderness Extremity Exam: normal inspection, normal range of motion, pelvis stable Skin Exam: normal color, warm, dry, No rash Lymphatic Exam: No adenopathy Results - Labs Lab/Micro Results: Lab Results-Last 24 Hours 04/13/24 04/13/24 04/13/24 Range/Units 10:27 10:27 10:27 WBC 7.9 (3.98-10.04) x10^3/uL RBC 2.85 L (3.93-5.22) x10^6/uL Hgb 7.6 L (11.2-15.7) g/dL Hct 24.3 L (34.1-44.9) % MCV 85.3 (79.4-94.8) fL MCH 26.7 (25.6-32.2) pg MCHC 31.3 L (32.2-35.5) g/dL RDW 13.2 (11.7-14.4) % Plt Count 298 (182-369) x10^3/uL MPV 11.5 (9.4-12.3) fL Gran % 61.3 (34.0-71.1) % Immature Gran % (Auto) 0.6 H (0.001-0.429) % Nucleat RBC Rel Count 0.3 H (0.00-0.2) % Eos # (Auto) 0.11 (0.04-0.36) x10^3/uL Immature Gran # (Auto) 0.05 H (0.001-0.031) x10^3u/L Absolute Lymphs (auto) 2.23 (1.18-3.74) x10^3/uL Absolute Monos (auto) 0.62 (0.24-0.86) x10^3/uL Absolute Nucleated RBC 0.02 H (0.00-0.012) x10^3u/L Lymphocytes % 28.3 (19.3-51.7) % Monocytes % 7.9 (4.7-12.5) % Eosinophils % 1.4 (0.7-5.8) % Basophils % 0.5 (0.1-1.2) % Absolute Granulocytes 4.83 (1.56-6.13) x10^3/uL Basophils # 0.04 (0.01-0.08) x10^3/uL Sodium 138 (135-145) mmol/L Potassium 4.0 (3.5-5.1) mmol/L Chloride 105 (98-107) mmol/L Carbon Dioxide 25 (22-30) mmol/L Anion Gap 12.0 (5-15) MEQ/L BUN 13 (7-17) mg/dL Creatinine 0.82 (0.52-1.04) mg/dL Estimated GFR 96.2 ML/MIN Glucose 119 H (74-106) mg/dL Lactic Acid (0.4-2.0) Calcium 8.7 (8.4-10.2) mg/dL Total Bilirubin 0.40 (0.2-1.3) mg/dL AST 32 (14-36) U/L ALT 35 (0-35) U/L Alkaline Phosphatase 76 (38-126) U/L Serum Total Protein 6.6 (6.3-8.2) g/dL Albumin 3.9 (3.5-5.0) g/dL ABO Group B Rh Factor POSITIVE Antibody Screen NEGATIVE (NEGATIVE) 04/13/24 Range/Units 10:30 WBC (3.98-10.04) x10^3/uL RBC (3.93-5.22) x10^6/uL Hgb (11.2-15.7) g/dL Hct (34.1-44.9) % MCV (79.4-94.8) fL MCH (25.6-32.2) pg MCHC (32.2-35.5) g/dL RDW (11.7-14.4) % Plt Count (182-369) x10^3/uL MPV (9.4-12.3) fL Gran % (34.0-71.1) % Immature Gran % (Auto) (0.001-0.429) % Nucleat RBC Rel Count (0.00-0.2) % Eos # (Auto) (0.04-0.36) x10^3/uL Immature Gran # (Auto) (0.001-0.031) x10^3u/L Absolute Lymphs (auto) (1.18-3.74) x10^3/uL Absolute Monos (auto) (0.24-0.86) x10^3/uL Absolute Nucleated RBC (0.00-0.012) x10^3u/L Lymphocytes % (19.3-51.7) % Monocytes % (4.7-12.5) % Eosinophils % (0.7-5.8) % Basophils % (0.1-1.2) % Absolute Granulocytes (1.56-6.13) x10^3/uL Basophils # (0.01-0.08) x10^3/uL Sodium (135-145) mmol/L Potassium (3.5-5.1) mmol/L Chloride (98-107) mmol/L Carbon Dioxide (22-30) mmol/L Anion Gap (5-15) MEQ/L BUN (7-17) mg/dL Creatinine (0.52-1.04) mg/dL Estimated GFR ML/MIN Glucose (74-106) mg/dL Lactic Acid 1.5 (0.4-2.0) Calcium (8.4-10.2) mg/dL Total Bilirubin (0.2-1.3) mg/dL AST (14-36) U/L ALT (0-35) U/L Alkaline Phosphatase (38-126) U/L Serum Total Protein (6.3-8.2) g/dL Albumin (3.5-5.0) g/dL ABO Group Rh Factor Antibody Screen (NEGATIVE) Assessment/Plan (1) GI bleed Current Visit: Yes Status: Acute Assessment & Plan: - GS consult for colonoscopy - H&H Q6 - NPO - LR @ 75ml/hr - Pantoprazole 40 BID - Tele Code(s): K92.2 - GASTROINTESTINAL HEMORRHAGE, UNSPECIFIED (2) Anemia Current Visit: Yes Status: Acute Assessment & Plan: - 2:2 GI bleed - anemia panel - Hgb 7.6 - H&H Q6 - GS consult for Colonoscopy - Occult stool - Pt eval for associated dizziness/ weakness Code(s): D64.9 - ANEMIA, UNSPECIFIED (3) Dizziness Current Visit: Yes Status: Acute Assessment & Plan: - 2;2 anemia - PT eval Code(s): R42 - DIZZINESS AND GIDDINESS (4) Morbid obesity with BMI of 45.0-49.9, adult Current Visit: Yes Status: Chronic Assessment & Plan: - advised diet and exercise control Code(s): E66.01 - MORBID (SEVERE) OBESITY DUE TO EXCESS CALORIES; Z68.42 - BODY MASS INDEX [BMI] 45.0-49.9, ADULT (5) Hypothyroidism Current Visit: Yes Status: Chronic Assessment & Plan: - Continue Synthroid VTE: SCD's PPI: Pantoprazole Next of KIN: spouse- Bill Walsht [phone] D/C plan: 1-2 days Code status: Full Code(s): E03.9 - HYPOTHYROIDISM, UNSPECIFIED
[2024-04-13] MEDS: Aldactone 25 MG PO SCH (13:23)
[2024-04-13] MEDS: VITAMIN D PO SCH (13:29)
[2024-04-13] MEDS: Protonix 40MG Tablet PO SCH (13:29)
[2024-04-13] MEDS: SYNTHROID 50 MCG PO SCH (13:29)
[2024-04-13] MEDS: Lactated Ringers 1,000 ML IV SCH (13:29)
[2024-04-13 16:12] LABS: Iron 24 ug/dL (37-170); Iron Saturation 6 % (20-39); TIBC 434 ug/dL (265-462)
[2024-04-13 16:16] LABS: Hematocrit 22.8 % (34.1-44.9)
[2024-04-13] MEDS: FEOSOL 325 MG PO SCH (18:06)
[2024-04-13 18:15] LABS: CROSS MATCH (PRBC) COMPATIBLE (COMPATIBLE)
[2024-04-13 18:17] LABS: CROSS MATCH (PRBC) COMPATIBLE (COMPATIBLE)
[2024-04-13] MEDS: TYLENOL 325 MG PO PRN (18:36)
[2024-04-13] MEDS: Sodium Chloride 0.9% 500 ML 500 ML IV SCH (21:06)
[2024-04-14 02:05] LABS: Hematocrit 28.6 % (34.1-44.9); Hemoglobin 9.2 g/dL (11.2-15.7)
[2024-04-14 04:16] LABS: Ferritin 7.76 ng/mL (6.24-137); Folate (Folic Acid) > 16.6 ng/mL (2.76 - >20); Vitamin B12 317 pg/mL (239-931)
[2024-04-14 04:58] LABS: Hematocrit 28.1 % (34.1-44.9); Hemoglobin 9.1 g/dL (11.2-15.7); Mean Cell Volume 83.1 fL (79.4-94.8); Mean Corpuscular Hemoglobin 26.9 pg (25.6-32.2); Mean Corpuscular Hgb Concent. 32.4 g/dL (32.2-35.5); Platelet Count 254 x10^3/uL (182-369); Red Blood Count 3.38 x10^6/uL (3.93-5.22); Red Cell Distribution Width 13.5 % (11.7-14.4)
[2024-04-14] MEDS: BENADRYL 50 MG/ML IV ONE (05:05)
[2024-04-14 05:28] LABS: White Blood Count 6.8 x10^3/uL (3.98-10.04)
[2024-04-14 05:32] LABS: ALBUMIN 3.4 g/dL (3.5-5.0); ANION GAP 11.4 MEQ/L (5-15); BILIRUBIN,TOTAL 0.8 mg/dL (0.2-1.3); Calcium 8.7 mg/dL (8.4-10.2); Creatinine 1 0.84 mg/dL (0.52-1.04); EST GLOMERULAR FILTRATION RATE 93.5 ML/MIN; Potassium 3.6 mmol/L (3.5-5.1); Total Protein 5.9 g/dL (6.3-8.2)
--- NOTE | 2024-04-14 10:28 | CONS ---
HISTORY: This patient is seeing me per Dr. Bishnu Brennan who is net web application developer for our group today. She came in to the floor during the day here. She is a 34-year-old who had some rectal bleeding for years, worse recently with bright red rectal bleeding. She has had hemoglobin from 9.3 down to 7.6 this morning. She denies any blood thinner use. Her liver function tests were okay. It has been a few years since she has had endoscopy. PAST MEDICAL HISTORY: Polycystic ovarian syndrome. She had history of migraines, mild hypothyroidism. PAST SURGICAL HISTORY: She has had 2 fistula surgeries. She is a little vague on the details on those. She has had cholecystectomy, hysterectomy. She had an ablation in the past and tubal. She has had wisdom teeth surgery in the past as well. HOME MEDICATIONS: Ergocalciferol, vitamin D2, levothyroxine for hypothyroidism. She takes spironolactone. ALLERGIES: Iodine, has shortness of breath with morphine, has swelling with Betadine, has swelling with some soaps. FAMILY HISTORY: Negative for colon cancer, according to patient. Patient denies any history of Crohn's. SOCIAL HISTORY: She denies alcohol abuse. REVIEW OF SYSTEMS: Twelve systems reviewed and she denies any abdominal pain. Denies any chest pain or palpations. Denies any melena, just had some rectal bleeding. PHYSICAL EXAMINATION: GENERAL: No acute distress. HEENT: Sclerae nonicteric. Extraocular movements intact. NECK: No JVD. CHEST: Equal excursion, nonlabored breathing. CARDIOVASCULAR: Regular rate and rhythm. ABDOMEN: Soft, nontender. EXTREMITIES: No cyanosis or edema. NEUROLOGIC: Alert and oriented, moving extremities symmetrically. PSYCHIATRIC: Appropriate mood and affect. RECTAL: Deferred until the time of endoscopy. IMPRESSION: Rectal bleeding. The patient notes bright in nature and needs at least a colonoscopy. Could consider an EGD but per nurse practitioner, patient does not want an EGD at this point. I am seeing the patient for Dr. Ab Brennan. We will check with the office when he has time to do an endoscopy later this week. General risk of bleeding, infection, risk of bowel injury or perforation, risk of missed or nondiagnosis or incomplete exam. She denies any other questions at this time as well as the inability to diagnose the etiology of the bleeding. Again, we will check with the office and see when he has time to do a colonoscopy. If she changes her mind and wants an upper endoscopy, they can let us know. She says she does not have any prolapse of hemorrhoids at this time. Dr. Brennan can decide whether to add any possible hemorrhoid banding if indicated at the time of colonoscopy. The patient will be seen by Dr. Ab Brennan. Otherwise, continue medical management of hypothyroidism and polycystic ovarian syndrome.
--- NOTE | 2024-04-14 10:53 | PCM.NOTE ---
Date and Time: 04/14/24 1045 Subjective Assessment: 04/13/24 is a 34 year old female with PMHX of asthma, PCOS, hypothyroidism, migraines, and morbid obesity. Patient was evaluated emergency room on Saturday and was found to have a hemoglobin of 9.3 on initial evaluation but repeat dropped down to 8.1. Her CT abdomen pelvis was within normal limits at that time. It was recommended to her that she stay for hemoglobin monitoring and possible EGD and colonoscopy at that time but patient left AMA. Today she returned with continued rectal bleeding, worsening dizziness, and shortness of breath. Hgb is 7.6 on admission. She reports bright red blood with stools and sometimes intermittent stools when no BM. She has a reported long hx of rectal bleeding and used to see a colon/rectal specialist in [facility]. She has had a rectal abcess, fistula, and multiple EGD's and colonoscopies in the past. Surgery consulted for colonoscopy. She reports she has not been taking spirolactone in the past 2 days as she only takes when she has edema. Will order anemia panel for further evaluation of sxs. She denies CP, abd. pain, N/V/D. 04/14/24 Pt resting in bed. She is feeling better today. Hgb dropped to 7 and 2 units of PRBC ordered yesterday evening. Today Hgb is 9.1. She has not had any stools since admission. Plan is to start bowel prep this evening and tomorrow have EGD/ Colonoscopy with GS. IV fluids stopped as arms were staring to have edema this AM. She denies CP, SOB, abd. pain. N/V/D. - Review of Systems Constitutional: No Fever, No Chills Eyes: No Symptoms Ears, Nose, & Throat: No Symptoms Respiratory: No Cough, No Short Of Breath Cardiac: No Chest Pain, No Edema, No Syncope Abdominal/Gastrointestinal: No Abdominal Pain, No Nausea, No Vomiting, No Leila rrhea Genitourinary Symptoms: No Dysuria Musculoskeletal: No Back Pain, No Neck Pain Skin: No Rash Neurological: No Dizziness, No Focal Weakness, No Sensory Changes Psychological: No Symptoms Endocrine: No Symptoms Hematologic/Lymphatic: No Symptoms Immunological/Allergic: No Symptoms Objective Exam General Appearance: no apparent distress, alert, obese Neurologic Exam: alert, oriented x 3, cooperative, normal mood/affect, nml cerebellar function, sensation nml, No motor deficits Skin Exam: normal color, warm, dry Eye Exam: PERRL, EOMI, eyes nml inspection Ears, Nose, Throat Exam: normal ENT inspection, pharynx normal, moist mucous membranes Neck Exam: normal inspection, non-tender, supple, full range of motion Respiratory Exam: normal breath sounds, lungs clear, No respiratory distress Cardiovascular Exam: regular rate/rhythm, normal heart sounds Gastrointestinal/Abdomen Exam: soft, No tenderness, No mass Extremity Exam: normal inspection, normal range of motion Back Exam: normal inspection, normal range of motion, No CVA tenderness, No vertebral tenderness Pelvic Exam: deferred Rectal Exam: deferred Objective Data Vital Signs: Vital Signs - 24 hr Temp Pulse Resp BP BP Pulse Ox 04/14/24 07:22 98.0 F 80 16 125/84 97 04/14/24 04:00 98.6 F 80 16 136/83 93 L 04/13/24 23:18 98.9 F 93 H 22 132/84 94 L 04/13/24 18:56 98.2 F 88 16 131/83 96 04/13/24 16:00 97.7 F 85 16 128/67 99 04/13/24 12:00 97.6 F 80 17 135/84 99 04/13/24 11:47 97.6 F 80 17 135/84 99 04/13/24 11:20 78 19 137/92 100 04/13/24 11:10 78 16 145/98 100 04/13/24 11:00 79 25 H 139/93 100 04/13/24 10:50 86 17 117/92 100 Pain Assessment - Last Documented Pain Intensity 5 Pain Scale Used 0-10 Pain Scale Intake and Output: Intake & Output 04/11/24 04/12/24 04/13/24 04/14/24 11:59 11:59 11:59 11:59 Intake Total 120 Output Total 0 Balance 120 Weight 126.6 kg Lab Results: Lab Results-Last 24 Hours 04/13/24 04/13/24 04/13/24 Range/Units 01:50 10:27 10:27 WBC 7.9 (3.98-10.04) x10^3/uL RBC 2.85 L (3.93-5.22) x10^6/uL Hgb 9.2 L 7.6 L (11.2-15.7) g/dL Hct 28.6 L 24.3 L (34.1-44.9) % MCV 85.3 (79.4-94.8) fL MCH 26.7 (25.6-32.2) pg MCHC 31.3 L (32.2-35.5) g/dL RDW 13.2 (11.7-14.4) % Plt Count 298 (182-369) x10^3/uL MPV 11.5 (9.4-12.3) fL Gran % 61.3 (34.0-71.1) % Immature Gran % (Auto) 0.6 H (0.001-0.429) % Nucleat RBC Rel Count 0.3 H (0.00-0.2) % Eos # (Auto) 0.11 (0.04-0.36) x10^3/uL Immature Gran # (Auto) 0.05 H (0.001-0.031) x10^3u/L Absolute Lymphs (auto) 2.23 (1.18-3.74) x10^3/uL Absolute Monos (auto) 0.62 (0.24-0.86) x10^3/uL Absolute Nucleated RBC 0.02 H (0.00-0.012) x10^3u/L Lymphocytes % 28.3 (19.3-51.7) % Monocytes % 7.9 (4.7-12.5) % Eosinophils % 1.4 (0.7-5.8) % Basophils % 0.5 (0.1-1.2) % Absolute Granulocytes 4.83 (1.56-6.13) x10^3/uL Basophils # 0.04 (0.01-0.08) x10^3/uL Sodium 138 (135-145) mmol/L Potassium 4.0 (3.5-5.1) mmol/L Chloride 105 (98-107) mmol/L Carbon Dioxide 25 (22-30) mmol/L Anion Gap 12.0 (5-15) MEQ/L BUN 13 (7-17) mg/dL Creatinine 0.82 (0.52-1.04) mg/dL Estimated GFR 96.2 ML/MIN Glucose 119 H (74-106) mg/dL Calcium 8.7 (8.4-10.2) mg/dL Iron (37-170) ug/dL TIBC (265-462) ug/dL Iron Saturation (20-39) % Ferritin (6.24-137) ng/mL Total Bilirubin 0.40 (0.2-1.3) mg/dL AST 32 (14-36) U/L ALT 35 (0-35) U/L Alkaline Phosphatase 76 (38-126) U/L Serum Total Protein 6.6 (6.3-8.2) g/dL Albumin 3.9 (3.5-5.0) g/dL Vitamin B12 (239-931) pg/mL Folic Acid (2.76 - >20) ng/mL ABO Group Rh Factor Antibody Screen (NEGATIVE) Crossmatch (COMPATIBLE) 04/13/24 04/13/24 04/13/24 Range/Units 10:27 10:27 10:27 WBC (3.98-10.04) x10^3/uL RBC (3.93-5.22) x10^6/uL Hgb (11.2-15.7) g/dL Hct (34.1-44.9) % MCV (79.4-94.8) fL MCH (25.6-32.2) pg MCHC (32.2-35.5) g/dL RDW (11.7-14.4) % Plt Count (182-369) x10^3/uL MPV (9.4-12.3) fL Gran % (34.0-71.1) % Immature Gran % (Auto) (0.001-0.429) % Nucleat RBC Rel Count (0.00-0.2) % Eos # (Auto) (0.04-0.36) x10^3/uL Immature Gran # (Auto) (0.001-0.031) x10^3u/L Absolute Lymphs (auto) (1.18-3.74) x10^3/uL Absolute Monos (auto) (0.24-0.86) x10^3/uL Absolute Nucleated RBC (0.00-0.012) x10^3u/L Lymphocytes % (19.3-51.7) % Monocytes % (4.7-12.5) % Eosinophils % (0.7-5.8) % Basophils % (0.1-1.2) % Absolute Granulocytes (1.56-6.13) x10^3/uL Basophils # (0.01-0.08) x10^3/uL Sodium (135-145) mmol/L Potassium (3.5-5.1) mmol/L Chloride (98-107) mmol/L Carbon Dioxide (22-30) mmol/L Anion Gap (5-15) MEQ/L BUN (7-17) mg/dL Creatinine (0.52-1.04) mg/dL Estimated GFR ML/MIN Glucose (74-106) mg/dL Calcium (8.4-10.2) mg/dL Iron (37-170) ug/dL TIBC (265-462) ug/dL Iron Saturation (20-39) % Ferritin (6.24-137) ng/mL Total Bilirubin (0.2-1.3) mg/dL AST (14-36) U/L ALT (0-35) U/L Alkaline Phosphatase (38-126) U/L Serum Total Protein (6.3-8.2) g/dL Albumin (3.5-5.0) g/dL Vitamin B12 (239-931) pg/mL Folic Acid (2.76 - >20) ng/mL ABO Group B Rh Factor POSITIVE Antibody Screen NEGATIVE (NEGATIVE) Crossmatch COMPATIBLE COMPATIBLE (COMPATIBLE) 04/13/24 04/13/24 04/13/24 Range/Units 11:00 11:00 16:10 WBC (3.98-10.04) x10^3/uL RBC (3.93-5.22) x10^6/uL Hgb 7.0 L* (11.2-15.7) g/dL Hct 22.8 L (34.1-44.9) % MCV (79.4-94.8) fL MCH (25.6-32.2) pg MCHC (32.2-35.5) g/dL RDW (11.7-14.4) % Plt Count (182-369) x10^3/uL MPV (9.4-12.3) fL Gran % (34.0-71.1) % Immature Gran % (Auto) (0.001-0.429) % Nucleat RBC Rel Count (0.00-0.2) % Eos # (Auto) (0.04-0.36) x10^3/uL Immature Gran # (Auto) (0.001-0.031) x10^3u/L Absolute Lymphs (auto) (1.18-3.74) x10^3/uL Absolute Monos (auto) (0.24-0.86) x10^3/uL Absolute Nucleated RBC (0.00-0.012) x10^3u/L Lymphocytes % (19.3-51.7) % Monocytes % (4.7-12.5) % Eosinophils % (0.7-5.8) % Basophils % (0.1-1.2) % Absolute Granulocytes (1.56-6.13) x10^3/uL Basophils # (0.01-0.08) x10^3/uL Sodium (135-145) mmol/L Potassium (3.5-5.1) mmol/L Chloride (98-107) mmol/L Carbon Dioxide (22-30) mmol/L Anion Gap (5-15) MEQ/L BUN (7-17) mg/dL Creatinine (0.52-1.04) mg/dL Estimated GFR ML/MIN Glucose (74-106) mg/dL Calcium (8.4-10.2) mg/dL Iron 24 L (37-170) ug/dL TIBC 434 (265-462) ug/dL Iron Saturation 6 L (20-39) % Ferritin 7.76 (6.24-137) ng/mL Total Bilirubin (0.2-1.3) mg/dL AST (14-36) U/L ALT (0-35) U/L Alkaline Phosphatase (38-126) U/L Serum Total Protein (6.3-8.2) g/dL Albumin (3.5-5.0) g/dL Vitamin B12 317 (239-931) pg/mL Folic Acid > 16.6 (2.76 - >20) ng/mL ABO Group Rh Factor Antibody Screen (NEGATIVE) Crossmatch (COMPATIBLE) 04/14/24 04/14/24 Range/Units 04:45 04:45 WBC 6.8 (3.98-10.04) x10^3/uL RBC 3.38 L (3.93-5.22) x10^6/uL Hgb 9.1 L D (11.2-15.7) g/dL Hct 28.1 L (34.1-44.9) % MCV 83.1 (79.4-94.8) fL MCH 26.9 (25.6-32.2) pg MCHC 32.4 (32.2-35.5) g/dL RDW 13.5 (11.7-14.4) % Plt Count 254 (182-369) x10^3/uL MPV 11.0 (9.4-12.3) fL Gran % (34.0-71.1) % Immature Gran % (Auto) (0.001-0.429) % Nucleat RBC Rel Count (0.00-0.2) % Eos # (Auto) (0.04-0.36) x10^3/uL Immature Gran # (Auto) (0.001-0.031) x10^3u/L Absolute Lymphs (auto) (1.18-3.74) x10^3/uL Absolute Monos (auto) (0.24-0.86) x10^3/uL Absolute Nucleated RBC (0.00-0.012) x10^3u/L Lymphocytes % (19.3-51.7) % Monocytes % (4.7-12.5) % Eosinophils % (0.7-5.8) % Basophils % (0.1-1.2) % Absolute Granulocytes (1.56-6.13) x10^3/uL Basophils # (0.01-0.08) x10^3/uL Sodium 139 (135-145) mmol/L Potassium 3.6 (3.5-5.1) mmol/L Chloride 104 (98-107) mmol/L Carbon Dioxide 27 (22-30) mmol/L Anion Gap 11.4 (5-15) MEQ/L BUN 9 (7-17) mg/dL Creatinine 0.84 (0.52-1.04) mg/dL Estimated GFR 93.5 ML/MIN Glucose 102 (74-106) mg/dL Calcium 8.7 (8.4-10.2) mg/dL Iron (37-170) ug/dL TIBC (265-462) ug/dL Iron Saturation (20-39) % Ferritin (6.24-137) ng/mL Total Bilirubin 0.80 (0.2-1.3) mg/dL AST 32 (14-36) U/L ALT 37 H (0-35) U/L Alkaline Phosphatase 75 (38-126) U/L Serum Total Protein 5.9 L (6.3-8.2) g/dL Albumin 3.4 L (3.5-5.0) g/dL Vitamin B12 (239-931) pg/mL Folic Acid (2.76 - >20) ng/mL ABO Group Rh Factor Antibody Screen (NEGATIVE) Crossmatch (COMPATIBLE) Assessment/Plan (1) GI bleed Current Visit: Yes Status: Acute Code(s): K92.2 - GASTROINTESTINAL HEMORRHAGE, UNSPECIFIED (2) Anemia Current Visit: Yes Status: Acute Code(s): D64.9 - ANEMIA, UNSPECIFIED (3) Dizziness Current Visit: Yes Status: Acute Code(s): R42 - DIZZINESS AND GIDDINESS (4) Morbid obesity with BMI of 45.0-49.9, adult Current Visit: Yes Status: Chronic Code(s): E66.01 - MORBID (SEVERE) OBESITY DUE TO EXCESS CALORIES; Z68.42 - BODY MASS INDEX [BMI] 45.0-49.9, ADULT (5) Hypothyroidism Current Visit: Yes Status: Chronic Assessment & Plan: (1) GI bleed Current Visit: Yes Status: Acute Assessment & Plan: - GS consult for colonoscopy - H&H Q6 - NPO - LR @ 75ml/hr - Pantoprazole 40 BID - Tele - hgb7.6 on admission- repeat Hgb 7.0- 2 units PRBC ordered 04/14 - Hgb 9.1- trend - no stools since admission - IVF stopped - Prep for EGD/ Colonoscopy to start this afternoon with plan for procedures in AM with general surgery. Code(s): K92.2 - GASTROINTESTINAL HEMORRHAGE, UNSPECIFIED (2) Anemia Current Visit: Yes Status: Acute Assessment & Plan: - 2:2 GI bleed' - anemia panel - Hgb 7.6 - H&H Q6 - GS consult for Colonoscopy - Occult stool - Pt eval for associated dizziness/ weakness 7/2 - ferrous sulfate started for iron def. Anemia - Hgb 9.1 after 2 units PRBc gave last night Code(s): D64.9 - ANEMIA, UNSPECIFIED (3) Dizziness Current Visit: Yes Status: Acute Assessment & Plan: - 2;2 anemia - PT eval 04/14 - improved Code(s): R42 - DIZZINESS AND GIDDINESS (4) Morbid obesity with BMI of 45.0-49.9, adult Current Visit: Yes Status: Chronic Assessment & Plan: - advised diet and exercise control Code(s): E66.01 - MORBID (SEVERE) OBESITY DUE TO EXCESS CALORIES; Z68.42 - BODY MASS INDEX [BMI] 45.0-49.9, ADULT (5) Hypothyroidism Current Visit: Yes Status: Chronic Assessment & Plan: - Continue Synthroid VTE: SCD's PPI: Pantoprazole Next of KIN: spouse- Bill Jay [phone] D/C plan: 1-2 days Code status: Full Code(s): E03.9 - HYPOTHYROIDISM, UNSPECIFIED
[2024-04-14] MEDS: Golytely Solution 4000 ML PO ONE (13:23)
[2024-04-15 04:51] LABS: Hematocrit 27.7 % (34.1-44.9); Hemoglobin 8.9 g/dL (11.2-15.7); Mean Cell Volume 83.2 fL (79.4-94.8); Mean Corpuscular Hemoglobin 26.7 pg (25.6-32.2); Mean Corpuscular Hgb Concent. 32.1 g/dL (32.2-35.5); Mean Platelet Volume 10.5 fL (9.4-12.3); Platelet Count 286 x10^3/uL (182-369); Red Blood Count 3.33 x10^6/uL (3.93-5.22); Red Cell Distribution Width 13.7 % (11.7-14.4); White Blood Count 7.2 x10^3/uL (3.98-10.04)
[2024-04-15 05:18] LABS: ALBUMIN 3.4 g/dL (3.5-5.0); ANION GAP 9.7 MEQ/L (5-15); BILIRUBIN,TOTAL 0.5 mg/dL (0.2-1.3); Calcium 8.9 mg/dL (8.4-10.2); Creatinine 1 0.91 mg/dL (0.52-1.04); EST GLOMERULAR FILTRATION RATE 84.9 ML/MIN; Potassium 3.7 mmol/L (3.5-5.1); Total Protein 5.9 g/dL (6.3-8.2)
--- NOTE | 2024-04-15 10:02 | PCM.NOTE ---
Date and Time: 04/15/24 0958 Subjective Assessment: 04/13/24 is a 34 year old female with PMHX of asthma, PCOS, hypothyroidism, migraines, and morbid obesity. Patient was evaluated emergency room on Saturday and was found to have a hemoglobin of 9.3 on initial evaluation but repeat dropped down to 8.1. Her CT abdomen pelvis was within normal limits at that time. It was recommended to her that she stay for hemoglobin monitoring and possible EGD and colonoscopy at that time but patient left AMA. Today she returned with continued rectal bleeding, worsening dizziness, and shortness of breath. Hgb is 7.6 on admission. She reports bright red blood with stools and sometimes intermittent stools when no BM. She has a reported long hx of rectal bleeding and used to see a colon/rectal specialist in [facility]. She has had a rectal abcess, fistula, and multiple EGD's and colonoscopies in the past. Surgery consulted for colonoscopy. She reports she has not been taking spirolactone in the past 2 days as she only takes when she has edema. Will order anemia panel for further evaluation of sxs. She denies CP, abd. pain, N/V/D. 04/14/24 Pt resting in bed. She is feeling better today. Hgb dropped to 7 and 2 units of PRBC ordered yesterday evening. Today Hgb is 9.1. She has not had any stools since admission. Plan is to start bowel prep this evening and tomorrow have EGD/ Colonoscopy with GS. IV fluids stopped as arms were staring to have edema this AM. She denies CP, SOB, abd. pain. N/V/D. 04/15/24 Pt resting in bed. She did half of prep for EGD// Colonoscopy today. She report she had a large bloody stool and prep stopped. She is scheduled to have procedures at 14:30 today. Hgb stable at 8.9 today. She denies CP, SOB, Abd p ain, N/V/D. - Review of Systems Constitutional: No Fever, No Chills Eyes: No Symptoms Ears, Nose, & Throat: No Symptoms Respiratory: No Cough, No Short Of Breath Cardiac: No Chest Pain, No Edema, No Syncope Abdominal/Gastrointestinal: Hematochezia, No Abdominal Pain, No Nausea, No Vomiting, No Diarrhea Genitourinary Symptoms: No Dysuria Musculoskeletal: No Back Pain, No Neck Pain Skin: No Rash Neurological: No Dizziness, No Focal Weakness, No Sensory Changes Psychological: No Symptoms Endocrine: No Symptoms Hematologic/Lymphatic: No Symptoms Immunological/Allergic: No Symptoms Objective Exam General Appearance: no apparent distress, alert, obese Neurologic Exam: alert, oriented x 3, cooperative, normal mood/affect, nml cerebellar function, sensation nml, No motor deficits Skin Exam: normal color, warm, dry Eye Exam: PERRL, EOMI, eyes nml inspection Ears, Nose, Throat Exam: normal ENT inspection, pharynx normal, moist mucous membranes Neck Exam: normal inspection, non-tender, supple, full range of motion Respiratory Exam: normal breath sounds, lungs clear, No respiratory distress Cardiovascular Exam: regular rate/rhythm, normal heart sounds Gastrointestinal/Abdomen Exam: soft, No tenderness, No mass Extremity Exam: normal inspection, normal range of motion Back Exam: normal inspection, normal range of motion, No CVA tenderness, No vertebral tenderness Pelvic Exam: deferred Rectal Exam: deferred Objective Data Vital Signs: Vital Signs - 24 hr Temp Pulse Resp BP Pulse Ox 04/15/24 09:14 97.7 F 81 16 120/74 96 04/15/24 07:18 97.7 F 81 16 120/74 96 04/15/24 04:00 98.6 F 80 18 130/80 95 04/14/24 20:00 98.8 F 85 16 138/82 95 04/14/24 16:00 97.9 F 91 H 16 129/87 95 04/14/24 11:43 97.8 F 78 16 89/57 95 Pain Assessment - Last Documented Pain Intensity 0 Pain Scale Used 0-10 Pain Scale Intake and Output: Intake & Output 04/12/24 04/13/24 04/14/24 04/15/24 11:59 11:59 11:59 11:59 Intake Total 600 1480 Output Total 0 Balance 600 1480 Weight 126.6 kg 126.6 kg Lab Results: Lab Results-Last 24 Hours 04/15/24 04/15/24 Range/Units 04:39 04:39 WBC 7.2 (3.98-10.04) x10^3/uL RBC 3.33 L (3.93-5.22) x10^6/uL Hgb 8.9 L (11.2-15.7) g/dL Hct 27.7 L (34.1-44.9) % MCV 83.2 (79.4-94.8) fL MCH 26.7 (25.6-32.2) pg MCHC 32.1 L (32.2-35.5) g/dL RDW 13.7 (11.7-14.4) % Plt Count 286 (182-369) x10^3/uL MPV 10.5 (9.4-12.3) fL Sodium 138 (135-145) mmol/L Potassium 3.7 (3.5-5.1) mmol/L Chloride 105 (98-107) mmol/L Carbon Dioxide 28 (22-30) mmol/L Anion Gap 9.7 (5-15) MEQ/L BUN 8 (7-17) mg/dL Creatinine 0.91 (0.52-1.04) mg/dL Estimated GFR 84.9 ML/MIN Glucose 104 (74-106) mg/dL Calcium 8.9 (8.4-10.2) mg/dL Total Bilirubin 0.50 (0.2-1.3) mg/dL AST 28 (14-36) U/L ALT 36 H (0-35) U/L Alkaline Phosphatase 72 (38-126) U/L Serum Total Protein 5.9 L (6.3-8.2) g/dL Albumin 3.4 L (3.5-5.0) g/dL Multi-Disciplinary Progress Notes: Multi-Disciplinary Progress Notes 04/15/24 09:55 Case Management Note by Shelly Bacon S/W PATIENT- SHE CONTINUE TO DENY ANY NEW NEEDS AT TIME OF DC. SHE PLANS TO RETURN HOME TO HER PLF AT TIME OF DC Initialized on 04/15/24 09:55 - END OF NOTE 04/14/24 14:53 Physical Therapy Note by Eden(Rizwan#[id number])Cici PT. TO HAVE SX 04/15. SHOULD RECEIVE POST-OP NURPSING MOBILITY CARE AND IF PT. DOES NOT PROGRESS WELL W/ THIS, P.T. EVAL MAY BE INDICATED. Initialized on 04/14/24 14:53 - END OF NOTE Assessment/Plan (1) GI bleed Current Visit: Yes Status: Acute Code(s): K92.2 - GASTROINTESTINAL HEMORRHAGE, UNSPECIFIED (2) Anemia Current Visit: Yes Status: Acute Code(s): D64.9 - ANEMIA, UNSPECIFIED (3) Dizziness Current Visit: Yes Status: Acute Code(s): R42 - DIZZINESS AND GIDDINESS (4) Morbid obesity with BMI of 45.0-49.9, adult Current Visit: Yes Status: Chronic Code(s): E66.01 - MORBID (SEVERE) OBESITY DUE TO EXCESS CALORIES; Z68.42 - BODY MASS INDEX [BMI] 45.0-49.9, ADULT (5) Hypothyroidism Current Visit: Yes Status: Chronic Assessment & Plan: (1) GI bleed Current Visit: Yes Status: Acute Assessment & Plan: - GS consult for colonoscopy - H&H Q6 - NPO - LR @ 75ml/hr - Pantoprazole 40 BID - Tele - hgb7.6 on admission- repeat Hgb 7.0- 2 units PRBC ordered 7/2 - Hgb 9.1- trend - no stools since admission - IVF stopped - Prep for EGD/ Colonoscopy to start this afternoon with plan for procedures in AM with general surgery. Code(s): K92.2 - GASTROINTESTINAL HEMORRHAGE, UNSPECIFIED 7/3 - EGD/ Colonoscopy todat at 14:[address] Shobha Brennan (2) Anemia Current Visit: Yes Status: Acute Assessment & Plan: - 2:2 GI bleed' - anemia panel - Hgb 7.6 - H&H Q6 - GS consult for Colonoscopy - Occult stool - Pt eval for associated dizziness/ weakness 7/2 - ferrous sulfate started for iron def. Anemia - Hgb 9.1 after 2 units PRBc gave last night 7/3 - Hgb 8.9- stable- trend Code(s): D64.9 - ANEMIA, UNSPECIFIED (3) Dizziness Current Visit: Yes Status: Acute Assessment & Plan: - 2;2 anemia - PT eval 7/2 - improved Code(s): R42 - DIZZINESS AND GIDDINESS (4) Morbid obesity with BMI of 45.0-49.9, adult Current Visit: Yes Status: Chronic Assessment & Plan: - advised diet and exercise control Code(s): E66.01 - MORBID (SEVERE) OBESITY DUE TO EXCESS CALORIES; Z68.42 - BODY MASS INDEX [BMI] 45.0-49.9, ADULT (5) Hypothyroidism Current Visit: Yes Status: Chronic Assessment & Plan: - Continue Synthroid VTE: SCD's PPI: Pantoprazole Next of KIN: spouse- Bill Walsht [phone] D/C plan: tomorrow Code status: Full Code(s): E03.9 - HYPOTHYROIDISM, UNSPECIFIED
[2024-04-15] MEDS: Lactated Ringers 1,000 ML IV SCH (11:33)
[2024-04-15] MEDS ORDERED: DIPRIVAN 200 MG/20 ML IV ONE ×4 (13:42→14:16)
[2024-04-15] MEDS ORDERED: SUBLIMAZE 100 MCG/2 ML ONE (14:39)
[2024-04-15] MEDS ORDERED: TORAdol 30 mg Injection ONE (14:48)
[2024-04-15] MEDS ORDERED: Hydromorphone 1 mg/ml Injection IV PRN (15:34)
[2024-04-15] MEDS: Hydromorphone 1 mg/ml Injection IV PRN (16:11)
[2024-04-15] MEDS: NORCO 5/325 MG PO PRN (19:11)
[2024-04-15] MEDS: Zofran 4 MG/2 ML VIAL IV PRN (19:12)
[2024-04-15 22:10] LABS: Hematocrit 30.2 % (34.1-44.9); Hemoglobin 9.7 g/dL (11.2-15.7); Mean Cell Volume 84.6 fL (79.4-94.8); Mean Corpuscular Hemoglobin 27.2 pg (25.6-32.2); Mean Corpuscular Hgb Concent. 32.1 g/dL (32.2-35.5); Mean Platelet Volume 10.5 fL (9.4-12.3); Platelet Count 322 x10^3/uL (182-369); Red Blood Count 3.57 x10^6/uL (3.93-5.22); Red Cell Distribution Width 13.8 % (11.7-14.4); White Blood Count 8.9 x10^3/uL (3.98-10.04)
[2024-04-15] MEDS: NORCO 10-325 MG PO PRN (23:16)
[2024-04-16 06:14] LABS: Hematocrit 28.9 % (34.1-44.9); Hemoglobin 8.9 g/dL (11.2-15.7); Mean Cell Volume 86.5 fL (79.4-94.8); Mean Corpuscular Hemoglobin 26.6 pg (25.6-32.2); Mean Corpuscular Hgb Concent. 30.8 g/dL (32.2-35.5); Mean Platelet Volume 10.6 fL (9.4-12.3); Platelet Count 318 x10^3/uL (182-369); Red Blood Count 3.34 x10^6/uL (3.93-5.22); Red Cell Distribution Width 13.9 % (11.7-14.4); White Blood Count 8.5 x10^3/uL (3.98-10.04)
[2024-04-16 06:27] LABS: ALBUMIN 3.5 g/dL (3.5-5.0); ANION GAP 8.8 MEQ/L (5-15); BILIRUBIN,TOTAL 0.4 mg/dL (0.2-1.3); Calcium 8.7 mg/dL (8.4-10.2); EST GLOMERULAR FILTRATION RATE 75.8 ML/MIN; Total Protein 6.2 g/dL (6.3-8.2)
--- NOTE | 2024-04-16 09:30 | PCM.NOTE ---
Date and Time: 04/16/24924 Subjective Assessment: 04/13/24 is a 34 year old female with PMHX of asthma, PCOS, hypothyroidism, migraines, and morbid obesity. Patient was evaluated emergency room on Saturday and was found to have a hemoglobin of 9.3 on initial evaluation but repeat dropped down to 8.1. Her CT abdomen pelvis was within normal limits at that time. It was recommended to her that she stay for hemoglobin monitoring and possible EGD and colonoscopy at that time but patient left AMA. Today she returned with continued rectal bleeding, worsening dizziness, and shortness of breath. Hgb is 7.6 on admission. She reports bright red blood with stools and sometimes intermittent stools when no BM. She has a reported long hx of rectal bleeding and used to see a colon/rectal specialist in [facility]. She has had a rectal abcess, fistula, and multiple EGD's and colonoscopies in the past. Surgery consulted for colonoscopy. She reports she has not been taking spirolactone in the past 2 days as she only takes when she has edema. Will order anemia panel for further evaluation of sxs. She denies CP, abd. pain, N/V/D. 04/14/24 Pt resting in bed. She is feeling better today. Hgb dropped to 7 and 2 units of PRBC ordered yesterday evening. Today Hgb is 9.1. She has not had any stools since admission. Plan is to start bowel prep this evening and tomorrow have EGD/ Colonoscopy with GS. IV fluids stopped as arms were staring to have edema this AM. She denies CP, SOB, abd. pain. N/V/D. 04/15/24 Pt resting in bed. She did half of prep for EGD// Colonoscopy today. She report she had a large bloody stool and prep stopped. She is scheduled to have procedures at 14:30 today. Hgb stable at 8.9 today. She denies CP, SOB, Abd p ain, N/V/D. 04/16/24 Pt resting in bed. She explained she is quite uncomfortable today. Yesterday she had an EGD and Colonoscopy. It was found she has polyps that were removed, and hemorrhoids that were stitched. Orders for narcotic pain meds IV and oral as well as Sitz baths Q2 PRN gave by GS. She has not had any bloody stools since yesterday. She is on a full liquid diet. GS to discussed further surgical options today with pt. Hgb stable at 8.9. She denies CP, SOB, Abd pain, N/V/D. - Review of Systems Constitutional: No Fever, No Chills Eyes: No Symptoms Ears, Nose, & Throat: No Symptoms Respiratory: No Cough, No Short Of Breath Cardiac: No Chest Pain, No Edema, No Syncope Abdominal/Gastrointestinal: Other (rectal pain), No Abdominal Pain, No Nausea, No Vomiting, No Diarrhea Genitourinary Symptoms: No Dysuria Musculoskeletal: No Back Pain, No Neck Pain Skin: No Rash Neurological: No Dizziness, No Focal Weakness, No Sensory Changes Psychological: No Symptoms Endocrine: No Symptoms Hematologic/Lymphatic: No Symptoms Immunological/Allergic: No Symptoms Objective Exam General Appearance: no apparent distress, alert, obese Neurologic Exam: alert, oriented x 3, cooperative, normal mood/affect, nml cerebellar function, sensation nml, No motor deficits Skin Exam: normal color, warm, dry Eye Exam: PERRL, EOMI, eyes nml inspection Ears, Nose, Throat Exam: normal ENT inspection, pharynx normal, moist mucous membranes Neck Exam: normal inspection, non-tender, supple, full range of motion Respiratory Exam: normal breath sounds, lungs clear, No respiratory distress Cardiovascular Exam: regular rate/rhythm, normal heart sounds Gastrointestinal/Abdomen Exam: soft, No tenderness, No mass Extremity Exam: normal inspection, normal range of motion Back Exam: normal inspection, normal range of motion, No CVA tenderness, No vertebral tenderness Pelvic Exam: deferred Rectal Exam: deferred Objective Data Vital Signs: Vital Signs - 24 hr Temp Pulse Resp BP Pulse Ox 04/16/24 07:32 97.8 F 80 17 115/67 96 04/16/24 04:00 98.0 F 79 22 110/55 95 04/15/24 23:28 97.9 F 78 18 109/64 95 04/15/24 20:00 98.2 F 76 16 124/70 95 04/15/24 16:00 98.2 F 72 16 118/58 95 04/15/24 12:00 97.6 F 89 16 135/89 97 Pain Assessment - Last Documented Pain Intensity 6 Pain Scale Used 0-10 Pain Scale Intake and Output: Intake & Output 04/13/24 04/14/24 04/15/24 04/16/24 11:59 11:59 11:59 11:59 Intake Total 600 1480 680 Output Total 0 Balance 600 1480 680 Weight 126.6 kg 126.6 kg Lab Results: Lab Results-Last 24 Hours 04/15/24 04/16/24 04/16/24 Range/Units 22:05 05:45 05:45 WBC 8.9 8.5 (3.98-10.04) x10^3/uL RBC 3.57 L 3.34 L (3.93-5.22) x10^6/uL Hgb 9.7 L 8.9 L (11.2-15.7) g/dL Hct 30.2 L 28.9 L (34.1-44.9) % MCV 84.6 86.5 (79.4-94.8) fL MCH 27.2 26.6 (25.6-32.2) pg MCHC 32.1 L 30.8 L (32.2-35.5) g/dL RDW 13.8 13.9 (11.7-14.4) % Plt Count 322 318 (182-369) x10^3/uL MPV 10.5 10.6 (9.4-12.3) fL Sodium 138 (135-145) mmol/L Potassium 4.0 (3.5-5.1) mmol/L Chloride 102 (98-107) mmol/L Carbon Dioxide 32 H (22-30) mmol/L Anion Gap 8.8 (5-15) MEQ/L BUN 11 (7-17) mg/dL Creatinine 1.00 (0.52-1.04) mg/dL Estimated GFR 75.8 ML/MIN Glucose 123 H (74-106) mg/dL Calcium 8.7 (8.4-10.2) mg/dL Total Bilirubin 0.40 (0.2-1.3) mg/dL AST 39 H (14-36) U/L ALT 46 H (0-35) U/L Alkaline Phosphatase 72 (38-126) U/L Serum Total Protein 6.2 L (6.3-8.2) g/dL Albumin 3.5 (3.5-5.0) g/dL Multi-Disciplinary Progress Notes: Multi-Disciplinary Progress Notes 04/15/24 09:55 Case Management Note by Shelly Bacon S/W PATIENT- SHE CONTINUE TO DENY ANY NEW NEEDS AT TIME OF DC. SHE PLANS TO RETURN HOME TO HER PLF AT TIME OF DC Initialized on 04/15/24 09:55 - END OF NOTE Assessment/Plan (1) GI bleed Current Visit: Yes Status: Acute Code(s): K92.2 - GASTROINTESTINAL HEMORRHAGE, UNSPECIFIED (2) Anemia Current Visit: Yes Status: Acute Code(s): D64.9 - ANEMIA, UNSPECIFIED (3) Dizziness Current Visit: Yes Status: Acute Code(s): R42 - DIZZINESS AND GIDDINESS (4) Morbid obesity with BMI of 45.0-49.9, adult Current Visit: Yes Status: Chronic Code(s): E66.01 - MORBID (SEVERE) OBESITY DUE TO EXCESS CALORIES; Z68.42 - BODY MASS INDEX [BMI] 45.0-49.9, ADULT (5) Hypothyroidism Current Visit: Yes Status: Chronic Assessment & Plan: (1) GI bleed Current Visit: Yes Status: Acute Assessment & Plan: - GS consult for colonoscopy - H&H Q6 - NPO - LR @ 75ml/hr - Pantoprazole 40 BID - Tele - hgb7.6 on admission- repeat Hgb 7.0- 2 units PRBC ordered 04/14 - Hgb 9.1- trend - no stools since admission - IVF stopped - Prep for EGD/ Colonoscopy to start this afternoon with plan for procedures in AM with general surgery. 04/15 - EGD/ Colonoscopy today at 14:[address] Shobha Brennan 04/16 - Yesterday she had an EGD and Colonoscopy. It was found she has polyps that were removed, and hemorrhoids that were stitched. - Orders for narcotic pain meds IV and oral as well as Sitz baths Q2 PRN gave by GS. - She has not had any bloody stools since yesterday. - She is on a full liquid diet. - GS to discussed further surgical options today with pt. - Hgb stable at 8.9 Code(s): K92.2 - GASTROINTESTINAL HEMORRHAGE, UNSPECIFIED (2) Anemia Current Visit: Yes Status: Acute Assessment & Plan: - 2:2 GI bleed' - anemia panel - Hgb 7.6 - H&H Q6 - GS consult for Colonoscopy - Occult stool - Pt eval for associated dizziness/ weakness 04/14 - ferrous sulfate started for iron def. Anemia - Hgb 9.1 after 2 units PRBc gave last night 04/15 - Hgb 8.9- stable- trend 04/16 - Hgb stable at 8.9 Code(s): D64.9 - ANEMIA, UNSPECIFIED (3) Dizziness Current Visit: Yes Status: Acute Assessment & Plan: - 2;2 anemia - PT eval 04/14 - improved Code(s): R42 - DIZZINESS AND GIDDINESS (4) Morbid obesity with BMI of 45.0-49.9, adult Current Visit: Yes Status: Chronic Assessment & Plan: - advised diet and exercise control Code(s): E66.01 - MORBID (SEVERE) OBESITY DUE TO EXCESS CALORIES; Z68.42 - BODY MASS INDEX [BMI] 45.0-49.9, ADULT (5) Hypothyroidism Current Visit: Yes Status: Chronic Assessment & Plan: - Continue Synthroid VTE: SCD's PPI: Pantoprazole Next of KIN: spouse- Bill Walsht [phone] D/C plan: 1-2 days Code status: Full Code(s): E03.9 - HYPOTHYROIDISM, UNSPECIFIED
--- NOTE | 2024-04-16 09:40 | OP ---
SURGERY DATE/TIME: 04/15/2024 1741 - 8651 PREOPERATIVE DIAGNOSIS: Bright red blood per rectum. POSTOPERATIVE DIAGNOSES: 1) Gastric nodule, possible heterotopia, biopsied. 2) Descending colon polyp, 3 mm. 3) Rectosigmoid polyp, 4 mm. 4) Obviously bleeding internal hemorrhoid with ulceration. PROCEDURE: 1) Esophagogastroduodenoscopy with biopsy. 2) Colonoscopy with polypectomy x2, hot snare. 3) Rectal examination under sedation. 4) Internal hemorrhoid ligation x4. SURGEON: Bishnu Brennan MD ANESTHESIA: IV anesthesia. PATIENT CONDITION: Stable. COMPLICATIONS: None. SPECIMENS: Polyps x2, gastric nodule biopsy. INDICATIONS: The patient is a 34-year-old female who has a history of recurrent GI bleed. Apparently had been scoped around 3 years ago though they were not able to find a source. Did see a specialist back then and did well for a period, but then now presents with copious bright red blood per rectum requiring transfusion. Discussed with the patient, and she does elect to proceed with the preparation for EGD, colonoscopy, possible internal hemorrhoid banding. She does have some external nonthrombosed hemorrhoids on exam, but I discussed with her the risk of bleeding mainly, could be pain associated with this. She elects to proceed. FINDINGS: 1) A 1 cm antral gastric nodule, possible heterotopia versus some reaction, biopsied. 2) Polyps, 3 mm and 4 mm, in the colon, removed with hot snare. 3) Obviously bleeding internal hemorrhoid with ulceration that was actively bleeding during the procedure, and ligated internal hemorrhoids x4. I initially tried rubber bands, but this did require suture ligation. DESCRIPTION OF PROCEDURE: Patient was brought to the endoscopy suite, routinely positioned and prepped. Time-out performed. IV anesthesia induced by Anesthesia. The gastroscope was inserted through the mouth and advanced to the third portion of the duodenum. Duodenum is normal in appearance. Stomach is normal in appearance other than a 1 cm antral nodule, possible heterotopia, so that is biopsied with forceps and sent for pathology. Retroflexion does not give the best view. There is not any obvious hiatal hernia. The esophagus is normal. The stomach is suctioned out. Scope is withdrawn. The external examination does show external nonthrombosed hemorrhoids, quite large, and then there is obviously on rectal examination an ulcerated left internal hemorrhoidal column that does ooze. So the colonoscope is entered and advanced to the terminal ileum. The terminal ileum is normal. The preparation is Aronchick poor preparation. The appendiceal orifice also identified. Scope withdrawal is greater than 6 minutes. Even so, with the poor prep, 2 polyps are removed at the descending and rectosigmoid, 3 mm and 4 mm, hot snared. Retroflexion in the rectum does show the internal hemorrhoid. Scope is withdrawn. The small Hill Mosher was inserted and then the large Hill Mosher was inserted. At that point, there is significant bleeding from that left internal hemorrhoidal column. The suction ligator is used to ligate that. Then, on the other side, there is large prolapsing internal hemorrhoid, also suction ligated, but there is persistent bleeding from that left-sided hemorrhoid at the rubber band base. So, the 0 chromic [id number] is placed there. Then an additional column posteriorly is also suture ligated with 0 chromic that was also oozing. Upon completion, there is good hemostasis. A Gelfoam plug is inserted. The patient tolerated the procedure well and was taken to Recovery in stable condition. RECOMMENDATIONS: For observation overnight. Repeat CBC in the morning. If there is any significant bleeding, we need notified. The only remaining option would be formal hemorrhoidectomy. You could try oversew again, but this is quite extensive hemorrhoidal disease. A formal hemorrhoidectomy would be her best option.
[2024-04-16] MEDS: Docusate Sodium 100 MG PO PRN (22:25)
[2024-04-17 05:00] LABS: Hematocrit 27.5 % (34.1-44.9); Hemoglobin 8.6 g/dL (11.2-15.7); Mean Cell Volume 87.3 fL (79.4-94.8); Mean Corpuscular Hemoglobin 27.3 pg (25.6-32.2); Mean Corpuscular Hgb Concent. 31.3 g/dL (32.2-35.5); Platelet Count 348 x10^3/uL (182-369); Red Blood Count 3.15 x10^6/uL (3.93-5.22); Red Cell Distribution Width 14.4 % (11.7-14.4)
[2024-04-17 05:15] LABS: ALBUMIN 3.4 g/dL (3.5-5.0); ANION GAP 6.6 MEQ/L (5-15); BILIRUBIN,TOTAL 0.3 mg/dL (0.2-1.3); Calcium 8.6 mg/dL (8.4-10.2); Creatinine 1 1.04 mg/dL (0.52-1.04); EST GLOMERULAR FILTRATION RATE 72.3 ML/MIN; Potassium 4.1 mmol/L (3.5-5.1); Total Protein 6.1 g/dL (6.3-8.2)
[2024-04-17] MEDS ORDERED: VITAMIN D2 PO SCH (10:00)
--- NOTE | 2024-04-17 10:35 | PCM.DS ---
Discharge Summary Date of Admission: 04/13/24 11:31 Date of Discharge: 04/17/24 Admitting Physician: THIAGO COYNE MD Consults: Consults on Case 04/13/24 12:35 Consult Surgery ROUTINE Primary Care Provider: CHARLEY AIKEN Allergies Allergies iodine Allergy (Severe, Verified 04/13/24 12:03) Hives morphine Allergy (Verified 04/13/24 12:03) Shortness of Breath povidone-iodine [From Betadine] Allergy (Verified 04/13/24 12:03) Swelling swelling at sight of F/C insertion soap [From Betadine] Allergy (Verified 04/13/24 12:03) Swelling Hospital Summary - Hospital Course Hospital Course: 04/13/24 is a 34 year old female with PMHX of asthma, PCOS, hypothyroidism, migraines, and morbid obesity. Patient was evaluated emergency room on Saturday and was found to have a hemoglobin of 9.3 on initial evaluation but repeat dropped down to 8.1. Her CT abdomen pelvis was within normal limits at that time. It was recommended to her that she stay for hemoglobin monitoring and possible EGD and colonoscopy at that time but patient left AMA. Today she returned with continued rectal bleeding, worsening dizziness, and shortness of breath. Hgb is 7.6 on admission. She reports bright red blood with stools and sometimes intermittent stools when no BM. She has a reported long hx of rectal bleeding and used to see a colon/rectal specialist in [facility]. She has had a rectal abcess, fistula, and multiple EGD's and colonoscopies in the past. Surgery consulted for colonoscopy. She reports she has not been taking spirolactone in the past 2 days as she only takes when she has edema. Will order anemia panel for further evaluation of sxs. She denies CP, abd. pain, N/V/D. 04/14/24 Pt resting in bed. She is feeling better today. Hgb dropped to 7 and 2 units of PRBC ordered yesterday evening. Today Hgb is 9.1. She has not had any stools since admission. Plan is to start bowel prep this evening and tomorrow have EGD/ Colonoscopy with GS. IV fluids stopped as arms were staring to have edema this AM. She denies CP, SOB, abd. pain. N/V/D. 04/15/24 Pt resting in bed. She did half of prep for EGD// Colonoscopy today. She report she had a large bloody stool and prep stopped. She is scheduled to have procedures at 14:30 today. Hgb stable at 8.9 today. She denies CP, SOB, Abd pain, N/V/D. 04/16/24 Pt resting in bed. She explained she is quite uncomfortable today. Yesterday she had an EGD and Colonoscopy. It was found she has polyps that were removed, and hemorrhoids that were stitched. Orders for narcotic pain meds IV and oral as well as Sitz baths Q2 PRN gave by GS. She has not had any bloody stools since yesterday. She is on a full liquid diet. GS to discussed further surgical options today with pt. Hgb stable at 8.9. She denies CP, SOB, Abd pain, N/V/D. 04/17/24 Pt resting in bed. She would like to d/c home today. She is feeling better. Hgb is stable at 8.6. She discussed further surgery options with and has decided that she does not want to do that at this time. Surgery is ok with her d/c and to f/u OP. She will need to f/u OP with PCP for repeat Hgb checks. Advised to use Sitz baths and take OTC stool softener. She denies CP, SOB, Abd pain, N/V/D. - Vitals & Intake/Output Vital Signs: Vital Signs Temperature 98.3 F 04/17/24 06:46 Pulse Rate 96 H 04/17/24 06:46 Respiratory Rate 19 04/17/24 06:46 Blood Pressure 131/70 04/17/24 06:46 O2 Sat by Pulse Oximetry 96 04/17/24 06:46 Intake & Output: Intake & Output 04/14/24 04/15/24 04/16/24 04/17/24 11:59 11:59 11:59 11:59 Intake Total 600 1480 680 480 Output Total 0 Balance 600 1480 680 480 Weight 126.6 kg - Lab Result Diagrams: 04/17/24 04:29 04/17/24 04:29 Lab Results-Last 24 Hrs: Lab Results-Last 24 Hours 04/17/24 04/17/24 Range/Units 04:29 04:29 WBC 8.0 (3.98-10.04) x10^3/uL RBC 3.15 L (3.93-5.22) x10^6/uL Hgb 8.6 L (11.2-15.7) g/dL Hct 27.5 L (34.1-44.9) % MCV 87.3 (79.4-94.8) fL MCH 27.3 (25.6-32.2) pg MCHC 31.3 L (32.2-35.5) g/dL RDW 14.4 (11.7-14.4) % Plt Count 348 (182-369) x10^3/uL MPV 11.0 (9.4-12.3) fL Sodium 138 (135-145) mmol/L Potassium 4.1 (3.5-5.1) mmol/L Chloride 103 (98-107) mmol/L Carbon Dioxide 33 H (22-30) mmol/L Anion Gap 6.6 (5-15) MEQ/L BUN 13 (7-17) mg/dL Creatinine 1.04 (0.52-1.04) mg/dL Estimated GFR 72.3 ML/MIN Glucose 107 H (74-106) mg/dL Calcium 8.6 (8.4-10.2) mg/dL Total Bilirubin 0.30 (0.2-1.3) mg/dL AST 27 (14-36) U/L ALT 37 H (0-35) U/L Alkaline Phosphatase 69 (38-126) U/L Serum Total Protein 6.1 L (6.3-8.2) g/dL Albumin 3.4 L (3.5-5.0) g/dL - Procedures and Test Procedures and Tests throughout Hospitalization: Therapy Orders & Screens 04/13/24 13:10 PT Eval & Treat ( Order) ONCE Reason for Eval:: dizziness with standing Diagnosis: GI bleed, SOB Discharge Exam General Appearance: no apparent distress, alert, obese Neurologic Exam: alert, oriented x 3, cooperative, normal mood/affect, nml cerebellar function, sensation nml, No motor deficits Eye Exam: PERRL, EOMI, eyes nml inspection Ears, Nose, Throat Exam: normal ENT inspection, pharynx normal, moist mucous membranes Neck Exam: normal inspection, non-tender, supple, full range of motion Respiratory Exam: normal breath sounds, lungs clear, No respiratory distress Cardiovascular Exam: regular rate/rhythm, normal heart sounds Gastrointestinal/Abdomen Exam: soft, No tenderness, No mass Pelvic Exam: deferred Rectal Exam: deferred Back Exam: normal inspection, normal range of motion, No CVA tenderness, No vertebral tenderness Extremity Exam: normal inspection, normal range of motion Skin Exam: normal color, warm, dry Final Diagnosis/Problem List - Final Discharge Diagnosis/Problem (1) GI bleed Current Visit: Yes Status: Acute Code(s): K92.2 - GASTROINTESTINAL HEMORRHAGE, UNSPECIFIED (2) Anemia Current Visit: Yes Status: Acute Code(s): D64.9 - ANEMIA, UNSPECIFIED (3) Dizziness Current Visit: Yes Status: Acute Code(s): R42 - DIZZINESS AND GIDDINESS (4) Morbid obesity with BMI of 45.0-49.9, adult Current Visit: Yes Status: Chronic Code(s): E66.01 - MORBID (SEVERE) OBESITY DUE TO EXCESS CALORIES; Z68.42 - BODY MASS INDEX [BMI] 45.0-49.9, ADULT (5) Hypothyroidism Current Visit: Yes Status: Chronic Assessment & Plan: (1) GI bleed Current Visit: Yes Status: Acute Assessment & Plan: - GS consult for colonoscopy - H&H Q6 - NPO - LR @ 75ml/hr - Pantoprazole 40 BID - Tele - hgb7.6 on admission- repeat Hgb 7.0- 2 units PRBC ordered 04/14 - Hgb 9.1- trend - no stools since admission - IVF stopped - Prep for EGD/ Colonoscopy to start this afternoon with plan for procedures in AM with general surgery. 04/15 - EGD/ Colonoscopy today at 14:[address] Shobha Brennan 04/16 - Yesterday she had an EGD and Colonoscopy. It was found she has polyps that were removed, and hemorrhoids that were stitched. - Orders for narcotic pain meds IV and oral as well as Sitz baths Q2 PRN gave by GS. - She has not had any bloody stools since yesterday. - She is on a full liquid diet. - GS to discussed further surgical options today with pt. - Hgb stable at 8.9 04/17 - pt stayed overnight for pain control and to think about further options - she refuses any further surgery procedures at this time - Surgery ok with d/c and to f/u OP - COntinue OP - stool softeners and Sitz baths Code(s): K92.2 - GASTROINTESTINAL HEMORRHAGE, UNSPECIFIED (2) Anemia Current Visit: Yes Status: Acute Assessment & Plan: - 2:2 GI bleed' - anemia panel - Hgb 7.6 - H&H Q6 - GS consult for Colonoscopy - Occult stool - Pt eval for associated dizziness/ weakness 04/14 - ferrous sulfate started for iron def. Anemia - Hgb 9.1 after 2 units PRBc gave last night 04/15 - Hgb 8.9- stable- trend 04/16 - Hgb stable at 8.9 7/ - Hg 8.6 - f/u OP with PCP for repeat checks Code(s): D64.9 - ANEMIA, UNSPECIFIED (3) Dizziness Current Visit: Yes Status: Acute Assessment & Plan: - 2;2 anemia - PT eval 04/14 - improved Code(s): R42 - DIZZINESS AND GIDDINESS (4) Morbid obesity with BMI of 45.0-49.9, adult Current Visit: Yes Status: Chronic Assessment & Plan: - advised diet and exercise control Code(s): E66.01 - MORBID (SEVERE) OBESITY DUE TO EXCESS CALORIES; Z68.42 - BODY MASS INDEX [BMI] 45.0-49.9, ADULT (5) Hypothyroidism Current Visit: Yes Status: Chronic Assessment & Plan: - Continue Synthroid Code(s): E03.9 - HYPOTHYROIDISM, UNSPECIFIED - Discharge Discharge Date: 04/17/24 Disposition: Home, Self-Care Condition: Good Prescriptions: New Docusate Sodium 100 mg [Docusate Sodium 100 MG] 100 mg PO BIDPRN PRN 30 Days #60 cap PRN Reason: Constipation Ferrous Sulfate 325 mg [Feosol 325 mg] 325 mg PO DAILY 30 Days #30 tablet Continue Levothyroxine Sodium 50 Mcg [Synthroid 50 Mcg] 50 mcg PO DAILY Ergocalciferol (Vitamin D2) [Vitamin D2] 1.25 mg PO WEEKLY Cholecalciferol (Vitamin D3) [Vitamin D3] 50 mcg PO DAILY Spironolactone 100 mg PO DAILY Follow up with: VERO BRENNAN MD [ACTIVE STAFF] - 05/07/24 10:00 am ([facility]) CHARLEY AIKEN NP [Primary Care Provider] - 04/27/24 1:30 pm
[2024-04-17 11:38] VITALS: BP 121/71; PULSE 95; RESP 18; TEMP 97.5; O2SAT 95
== END 2024-04-17 12:34 | disposition home or self-care (01) ==
LOC: ED 10:10 → MED SURG 11:31
PROVIDERS: ADMIT Internal Medicine; ATTEND Internal Medicine
DX: K92.2 Gastrointestinal hemorrhage, unspecified (principal); D64.9 Anemia, unspecified; R42 Dizziness and giddiness; E66.01 Morbid (severe) obesity due to excess calories; E03.9 Hypothyroidism, unspecified; K31.9 Disease of stomach and duodenum, unspecified; K63.5 Polyp of colon; K64.8 Other hemorrhoids; Z79.899 Other long term (current) drug therapy; Z68.42 Body mass index [BMI] 45.0-49.9, adult
CPT/HCPCS: 36000; 36415; 43239; 45385; 45398; 80053; 82607; 82728; 82746; 83540; 83550; 83605; 85014; 85018; 85025; 85027; 86850; 86900; 86901; 86922; 99285; Q3014; 36430; 93268; G0378; J1170; J1200; J1885; J2405; J2704; J3010; P9016; A9270-GY

== ENCOUNTER 2024-12-21 21:14 | Emergency (ER) | payer OTHER ==
--- NOTE | 2024-12-21 21:21 | ERPHSYRPT ---
- History of Present Illness Time Seen by Provider: 12/21/24 21:20 Historian: patient, family Exam Limitations: no limitations Physician History: This is an overweight 34-year-old white female patient who has had a hysterectomy in the past and presents with sudden onset of multiple episodes of vomiting and diarrhea since 5:00 this morning. She states that she has gene ralized crampy abdominal pain and every 15 to 30 minutes she begins vomiting and having clear watery diarrheal stools. She has never had this in the past. No family members or other individuals that she has been around has similar symptoms. Patient has a history of migraine headaches, asthma and polycystic ovary syndrome. Patient denies chest pain. Patient shortness of breath Timing/Duration: today Activities at Onset: none Quality: cramping Abdominal Pain Onset Location: generalized abdomen Pain Radiation: no radiation Severity of Pain-Max: moderate Severity of Pain-Current: moderate Modifying Factors: Improves With: vomiting Associated Symptoms: diarrhea, loss of appetite, nausea, vomiting, weakness, No chest pain, No fever/chills, No shortness of breath Previous symptoms: no prior history, no recent treatment Allergies/Adverse Reactions: iodine Allergy (Severe, Verified 12/21/24 21:34) Hives morphine Allergy (Verified 12/21/24 21:34) Shortness of Breath povidone-iodine [From Betadine] Allergy (Verified 12/21/24 21:34) Swelling swelling at sight of F/C insertion soap [From Betadine] Allergy (Verified 12/21/24 21:34) Swelling Home Medications: Amitriptyline HCl 10 mg [Elavil 10 mg] 1 tab PO HS 12/21/24 [History] Levothyroxine Sodium 75 Mcg [Synthroid 75 Mcg] 1 tab PO DAILY 12/21/24 [History] Non-Formulary Drug [Non-Formulary Bulk Item] 0.2 each SQ WEEKLY 12/21/24 [History] Rizatriptan Benzoate [Rizatriptan] 1 tab PO Q12H PRN PRN 12/21/24 [History] Hx Tetanus, Diphtheria Vaccination/Date Given: Yes Hx Influenza Vaccination/Date Given: No Hx Pneumococcal Vaccination/Date Given: No Travel Risk - International Travel Have you traveled outside of the country in past 3 weeks: No - Emerging Infectious Disease Are you exhibiting symptoms associated with any current EIDs: Yes Symptoms: Abdominal Pain, Other (Please Comment) Comment: Nausea - Review of Systems Constitutional: Weakness Eyes: No Symptoms Ears, Nose, & Throat: No Symptoms Respiratory: No Symptoms Cardiac: No Symptoms Abdominal/Gastrointestinal: Abdominal Pain, Nausea, Vomiting, Diarrhea, Appetite Changes Genitourinary Symptoms: No Symptoms Musculoskeletal: No Symptoms Skin: No Symptoms Psychological: No Symptoms Endocrine: No Symptoms Hematologic/Lymphatic: No Symptoms Immunological/Allergic: No Symptoms All Other Systems: Reviewed and Negative - Past Medical History Pertinent Past Medical History: Yes Neurological History: Migraines ENT History: No Pertinent History Cardiac History: No Pertinent History Respiratory History: Asthma Endocrine Medical History: No Pertinent History Musculoskeletal History: No Pertinent History GI Medical History: Gallbladder Disease, Other History: No Pertinent History Psycho-Social History: No Pertinent History Female Reproductive Disorders: No Pertinent History Other Medical History: polycystic ovarian syndrome, rectal abscess - Past Surgical History Past Surgical History: Yes Neuro Surgical History: No Pertinent History Cardiac: No Pertinent History Respiratory: No Pertinent History Gastrointestinal: Cholecystectomy, Other Genitourinary: No Pertinent History Musculoskeletal: No Pertinent History Female Surgical History: Hysterectomy, Tubal Ligation, Other Other Surgical History: STEVAN RECTAL ABSCESS, FISTULA, colonoscopy, egd, wisdom teeth, ablation - Female History Hx Last Menstrual Period: hysterectomy - Social History Smoking Status: Former smoker How long have you smoked: 11 years Exposure to second hand smoke: No Drug Use: none - Social Determinants of Health Will the patient participate in the screening: Yes Do you worry about a steady place to live?: No In the past 12 months,have you had to go without utilities?: No Transportation Issues: No Has anyone in your support network made you feel unsafe?: No Have you or anyone in your house had to go w/o enough food: No - Nursing Vital Signs Nursing Vital Signs: Initial Vital Signs Temperature 96.9 F 12/21/24 21:14 Pulse Rate 126 H 12/21/24 21:14 Respiratory Rate 22 12/21/24 21:14 Blood Pressure 131/101 12/21/24 21:14 O2 Sat by Pulse Oximetry 99 12/21/24 21:14 Pain Scale Pain Intensity 0 - Physical Exam General Appearance: mild distress, alert, anxiety, obese Eye Exam: PERRL/EOMI, eyes nml inspection Ears, Nose, Throat Exam: normal ENT inspection, moist mucous membranes Neck Exam: normal inspection, non-tender, supple, full range of motion Respiratory Exam: normal breath sounds, lungs clear, airway intact, No chest tenderness, No respiratory distress Cardiovascular Exam: tachycardia Gastrointestinal/Abdomen Exam: soft, normal bowel sounds, tenderness (Mild diffuse), guarding (Mild diffuse to palpation) Pelvic Exam: not done Rectal Exam: not done Back Exam: normal inspection, normal range of motion, No CVA tenderness, No vertebral tenderness Neurologic Exam: alert, oriented x 3, cooperative, 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 nml as tested, nml cerebellar function, nml station & gait, sensation nml Skin Exam: normal color, warm, dry Lymphatic Exam: No adenopathy SpO2 Interpretation: normal - Course Nursing assessment & vital signs reviewed: Yes Ordered Tests: Active Orders 24 hr Category Date Time Status IV Insertion STAT Care 12/21/24 21:43 Active ABDOMEN AND PELVIS W/0 CONTRAS [CT] Stat Exams 12/21/24 21:43 Taken AMYLASE Stat Lab 12/21/24 21:45 Completed CBC W DIFF Stat Lab 12/21/24 21:45 Completed CMP Stat Lab 12/21/24 21:45 Completed HCG QUALITATIVE, SERUM Stat Lab 12/21/24 21:45 Completed LIPASE Stat Lab 12/21/24 21:45 Completed Lactic Acid Stat Lab 12/21/24 21:43 Completed Lactic Acid Stat Lab 12/22/24 00:09 Received Lactic Acid Stat Lab 12/22/24 01:57 Completed MAGNESIUM Stat Lab 12/22/24 02:05 Completed MONO SCREEN Stat Lab 12/21/24 21:45 Completed TROPONIN Q4H Lab 12/22/24 02:05 Completed TROPONIN Q4H Lab 12/22/24 06:00 Ordered TROPONIN Q4H Lab 12/22/24 10:00 Ordered TSH [TSH, 3RD Generation] Stat Lab 12/22/24 02:05 Completed UA W/RFX UR CULTURE Stat Lab 12/21/24 23:03 Completed Medication Summary Discontinued Medications Generic Name Dose Route Start Last Admin Trade Name Freq PRN Reason Stop Dose Admin Droperidol 0.625 mg 12/21/24 21:44 12/21/24 21:50 Droperidol 5 Mg/2 Ml Vial IV 12/21/24 21:45 0.625 mg STAT ONE Administration Droperidol Confirm 12/21/24 21:48 Droperidol 5 Mg/2 Ml Vial Administered 12/21/24 21:49 Dose 5 mg .ROUTE .STK-MED ONE Sodium Chloride 1,000 mls @ 999 mls/hr 12/21/24 21:43 12/21/24 22:49 Sodium Chloride 0.9% 1000 Ml IV 12/21/24 22:43 Infused .Q1H1M STA Infusion Sodium Chloride Confirm 12/21/24 21:48 Sodium Chloride 0.9% 1000 Ml Administered 12/21/24 21:49 Dose 1,000 mls @ ud .ROUTE .STK-MED ONE Sodium Chloride 1,000 mls @ 999 mls/hr 12/21/24 23:05 12/22/24 00:20 Sodium Chloride 0.9% 1000 Ml IV 12/22/24 00:05 Infused .Q1H1M STA Infusion Sodium Chloride Confirm 12/21/24 23:12 Sodium Chloride 0.9% 1000 Ml Administered 12/21/24 23:13 Dose 1,000 mls @ ud .ROUTE .STK-MED ONE Lactated Ringer's 1,000 mls @ 500 mls/hr 12/22/24 00:12 12/22/24 02:22 Lactated Ringers IV 12/22/24 02:11 Infused .Q2H ONE Infusion Lactated Ringer's Confirm 12/22/24 00:21 Lactated Ringers Administered 12/22/24 00:22 Dose 1,000 mls @ ud IV .STK-MED ONE Magnesium Sulfate/Dextrose 100 mls @ 200 mls/hr 12/22/24 03:04 12/22/24 03:42 Magnesium 1 Gm / 100 Ml D5w IV 12/22/24 03:33 Infused STAT STA Infusion Magnesium Sulfate/Dextrose Confirm 12/22/24 03:07 Magnesium 1 Gm / 100 Ml D5w Administered 12/22/24 03:08 Dose 100 mls @ ud IV .STK-MED ONE Metoprolol Tartrate 5 mg 12/22/24 01:58 12/22/24 02:04 Metoprolol Tartrate 5 Mg/5 Ml Vial IV 12/22/24 01:59 5 mg STAT ONE Administration Metoprolol Tartrate Confirm 12/22/24 02:02 Metoprolol Tartrate 5 Mg/5 Ml Vial Administered 12/22/24 02:03 Dose 5 mg IV .STK-MED ONE Ondansetron HCl 4 mg 12/21/24 23:05 12/21/24 23:16 Ondansetron Hcl 4 Mg/2 Ml Vial IV 12/21/24 23:06 4 mg STAT ONE Administration Ondansetron HCl Confirm 12/21/24 23:12 Ondansetron Hcl 4 Mg/2 Ml Vial Administered 12/21/24 23:13 Dose 4 mg .ROUTE .STK-MED ONE Pantoprazole Sodium 40 mg 12/21/24 21:43 12/21/24 21:50 Pantoprazole 40 Mg Vial IV 12/21/24 21:44 40 mg STAT ONE Administration Pantoprazole Sodium Confirm 12/21/24 21:48 Pantoprazole 40 Mg Vial Administered 12/21/24 21:49 Dose 40 mg IV .STK-MED ONE Lab/Rad Data: Laboratory Result Diagrams 12/21/24 21:45 12/21/24 21:45 Laboratory Results 12/22/24 12/22/24 12/22/24 Range/Units 02:05 02:05 02:05 WBC (3.98-10.04) x10^3/uL RBC (3.93-5.22) x10^6/uL Hgb (11.2-15.7) g/dL Hct (34.1-44.9) % MCV (79.4-94.8) fL MCH (25.6-32.2) pg MCHC (32.2-35.5) g/dL RDW (11.7-14.4) % Plt Count (182-369) x10^3/uL MPV (9.4-12.3) fL Gran % (34.0-71.1) % Immature Gran % (Auto) (0.001-0.429) % Nucleat RBC Rel Count (0.00-0.2) % Eos # (Auto) (0.04-0.36) x10^3/uL Immature Gran # (Auto) (0.001-0.031) x10^3u/L Absolute Lymphs (auto) (1.18-3.74) x10^3/uL Absolute Monos (auto) (0.24-0.86) x10^3/uL Absolute Nucleated RBC (0.00-0.012) x10^3u/L Lymphocytes % (19.3-51.7) % Monocytes % (4.7-12.5) % Eosinophils % (0.7-5.8) % Basophils % (0.1-1.2) % Absolute Granulocytes (1.56-6.13) x10^3/uL Basophils # (0.01-0.08) x10^3/uL Sodium (135-145) mmol/L Potassium (3.5-5.1) mmol/L Chloride (98-107) mmol/L Carbon Dioxide (22-30) mmol/L Anion Gap (5-15) MEQ/L BUN (7-17) mg/dL Creatinine (0.52-1.04) mg/dL Estimated GFR ML/MIN Glucose (74-106) mg/dL Lactic Acid (0.4-2.0) Calcium (8.4-10.2) mg/dL Magnesium 1.4 L (1.6-2.3) mg/dL Total Bilirubin (0.2-1.3) mg/dL AST (14-36) U/L ALT (0-35) U/L Alkaline Phosphatase (38-126) U/L Troponin I < 0.012 (0.000-0.033) ng/mL Serum Total Protein (6.3-8.2) g/dL Albumin (3.5-5.0) g/dL Amylase (30-110) U/L Lipase (23-300) U/L Free T4 1.28 (0.78-2.19) ng/dL TSH 3rd Generation 0.408 L (0.470-4.680) mIU/L Serum HCG, Qual (NEGATIVE) Urine Color (Yellow) Urine Appearance (Clear) Urine pH (4.6-8.0) Ur Specific [place] (1.005-1.030) Urine Protein (Negative) Urine Glucose (UA) (Negative) mg/dL Urine Ketones (Negative) Urine Blood (Negative) Urine Nitrite (Negative) Urine Bilirubin (Negative) Urine Urobilinogen (0.2) mg/dL Ur Leukocyte Esterase (Negative) U Hyaline Cast (Auto) (0-2) /LPF Urine Microscopic RBC (0-5) /HPF Urine Microscopic WBC (0-5) /HPF Ur Epithelial Cells (None Seen) /HPF Urine Bacteria (None Seen) /HPF Urine Culture Reflexed (NO) Monoscreen (NEGATIVE) Influenza Type A Ag (NEGATIVE) Influenza Type B Ag (NEGATIVE) RSV (PCR) (NEGATIVE) SARS-CoV-2 (PCR) (NEGATIVE) Slides for Path Review 12/22/24 12/21/24 12/21/24 Range/Units 01:57 23:03 21:50 WBC (3.98-10.04) x10^3/uL RBC (3.93-5.22) x10^6/uL Hgb (11.2-15.7) g/dL Hct (34.1-44.9) % MCV (79.4-94.8) fL MCH (25.6-32.2) pg MCHC (32.2-35.5) g/dL RDW (11.7-14.4) % Plt Count (182-369) x10^3/uL MPV (9.4-12.3) fL Gran % (34.0-71.1) % Immature Gran % (Auto) (0.001-0.429) % Nucleat RBC Rel Count (0.00-0.2) % Eos # (Auto) (0.04-0.36) x10^3/uL Immature Gran # (Auto) (0.001-0.031) x10^3u/L Absolute Lymphs (auto) (1.18-3.74) x10^3/uL Absolute Monos (auto) (0.24-0.86) x10^3/uL Absolute Nucleated RBC (0.00-0.012) x10^3u/L Lymphocytes % (19.3-51.7) % Monocytes % (4.7-12.5) % Eosinophils % (0.7-5.8) % Basophils % (0.1-1.2) % Absolute Granulocytes (1.56-6.13) x10^3/uL Basophils # (0.01-0.08) x10^3/uL Sodium (135-145) mmol/L Potassium (3.5-5.1) mmol/L Chloride (98-107) mmol/L Carbon Dioxide (22-30) mmol/L Anion Gap (5-15) MEQ/L BUN (7-17) mg/dL Creatinine (0.52-1.04) mg/dL Estimated GFR ML/MIN Glucose (74-106) mg/dL Lactic Acid 1.7 (0.4-2.0) Calcium (8.4-10.2) mg/dL Magnesium (1.6-2.3) mg/dL Total Bilirubin (0.2-1.3) mg/dL AST (14-36) U/L ALT (0-35) U/L Alkaline Phosphatase (38-126) U/L Troponin I (0.000-0.033) ng/mL Serum Total Protein (6.3-8.2) g/dL Albumin (3.5-5.0) g/dL Amylase (30-110) U/L Lipase (23-300) U/L Free T4 (0.78-2.19) ng/dL TSH 3rd Generation (0.470-4.680) mIU/L Serum HCG, Qual (NEGATIVE) Urine Color Yellow (Yellow) Urine Appearance Clear (Clear) Urine pH 5.5 (4.6-8.0) Ur Specific [place] 1.020 (1.005-1.030) Urine Protein Trace A (Negative) Urine Glucose (UA) Negative (Negative) mg/dL Urine Ketones Trace A (Negative) Urine Blood Negative (Negative) Urine Nitrite Negative (Negative) Urine Bilirubin Negative (Negative) Urine Urobilinogen 0.2 (0.2) mg/dL Ur Leukocyte Esterase Negative (Negative) U Hyaline Cast (Auto) 3-5 A (0-2) /LPF Urine Microscopic RBC 0-2 (0-5) /HPF Urine Microscopic WBC 0-2 (0-5) /HPF Ur Epithelial Cells Rare (None Seen) /HPF Urine Bacteria None Seen (None Seen) /HPF Urine Culture Reflexed NO (NO) Monoscreen (NEGATIVE) Influenza Type A Ag NEGATIVE (NEGATIVE) Influenza Type B Ag NEGATIVE (NEGATIVE) RSV (PCR) NEGATIVE (NEGATIVE) SARS-CoV-2 (PCR) NEGATIVE (NEGATIVE) Slides for Path Review 12/21/24 12/21/24 12/21/24 Range/Units 21:45 21:45 21:45 WBC (3.98-10.04) x10^3/uL RBC (3.93-5.22) x10^6/uL Hgb (11.2-15.7) g/dL Hct (34.1-44.9) % MCV (79.4-94.8) fL MCH (25.6-32.2) pg MCHC (32.2-35.5) g/dL RDW (11.7-14.4) % Plt Count (182-369) x10^3/uL MPV (9.4-12.3) fL Gran % (34.0-71.1) % Immature Gran % (Auto) (0.001-0.429) % Nucleat RBC Rel Count (0.00-0.2) % Eos # (Auto) (0.04-0.36) x10^3/uL Immature Gran # (Auto) (0.001-0.031) x10^3u/L Absolute Lymphs (auto) (1.18-3.74) x10^3/uL Absolute Monos (auto) (0.24-0.86) x10^3/uL Absolute Nucleated RBC (0.00-0.012) x10^3u/L Lymphocytes % (19.3-51.7) % Monocytes % (4.7-12.5) % Eosinophils % (0.7-5.8) % Basophils % (0.1-1.2) % Absolute Granulocytes (1.56-6.13) x10^3/uL Basophils # (0.01-0.08) x10^3/uL Sodium 141 (135-145) mmol/L Potassium 4.4 (3.5-5.1) mmol/L Chloride 104 (98-107) mmol/L Carbon Dioxide 22 (22-30) mmol/L Anion Gap 20.1 H (5-15) MEQ/L BUN 18 H (7-17) mg/dL Creatinine 0.70 (0.52-1.04) mg/dL Estimated GFR 116.3 ML/MIN Glucose 171 H (74-106) mg/dL Lactic Acid (0.4-2.0) Calcium 9.6 (8.4-10.2) mg/dL Magnesium (1.6-2.3) mg/dL Total Bilirubin 0.80 (0.2-1.3) mg/dL AST 40 H (14-36) U/L ALT 50 H (0-35) U/L Alkaline Phosphatase 108 (38-126) U/L Troponin I (0.000-0.033) ng/mL Serum Total Protein 8.2 (6.3-8.2) g/dL Albumin 4.9 (3.5-5.0) g/dL Amylase 59 (30-110) U/L Lipase 148 (23-300) U/L Free T4 (0.78-2.19) ng/dL TSH 3rd Generation (0.470-4.680) mIU/L Serum HCG, Qual NEGATIVE (NEGATIVE) Urine Color (Yellow) Urine Appearance (Clear) Urine pH (4.6-8.0) Ur Specific [place] (1.005-1.030) Urine Protein (Negative) Urine Glucose (UA) (Negative) mg/dL Urine Ketones (Negative) Urine Blood (Negative) Urine Nitrite (Negative) Urine Bilirubin (Negative) Urine Urobilinogen (0.2) mg/dL Ur Leukocyte Esterase (Negative) U Hyaline Cast (Auto) (0-2) /LPF Urine Microscopic RBC (0-5) /HPF Urine Microscopic WBC (0-5) /HPF Ur Epithelial Cells (None Seen) /HPF Urine Bacteria (None Seen) /HPF Urine Culture Reflexed (NO) Monoscreen NEGATIVE (NEGATIVE) Influenza Type A Ag (NEGATIVE) Influenza Type B Ag (NEGATIVE) RSV (PCR) (NEGATIVE) SARS-CoV-2 (PCR) (NEGATIVE) Slides for Path Review 12/21/24 12/21/24 Range/Units 21:45 21:43 WBC 17.1 H (3.98-10.04) x10^3/uL RBC 5.42 H (3.93-5.22) x10^6/uL Hgb 15.6 (11.2-15.7) g/dL Hct 47.2 H (34.1-44.9) % MCV 87.1 (79.4-94.8) fL MCH 28.8 (25.6-32.2) pg MCHC 33.1 (32.2-35.5) g/dL RDW 12.4 (11.7-14.4) % Plt Count 301 (182-369) x10^3/uL MPV 11.5 (9.4-12.3) fL Gran % 90.4 H (34.0-71.1) % Immature Gran % (Auto) 0.4 (0.001-0.429) % Nucleat RBC Rel Count 0.0 (0.00-0.2) % Eos # (Auto) 0.05 (0.04-0.36) x10^3/uL Immature Gran # (Auto) 0.07 H (0.001-0.031) x10^3u/L Absolute Lymphs (auto) 0.55 L (1.18-3.74) x10^3/uL Absolute Monos (auto) 0.94 H (0.24-0.86) x10^3/uL Absolute Nucleated RBC 0.00 (0.00-0.012) x10^3u/L Lymphocytes % 3.2 L (19.3-51.7) % Monocytes % 5.5 (4.7-12.5) % Eosinophils % 0.3 L (0.7-5.8) % Basophils % 0.2 (0.1-1.2) % Absolute Granulocytes 15.47 H (1.56-6.13) x10^3/uL Basophils # 0.03 (0.01-0.08) x10^3/uL Sodium (135-145) mmol/L Potassium (3.5-5.1) mmol/L Chloride (98-107) mmol/L Carbon Dioxide (22-30) mmol/L Anion Gap (5-15) MEQ/L BUN (7-17) mg/dL Creatinine (0.52-1.04) mg/dL Estimated GFR ML/MIN Glucose (74-106) mg/dL Lactic Acid 2.5 H (0.4-2.0) Calcium (8.4-10.2) mg/dL Magnesium (1.6-2.3) mg/dL Total Bilirubin (0.2-1.3) mg/dL AST (14-36) U/L ALT (0-35) U/L Alkaline Phosphatase (38-126) U/L Troponin I (0.000-0.033) ng/mL Serum Total Protein (6.3-8.2) g/dL Albumin (3.5-5.0) g/dL Amylase (30-110) U/L Lipase (23-300) U/L Free T4 (0.78-2.19) ng/dL TSH 3rd Generation (0.470-4.680) mIU/L Serum HCG, Qual (NEGATIVE) Urine Color (Yellow) Urine Appearance (Clear) Urine pH (4.6-8.0) Ur Specific [place] (1.005-1.030) Urine Protein (Negative) Urine Glucose (UA) (Negative) mg/dL Urine Ketones (Negative) Urine Blood (Negative) Urine Nitrite (Negative) Urine Bilirubin (Negative) Urine Urobilinogen (0.2) mg/dL Ur Leukocyte Esterase (Negative) U Hyaline Cast (Auto) (0-2) /LPF Urine Microscopic RBC (0-5) /HPF Urine Microscopic WBC (0-5) /HPF Ur Epithelial Cells (None Seen) /HPF Urine Bacteria (None Seen) /HPF Urine Culture Reflexed (NO) Monoscreen (NEGATIVE) Influenza Type A Ag (NEGATIVE) Influenza Type B Ag (NEGATIVE) RSV (PCR) (NEGATIVE) SARS-CoV-2 (PCR) (NEGATIVE) Slides for Path Review YES - Progress Progress: improved, re-examined Progress Note: 12/21/24 23:10 My medical decision making and the assignment of moderate complexity is based on review of the patient's past medical history, reviewed patient's medication list, reviewed the patient drug allergy list, history present illness and physical findings on examination. The workup in this patient includes placement of intravenous line, infusion of normal saline solution, infusion of IV Protonix and IV droperidol, CBC, CMP, amylase, lipase, urinalysis, CT scan of the abdomen pelvis without contrast, viral swabs, monotest. Differential diagnosis includes but is not limited to food poisoning, pancreatitis, colitis, diverticulitis, appendicitis, viral illness, mononucleosis, urinary tract infection, dehydration The CT scan of the abdomen pelvis without contrast was interpreted by the radiologist and I reviewed the impression. The impression states normal CT scan of the abdomen pelvis without contrast. I interpreted the patient's laboratory data results. Based on the laboratory data results, patient has a significant leukocytosis with a left shift. This is likely secondary to the multiple episodes of vomiting she has had. Her transaminases are slightly elevated and her anion gap is also elevated. Patient, I believe, is dehydrated. 12/22/24 00:35 The patient states she is starting to feel better. She does not quite want something to drink yet. And we will provide her with another liter of fluid but slow the rate of infusion. 12/22/24 01:36 I interpreted the twelve-lead EKG which shows sinus tachycardia with a heart rate of 116. She has a normal axis deviation, normal intervals and normal QRS. She has no evidence of acute ischemia on this twelve-lead EKG 12/22/24 04:48 The patient, clinically, states that she is feeling much better. She denies shortness of breath. She denies chest pain she wants to go home. I rehydrated her her systolic blood pressure is now 121 respiratory rate 17 and a room her oxygen saturation is 96 to 97%. However her heart rate, when she is active jum ps back up into the 120s. When she is resting it is down in the 114 bpm range. It is sinus tachycardia. I told her my preference would be that she would be placed in observation to continue monitoring and intervention as necessary. The patient declines. I told her that her symptoms could worsen and that she could experience a myocardial infarction secondary to this. I told her she needed to sign AGAINST MEDICAL ADVICE form. She agrees to sign the AMA form. She also states that she will speak to her primary care provider this morning. I told her and her that if her symptoms recur, or worsen, she is to return to the emergency department immediately Counseled pt/family regarding: lab results, diagnosis, rad results Medical Desision Making - Independent Historian Additional History obtained from: Spouse - Diagnostic Testing Diagnostic test were ordered, analyzed, and reviewed by me: Yes Radiological Interpretation: Reviewed by me, Teleradiologist Report - Risk of complications The pt has a mod risk of morbidity or mortality based on: Need for prescription drug management - Departure Departure Disposition: AMA Clinical Impression: Dehydration, Vomiting and diarrhea, Viral illness, Sinus tachycardia Condition: Fair Critical Care Time: No Referrals: ZUNILDA ALMANZAR BAND LEADER [Primary Care Provider] - Follow up/PCP as directed Instructions: Nausea and vomiting in adults Additional Instructions: Drink plenty of clear liquids. Slowly advance your diet after taking in clear liquids well. Avoid fatty greasy spicy foods. Take your medications as prescribed. Call your prescribing provider tomorrow, 12/22/2024, to make arranges for follow-up appointment to be seen in the next 2 to 3 days Prescriptions: Ondansetron ODT 4 MG [Zofran Odt 4 mg] 4 mg PO Q6H PRN PRN #10 tablet PRN Reason: Vomiting
[2024-12-21 21:41] VITALS: TEMP 96.9
[2024-12-21] MEDS ORDERED: Inapsine 5 MG/2 ML ONE (21:48)
[2024-12-21] MEDS ORDERED: Sodium Chloride 0.9% 1000 ML 1,000 ML ONE ×2 (21:48→23:12)
[2024-12-21] MEDS ORDERED: PROTONIX 40 MG IV IV ONE (21:48)
[2024-12-21] MEDS: Sodium Chloride 0.9% 1000 ML 1,000 ML IV STA ×2 (21:49→23:16)
[2024-12-21 21:50] LABS: Absolute Neutrophil Ct (ANC) 15.47 x10^3/uL (1.56-6.13); BASOPHIL % 0.2 % (0.1-1.2); Basophil (Absolute #) 0.03 x10^3/uL (0.01-0.08); Eosinophil % 0.3 % (0.7-5.8); Eosinophil (Absolute #) 0.05 x10^3/uL (0.04-0.36); Hematocrit 47.2 % (34.1-44.9); Hemoglobin 15.6 g/dL (11.2-15.7); IMMATURE GRAN # 0.07 x10^3u/L (0.001-0.031); IMMATURE GRAN % 0.4 % (0.001-0.429); Lymphocyte (Absolute #) 0.55 x10^3/uL (1.18-3.74); Lymphocytes % 3.2 % (19.3-51.7); Mean Cell Volume 87.1 fL (79.4-94.8); Mean Corpuscular Hemoglobin 28.8 pg (25.6-32.2); Mean Corpuscular Hgb Concent. 33.1 g/dL (32.2-35.5); Mean Platelet Volume 11.5 fL (9.4-12.3); Monocyte (Absolute #) 0.94 x10^3/uL (0.24-0.86); Monocytes % 5.5 % (4.7-12.5); Neutrophil % 90.4 % (34.0-71.1); Platelet Count 301 x10^3/uL (182-369); Red Blood Count 5.42 x10^6/uL (3.93-5.22); Red Cell Distribution Width 12.4 % (11.7-14.4); White Blood Count 17.1 x10^3/uL (3.98-10.04)
[2024-12-21] MEDS: PROTONIX 40 MG IV IV ONE (21:50)
[2024-12-21] MEDS: Inapsine 5 MG/2 ML IV ONE (21:50)
[2024-12-21 22:04] LABS: ALBUMIN 4.9 g/dL (3.5-5.0); ANION GAP 20.1 MEQ/L (5-15); BILIRUBIN,TOTAL 0.8 mg/dL (0.2-1.3); Calcium 9.6 mg/dL (8.4-10.2); Creatinine 1 0.7 mg/dL (0.52-1.04); EST GLOMERULAR FILTRATION RATE 116.3 ML/MIN; Potassium 4.4 mmol/L (3.5-5.1); Total Protein 8.2 g/dL (6.3-8.2)
[2024-12-21 22:05] LABS: HCG SERUM TEST NEGATIVE (NEGATIVE)
[2024-12-21 22:30] LABS: INFLUENZA A NEGATIVE (NEGATIVE); INFLUENZA B NEGATIVE (NEGATIVE); RESPIRATORY SYNCTIAL VIRUS NEGATIVE (NEGATIVE); SARS-CoV-2 Xpert Express NEGATIVE (NEGATIVE)
[2024-12-21] MEDS ORDERED: Zofran 4 MG/2 ML VIAL ONE (23:12)
[2024-12-21 23:13] LABS: Appearance Clear (Clear); Bacteria None Seen /HPF (None Seen); Bilirubin Negative (Negative); Blood Negative (Negative); Epithelial Cells Rare /HPF (None Seen); Glucose, Urine Negative (Negative); Ketones Trace (Negative); Leukocyte Esterase Negative (Negative); Nitrite Negative (Negative); Ph 5.5 (4.6-8.0); Protein,Urine Dip Trace (Negative); RBC 0-2 /HPF (0-5); Urobilinogen 0.2 mg/dL (0.2); WBC 0-2 /HPF (0-5)
[2024-12-21] MEDS: Zofran 4 MG/2 ML VIAL IV ONE (23:16)
[2024-12-22 00:15] LABS: Slide Review 1 YES
[2024-12-22] MEDS ORDERED: Lactated Ringers 1,000 ML IV ONE (00:21)
[2024-12-22] MEDS: Lactated Ringers 1,000 ML IV ONE (00:22)
[2024-12-22] MEDS ORDERED: LOPRESSOR INJECTION IV ONE (02:02)
[2024-12-22] MEDS: LOPRESSOR INJECTION IV ONE (02:04)
[2024-12-22 02:36] LABS: MAGNESIUM 1.4 mg/dL (1.6-2.3); TROPONIN < 0.012 ng/mL (0.000-0.033)
[2024-12-22] MEDS ORDERED: Magnesium 1 Gm / 100 Ml D5W*** 100 ML IV ONE (03:07)
[2024-12-22] MEDS: Magnesium 1 Gm / 100 Ml D5W*** 100 ML IV STA (03:12)
[2024-12-22 04:38] VITALS: BP 121/91; PULSE 114; RESP 20; O2SAT 96
--- NOTE | 2024-12-22 08:50 | XRAY ---
Indication: Multiple vomiting. Multiple contiguous axial images obtained through the abdomen and pelvis without contrast. Comparison: April 11, 2024 Lung bases clear. Heart not enlarged. Noncontrasted stomach and bowel loops appear nonobstructed again with normal appendix. Stable fatty liver and cholecystectomy. No free fluid/air. Remaining liver, pancreas, spleen, adrenal glands, kidneys, ureters, bladder, and aorta are unremarkable for noncontrast exam. Osseous structures intact. Impression: Stable fatty liver. Remaining CT abdomen/pelvis without contrast exam continues to be negative.
== END 2024-12-22 04:55 | disposition left against medical advice (07) ==
LOC: ED 21:14
DX: B34.9 Viral infection, unspecified (principal); R11.2 Nausea with vomiting, unspecified; R19.7 Diarrhea, unspecified; E86.0 Dehydration; R00.0 Tachycardia, unspecified; R10.84 Generalized abdominal pain; Z79.899 Other long term (current) drug therapy
CPT/HCPCS: 0241U; 36415; 74176; 80053; 81001; 82150; 83605; 83690; 83735; 84439; 84443; 84484; 84703; 85025; 86308; 93005; 96361; 96365; 96375; 99285; 96374; J1790; J2405; J3475